=== PATIENT | male | born 1935 | race Caucasian/White ===

== ENCOUNTER 2021-01-14 08:28 | Outpatient (CLI) | payer MEDICARE, SELFPAY ==
--- NOTE | ~2021-01-14 | US_ITS ---
EXAMINATION: US retroperitoneal duplex ltd DATE: 01/14/2021 13:19 CDT INDICATION: Hypertension. TECHNIQUE: Sonographic imaging of the kidneys was performed with a 3.5 MHz transducer. Retroperitone al duplex sonogram of the renal arteries also obtained. FINDINGS: No focal flow abnormalities are seen in the renal arteries on color Doppler. The peak syst olic velocity ranges of the right and left renal arteries and aorta are 88 cm per second, 68 cm per s econd, and 56 cm per second, respectively. The velocities and renal to aortic ratios are within pasquale l limits. IMPRESSION: 1. No Doppler evidence of renal artery stenosis. Reviewed, dictated and finalized at location A.
== END 2021-01-14 08:29 | disposition home or self-care (01) ==
PROVIDERS: PCP Internal Medicine; Visit Provider Internal Medicine Nephrology
DX: I10 Essential (primary) hypertension (principal)
CPT/HCPCS: 93976

== ENCOUNTER 2021-05-20 14:53 | Outpatient (CLI) | payer MEDICARE, SELFPAY ==
--- NOTE | ~2021-05-20 | XR_ITS ---
EXAMINATION: XR chest 2V 05/20/2021 15:07 INDICATION: Chronic kidney disease PROCEDURE: 2 view chest COMPARISON: 05/12/2019 FINDINGS: The lungs are clear. The cardiomediastinal silhouette is within normal limits. There are no pleural effusions. There is no pneumothorax suspected. IMPRESSION: 1: NO ACUTE CARDIOPULMONARY DISEASE. Reviewed, dictated and finalized at location A.
== END 2021-05-20 14:54 | disposition home or self-care (01) ==
LOC: ANHIMG 14:55
PROVIDERS: PCP Internal Medicine; Visit Provider Internal Medicine Nephrology
DX: R06.02 Shortness of breath (principal); N18.4 Chronic kidney disease, stage 4 (severe)
CPT/HCPCS: 71046

== ENCOUNTER 2021-06-17 07:59 | Outpatient (CLI) | payer MEDICARE, SELFPAY ==
--- NOTE | ~2021-06-17 | NM_ITS ---
EXAMINATION: NM parvin stress w perfusion DATE: 06/17/2021 10:04 INDICATION: Dyspnea on exertion. TECHNIQUE: Rest images were obtained following intravenous administration of 9.4 mCi Tc99m tetrofosmi n (Myoview). The patient was infused intravenously with Lexiscan (regadenoson). Then, 29.8 mCi Tc99m tetrofosmin (Myoview) was administered intravenously, and stress images were obtained. Data was recon structed into short axis and horizontal and vertical long axis SPECT images. Gated SPECT images were also obtained. COMPARISON: None. FINDINGS: There is no definite reversible or fixed perfusion abnormality to suggest ischemia or infar ction. There is no segmental wall motion abnormality. Left ventricular ejection fraction measures 6 6%. IMPRESSION: 1. No definite ischemia or infarct. 2. Normal left ventricular ejection fraction measuring 66%. Reviewed, dictated and finalized at location A.
--- NOTE | 2021-06-17 08:41 | EST_ITS ---
Patient Info Name: Esequiel Sharma Age: 86 years : 1935 Gender: Male Ht: 70 in Wt: 235 lbs BSA: 2.33 m2 HR: 61 bpm BP: 168 / 79 mmHg Heart Rhythm: Sinus Rhythm Exam Date: 06/17/2021 9:02 AM Exam Location: [facility] Stress Patient Status: Outpatient Admit Date: 06/17/2021 Staff Ordering Physician: Harish Thomson DO Attending Provider: Harish Thomson DO Exercise Technologist: Ning Wilson CT Exercise Physician: Adrien Singh DO Exam Type: CA stress parvin w NM Study Info Indications R06.00 - Dyspnea, unspecified A regadenoson stress test was performed. Summary 1. 1. Negative lexiscan stress test for ischemic ST changes by ECG criteria. 2. 2. Baseline hypertension. 3. 3. Nuclear scan to follow and will be reported separately. Please correlate with it. 4. 4. Patient informed of the above results. Protocol: Lexiscan Stress ECG Details Stage: REST Duration (min): 5 min : 17 sec HR (bpm): 62 SBP (mmHg): 168 DBP (mmHg): 79 Stage: REST Duration (min): 12 min : 8 sec HR (bpm): 64 SBP (mmHg): 168 DBP (mmHg): 79 Stage: STAGE 1 Duration (min): 1 min : 0 sec HR (bpm): 93 SBP (mmHg): 193 DBP (mmHg): 67 Stage: RECOVERY Duration (min): 1 min : 0 sec HR (bpm): --- SBP (mmHg): 193 DBP (mmHg): 67 Stage: RECOVERY Duration (min): 2 min : 0 sec HR (bpm): 72 SBP (mmHg): 193 DBP (mmHg): 67 Stage: RECOVERY Duration (min): 3 min : 0 sec HR (bpm): 73 SBP (mmHg): 190 DBP (mmHg): 67 Stage: RECOVERY Duration (min): 3 min : 4 sec HR (bpm): 72 SBP (mmHg): 190 DBP (mmHg): 67 Rest HR: 64 bpm Peak HR: 101 bpm Rest Sys BP: 168 mmHg Peak Sys BP: 193 mmHg Max Pred HR: 136 bpm % Max Pred HR: 74 % Target HR: 116 bpm Max RPP: 19,493 bpm*mmHg Termination Reason: Completed protocol Cardiac Symptoms: Shortness of breath Total Time: 1 min : 0 sec Rest Bernal BP: 79 mmHg Peak Bernal BP: 67 mmHg Total Dose: 0.4 mg Resting ECG Sinus rhythm. Stress ECG No ST changes. Arrhythmias None. Report Signatures
== END 2021-06-17 08:00 | disposition home or self-care (01) ==
LOC: ANHCARD 08:02
PROVIDERS: PCP Internal Medicine; Visit Provider Internal Medicine
DX: R06.00 Dyspnea, unspecified (principal); I77.9 Disorder of arteries and arterioles, unspecified
CPT/HCPCS: 78452; 93017; A9502; J2785

== ENCOUNTER → 2021-11-27 02:49 | Outpatient (CLI) | payer MEDICARE, SELFPAY ==
[2021-11-27 12:54] LABS: Influenza A QL RT-PCR Negative (Negative); Influenza B QL RT-PCR Negative (Negative); SARS-CoV-2 RNA PCR Negative
== END ==
PROVIDERS: PCP Internal Medicine; Visit Provider Nurse Practitioner
DX: R11.2 Nausea with vomiting, unspecified (principal); R19.7 Diarrhea, unspecified; R68.89 Other general symptoms and signs; Z20.822 Contact with and (suspected) exposure to COVID-19
CPT/HCPCS: 87502; C9803; U0003; U0005

== ENCOUNTER 2022-07-14 16:14 | Outpatient (CLI) | payer MEDICARE, SELFPAY ==
--- NOTE | ~2022-07-14 | XR_ITS ---
EXAMINATION: XR forearm RT 2V INDICATION: Right forearm pain TECHNIQUE: Two views of the right forearm are obtained. COMPARISON: None available FINDINGS: Bone alignment is normal. There is no fracture. There is mild osteoarthritis of the wrist a nd elbow. Soft tissue swelling is seen overlying the mid forearm. There is calcified atherosclerosis. IMPRESSION: 1. Soft tissue swelling without acute osseous abnormality. Reviewed, dictated and finalized at location F. 'S SWIM COACH
== END 2022-07-14 16:15 | disposition home or self-care (01) ==
PROVIDERS: PCP Internal Medicine; Visit Provider Internal Medicine
DX: M79.601 Pain in right arm (principal); M79.89 Other specified soft tissue disorders
CPT/HCPCS: 73090

== ENCOUNTER 2022-07-18 14:52 | Outpatient (CLI) | payer MEDICARE, SELFPAY ==
--- NOTE | ~2022-07-18 | US_ITS ---
EXAMINATION: US venous doppler UE RT DATE: 07/18/2022 15:47 INDICATION: Right forearm pain. TECHNIQUE: Grayscale ultrasound images without and with compression and Doppler ultrasound images of the right upper extremity veins were obtained. COMPARISON: None. FINDINGS: The visualized portions of the right internal jugular vein, subclavian vein, axillary vein, brachial veins, basilic vein, radial vein, and ulnar vein are patent. There is thrombus in right cephalic vein . IMPRESSION: 1. No deep venous thrombosis. 2. Thrombus in right cephalic vein, which is a superficial vein. Reviewed, dictated and finalized at location A. STRIAL MILLWRIGHT
== END 2022-07-18 14:53 | disposition home or self-care (01) ==
PROVIDERS: PCP Internal Medicine; Visit Provider Internal Medicine
DX: M79.631 Pain in right forearm (principal); M79.89 Other specified soft tissue disorders
CPT/HCPCS: 93971

== ENCOUNTER → 2022-12-04 14:43 | Outpatient (CLI) | payer MEDICARE, SELFPAY ==
--- NOTE | ~2022-12-04 | XR_ITS ---
XR knee LT min 4V DATE: 12/04/2022 15:00 INDICATION: Chronic right knee pain for 2 years TECHNIQUE: 4 views COMPARISON: None FINDINGS: There is tricompartment osteoarthritis, most severe at the medial and patellofemoral compar tments. No fracture or dislocation or joint effusion. No periosteal reaction or bone destruction. No chondroc alcinosis or radiopaque intra-articular loose body is noted. There is severe calcification of the femoral, popliteal arteries IMPRESSION: Prominent tricompartment osteoarthritis Reviewed, dictated and finalized at location A.
--- NOTE | ~2022-12-04 | XR_ITS ---
XR knee RT min 4V DATE: 12/04/2022 15:00 INDICATION: Right knee chronic pain for 2 years TECHNIQUE: 4 views COMPARISON: None FINDINGS: There is tricompartment osteoarthritis, most severe at the medial and patellofemoral compar tments. No fracture or dislocation or joint effusion. No periosteal reaction or bone destruction. There is severe calcification of the femoral and popliteal arteries as well as some prominent trifurc ation artery calcification. IMPRESSION: Tricompartment osteophytes, most prominent at the patellofemoral and medial compartments Reviewed, dictated and finalized at location A. IMPRESSION: Tricompartment osteophytes, most prominent at the patellofemoral an d medial compartments
== END ==
PROVIDERS: PCP Family Medicine; Visit Provider Nurse Practitioner Family
DX: M25.561 Pain in right knee (principal); M25.761 Osteophyte, right knee; M17.12 Unilateral primary osteoarthritis, left knee
CPT/HCPCS: 73564

== ENCOUNTER 2023-01-19 14:07 | Outpatient (CLI) | payer MEDICARE, SELFPAY ==
--- NOTE | ~2023-01-19 | US_ITS ---
US renal BI 01/19/2023 15:18 Procedure: Realtime transabdominal ultrasound of the kidneys and bladder. Indication: Benign essential hypertension Comparison: No prior studies for comparison. Findings: Renal echotexture is normal bilaterally without hydronephrosis, contour deforming mass or r enal calculus. There are bilateral renal cysts, largest in the right kidney measuring 7 cm per The ri ght kidney measures 11.7 cm and left kidney measures 13 cm. Bladder within normal limits. Impression: 1: Unremarkable renal ultrasound. No stones, masses or hydronephrosis. Reviewed, dictated and finalized at location B. Impression: 1: Unremarkable renal ultrasound. No stones, masses or hydronephrosis.
== END 2023-01-19 14:08 | disposition home or self-care (01) ==
PROVIDERS: PCP Nurse Practitioner Family; Visit Provider Internal Medicine Nephrology
DX: N40.0 Benign prostatic hyperplasia without lower urinary tract symptoms (principal); E78.5 Hyperlipidemia, unspecified; E11.43 Type 2 diabetes mellitus with diabetic autonomic (poly)neuropathy; I12.9 Hypertensive chronic kidney disease with stage 1 through stage 4 chronic kidney disease, or unspecified chronic kidney disease; N18.4 Chronic kidney disease, stage 4 (severe); N39.41 Urge incontinence; I73.9 Peripheral vascular disease, unspecified
CPT/HCPCS: 76775

== ENCOUNTER 2023-03-04 17:16 | Emergency (ER) | payer MEDICARE, SELFPAY ==
--- NOTE | ~2023-03-04 | XR_ITS ---
XR tibia fibula LT 2V DATE: 03/04/2023 19:09 INDICATION: Fall. Lower leg injury, pain TECHNIQUE: AP and lateral views COMPARISON: None FINDINGS: Tricompartment osteophyte is, most pronounced at the patellofemoral compartment. No fracture, dislocation, periosteal reaction or bone destruction of the tibia or fibula is detected. Plantar calcaneal enthesopathy. Extensive calcification of the femoral and popliteal arteries as well as trifurcation artery calcific ations. IMPRESSION: No fracture or dislocation Reviewed, dictated and finalized at location A. IMPRESSION: No fracture or dislocation
--- NOTE | ~2023-03-04 | XR_ITS ---
XR knee LT 3V DATE: 03/04/2023 20:08 INDICATION: Fall. Knee pain. TECHNIQUE: 3 views COMPARISON: December 04, 2022 left knee FINDINGS: There is tricompartment osteophyte is, most severe at the lateral compartment where there i s minimal residual joint space. There is periarticular spurring at all 3 compartments, particularly a t the patellofemoral compartment. No fracture or dislocation or obvious joint effusion is noted. No radiopaque intra-articular loose body or chondrocalcinosis. No periosteal reaction or bone destruction. Severe femoral, popliteal and trifurcation artery calcifications. IMPRESSION: Tricompartment osteoarthritis No fracture or dislocation or apparent joint effusion Reviewed, dictated and finalized at location A.
[2023-03-04 17:34] VITALS: BP 142/52; PULSE 68; RESP 18; TEMP 36.3; O2SAT 100
--- NOTE | 2023-03-04 20:00 | ED.GENADULT ---
HPI - General Adult General Chief complaint: Extremity Injury, Lower Stated complaint: left leg injury Time Seen by Provider: 03/04/23 19:09 History of Present Illness HPI narrative: This is an 87-year-old gentleman presenting after a fall. Patient was trying to throw something away when his legs got tangled up and he fell. He landed on his left leg. He now has pain over the lateral aspect of his lower extremity. He has been able ambulate since the injury. He not strike his head or have any other injuries from the fall. Patient is on Plavix. Related Data Home Medications Medication Instructions Recorded Confirmed hydrochlorothiazide 25 mg tablet 25 mg PO DAILY 02/18/23 Allergies Allergy/AdvReac Type Severity Reaction Status Date / Time SALEEM Inhibitors Allergy Unknown swelling Verified 03/04/23 20:14 of tongue Cephalosporins Allergy Unknown swelling Verified 03/04/23 20:14 of tongue quinapril Allergy Unknown Swelling Verified 03/04/23 20:14 of Lip/Tongue/Throat PMFSH Past Medical History Medical History (Updated 03/04/23 @ 20:58 by Vasile Arango MD) Actinic keratoses Anemia Anemia in chronic kidney disease Bilateral knee pain Degenerative arthritis of knee, 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 Diabetic peripheral neuropathy Elevated PSA Encounter to establish care Essential (primary) hypertension Foot deformity, acquired History of depression Macular pucker Nasal cavity polyp Nasal sinus polyp Nausea vomiting and diarrhea 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 Urge incontinence of urine Urinary hesitancy UTI (urinary tract infection) Surgical History Surgical History H/O adenoidectomy History of appendectomy History of repair of rotator cuff Hx of tonsillectomy S/P cataract surgery Family History Family History Father Family history of osteoarthritis Cerebrovascular accident Patient's father is in good health Mother Family history of malignant neoplasm, Onset Age: 59 Patient's mother is in good health Sibling Family history of malignant neoplasm Family history of arthritis Social History Social History Smoking status: Never smoker Second hand tobacco smoke exposure: No Alcohol intake: never Substance use: never Substance use type: does not use Lack of Transportation: No Lack of Food: Never True Current Housing: I Have Housing Concerned About Future Housing: No Difficulty Paying Gas/Electric Bills: No Difficulty Paying for Meds: No Currently Unemployed: No Education: Associate Degree Difficulty w/ Childcare or Family Care: No Living arrangements: alone Occupation/Education: retired Exam Narrative: APPEARANCE: No apparent distress. Head: atraumatic. EYES: EOMI, NOSE: Atraumatic NECK: Trachea midline RESPIRATORY: No increased rate of breathing CARDIOVASCULAR: RRR, ABDOMINAL: Non-distended MUSCULOSKELETAl: focal exam of the left lower extremity revealed no significant swelling as compared to the right leg. There are no overlying skin changes or bruising. The compartments are soft. Patient is able to move his toes and the foot is warm. He has intact flexion extension at the ankle and at the knee. He is able to bear weight although it is painful. NEURO: Alert. Moving 4/4 extremities SKIN:: Warm, dry. Normal color PSYCHIATRIC: Normal affect Course Vital Signs Vital signs: Vital Signs Temperature 97.4 F L 03/04/23 17:34 Pulse Rate 68 03/04/23 17:34 Respiratory Rate 18 03/04/23 17:34 Blood Pressure 142/52 H 03/04/23 17:34 Pulse Oximetry 100 03/04/23 17:34 Oxygen Delivery Room Air 03/04/23 17:34 Temperature 97.4 F L 03/04/23 17:34 Pulse Rate 68 03/04/23 17:34 Re
[2023-03-04] MEDS: ACETAMINOPHEN 500 MG TABLET 1000 MG PO (20:15)
== END 2023-03-04 21:16 | disposition home or self-care (01) ==
PROVIDERS: Emergency Provider Emergency Medicine; PCP Nurse Practitioner Family
DX: S86.912A Strain of unspecified muscle(s) and tendon(s) at lower leg level, left leg, initial encounter (principal); E11.22 Type 2 diabetes mellitus with diabetic chronic kidney disease; I12.9 Hypertensive chronic kidney disease with stage 1 through stage 4 chronic kidney disease, or unspecified chronic kidney disease; N18.4 Chronic kidney disease, stage 4 (severe); D63.1 Anemia in chronic kidney disease; E11.42 Type 2 diabetes mellitus with diabetic polyneuropathy; N40.0 Benign prostatic hyperplasia without lower urinary tract symptoms; H35.379 Puckering of macula, unspecified eye; Z87.440 Personal history of urinary (tract) infections; Z86.2 Personal history of diseases of the blood and blood-forming organs and certain disorders involving the immune mechanism; Z98.49 Cataract extraction status, unspecified eye; Z79.84 Long term (current) use of oral hypoglycemic drugs; M17.12 Unilateral primary osteoarthritis, left knee; W01.0XXA Fall on same level from slipping, tripping and stumbling without subsequent striking against object, initial encounter
CPT/HCPCS: 73562; 73590; 99284; A9270

== ENCOUNTER 2023-09-01 10:22 | Outpatient (CLI) | payer MEDICARE, SELFPAY ==
--- NOTE | ~2023-09-01 | NM_ITS ---
EXAMINATION: NM bone scan whole body DATE: 09/01/2023 15:05 INDICATION: Prostate cancer TECHNIQUE: 26.7 mCi Tc-99m HDP was administered intravenously. Delayed whole-body scintigrams were o btained. COMPARISON: Left knee and lower leg radiographs dated 03/04/2023 and bilateral knee radiographs dated . No more recent imaging for comparison. FINDINGS: Likely degenerative mild joint centered uptake at the medial compartments of both knees, right greate r than left. No other suspicious foci of abnormal bone uptake to suggest metastatic disease. IMPRESSION: 1. No evident metastatic disease. Reviewed, dictated and finalized at location A. CONTENT EXECUTIVE
== END 2023-09-01 10:23 | disposition home or self-care (01) ==
PROVIDERS: PCP Nurse Practitioner Family; Visit Provider Urology
DX: C61 Malignant neoplasm of prostate (principal)
CPT/HCPCS: 78306; A9503

== ENCOUNTER 2023-09-04 09:46 | Outpatient (CLI) | payer MEDICARE, SELFPAY ==
--- NOTE | ~2023-09-04 | CT_ITS ---
EXAMINATION: CT abdomen pelvis wo con DATE: 09/04/2023 10:46 INDICATION: Prostate cancer TECHNIQUE: Computed tomography (CT) of the abdomen and pelvis was performed without intravenous contr ast. Automated exposure control and iterative reconstruction technique were employed. Exam dose: 851 .87 mGy-cm total exam DLP. COMPARISON: 09/01/2023 bone scan 04/01/2015 CT abdomen pelvis 03/31/2015 CT abdomen pelvis FINDINGS: The lung bases are clear of infiltrate or consolidation. Normal heart size. There is extensive coronary artery calcification. Prominent mitral annulus calcifi cation. There is some aortic valve calcification. No pericardial or pleural effusion. Calcified left hilar nodes and calcified splenic granulomas consi stent with old granulomatous disease. 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 There is an adjacent kyree roximately 5.1 cm lower pole exophytic right renal cyst. Indeterminate approximately 1.9 cm hypoattenuating lesion at the superior pole of the right kidney, n ot evident on 03/31/2015, with attenuation of approximately 21 Hounsfield units. There are at least several indeterminate approximately 3 cm, 11 mm and 12 mm hypoattenuating lesions of the left kidney. Consider CT examination with IV contrast material or MRI for further evaluation. Multiple scattered small bilateral nonobstructing renal calculi. No ureteral calculus or hydrouretero nephrosis. There is extensive calcification of the abdominal aorta and the proximal celiac, superior mesenteric and renal arteries. No abdominal aortic aneurysm. Prominent calcification of the iliac and femoral ar teries. No intraperitoneal or retroperitoneal or pelvic mass lesion or adenopathy or ascites. There is moderate diffuse thickening of the urinary bladder and mild prostate enlargement. There is diverticulosis of the sigmoid colon; no CT evidence of diverticulitis. No bowel obstruction, bowel wall thickening, pneumatosis or intraperitoneal free air. Small fat-containing umbilical hernia. Diffuse idiopathic skeletal hyperostosis of the thoracic spine. 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 Consider CT with IV contrast material or MR for further evaluation Nonobstructive bilateral nephrolithiasis Diverticulosis of sigmoid colon; no evidence of diverticulitis Dr. Bauer telephoned the report on 09/04/20[address] Garduno. Reviewed, dictated and finalized at Location A. Reviewed, dictated and finalized at location B. 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 Consider CT with IV contrast mater ial or MR for further evaluation Nonobstructive bilateral nephrolithiasis Diverticulosis of sigmoid colon; no evidence of diverticulitis Dr. Bauer telephoned the report on 09/04/2023 [address] Garduno.
[2023-09-04 10:30] LABS: Estimated Glomerular Filt Rate 16
== END 2023-09-04 09:47 | disposition home or self-care (01) ==
PROVIDERS: PCP Nurse Practitioner Family; Visit Provider Urology
DX: C61 Malignant neoplasm of prostate (principal); N28.9 Disorder of kidney and ureter, unspecified; N20.0 Calculus of kidney; K57.90 Diverticulosis of intestine, part unspecified, without perforation or abscess without bleeding
CPT/HCPCS: 74176

== ENCOUNTER 2023-11-20 15:29 | Emergency (ER) | payer MEDICARE, SELFPAY ==
--- NOTE | 2023-11-20 15:31 | ED.URI ---
HPI - URI/Sore Throat General Chief Complaint: Upper Respiratory Infection Stated Complaint: Sore Throat Time Seen by Provider: 11/20/23 15:30 Source: patient Mode of arrival: ambulatory Limitations: no limitations History of Present Illness HPI Narrative: Patient is an 88-year-old male who presents with right-sided sore throat that started yesterday. Patient was at a and is unsure if he had sick contacts. Denies any worsening congestion and postnasal drip. Denies any fever, chills, nausea, vomiting, diarrhea. Has taken [id number] medication without relief. Related Data Home Medications Medication Instructions Recorded Confirmed ascorbate calcium (vitamin C) 500 500 mg PO DAILY 10/26/23 11/20/23 mg tablet ascorbic acid (vitamin C) 1,500 mg 1,500 mg PO Q12H 10/26/23 11/20/23 tablet,extended release cholecalciferol (vitamin D3) 125 125 mcg PO DAILY 10/26/23 11/20/23 mcg (5,000 unit) capsule flaxseed oil 1,000 mg capsule 1,000 mg PO DAILY 10/26/23 11/20/23 mecobalamin (vitamin B12) 1,000 1,000 mcg sublingual DAILY 10/26/23 11/20/23 mcg disintegrating tablet,sublingual hydrochlorothiazide 25 mg tablet 25 mg PO DAILY 11/20/23 11/20/23 Allergies Allergy/AdvReac Type Severity Reaction Status Date / Time SALEEM Inhibitors Allergy Intermediate swelling Verified 11/20/23 15:31 of tongue Cephalosporins Allergy Intermediate swelling Verified 11/20/23 15:31 of tongue quinapril Allergy Intermediate Swelling Verified 11/20/23 15:31 of Lip/Tongue/Throat Review of Systems Review of Systems: All systems reviewed & are unremarkable except as noted in HPI and below Constitutional: Constitutional: Denies body ache(s), Denies chills, Denies fatigue, Denies fever(s), Denies headache(s), Denies malaise and Denies weakness Eyes: Eyes: Denies blurry vision, Denies itchy eyes and Denies loss of vision ENT: Denies otalgia, Denies headache(s), Denies nasal congestion, Denies sinus pain and Reports sore throat Cardiovascular: Cardiovascular: Denies chest pain, Denies irregular heart rhythm and Denies dyspnea Respiratory: Respiratory: Denies cough and Denies dyspnea Gastrointestinal: Gastrointestinal: Denies abdominal pain, Denies diarrhea, Denies nausea and Denies vomiting Musculoskeletal: Musculoskeletal: Denies back pain, Denies myalgias and Denies arthralgias Integumentary/Breasts: Skin/Breast: Denies pruritus and Denies rash Neurologic: Denies headache(s), Denies loss of vision and Denies weakness Psychiatric: Psychiatric: Reports no additional psychiatric complaints Endocrine: Endocrine: Denies fatigue Allergic/Immunologic: Allergic/Immunologic: Denies itchy eyes PMFSH Past Medical History Medical History Actinic keratoses Anemia Anemia in chronic kidney disease Bilateral knee pain Degenerative arthritis of knee, bilateral Depression Diabetes mellitus type 2 in obese Diabetic peripheral neuropathy Elevated PSA Encounter to establish care Essential (primary) hypertension Foot deformity, acquired History of depression Macular pucker Nasal cavity polyp Nasal sinus polyp Nausea vomiting and diarrhea Osteoarthritis of left knee 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 Urge incontinence of urine Urinary hesitancy UTI (urinary tract infection) Surgical History Surgical History H/O adenoidectomy History of appendectomy History of repair of rotator cuff Hx of tonsillectomy S/P cataract surgery Family History Family History Father Family history of osteoarthritis Cerebrovascular accident Patient's father is in good health Mother Family history of malignant neoplasm, Onset Age: 59 Patient's mother is in good health Sibling Family history of malignant neop
[2023-11-20 15:45] VITALS: BP 146/63; PULSE 74; RESP 16; TEMP 36.6; O2SAT 100
== END 2023-11-20 16:15 | disposition home or self-care (01) ==
PROVIDERS: Emergency Provider Nurse Practitioner Family; PCP Nurse Practitioner Family
DX: J02.9 Acute pharyngitis, unspecified (principal); M17.0 Bilateral primary osteoarthritis of knee; I12.9 Hypertensive chronic kidney disease with stage 1 through stage 4 chronic kidney disease, or unspecified chronic kidney disease; E11.22 Type 2 diabetes mellitus with diabetic chronic kidney disease; N18.4 Chronic kidney disease, stage 4 (severe); E11.42 Type 2 diabetes mellitus with diabetic polyneuropathy; D64.9 Anemia, unspecified
CPT/HCPCS: 87081; 87880; 99213; G0463

== ENCOUNTER 2024-01-22 08:45 | Outpatient (CLI) | payer MEDICARE, SELFPAY ==
--- NOTE | ~2024-01-22 | XR_ITS ---
Right Knee Technique: AP, lateral, and sunrise views were obtained. Clinical History: Pain Findings: No fracture or dislocation is seen. There is medial compartment narrowing with [id number] appearance. There is moderate to advanced tricompartmental osteophyte formation.. Soft tissues are u nremarkable. No joint effusion is seen. Impression: Moderate to advanced tricompartmental osteoarthritis, worst in the medial and patellofemoral compartm ent. Reviewed, dictated and finalized at location M. Impression: Moderate to advanced tricompartmental osteoarthritis, worst in the medial and p atellofemoral compartment.
--- NOTE | ~2024-01-22 | XR_ITS ---
Left Knee Technique: AP, lateral, and sunrise views were obtained. Clinical History: Pain Findings: No fracture or dislocation is seen. There is medial compartment narrowing. There is moderat e to advanced tricompartmental osteophyte formation.. Soft tissues are unremarkable. No joint effusio n is seen. Impression: Moderate to advanced tricompartmental osteoarthritis, as above. Reviewed, dictated and finalized at location M. Impression: Moderate to advanced tricompartmental osteoarthritis, as above.
== END 2024-01-22 08:46 | disposition home or self-care (01) ==
PROVIDERS: PCP Nurse Practitioner Family; Visit Provider Orthopaedic Surgery
DX: M17.0 Bilateral primary osteoarthritis of knee (principal)
CPT/HCPCS: 73564

== ENCOUNTER 2024-02-06 02:44 | Inpatient (IN) | payer MEDICARE, SELFPAY ==
[2024-02-06] VITALS (30 sets, daily range): BP systolic 115–165; BP diastolic 47–87; PULSE 68–117; RESP 18–36; TEMP 36.3–38.1; O2SAT 58–100; BMI 31.6
--- NOTE | ~2024-02-06 | XR_ITS ---
XR chest 1V portable DATE: 02/06/2024 03:35 INDICATION: Shortness of breath, pulmonary edema TECHNIQUE: Portable upright AP chest on 02/06/2024 at 0329 hours COMPARISON: 05/20/2021 PA and lateral chest FINDINGS: Cardiomegaly. There are prominent bilateral pulmonary infiltrates which most prominent centrally and in the lower l david zones, especially on the left lower lung. There is pulmonary vascular congestion. The findings nash ggest congestive heart failure and pulmonary edema. Pneumonia is not excluded. There is minimal fatty pleural effusions. No pneumothorax. Aortic arch calcification. Diffuse osteopenia. Several anchor devices overlying the right humeral head. Osteoarthritis of the gl enohumeral joints. IMPRESSION: Cardiomegaly, prominent bilateral predominantly central and lower lung zone infiltrates s uggesting pulmonary edema. Pneumonia is not excluded Reviewed, dictated and finalized at location A. IMPRESSION: Cardiomegaly, prominent bilateral predominantly central and lower l david zone infiltrates suggesting pulmonary edema. Pneumonia is not excluded
--- NOTE | ~2024-02-06 | US_ITS ---
US renal BI Ordering provider: Ricky Benites MD History: . renal failure . Comparison: None. Technique: Ultrasound bilateral kidneys. Findings: RIGHT KIDNEY: Measures 9.8x 5.9x 6.1 cm in length which is normal in size. Multiple cysts are seen. T he largest is seen inferiorly measuring 6.4 x 6.7 x 6.9 cm No renal mass or visualized echogenic ston es. Slightly increased echogenicity. Otherwise, normal contour. No hydronephrosis. Normal renal corti finn thickness. LEFT KIDNEY: Measures 11x 5.1x 5.3 cm in length which is normal in size. No renal cysts. No renal mas s or visualized echogenic stones. Slightly increased echogenicity. Otherwise, normal contour. No hydr onephrosis. Normal renal cortical thickness. BLADDER: Not seen due to Romo's catheter Left pleural effusion is seen. IMPRESSION: Multiple cysts in the right kidney. Slightly increased echogenicity of both kidneys. Left pleural effusion. Reviewed, dictated and finalized at location A.
--- NOTE | ~2024-02-06 | XR_ITS ---
XR chest 1V portable Ordering provider: Ricky Benites MD History: 88 years Male with . sob . Comparison: February 06, 2024 FINDINGS: MEDIASTINUM: The cardiac silhouette is slightly enlarged. Congestive ladarius. LUNGS: There is space disease seen bilaterally more prominent in the left mid and lower zone. The dif ferential includes pneumonia and pulmonary edema. OTHER: Degenerative changes of the spine. No free air under the diaphragm. IMPRESSION: Airspace disease seen bilaterally more prominent in the left mid and lower zone suggestive of pneumon ia versus pulmonary edema. Reviewed, dictated and finalized at location A. IMPRESSION: Airspace disease seen bilaterally more prominent in the left mid and lower zone suggestive of pneumonia versus pulmonary edema.
[2024-02-06] MEDS: FUROSEMIDE INJ 40 MG/4 ML VIAL IV PUSH ×2 (02:57→03:10)
--- NOTE | 2024-02-06 03:22 | ECG_ITS ---
[facility] [address] Test Date: 2024-02-06 Pat Name: Esequiel Sharma Department: Room: 203 Gender: M Legal Administrative Assistant: Mary : 1935 Requested By: Antolin Lamas Order Number: [id number] Reading MD: Singh Styles M.D. Measurements Intervals Peetz Rate: 121 P: 0 UT: 0 QRS: 43 QRSD: 130 T: 55 QT: 323 QTc: 460 Interpretive Statements REDUCED ECG QUALITY BECAUSE OF BASELINE ARTIFACT SINUS TACHYCARDIA INTRAVENTRICULAR CONDUCTION DELAY NONSPECIFIC ST AND T-WAVE CHANGES ABNORMAL ECG WARNING: DATA QUALITY MAY AFFECT INTERPRETATION No previous ECG available for comparison Electronically Signed On 02-06-2024 08:09:52 CDT by Singh Styles M.D.
[2024-02-06] MEDS: METOPROLOL TARTRATE INJ 5 MG/5 ML VIAL IV PUSH (03:33)
[2024-02-06 03:41] LABS: Alveolar/Arterial O2 Gradient 385.7 mmHg; Base Excess ABG -13.6 mEq/l (+/-2.0); Carboxyhemoglobin 0.3 % THb (0-2.0); Fractional Inspired Oxygen 80 %; HCO3 ABG 17.8 mEq/l (22.0-26.0); Methemoglobin ABG 0.1 %THb (0-1.5); Oxygen Saturation ABG 95.3 % (95.0-100.0); Oxyhemoglobin 95.2 % THb (90.0-100.0); PO2 ABG 111.2 mmHg (80.0-100.0); PO2 FiO2 Ratio Arterial Blood 1.39 %; Reduced Hemoglobin 4.4 %THb (0-5.0); Total Hemoglobin 11.8 g/dL (12.0-18.0)
[2024-02-06 03:44] LABS: Lactic Acid Reflex 4.5 mmol/L (0.7-2.0)
[2024-02-06 03:48] LABS: Device BIPAP; Modified Allen's Test Pass; Site Drawn LEFT RADIAL
[2024-02-06 03:49] LABS: Inspiratory Pressure 14 cmH2O
[2024-02-06 03:50] LABS: Expiratory Pressure 7 cmH2O
[2024-02-06] MEDS: methylPREDNISolone SOD SUCC 125 MG VIAL IV PUSH (03:51)
[2024-02-06] MEDS: LORazepam INJ (*CRX) 2 MG/ML VIAL 0.5 MG IV PUSH (03:54)
[2024-02-06] MEDS: HEPARIN SOD/D5W 100 UNITS/ML 25,000 UNITS/250 ML BAG 10 UNITS IV CONT (03:58)
[2024-02-06 04:07] LABS: pH ABG 7.023 (7.350-7.450)
[2024-02-06 04:09] LABS: Basophils Absolute Auto 0.1 K/mm3 (0.0-0.1); Basophils Percent Auto 0.7 % (0.2-1.2); Eosinophils Absolute Auto 0.1 K/mm3 (0-0.3); Eosinophils Percent Auto 0.5 % (0-4.4); Hematocrit 33.6 % (42.0-52.0); Hemoglobin 10.4 g/dL (14.0-18.0); Immature Granulocyte Absolute 0.13 K/mm3 (0.00-0.031); Immature Granulocyte Percent A 0.7 % (0-0.5); Lymphocytes Absolute Auto 5.34 K/mm3 (0.9-3.2); Lymphocytes Percent Auto 27.1 % (18.3-44.2); Mean Corpuscular Hemoglobin 30.2 pg (26-34); Mean Corpuscular Volume 97.7 fl (80-100); Mean Platelet Volume 11.6 fl (7.4-10.4); Monocytes Absolute Auto 1.3 K/mm3 (0.1-0.6); Monocytes Percent Auto 6.7 % (2.6-8.5); Neutrophils Absolute Auto 12.7 K/mm3 (1.3-6.7); Neutrophils Percent Auto 64.3 % (45.5-73.1); Platelet Count Result 250 k/mm3 (150-375); Red Blood Count 3.44 M/mm3 (4.6-6.20); Red Cell Distribution Width 13.6 % (11.5-14.5); White Blood Count 19.7 K/mm3 (4.5-10.0)
[2024-02-06] MEDS: LEVALBUTEROL NEB 1.25 MG/3 ML 0.63 MG INHALATION (04:16)
[2024-02-06] MEDS: IPRATROPIUM BR 0.02% INH SOLN 0.5 MG/2.5 ML VIAL INHALATION (04:17)
[2024-02-06 04:19] LABS: INR 1.1
[2024-02-06 04:21] LABS: Partial Thromboplastin Time 76.2 Seconds (22.3-36.8)
--- NOTE | 2024-02-06 04:21 | PM.IMHP ---
H&P: HPI History of Present Illness Date/Time: 02/06/24 04:21 Chief Complaint: Patient transferred from [facility] for chest pain, developed flash pulmonary edema and NSTEMI during ambulance transfer Narrative: RAPID RESPONSE CODE: Our patient is an 88 years old keen who was in his usual state of health until yesterday afternoon when he started to have chest pain, intensity 7/10, located in the anterior chest with radiation to neck jaw and left upper arm, associated with some palpitations and shortness of breath but no sweating. Patient went to [facility] Emergency Room where he was worked up. First set of cardiac enzymes was borderline elevated. They did not have a corporate aircraft mechanic available hence ER physician reached out to me and I accepted the patient transfer. Before transferring, patient had another set of cardiac enzymes and his high sensitivity troponin increased from 84 to 598! Patient was started on IV heparin drip for NSTEMI and transferred to our facility via ambulance. When patient was about 10 minutes away from our hospital, he suddenly started having worsening shortness of breath and his O2 sats dropped into 70s. Patient started on oxygen via non-rebreather mask and brought to our IMU for admission, started on BiPAP and rapid response code was called. Review of Systems Review of Systems: Unable to be obtained as patient had significant dyspnea and was on BiPAP ROS unobtainable: Yes unobtainable due to medical condition PMFSH Past Medical History Medical History Actinic keratoses Anemia Anemia in chronic kidney disease Bilateral knee pain Degenerative arthritis of knee, bilateral Depression Diabetes mellitus type 2 in obese Diabetic peripheral neuropathy Elevated PSA Encounter to establish care Essential (primary) hypertension Foot deformity, acquired History of depression Macular pucker Nasal cavity polyp Nasal sinus polyp Nausea vomiting and diarrhea Osteoarthritis of left knee 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 Urge incontinence of urine Urinary hesitancy UTI (urinary tract infection) Surgical History Surgical History H/O adenoidectomy History of appendectomy History of repair of rotator cuff Hx of tonsillectomy S/P cataract surgery Family History Family History Father Family history of osteoarthritis Cerebrovascular accident Patient's father is in good health Mother Family history of malignant neoplasm, Onset Age: 59 Patient's mother is in good health Sibling Family history of malignant neoplasm Family history of arthritis Social History Social History Smoking status: Never smoker Second hand tobacco smoke exposure: No Alcohol intake: never Substance use: never Substance use type: does not use Lack of Transportation: No Lack of Food: Never True Current Housing: I Have Housing Concerned About Future Housing: No Difficulty Paying Gas/Electric Bills: No Difficulty Paying for Meds: No Currently Unemployed: No Education: Associate Degree Difficulty w/ Childcare or Family Care: No Living arrangements: alone Occupation/Education: retired Meds Home Medications and Allergies Home Medications Medication Instructions Recorded Confirmed Type cholecalciferol (vitamin D3) 125 50 mcg PO DAILY 10/26/23 02/06/24 History mcg (5,000 unit) capsule flaxseed oil 1,000 mg capsule 1,000 mg PO DAILY 10/26/23 02/06/24 History mecobalamin (vitamin B12) 1,000 1,000 mcg sublingual DAILY 10/26/23 02/06/24 History mcg disintegrating tablet,sublingual citalopram 20 mg tablet 20 mg PO DAILY #90 tabs 10/27/23 02/06/24 Rx atorvastatin 80 mg tablet 80 mg PO DAILY 02/06/24 02/06/24 Histor
[2024-02-06 04:34] LABS: Platelet Estimate Adequate (Adequate)
[2024-02-06 04:35] LABS: Acanthocytes 1+; Anisocytosis 2+
[2024-02-06 04:36] LABS: Burr Cells 1+; Ovalocytes 1+; Schistocytes Rare
--- NOTE | 2024-02-06 04:58 | ADMGEN ---
This patient, Esequiel Sharma, was admitted to IMU Room 203-01. Patient/family oriented to hospital policies and general routines including ID bracelet, bed and alarms, visiting hours, pain management, procedures, bathroom and other care routines, personal items, smoking policy, room service/diet, and visiting hours. Information on how to activate the Rapid Response Team has been discussed. Patient/Family are encouraged to report perceived risks to care and to ask questions if they do not understand what they are told or what they should do.
--- NOTE | 2024-02-06 05:00 | PC.NURSE ---
Patient arrived to unit at 0245. No heparin infusing upon arrival. Patient showing signs of flash pulmonary edema including diaphoresis, gasping, new pitting edema to lower extremities, pulse ox in the 50s. This RN, charge nurse, and yard warehouse worker at bedside. This RN called provider, Dr. Lamas, to bedside. Patient continued desatting in 50s. Rapid response called at 0258.
[2024-02-06] MEDS: SODIUM BICARBONATE 8.4% 50 MEQ/50 ML SYRINGE 105 MEQ IV PUSH (06:02)
--- NOTE | 2024-02-06 06:12 | ECHO_ITS ---
Patient Info Name: Esequiel Sharma Age: 88 years : 1935 Gender: Male Ht: 70 in Wt: 231 lbs BSA: 2.31 m2 HR: 68 bpm BP: 155 / 78 mmHg Heart Rhythm: Sinus Rhythm Technical Quality: Fair Exam Date: 02/06/2024 7:56 AM Exam Location: Echo Lab Patient Status: Inpatient Admit Date: 02/06/2024 Staff Ordering Physician: Antolin Lamas MD Statistical Reporting Analyst: Yuriy Krishnamurthy RDCS Attending Provider: Antolin Lamas MD Exam Type: CA echo dop color flow w con Study Info Indications - flash pulmonary edema I21.4 - Non-ST elevation (NSTEMI) myocardial infarction Complete two-dimensional, color flow and Doppler transthoracic echocardiogram is performed with contrast to opacify the left ventricle and to improve the deliniation of the left ventricle endocardial borders. Contrast/Agitated Saline Contrast/Ag. Saline: Definity Amount: 5.00 ml Existing IV Access: Yes Summary 1. Mild left ventricular enlargement with reduced systolic function ejection fraction 35-40%. 2. Akinesis of the mid to anteroseptal segments and apex. 3. Hypokinesia of the anterior wall. 4. Calcified mitral valve annulus with mild left atrial enlargement. 5. Mildly sclerotic aortic valve. Left Ventricle Left ventricular chamber dimension is mildly enlarged. Left ventricular systolic function is moderately reduced, estimated at 35-40%. The left ventricular diastolic function is grade I diastolic dysfunction. Right Ventricle Right ventricular chamber dimension is normal. Left Atria Left atrial chamber dimension is moderately enlarged. Right Atria Right atrial chamber dimension is normal. Aortic Valve The aortic valve is trileaflet. There is mild aortic valve sclerosis. Pulmonic Valve The pulmonic valve is not well visualized. Mitral Valve The mitral valve has normal leaflets. There is trace mitral valve regurgitation. Tricuspid Valve The tricuspid valve leaflets are normal. Pericardium/Pleural The pericardium appears normal. Aorta The aortic root size at the sinus of Valsalva is normal. Left Ventricular Outflow Tract Name Value Normal LVOT 2D LVOT Diameter 2.13 cm LVOT Doppler LVOT Peak Gradient 6 mmHg LVOT Mean Gradient 3 mmHg LVOT VTI 27.13 cm LVOT VTI/AV VTI Ratio 0.92 LVOT Stroke Volume 96.68 ml LVOT CO 6.43 l/min LVOT CI 2.79 L/min/m2 Pulmonic Valve Name Value Normal PV Doppler PV Peak Gradient 6 mmHg Mitral Valve Name Value Normal MV Doppler MV Peak Gradient
[2024-02-06 06:16] LABS: Reflex Lactic Acid Yes or No Add Lactic
[2024-02-06] MEDS: AZITHROMYCIN 500 MG/NS 250 ML 500 MG/250 ML BAG 250 MG IVPB (06:18)
[2024-02-06 06:35] LABS: Magnesium 1.8 mg/dL (1.6-2.3)
[2024-02-06 06:37] LABS: Lactic Acid Reflex 4.2 mmol/L (0.7-2.0)
[2024-02-06] MEDS: MEROPENEM 1 GM/NS 100 ML BAG IVPB ×2 (08:00→18:35)
[2024-02-06] MEDS: PERFLUTREN LIPID MICROSPHERES 1.5 ML VIAL DILUTED TO 10 ML TOTAL VOLUME IV PUSH (09:42)
--- NOTE | 2024-02-06 09:43 | IVDEFINITY ---
Prior to administration of IV Definity the patient was educated on the risks and benefits of the imaging enhancing agent including potential adverse side effects. The patient verbalized understanding. Allergies were verified. No exclusion criteria were identified and at least one of the following inclusion criteria were met: 1) physician request, 2) patient technically difficult to image (per the [place] [employer] guidelines of two or more segments not discernable within the apical view), or 3) questionable left ventricular function. ?
--- NOTE | 2024-02-06 11:22 | PM.CNCAR ---
Assessment and Plan Assessment and plan (1) NSTEMI (non-ST elevated myocardial infarction): Code(s): I21.4 - Non-ST elevation (NSTEMI) myocardial infarction Status: Acute (2) DNR (do not resuscitate): Code(s): Z66 - Do not resuscitate Status: Acute Plan This is an 88-year-old man with a history of hypertension diabetes and dyslipidemia who presents with non ST elevation NV with chest pain a rise in his troponin and some pulmonary edema last evening. He has been treated with diuretics and BiPAP device and seems to be comfortable and is no longer having chest pain. He was also anticoagulated with heparin. I would like to add aspirin to his medical regimen. I will shift him from diltiazem to modest dose of beta-estelle and continue his statin. His ARB will also be continued. Because of his advanced age, stage 4 kidney disease and DNR status I do not anticipate bringing this gentleman to the cardiac catheterization lab for angiography. His echocardiogram will be helpful in guiding his medical treatment of his coronary disease/ACS non-STEMI. Will follow him with you. Because of his advanced age comorbidities and especially because of stage 4 chronic kidney disease his prognosis is poor Singh Styles MD [facility] History of Present Illness History of Present Illness Consult date/time: 02/06/24 11:22 Reason For Visit: chest pain Narrative: This is an 88-year-old man I am seeing at the request of the hospitalist in the setting of non ST elevation NV. Patient is unknown to me prior to this encounter. He is in IMU with a BiPAP mask in place and as such she is a very difficult historian. He went to the emergency room up in [place] last night because of shortness of breath and chest pain that began to occur when he was at his home. He was in significant respiratory distress and his troponin level in that emergency room was seen to be on the increased and so he was transferred here for higher level of care. The patient apparently has a history of hypertension, non insulin-dependent diabetes and stage 4 chronic kidney disease. 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 He also has expressed wishes for do not resuscitate status on his chart. He was transferred to this hospital and the hospitalist who admitted him last evening called me in the middle of the night to get an opinion as to whether the patient should be brought immediately to the cardiac catheterization lab. I do not see any evidence of an ST-elevation NV in his ECG and so I indicated that was not necessary. He was heparinized and received some diuretics because of congestive heart failure. At the moment he says he is no longer having any chest pain and his breathing is okay but again he is BiPAP. The notes from his family practice/PCP also indicate that he has prostate cancer. 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
[2024-02-06 11:47] LABS: Alveolar/Arterial O2 Gradient 288.3 mmHg; Base Excess ABG -3.9 mEq/l (+/-2.0); Fractional Inspired Oxygen 60 %; Oxygen Content ABG 16.3 %vol (16.0-22.0); Oxygen Saturation ABG 97.3 % (95.0-100.0); Oxyhemoglobin 96.6 % THb (90.0-100.0); PCO2 ABG 37.6 mmHg (35.0-45.0); PO2 ABG 98.1 mmHg (80.0-100.0); PO2 FiO2 Ratio Arterial Blood 1.63 %; Total Hemoglobin 11.9 g/dL (12.0-18.0); pH ABG 7.364 (7.350-7.450)
[2024-02-06 11:48] LABS: Device NON-INVASIVE VENT; Modified Allen's Test Pass; Non-Invasive Expiratory Pressure 7 CMH2O; Non-Invasive Inspiratory Pressure 14 CMH2O; Non-Invasive Vent Rate 12 /MIN; Site Drawn LEFT RADIAL
[2024-02-06] MEDS: CHOLECALCIFEROL 1,000 UNITS TABLET 2000 UNITS PO (13:09)
[2024-02-06] MEDS: CYANOCOBALAMIN 1,000 MCG TABLET 1000 MCG PO (13:10)
[2024-02-06] MEDS: IRBESARTAN 150 MG TABLET 300 MG PO (13:10)
[2024-02-06] MEDS: ATORVASTATIN 40 MG TABLET 80 MG PO (13:11)
[2024-02-06] MEDS: FUROSEMIDE INJ 100 MG/10 ML VIAL 80 MG IV PUSH (13:11)
[2024-02-06] MEDS: GLIMEPIRIDE 2 MG TABLET PO (13:11)
[2024-02-06] MEDS: CLOPIDOGREL BISULFATE 75 MG TABLET PO (13:11)
[2024-02-06] MEDS: CITALOPRAM HYDROBROMIDE 20 MG TABLET PO (13:11)
[2024-02-06] MEDS: METOPROLOL SUCCINATE EXT REL 25 MG TABCR PO (13:12)
[2024-02-06 16:10] LABS: Partial Thromboplastin Time 129.3 Seconds (22.3-36.8)
--- NOTE | 2024-02-06 17:23 | WPDPN ---
Progress Note: A&P Assessment and Plan (1) NSTEMI (non-ST elevated myocardial infarction): Code(s): I21.4 - Non-ST elevation (NSTEMI) myocardial infarction Status: Acute (2) Pulmonary edema cardiac cause: Code(s): I50.1 - Left ventricular failure, unspecified Status: Acute (3) DNR (do not resuscitate): Code(s): Z66 - Do not resuscitate Status: Acute (4) Depression: Code(s): F32.A - Depression, unspecified Status: Acute (5) Diabetes mellitus type 2 in obese: Code(s): E11.69 - Type 2 diabetes mellitus with other specified complication; E66.9 - Obesity, unspecified Status: Acute Plan 02/06/2024 interval history: currently patient is off BIPAP still somnolent but stats feel better compared to when he arrive and denies any chest pain, patient was seen the molder closed molds and does not recommend taking patient to cardiac laborer pole crew to further evaluate for CAD because of his age and commodities, will manage patient medically and monitor. Subjective Date/time seen: 02/06/24 17:23 Interval history: Our patient is an 88 years old keen who was in his usual state of health until yesterday afternoon when he started to have chest pain, intensity 7/10, located in the anterior chest with radiation to neck jaw and left upper arm, associated with some palpitations and shortness of breath but no sweating. Patient went to [facility] Emergency Room where he was worked up. First set of cardiac enzymes was borderline elevated. They did not have a molder closed molds available hence ER physician reached out to me and I accepted the patient transfer. Before transferring, patient had another set of cardiac enzymes and his high sensitivity troponin increased from 84 to 598! Patient was started on IV heparin drip for NSTEMI and transferred to our facility via ambulance. When patient was about 10 minutes away from our hospital, he suddenly started having worsening shortness of breath and his O2 sats dropped into 70s. Patient started on oxygen via non-rebreather mask and brought to our IMU for admission, started on BiPAP and rapid response code was called. 02/06/2024 interval history: currently patient is off BIPAP still somnolent but stats feel better compared to when he arrive and denies any chest pain, patient was seen the molder closed molds and does not recommend taking patient to cardiac laborer pole crew to further evaluate for CAD because of his age and commodities, will manage patient medically and monitor. Review of Systems Review of Systems: ROS unobtainable: Yes unobtainable due to medical condition Exam Narrative: Vital signs: Please see the chart General physical exam: comfortable NAD Head/eyes: Atraumatic, and anicteric ENT: Moist mucous membranes, nasal passages clear Neck: Supple, CVS: S1 + S2, + irregularly irregular rhythm, no murmurs Respiratory: Bilaterally poor air entry in both lung otero, mild B/L crackles, ++ scattered bilateral rales and rhonchi Abdomen: Soft, non-tender, BS+ Extremities: no edema Musculoskeletal: Moves all, decreased range of motion, no muscle spasms Skin: Warm, dry, no jaundice, no cyanosis Objective Data Vital Signs Vital Signs: Vital Signs - 24 hr 02/06/24 03:33 02/06/24 04:00 02/06/24 04:18 Temperature Pulse Rate 116 H 80 Respiratory Rate 29 H Blood Pressure Pulse Oximetry Oxygen Delivery BiPAP Oxygen Flow Rate Fraction of Inspired Oxygen 80 02/06/24 03:45 02/06/24 04:28 02/06/24 05:01 Temperature 36.3 C L Pulse Rate 117 H 82 68 Respiratory Rate 28 H 28 H 28 H Blood Pressure 155/78 H Pulse Oximetry 96 95 Oxygen Delivery BiPAP Oxygen Flow Rate Fraction of Inspired Oxygen 02/06/24 03:00 02/06/24 07:44 02/06/24 04:00 Temperature 36.9 C Pulse Rate 81 83 Respiratory Rate 26 H Blood Pressure 156/87 H 145/47 H Pulse Oximetry 95 Oxygen Delivery Oxygen Flow Rate Fraction
[2024-02-06 23:44] LABS: Partial Thromboplastin Time 117.2 Seconds (22.3-36.8)
[2024-02-07] VITALS (29 sets, daily range): BP systolic 99–122; BP diastolic 45–63; PULSE 54–131; RESP 18–26; TEMP 36.4–37.1; O2SAT 89–100
[2024-02-07] MEDS: MEROPENEM 1 GM/NS 100 ML BAG IVPB ×2 (05:26→17:28)
[2024-02-07] MEDS: AZITHROMYCIN 500 MG/NS 250 ML 500 MG/250 ML BAG 250 MG IVPB (05:56)
[2024-02-07 06:16] LABS: Hematocrit 30.6 % (42.0-52.0); Hemoglobin 9.3 g/dL (14.0-18.0); Mean Corpuscular HGB Conc 30.4 g/dl (32-36); Mean Corpuscular Hemoglobin 29.6 pg (26-34); Mean Corpuscular Volume 97.5 fl (80-100); Mean Platelet Volume 11.5 fl (7.4-10.4); Platelet Count Result 206 k/mm3 (150-375); Red Blood Count 3.14 M/mm3 (4.6-6.20); Red Cell Distribution Width 13.8 % (11.5-14.5); White Blood Count 26.9 K/mm3 (4.5-10.0)
[2024-02-07 06:33] LABS: Lactic Acid Reflex 3.1 mmol/L (0.7-2.0)
[2024-02-07 06:36] LABS: Partial Thromboplastin Time 72.9 Seconds (22.3-36.8)
[2024-02-07 07:08] LABS: Anion Gap 5 mmol/L (4-12); Blood Urea Nitrogen 63 mg/dL (9-20); Calcium 8.6 mg/dL (8.4-10.2); Carbon Dioxide 27 mmol/L (22-30); Chloride 110 mmol/L (98-107); Estimated CRCL calculation 16 ml/min; Estimated Glomerular Filt Rate 16; Glucose 55 mg/dL (65-110); Magnesium 1.8 mg/dL (1.6-2.3); Potassium 5.4 mmol/L (3.4-5.0); Sodium 142 mmol/L (137-145); Troponin I > 80.000 ng/mL (0.000-0.034)
[2024-02-07 07:32] LABS: Glucose Point of Care 66 mg/dl (65-105)
[2024-02-07] MEDS: DEXTROSE 50% 25 GM/50 ML SYRINGE IV PUSH ×7 (07:38→22:06)
[2024-02-07 08:06] LABS: Glucose Point of Care 109 mg/dl (65-105)
--- NOTE | 2024-02-07 08:22 | ECG_ITS ---
[facility] [address] Test Date: 2024-02-07 Pat Name: Esequiel Sharma Department: Room: 203 Gender: M Associate Pathologist: Mary : 1935 Requested By: Singh Evans Order Number: [id number] Tyler MD: Singh Styles M.D. Measurements Intervals [place] Rate: 66 P: -16 [place]: 139 QRS: 28 QRSD: 98 T: 112 QT: 411 QTc: 433 Interpretive Statements SINUS RHYTHM PRECORDIAL T-WAVE ABNORMALITY CONSISTENT WITH ANTERIOR ISCHEMIA ABNORMAL ECG Compared to ECG 02/06/2024 02:59:17 PATIENT IS NO LONGER TACHYCARDIC, ISCHEMIC PRECORDIAL T-WAVE ABNORMALITY IS SEEN Electronically Signed On 02-08-2024 08:00:26 CDT by Singh Styles M.D.
--- NOTE | 2024-02-07 08:37 | PM.PNCARD ---
Progress Note: A&P Assessment and Plan (1) NSTEMI (non-ST elevated myocardial infarction): Code(s): I21.4 - Non-ST elevation (NSTEMI) myocardial infarction Status: Acute Plan 88-year-old man with acute myocardial infarction as described above. He is feeling better this morning, breathing more comfortably and does not have any chest pain. Medications are being adjusted to provide GDMT for his KS/systolic LV dysfunction. Need to avoid Aldactone I believe because of his renal failure and elevated potassium. Will start a maintenance dose of furosemide orally at this time given his renal failure this will have to be a higher dosage. Given his age, LV dysfunction and comorbidities his long-term prognosis is not good. Made this clear to him and he understands. For other reasons he has already made DNR choice which is certainly appropriate Singh Styles MD [facility] Subjective Date/time seen: Date of service: 02/07/24 08:37 Interval history: Follow-up visit in this 88-year-old man with: Acute myocardial infarction as evidence by chest pain, significant pulmonary edema and significant troponin rise consistent with infarction. Echocardiogram also shows significant anterior hypokinesia/akinesia. Patient has comorbidities of hypertension and dyslipidemia as well as stage 4 chronic kidney disease 02/07/2024: Patient feels and looks better today. Off of BiPAP able to have a good conversation with him. Explained to him the serious nature of this event and the reasons we are treating this conservatively rather than with invasive evaluation(cath) . Patient understands all of this well. He is feeling better today no longer having any chest pain and is breathing better, off of BiPAP Exam Const: General: comfortable Other: Pleasant elderly man seated in bed no distress with nasal cannula oxygen in place HENMT: Mouth: Yes moist mucous membranes Eyes: Sclera: sclerae normal Neck: Neck: supple Resp: Effort & Inspection: normal respiratory effort Other: Patient has few coarse rhonchi and some bibasilar rales Cardio: Rate: regular rate Rhythm: regular rhythm Other: No audible murmur GI: GI Palp: Yes Soft to palpation Auscultation: normal bowel sounds Skin: General skin exam: normal color Neuro: Other: Alert and oriented x3 Extrem: Other: Adequate perfusion, no significant edema Objective Data Vital Signs Vital Signs: Vital Signs - 24 hr 02/06/24 08:40 02/06/24 08:52 02/06/24 09:07 Temperature Pulse Rate 74 Respiratory Rate 26 H Blood Pressure Pulse Oximetry 95 95 93 Oxygen Delivery BiPAP BiPAP BiPAP Oxygen Flow Rate Fraction of Inspired Oxygen 70 60 02/06/24 11:32 02/06/24 11:43 02/06/24 11:58 Temperature 37.5 C Pulse Rate 84 84 Respiratory Rate 21 H 22 H Blood Pressure 165/82 H Pulse Oximetry 99 100 97 Oxygen Delivery BiPAP Nasal Cannula Oxygen Flow Rate 6 Fraction of Inspired Oxygen 44 02/06/24 13:12 02/06/24 12:00 02/06/24 10:00 Temperature Pulse Rate 81 89 Respiratory Rate Blood Pressure Pulse Oximetry 100 Oxygen Delivery Nasal Cannula Oxygen Flow Rate 6 Fraction of Inspired Oxygen 02/06/24 12:00 02/06/24 14:00 02/06/24 14:12 Temperature Pulse Rate 81 90 Respiratory Rate Blood Pressure Pulse Oximetry 94 Oxygen Delivery Nasal Cannula Oxygen Flow Rate 4 Fraction of Inspired Oxygen 36 02/06/24 15:53 02/06/24 16:00 02/06/24 16:00 Temperature 38.1 C H Pulse Rate 81 80 Respiratory Rate 24 H Blood Pressure 143/60 H Pulse Oximetry 95 95 Oxygen Delivery Nasal Cannula Oxygen Flow Rate 4 Fraction of Inspired Oxygen 02/06/24 18:00 02/06/24 20:35 02/06/24 20:00 Temperature 37.1 C Pulse Rate 70 71 73 Respiratory Rate 18 Blood Pressure 130/53 L Pulse Oximetry 95 Oxygen Delivery Oxygen Flow Rate Fraction of Inspired Oxygen
[2024-02-07 09:14] LABS: Reflex Lactic Acid Yes or No Add Lactic
[2024-02-07 09:38] LABS: Lactic Acid 2.9 mmol/L (0.7-2.0)
[2024-02-07] MEDS: ATORVASTATIN 40 MG TABLET 80 MG PO (09:42)
[2024-02-07] MEDS: FUROSEMIDE 80 MG TABLET PO (09:42)
[2024-02-07] MEDS: CITALOPRAM HYDROBROMIDE 20 MG TABLET PO (09:42)
[2024-02-07] MEDS: IRBESARTAN 150 MG TABLET 300 MG PO (09:43)
[2024-02-07] MEDS: CHOLECALCIFEROL 1,000 UNITS TABLET 2000 UNITS PO (09:43)
[2024-02-07] MEDS: CYANOCOBALAMIN 1,000 MCG TABLET 1000 MCG PO (09:43)
[2024-02-07] MEDS: METOPROLOL SUCCINATE EXT REL 25 MG TABCR PO (09:43)
[2024-02-07] MEDS: ASPIRIN 81 MG ENTERIC TABLET PO (09:43)
[2024-02-07] MEDS: CLOPIDOGREL BISULFATE 75 MG TABLET PO (09:43)
[2024-02-07] MEDS: GLIMEPIRIDE 2 MG TABLET PO (09:44)
[2024-02-07] MEDS: HEPARIN SOD/D5W 100 UNITS/ML 25,000 UNITS/250 ML BAG 6 UNITS IV CONT (09:51)
[2024-02-07 12:17] LABS: Partial Thromboplastin Time 53.1 Seconds (22.3-36.8)
[2024-02-07 12:30] LABS: Glucose Point of Care 110 mg/dl (65-105)
[2024-02-07 12:30] LABS: Glucose Point of Care 53 mg/dl (65-105)
[2024-02-07] MEDS: HEPARIN SODIUM 5,000 UNITS/ML VIAL 4000 UNITS IV PUSH (13:19)
[2024-02-07] MEDS: ACETAMINOPHEN 325 MG TABLET 650 MG PO (13:24)
[2024-02-07] MEDS: AMIODARONE 150 MG/D5W 100 ML 150 MG/100 ML BAG 600 MG IV CONT (14:28)
[2024-02-07] MEDS: AMIODARONE 360 MG/D5W 200 ML 360 MG/200 ML BAG 33.33 MG IV CONT (14:40)
--- NOTE | 2024-02-07 16:27 | WPDPN ---
Progress Note: A&P Assessment and Plan (1) NSTEMI (non-ST elevated myocardial infarction): Code(s): I21.4 - Non-ST elevation (NSTEMI) myocardial infarction Status: Acute (2) Pulmonary edema cardiac cause: Code(s): I50.1 - Left ventricular failure, unspecified Status: Acute (3) DNR (do not resuscitate): Code(s): Z66 - Do not resuscitate Status: Acute (4) Depression: Code(s): F32.A - Depression, unspecified Status: Acute (5) Diabetes mellitus type 2 in obese: Code(s): E11.69 - Type 2 diabetes mellitus with other specified complication; E66.9 - Obesity, unspecified Status: Acute Plan 02/06/2024 interval history: currently patient is off BIPAP still somnolent but stats feel better compared to when he arrive and denies any chest pain, patient was seen the survey crew chief and does not recommend taking patient to cardiac manager lab to further evaluate for CAD because of his age and commodities, will manage patient medically and monitor. 02/07/2024 interval history: patient did not require BIPAP and this morning patient is doing well on 2L NC, his tropes are climbing and seen by his survey crew chief, patient does not have any chest pain and recommended medical management, patient is placed amiodarone, will monitor qt interval as patient was on zithromax and citalopram, patient with DM, on glimepride, blood sugars in lows 100s, will hold the medication and monitor. patient remains clinically, will monitor Subjective Date/time seen: 02/07/24 16:27 Interval history: Interval history: Our patient is an 88 years old keen who was in his usual state of health until yesterday afternoon when he started to have chest pain, intensity 7/10, located in the anterior chest with radiation to neck jaw and left upper arm, associated with some palpitations and shortness of breath but no sweating. Patient went to [facility] Emergency Room where he was worked up. First set of cardiac enzymes was borderline elevated. They did not have a survey crew chief available hence ER physician reached out to me and I accepted the patient transfer. Before transferring, patient had another set of cardiac enzymes and his high sensitivity troponin increased from 84 to 598! Patient was started on IV heparin drip for NSTEMI and transferred to our facility via ambulance. When patient was about 10 minutes away from our hospital, he suddenly started having worsening shortness of breath and his O2 sats dropped into 70s. Patient started on oxygen via non-rebreather mask and brought to our IMU for admission, started on BiPAP and rapid response code was called. 02/06/2024 interval history: currently patient is off BIPAP still somnolent but stats feel better compared to when he arrive and denies any chest pain, patient was seen the survey crew chief and does not recommend taking patient to cardiac manager lab to further evaluate for CAD because of his age and commodities, will manage patient medically and monitor. 02/07/2024 interval history: patient did not require BIPAP and this morning patient is doing well on 2L NC, his tropes are climbing and seen by his survey crew chief, patient does not have any chest pain and recommended medical management, patient is placed amiodarone, will monitor qt interval as patient was on zithromax and citalopram, patient with DM, on glimepride, blood sugars in lows 100s, will hold the medication and monitor. patient remains clinically, will monitor Review of Systems Review of Systems: patient stats feeling better today compare to yesterday Constitutional: Comments: stats doing well Exam Narrative: Vital signs: Please see the chart General physical exam: comfortable NAD Head/eyes: Atraumatic, and anicteric ENT: Moist mucous membranes, nasal passages clear Neck: Supple, CVS: S1 + S2, + irregularly irregular rhythm, no murmurs Respiratory: Bilaterally poor air entry in
[2024-02-07 16:56] LABS: Glucose Point of Care 52 mg/dl (65-105)
[2024-02-07 16:56] LABS: Glucose Point of Care 56 mg/dl (65-105)
[2024-02-07 16:56] LABS: Glucose Point of Care 60 mg/dl (65-105)
--- NOTE | 2024-02-07 17:11 | ECG_ITS ---
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 Measurements Intervals [place] Rate: 62 P: 47 OR: 146 QRS: 28 QRSD: 130 T: 108 QT: 451 QTc: 460 Interpretive Statements SINUS RHYTHM MODERATE T-WAVE ABNORMALITY, CONSIDER ANTEROLATERAL ISCHEMIA [-0.1+ mV T WAVE IN V3-V6] ABNORMAL ECG INTERPRETATION BASED ON A DEFAULT AGE OF 40 YEARS Compared to ECG 02/07/2024 11:25:33 NO DIFFERENCE Electronically Signed On 02-08-2024 08:06:34 CDT by Singh Styles M.D.
[2024-02-07 17:38] LABS: Glucose Point of Care 82 mg/dl (65-105)
[2024-02-07 20:15] LABS: Glucose Point of Care 40 mg/dl (65-105)
[2024-02-07 20:29] LABS: Partial Thromboplastin Time 117.6 Seconds (22.3-36.8)
[2024-02-07 20:37] LABS: Glucose Point of Care 56 mg/dl (65-105)
[2024-02-07] MEDS: AMIODARONE 360 MG/D5W 200 ML 360 MG/200 ML BAG 16.67 MG IV CONT (20:45)
[2024-02-07 21:28] LABS: Glucose Point of Care 66 mg/dl (65-105)
[2024-02-07 21:47] LABS: Glucose Point of Care 46 mg/dl (65-105)
[2024-02-07] MEDS: GLUCAGON FOR INJ 1 MG VIAL IM (21:50)
[2024-02-07 22:01] LABS: Glucose Point of Care 36 mg/dl (65-105)
[2024-02-07 22:28] LABS: Glucose Point of Care 114 mg/dl (65-105)
[2024-02-07] MEDS: DEXTROSE 5%/0.45% SOD CHL 1,000 ML 75 ML IV CONT (22:51)
[2024-02-07 23:02] LABS: Glucose Point of Care 97 mg/dl (65-105)
--- NOTE | 2024-02-07 23:05 | PC.NURSE ---
Notified Dr. Lamas of blood sugar of 40. Order received to administer 1/2 amp D50 as needed for low blood sugar. No need to call critical blood sugars to MD. Blood glucose results as follows: 2034 56 1/2 amp administered 2105 66 1/2 amp administered 2144 46 1/2 amp administered 2158 36 IM glucagon administered. Call placed to Dr. Lamas. New order for IV fluids.
[2024-02-08] VITALS (22 sets, daily range): BP systolic 116–150; BP diastolic 58–73; PULSE 58–80; RESP 16–24; TEMP 36.7–37.6; O2SAT 92–100
[2024-02-08 00:09] LABS: Glucose Point of Care 60 mg/dl (65-105)
[2024-02-08] MEDS: DEXTROSE 50% 25 GM/50 ML SYRINGE IV PUSH ×6 (00:22→09:30)
[2024-02-08] MEDS: DEXTROSE 10% 1,000 ML 75 ML IV CONT (00:22)
[2024-02-08 00:55] LABS: Glucose Point of Care 165 mg/dl (65-105)
[2024-02-08 02:04] LABS: Glucose Point of Care 44 mg/dl (65-105)
[2024-02-08 02:36] LABS: Hematocrit 25.7 % (42.0-52.0); Mean Corpuscular HGB Conc 31.1 g/dl (32-36); Mean Corpuscular Hemoglobin 30.9 pg (26-34); Mean Corpuscular Volume 99.2 fl (80-100); Mean Platelet Volume 11.6 fl (7.4-10.4); Platelet Count Result 170 k/mm3 (150-375); Red Blood Count 2.59 M/mm3 (4.6-6.20); Red Cell Distribution Width 14.4 % (11.5-14.5)
[2024-02-08 02:47] LABS: Partial Thromboplastin Time 56.8 Seconds (22.3-36.8)
--- NOTE | 2024-02-08 03:09 | PC.NURSE ---
FS 44 @ 0200. Stat glucose ordered to verify. D50 administered after lab draw. Abnormal lab results called to IMU. Shoe Ironer to redraw.
[2024-02-08 03:23] LABS: Glucose Point of Care 67 mg/dl (65-105)
[2024-02-08 04:20] LABS: Glucose Point of Care 40 mg/dl (65-105)
[2024-02-08 04:39] LABS: Glucose Point of Care 188 mg/dl (65-105)
[2024-02-08 04:42] LABS: Basophils Absolute Auto 0.1 K/mm3 (0.0-0.1); Basophils Percent Auto 0.2 % (0.2-1.2); Hematocrit 30.1 % (42.0-52.0); Hemoglobin 9.4 g/dL (14.0-18.0); Immature Granulocyte Absolute 0.15 K/mm3 (0.00-0.031); Immature Granulocyte Percent A 0.5 % (0-0.5); Lymphocytes Absolute Auto 2.38 K/mm3 (0.9-3.2); Lymphocytes Percent Auto 8.3 % (18.3-44.2); Mean Corpuscular HGB Conc 31.2 g/dl (32-36); Mean Corpuscular Hemoglobin 29.8 pg (26-34); Mean Corpuscular Volume 95.6 fl (80-100); Mean Platelet Volume 11.8 fl (7.4-10.4); Monocytes Absolute Auto 1.7 K/mm3 (0.1-0.6); Monocytes Percent Auto 5.8 % (2.6-8.5); Neutrophils Absolute Auto 24.4 K/mm3 (1.3-6.7); Neutrophils Percent Auto 85.2 % (45.5-73.1); Platelet Count Result 224 k/mm3 (150-375); Red Blood Count 3.15 M/mm3 (4.6-6.20); White Blood Count 28.7 K/mm3 (4.5-10.0)
[2024-02-08 04:55] LABS: Anion Gap 7 mmol/L (4-12); Blood Urea Nitrogen 68 mg/dL (9-20); Carbon Dioxide 23 mmol/L (22-30); Chloride 105 mmol/L (98-107); Estimated CRCL calculation 16 ml/min; Estimated Glomerular Filt Rate 15; Glucose 85 mg/dL (65-110); Magnesium 1.8 mg/dL (1.6-2.3); Potassium 4.3 mmol/L (3.4-5.0); Sodium 135 mmol/L (137-145)
[2024-02-08 04:56] LABS: Partial Thromboplastin Time 43.4 Seconds (22.3-36.8)
[2024-02-08 05:10] LABS: Glucose Point of Care 95 mg/dl (65-105)
[2024-02-08 05:10] LABS: Glucose Point of Care 102 mg/dl (65-105)
[2024-02-08] MEDS: HEPARIN SODIUM 5,000 UNITS/ML VIAL 4000 UNITS IV PUSH (05:11)
[2024-02-08 05:24] LABS: Glucose Point of Care 81 mg/dl (65-105); Glucose Point of Care 86 mg/dl (65-105)
--- NOTE | 2024-02-08 05:25 | PC.NURSE ---
Dr. Lamas called to pt's bedside to discuss labs and evaluate pt. BMP glucose result 85. STAT glucose that was obtained at the same time was 49. Dr. Lamas had staff check blood glucose on pt's ear and hand to compare results. No further orders at this time.
[2024-02-08] MEDS: MEROPENEM 1 GM/NS 100 ML BAG IVPB (05:59)
[2024-02-08 06:04] LABS: Glucose Point of Care 57 mg/dl (65-105)
--- NOTE | 2024-02-08 06:14 | PC.NURSE ---
Notified Dr. Lamas of decreasing blood sugar. New order for one amp D50%. MD will confer with day physician on whether or not to move pt to ICU for D20%.
--- NOTE | 2024-02-08 06:30 | PC.NURSE ---
0606 Dr blount called and made aware of another low blood sugar 57. Asked if we could move patient to ICU and start D20 drip. Instructed to administer an amp of D50 and bring it up with the day Hospitalist.
[2024-02-08 07:00] LABS: Glucose Point of Care 116 mg/dl (65-105)
[2024-02-08 07:02] LABS: Hemoglobin A1C 5.4 % (<5.7)
[2024-02-08 07:57] LABS: Alanine Aminotransferase 38 U/L (6-50); Albumin Level 3.3 g/dL (3.5-5.1); Alkaline Phosphatase 73 U/L (38-126); Aspartate Amino Transferase 105 U/L (17-59); Bilirubin,Total 0.5 mg/dL (0.2-1.3)
[2024-02-08 07:58] LABS: Glucose 75 mg/dL (65-110)
[2024-02-08 08:08] LABS: Glucose Point of Care 59 mg/dl (65-105)
[2024-02-08 08:22] LABS: Glucose Point of Care 108 mg/dl (65-105)
[2024-02-08 09:25] LABS: Glucose Point of Care 39 mg/dl (65-105)
[2024-02-08] MEDS: AMIODARONE 360 MG/D5W 200 ML 360 MG/200 ML BAG 16.67 MG IV CONT (09:39)
[2024-02-08] MEDS: CYANOCOBALAMIN 1,000 MCG TABLET 1000 MCG PO (09:41)
[2024-02-08] MEDS: CLOPIDOGREL BISULFATE 75 MG TABLET PO (09:41)
[2024-02-08] MEDS: FUROSEMIDE 80 MG TABLET PO (09:41)
[2024-02-08] MEDS: CHOLECALCIFEROL 1,000 UNITS TABLET 2000 UNITS PO (09:41)
[2024-02-08] MEDS: ASPIRIN 81 MG ENTERIC TABLET PO (09:41)
[2024-02-08] MEDS: METOPROLOL SUCCINATE EXT REL 25 MG TABCR PO (09:41)
[2024-02-08] MEDS: ATORVASTATIN 40 MG TABLET 80 MG PO (09:42)
[2024-02-08] MEDS: CITALOPRAM HYDROBROMIDE 10 MG TABLET PO (09:42)
--- NOTE | 2024-02-08 09:58 | PM.PNCARD ---
Progress Note: A&P Assessment and Plan (1) NSTEMI (non-ST elevated myocardial infarction): Code(s): I21.4 - Non-ST elevation (NSTEMI) myocardial infarction Status: Acute Plan 88-year-old white male with: Newly diagnosed coronary artery disease with anterior non ST elevation [place]. Has reduced LV systolic function and has been placed on GDMT. for this. This event has now been complicated by the development of atrial fib which fortunately has been restored to sinus rhythm with amiodarone treatment. Will shift him to oral amiodarone today and stop intravenous heparin. Patient has stage 4 chronic kidney disease which thus far has been stable but certainly could deteriorate as well given his new cardiac event. Anticipate another 24-48 hours in the hospital before discharge would be reasonable. His prognosis given his advanced age and comorbidities is poor and patient understands this. Singh Styles MD [facility] Subjective Date/time seen: Date of service: 02/08/24 09:58 Interval history: Follow-up visit in this 88-year-old man with: Acute myocardial infarction as evidence by chest pain, significant pulmonary edema and significant troponin rise consistent with infarction. Echocardiogram also shows significant anterior hypokinesia/akinesia. Patient has comorbidities of hypertension and dyslipidemia as well as stage 4 chronic kidney disease 02/07/2024: Patient feels and looks better today. Off of BiPAP able to have a good conversation with him. Explained to him the serious nature of this event and the reasons we are treating this conservatively rather than with invasive evaluation(cath) . Patient understands all of this well. He is feeling better today no longer having any chest pain and is breathing better, off of BiPAP 02/08/2024: Patient is relatively comfortable this morning again no significant complaints. He did go into AF with RVR last evening which resolved a short time after intravenous amiodarone was started. No chest pain, no dyspnea. Exam Const: General: comfortable and no acute distress Other: Pleasant elderly man seated in bed no distress with nasal cannula oxygen in place HENMT: Mouth: Yes moist mucous membranes Eyes: Sclera: sclerae normal Neck: Neck: supple and no JVD Other: Carotid pulses are intact bilaterally no audible bruit Resp: Effort & Inspection: normal respiratory effort Other: Patient has few coarse rhonchi and some bibasilar rales Cardio: Rate: regular rate Rhythm: regular rhythm Other: No audible murmur GI: Auscultation: normal bowel sounds Skin: General skin exam: normal color Neuro: Other: Alert and oriented x3 Extrem: Other: Adequate perfusion, no significant edema Objective Data Vital Signs Vital Signs: Vital Signs - 24 hr 02/07/24 10:00 02/07/24 12:00 02/07/24 13:30 Temperature 37.0 C Pulse Rate 70 123 H Respiratory Rate 22 H Blood Pressure 121/48 L Pulse Oximetry 96 97 Oxygen Delivery Nasal Cannula Oxygen Flow Rate 2 02/07/24 13:45 02/07/24 14:28 02/07/24 14:40 Temperature Pulse Rate 123 H 129 H 116 H Respiratory Rate Blood Pressure 106/63 Pulse Oximetry Oxygen Delivery Oxygen Flow Rate 02/07/24 16:00 02/07/24 12:00 02/07/24 16:00 Temperature 36.9 C Pulse Rate 65 Respiratory Rate 22 H Blood Pressure 99/45 L Pulse Oximetry 97 97 97 Oxygen Delivery Nasal Cannula Nasal Cannula Oxygen Flow Rate 2 2 02/07/24 16:00 02/07/24 10:00 02/07/24 12:00 Temperature Pulse Rate 70 65 69 Respiratory Rate Blood Pressure 99/45 L Pulse Oximetry Oxygen Delivery Oxygen Flow Rate 02/07/24 14:00 02/07/24 16:00 02/07/24 17:00 Temperature Pulse Rate 131 H 70 Respiratory Rate Blood Pressure 100/47 L Pulse Oximetry Oxygen Delivery Oxygen Flow Rate 02/07/24 18:00 02/07/24 15:00 02/07/24 18:00 Temperature Pulse
[2024-02-08 10:10] LABS: Glucose Point of Care 105 mg/dl (65-105)
[2024-02-08] MEDS: OCTREOTIDE ACETATE 50 MCG/ML VIAL IV PUSH (10:10)
[2024-02-08 10:39] LABS: Glucose Point of Care 75 mg/dl (65-105)
[2024-02-08] MEDS: AMIODARONE HCL 200 MG TABLET 400 MG PO (11:00)
[2024-02-08 11:55] LABS: Glucose Point of Care 77 mg/dl (65-105)
[2024-02-08 11:57] LABS: Partial Thromboplastin Time 50.3 Seconds (22.3-36.8)
[2024-02-08] MEDS: LIDOCAINE HCL 1% PF INJ 5 ML VIAL INFILTRATE (12:00)
--- NOTE | 2024-02-08 12:50 | PM.IMPN ---
Progress Note: A&P Assessment and Plan (1) NSTEMI (non-ST elevated myocardial infarction): Code(s): I21.4 - Non-ST elevation (NSTEMI) myocardial infarction Status: Acute (2) Pulmonary edema cardiac cause: Code(s): I50.1 - Left ventricular failure, unspecified Status: Acute (3) DNR (do not resuscitate): Code(s): Z66 - Do not resuscitate Status: Acute (4) Depression: Code(s): F32.A - Depression, unspecified Status: Acute (5) Diabetes mellitus type 2 in obese: Code(s): E11.69 - Type 2 diabetes mellitus with other specified complication; E66.9 - Obesity, unspecified Status: Acute Plan the patient is an 88 years old keen who was in his usual state of health presented when he started to have chest pain, intensity 7/10, located in the anterior chest with radiation to neck jaw and left upper arm, associated with some palpitations and shortness of breath but no sweating. Patient went to [facility] where he was worked up. First set of cardiac enzymes was borderline elevated. They did not have a record cutter available hence transferred here. Before transferring, patient had another set of cardiac enzymes and his high sensitivity troponin increased from 84 to 598! Patient was started on IV heparin drip for NSTEMI and transferred to our facility via ambulance. When patient was about 10 minutes away from our hospital, he suddenly started having worsening shortness of breath and his O2 sats dropped into 70s. Patient started on oxygen via non-rebreather mask and brought to our IMU for admission, started on BiPAP and rapid response code was called. Cardiology was consulted for non ST elevation [place]. Echocardiogram 02/06/2024 showed EF of 35-40% akinesis of the mid to anterior septal segment and apex hypokinesia of the anterior wall. Has been treated with diuretics for acute on chronic systolic/diastolic heart failure. With leukocytosis also suspect concurrent pneumonia and has been treated with meropenem. Will also add doxycycline for atypical coverage. He did receive azithromycin but has been stopped due to QTC concerns. Patient has been placed on amiodarone for AFib with RVR because his advanced CKD and DNR medical management for his coronary artery disease planned per Cardiology. He has been initiated on amiodarone IV. BiPAP has since been discontinued for his acute hypoxic hypercapnic respiratory failure and currently on oxygen via nasal cannula. Leukocytosis is persistent. Will do blood culture x2. Persistent hypo glycemia today. Was on glimepiride which has been stopped. On D10 infusion which will be uptitrated to D20. Will also give a dose of octreotide to combat sulfonylurea in the system. Paroxysmal atrial fibrillation initiated on IV amiodarone plan to be switched to oral amiodarone today has been converted back to sinus rhythm now. DVT prophylaxis on IV heparin TRAV on CKD stage 4: Follows with record cutter. Baseline creatinine around 3 up to 3.7/3.8 on admission. Will get ultrasound kidney Romo in place. Code status do not resuscitate Subjective Date/time seen: 02/08/24 12:50 Interval history: Hypoglycemic frequently overnight breathing is improved. Off BiPAP now. Review of Systems Review of Systems: ROS unobtainable: Yes unobtainable due to medical condition Exam Narrative: General physical exam: comfortable NAD Head/eyes: Atraumatic, and anicteric ENT: Moist mucous membranes, nasal passages clear Neck: Supple, CVS: S1 + S2, +, regular rate and rhythm, no murmurs Respiratory: Bilaterally poor air entry in both lung otero, mild B/L crackles, ++ scattered bilateral rales and rhonchi Abdomen: Soft, non-tender, BS+ Extremities: no edema Musculoskeletal: Moves all, decreased range of motion, no muscle spasms Skin: Warm, dry, no jaundice, no cyanosis Objective Data Vital Signs Vital Signs: Vital Signs - 24 hr 02/07/24
[2024-02-08 13:00] LABS: Glucose Point of Care 90 mg/dl (65-105)
[2024-02-08] MEDS: DOXYCYCLINE 100 MG/NS 100 ML 100 MG/100 ML BAG IVPB (13:32)
[2024-02-08] MEDS: CENTRAL LINE FLUSH 10 ML IV PUSH ×2 (13:32→21:31)
[2024-02-08 14:12] LABS: Glucose Point of Care 195 mg/dl (65-105)
[2024-02-08 16:09] LABS: Glucose Point of Care 139 mg/dl (65-105)
[2024-02-08 16:09] LABS: Glucose Point of Care 132 mg/dl (65-105)
[2024-02-08 18:19] LABS: Glucose Point of Care 131 mg/dl (65-105)
[2024-02-08 18:52] LABS: MRSA (PCR) NOT DETECTED (NOT DETECTE)
[2024-02-08 20:36] LABS: Glucose Point of Care 111 mg/dl (65-105)
[2024-02-08] MEDS: MEROPENEM 500 MG in SODIUM CHLORIDE 0.9% IV 100 ML 200 ML IVPB (21:30)
[2024-02-08 23:46] LABS: Glucose Point of Care 138 mg/dl (65-105)
[2024-02-09] VITALS (16 sets, daily range): BP systolic 134–152; BP diastolic 59–93; PULSE 68–82; RESP 16–20; TEMP 36.4–37.1; O2SAT 91–100
[2024-02-09] MEDS: DOXYCYCLINE 100 MG/NS 100 ML 100 MG/100 ML BAG IVPB (01:50)
[2024-02-09 04:02] LABS: Glucose Point of Care 151 mg/dl (65-105)
[2024-02-09 06:14] LABS: Hematocrit 27.9 % (42.0-52.0); Hemoglobin 8.9 g/dL (14.0-18.0); Mean Corpuscular HGB Conc 31.9 g/dl (32-36); Mean Corpuscular Hemoglobin 30.1 pg (26-34); Mean Corpuscular Volume 94.3 fl (80-100); Mean Platelet Volume 11.3 fl (7.4-10.4); Platelet Count Result 169 k/mm3 (150-375); Red Blood Count 2.96 M/mm3 (4.6-6.20)
[2024-02-09 06:31] LABS: Alanine Aminotransferase 30 U/L (6-50); Albumin Level 3.2 g/dL (3.5-5.1); Alkaline Phosphatase 66 U/L (38-126); Anion Gap 6 mmol/L (4-12); Aspartate Amino Transferase 50 U/L (17-59); Bilirubin,Total 0.4 mg/dL (0.2-1.3); Blood Urea Nitrogen 66 mg/dL (9-20); Calcium 8.1 mg/dL (8.4-10.2); Carbon Dioxide 24 mmol/L (22-30); Chloride 105 mmol/L (98-107); Estimated CRCL calculation 16 ml/min; Estimated Glomerular Filt Rate 15; Glucose 133 mg/dL (65-110); Magnesium 1.7 mg/dL (1.6-2.3); Potassium 4.6 mmol/L (3.4-5.0); Sodium 135 mmol/L (137-145)
[2024-02-09] MEDS: CENTRAL LINE FLUSH 10 ML IV PUSH ×3 (06:34→20:31)
[2024-02-09 07:36] LABS: Glucose Point of Care 129 mg/dl (65-105)
[2024-02-09] MEDS: ATORVASTATIN 40 MG TABLET 80 MG PO (09:20)
[2024-02-09] MEDS: CHOLECALCIFEROL 1,000 UNITS TABLET 2000 UNITS PO (09:20)
[2024-02-09] MEDS: AMIODARONE HCL 200 MG TABLET 400 MG PO (09:21)
[2024-02-09] MEDS: METOPROLOL SUCCINATE EXT REL 25 MG TABCR PO (09:22)
[2024-02-09] MEDS: ASPIRIN 81 MG ENTERIC TABLET PO (09:22)
[2024-02-09] MEDS: CITALOPRAM HYDROBROMIDE 10 MG TABLET PO (09:22)
[2024-02-09] MEDS: CLOPIDOGREL BISULFATE 75 MG TABLET PO (09:22)
[2024-02-09] MEDS: FUROSEMIDE 80 MG TABLET PO (09:22)
[2024-02-09] MEDS: MEROPENEM 500 MG in SODIUM CHLORIDE 0.9% IV 100 ML 200 ML IVPB (09:25)
[2024-02-09] MEDS: CYANOCOBALAMIN 1,000 MCG TABLET 1000 MCG PO (09:34)
--- NOTE | 2024-02-09 10:00 | PM.PNCARD ---
Progress Note: A&P Assessment and Plan (1) NSTEMI (non-ST elevated myocardial infarction): Code(s): I21.4 - Non-ST elevation (NSTEMI) myocardial infarction Status: Acute Assessment and Plan: Continue medical management with ASA, Plavix, high intensity statin (2) Cardiomyopathy: Code(s): I42.9 - Cardiomyopathy, unspecified Status: Acute Assessment and Plan: Echocardiogram with LVEF 35-40%. Heart failure GDMT is limited due to his advanced CKD> Continue PO Lasix 80mg daily, Toprol 25mg once daily. (3) Stage 4 chronic kidney disease: Code(s): N18.4 - Chronic kidney disease, stage 4 (severe) Status: Acute Assessment and Plan: Monitor renal function. (4) Essential (primary) hypertension: Code(s): I10 - Essential (primary) hypertension Status: Acute Assessment and Plan: Stable. Continue Toprol, Lasix. (5) Hyperlipidemia LDL goal <70: Code(s): E78.5 - Hyperlipidemia, unspecified Status: Acute Assessment and Plan: Continue high intensity statin (6) Peripheral arterial occlusive disease: Code(s): I77.9 - Disorder of arteries and arterioles, unspecified Status: Acute Assessment and Plan: Continue DAPT, high intensity statin (7) Diabetes mellitus type 2 in obese: Code(s): E11.69 - Type 2 diabetes mellitus with other specified complication; E66.9 - Obesity, unspecified Status: Acute Assessment and Plan: Management as per primary team. (8) Atrial fibrillation: Code(s): I48.91 - Unspecified atrial fibrillation Status: Acute Assessment and Plan: Converted to sinus rhythm on Amiodarone. Continue PO Amiodarone, Metoprolol. Subjective Date/time seen: 02/09/24 10:00 Interval history: Reason for visit: NSTEMI, cardiomyopathy HPI: This is an 88-year-old man I am seeing at the request of the hospitalist in the setting of non ST elevation [place]. Patient is unknown to me prior to this encounter. He is in IMU with a BiPAP mask in place and as such she is a very difficult historian. He went to the emergency room up in [place] last night because of shortness of breath and chest pain that began to occur when he was at his home. He was in significant respiratory distress and his troponin level in that emergency room was seen to be on the increased and so he was transferred here for higher level of care. The patient apparently has a history of hypertension, non insulin-dependent diabetes and stage 4 chronic kidney disease. 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 He also has expressed wishes for do not resuscitate status on his chart. He was transferred to this hospital and the hospitalist who admitted him last evening called me in the middle of the night to get an opinion as to whether the patient should be brought immediately to the cardiac catheterization lab. I do not see any evidence of an ST-elevation [place] in his ECG and so I indicated that was not necessary. He was heparinized and received some diuretics because of congestive heart failure. At the moment he says he is no longer having any chest pain and his breathing is okay but again he is BiPAP. The notes from his family practice/PCP also indicate that he has prostate cancer. Date of service 02/06: Patient feels and looks better today. Off of BiPAP able to have a good conversation with him. Explained to him the serious nature of this event and the reasons we are treating this conservatively rather than with invasive evaluation(cath) . Patient understands all of this well. He is feeling better today no longer having any chest pain and is breathing better, off of BiPAP Date of service 02/07: Patient is relatively comfortable this morning again no significant complaints. He did go into AF with RVR last evening which resolved a short time after intravenous amiodarone was started. No chest pain, no dyspnea. Date of serv
[2024-02-09 12:02] LABS: Glucose Point of Care 132 mg/dl (65-105)
--- NOTE | 2024-02-09 13:11 | PM.IMPN ---
Progress Note: A&P Assessment and Plan (1) NSTEMI (non-ST elevated myocardial infarction): Code(s): I21.4 - Non-ST elevation (NSTEMI) myocardial infarction Status: Acute (2) Pulmonary edema cardiac cause: Code(s): I50.1 - Left ventricular failure, unspecified Status: Acute (3) DNR (do not resuscitate): Code(s): Z66 - Do not resuscitate Status: Acute (4) Depression: Code(s): F32.A - Depression, unspecified Status: Acute (5) Diabetes mellitus type 2 in obese: Code(s): E11.69 - Type 2 diabetes mellitus with other specified complication; E66.9 - Obesity, unspecified Status: Acute Plan 88 years old keen who was in his usual state of health presented with chest pain,, associated with some palpitations and shortness of breath Patient went to [facility] Emergency Room where he was worked up. First set of cardiac enzymes was borderline elevated. Patient was transferred here for Cardiology evaluation. Patient was started on IV heparin drip for NSTEMI (significant elevation in troponin). Patient was placed on BiPAP Cardiology was consulted for non ST elevation [place]. Echocardiogram 02/06/2024 showed EF of 35-40% akinesis of the mid to anterior septal segment and apex hypokinesia of the anterior wall. Has been treated with diuretics for acute on chronic systolic/diastolic heart failure. Also there was some concern for pneumonia, was started on meropenem and doxycycline Patient was started on amiodarone for AFib with RVR. He has been initiated on amiodarone IV. 1. NSTEMI+ cardiomyopathy+ AFib with RVR: Cardiology following Currently in sinus rhythm Plan to continue with aspirin Plavix, statin Continue with p.o. Lasix, Toprol Continue with amiodarone 2. Acute hypoxic respiratory failure: Has been weaned off BiPAP Currently on 2 L, plan to wean off to room air eventually Improving leukocytosis Follow blood cultures Will continue with doxycycline and meropenem for another 24 hours, will try to deescalate in next 24 hours 3. CKD: Monitor kidney function Avoid nephrotoxins Recheck BMP in a.m. 4. Hypoglycemia: Blood sugar has stabilized Not a good candidate for sulfonylurea with such poor kidney function Hemoglobin A1c less than 6 at the moment Might not need any diabetic agents due to poor kidney function 5. DVT prophylaxis: Heparin subQ 6. Code status: Do not resuscitate 7. Disposition: Anticipate discharge in the next 24-48 hours Time Spent With Patient Time with patient: 15 - 25 minutes Subjective Date/time seen: 02/09/24 13:11 Interval history: No acute events overnight, currently on 2 L of oxygen Review of Systems Review of Systems: All systems reviewed & are unremarkable except as noted in HPI and below (HPI) Exam Narrative: General physical exam: comfortable NAD Head/eyes: Atraumatic, and anicteric ENT: Moist mucous membranes, Neck: Supple, CVS: S1 + S2, +, regular rate and rhythm, no murmurs Respiratory: Decreased breath sounds bilaterally Abdomen: Soft, non-tender, BS+ Extremities: no edema Musculoskeletal: Moves all, decreased range of motion, no muscle spasms Skin: Warm, dry, no jaundice, no cyanosis Objective Data Vital Signs Vital Signs: Vital Signs - 24 hr 02/08/24 15:20 02/08/24 14:00 02/08/24 16:00 Temperature 98.1 F Pulse Rate 73 68 62 Respiratory Rate 24 H Blood Pressure 144/65 H Pulse Oximetry 96 Oxygen Delivery Oxygen Flow Rate Fraction of Inspired Oxygen 02/08/24 16:00 02/08/24 18:00 02/08/24 20:13 Temperature 98.7 F Pulse Rate 71 80 Respiratory Rate 18 Blood Pressure 150/73 H Pulse Oximetry 94 94 Oxygen Delivery Nasal Cannula Oxygen Flow Rate 4 Fraction of Inspired Oxygen 02/08/24 20:00 02/08/24 23:12 02/09/24 00:00 Temperature 99.6 F Pulse Rate 80 79 79 Respiratory Rate 18 18 18 Blood Pressure 145/66 H Pulse Oximetry 94 96 96
[2024-02-09] MEDS: DOXYCYCLINE HYCLATE 100 MG TABLET PO ×2 (14:04→20:30)
[2024-02-09] MEDS: MAGNESIUM SULF 1 GM/D5W 100 ML 1 GM/100 ML BAG IVPB (14:23)
[2024-02-09 16:52] LABS: Glucose Point of Care 145 mg/dl (65-105)
[2024-02-09 20:24] LABS: Glucose Point of Care 136 mg/dl (65-105)
[2024-02-09] MEDS: HEPARIN SODIUM 5,000 UNITS/ML VIAL 5000 UNITS SUB-Q (20:30)
[2024-02-09] MEDS: MEROPENEM 500 MG in SODIUM CHLORIDE 0.9% IV 100 ML IVPB (20:30)
[2024-02-10] VITALS (12 sets, daily range): BP systolic 140–160; BP diastolic 60–62; PULSE 63–76; RESP 18–20; TEMP 36.5–36.8; O2SAT 91–100
[2024-02-10] MEDS: CENTRAL LINE FLUSH 10 ML IV PUSH (05:40)
[2024-02-10 08:09] LABS: Glucose Point of Care 140 mg/dl (65-105)
[2024-02-10] MEDS: AMIODARONE HCL 200 MG TABLET 400 MG PO (09:33)
[2024-02-10] MEDS: ATORVASTATIN 40 MG TABLET 80 MG PO (09:34)
[2024-02-10] MEDS: ASPIRIN 81 MG ENTERIC TABLET PO (09:34)
[2024-02-10] MEDS: DOXYCYCLINE HYCLATE 100 MG TABLET PO (09:34)
[2024-02-10] MEDS: CHOLECALCIFEROL 1,000 UNITS TABLET 2000 UNITS PO (09:34)
[2024-02-10] MEDS: METOPROLOL SUCCINATE EXT REL 25 MG TABCR PO (09:34)
[2024-02-10] MEDS: FUROSEMIDE 80 MG TABLET PO (09:34)
[2024-02-10] MEDS: CYANOCOBALAMIN 1,000 MCG TABLET 1000 MCG PO (09:34)
[2024-02-10] MEDS: CITALOPRAM HYDROBROMIDE 10 MG TABLET PO (09:34)
[2024-02-10] MEDS: CLOPIDOGREL BISULFATE 75 MG TABLET PO (09:35)
[2024-02-10] MEDS: HEPARIN SODIUM 5,000 UNITS/ML VIAL 5000 UNITS SUB-Q (09:35)
--- NOTE | 2024-02-10 10:22 | PM.PNCARD ---
Progress Note: A&P Assessment and Plan (1) NSTEMI (non-ST elevated myocardial infarction): Code(s): I21.4 - Non-ST elevation (NSTEMI) myocardial infarction Status: Acute Assessment and Plan: Continue medical management with ASA, Plavix, high intensity statin (2) Cardiomyopathy: Code(s): I42.9 - Cardiomyopathy, unspecified Status: Acute Assessment and Plan: Echocardiogram with LVEF 35-40%. Heart failure GDMT is limited due to his advanced CKD. Continue PO Lasix 80mg daily, Toprol 25mg once daily. (3) Stage 4 chronic kidney disease: Code(s): N18.4 - Chronic kidney disease, stage 4 (severe) Status: Acute Assessment and Plan: Monitor renal function. (4) Essential (primary) hypertension: Code(s): I10 - Essential (primary) hypertension Status: Acute Assessment and Plan: Stable. Continue Toprol, Lasix. (5) Hyperlipidemia LDL goal <70: Code(s): E78.5 - Hyperlipidemia, unspecified Status: Acute Assessment and Plan: Continue high intensity statin (6) Peripheral arterial occlusive disease: Code(s): I77.9 - Disorder of arteries and arterioles, unspecified Status: Acute Assessment and Plan: Continue DAPT, high intensity statin (7) Diabetes mellitus type 2 in obese: Code(s): E11.69 - Type 2 diabetes mellitus with other specified complication; E66.9 - Obesity, unspecified Status: Acute Assessment and Plan: Management as per primary team. (8) Atrial fibrillation: Code(s): I48.91 - Unspecified atrial fibrillation Status: Acute Assessment and Plan: Converted to sinus rhythm on Amiodarone. Continue PO Amiodarone, Metoprolol. Plan Okay to discharge home from my standpoint. Will arrange for outpatient follow up in our office. Recommendations and plan discussed with Hospitalist. Subjective Date/time seen: 02/10/24 10:22 Interval history: Reason for visit: NSTEMI, cardiomyopathy HPI: This is an 88-year-old man I am seeing at the request of the hospitalist in the setting of non ST elevation MA. Patient is unknown to me prior to this encounter. He is in IMU with a BiPAP mask in place and as such she is a very difficult historian. He went to the emergency room up in [place] last night because of shortness of breath and chest pain that began to occur when he was at his home. He was in significant respiratory distress and his troponin level in that emergency room was seen to be on the increased and so he was transferred here for higher level of care. The patient apparently has a history of hypertension, non insulin-dependent diabetes and stage 4 chronic kidney disease. 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 He also has expressed wishes for do not resuscitate status on his chart. He was transferred to this hospital and the hospitalist who admitted him last evening called me in the middle of the night to get an opinion as to whether the patient should be brought immediately to the cardiac catheterization lab. I do not see any evidence of an ST-elevation MA in his ECG and so I indicated that was not necessary. He was heparinized and received some diuretics because of congestive heart failure. At the moment he says he is no longer having any chest pain and his breathing is okay but again he is BiPAP. The notes from his family practice/PCP also indicate that he has prostate cancer. Date of service 02/06: Patient feels and looks better today. Off of BiPAP able to have a good conversation with him. Explained to him the serious nature of this event and the reasons we are treating this conservatively rather than with invasive evaluation(cath) . Patient understands all of this well. He is feeling better today no longer having any chest pain and is breathing better, off of BiPAP Date of service 02/07: Patient is relatively comfortable this morning again no significant complai
[2024-02-10 10:43] LABS: Hematocrit 29.6 % (42.0-52.0); Hemoglobin 9.6 g/dL (14.0-18.0); Mean Corpuscular HGB Conc 32.4 g/dl (32-36); Mean Corpuscular Hemoglobin 30.5 pg (26-34); Mean Platelet Volume 11.3 fl (7.4-10.4); Platelet Count Result 191 k/mm3 (150-375); Red Blood Count 3.15 M/mm3 (4.6-6.20); Red Cell Distribution Width 13.5 % (11.5-14.5); White Blood Count 12.9 K/mm3 (4.5-10.0)
[2024-02-10 10:56] LABS: Anion Gap 6 mmol/L (4-12); Blood Urea Nitrogen 79 mg/dL (9-20); Calcium 8.4 mg/dL (8.4-10.2); Carbon Dioxide 28 mmol/L (22-30); Chloride 103 mmol/L (98-107); Estimated CRCL calculation 16 ml/min; Estimated Glomerular Filt Rate 16; Glucose 158 mg/dL (65-110); Magnesium 2.1 mg/dL (1.6-2.3); Potassium 4.2 mmol/L (3.4-5.0); Sodium 137 mmol/L (137-145)
--- NOTE | 2024-02-10 11:47 | RCSIXMIN ---
HOME O2 EVAL COMPLETE. PATIENT DOES NOT REQUIRE HOME O2 AT THIS TIME. RN NOTIFIED'
--- NOTE | 2024-02-10 13:52 | PM.DS ---
DS: Admitting Diagnosis Discharge Date 02/10/24 Admitting Diagnosis NSTEMI Cardiomyopathy AFib with RVR Acute hypoxic respiratory failure DS: Discharge Diagnosis Discharge Diagnosis (1) Atrial fibrillation: Code(s): I48.91 - Unspecified atrial fibrillation Status: Acute (2) Cardiomyopathy: Code(s): I42.9 - Cardiomyopathy, unspecified Status: Acute (3) NSTEMI (non-ST elevated myocardial infarction): Code(s): I21.4 - Non-ST elevation (NSTEMI) myocardial infarction Status: Acute (4) Pulmonary edema cardiac cause: Code(s): I50.1 - Left ventricular failure, unspecified Status: Acute DS: Summary Hospital Course Reason for hospitalization: Acute hypoxic respiratory failure AFib with RVR Cardiomyopathy Hospital Course: 88 years old keen who was in his usual state of health presented with chest pain,, associated with some palpitations and shortness of breath Patient went to [facility] Emergency Room where he was worked up. First set of cardiac enzymes was borderline elevated. Patient was transferred here for Cardiology evaluation. Patient was started on IV heparin drip for NSTEMI (significant elevation in troponin). Patient was placed on BiPAP Cardiology was consulted for non ST elevation [place]. Echocardiogram 02/06/2024 showed EF of 35-40% akinesis of the mid to anterior septal segment and apex hypokinesia of the anterior wall. Has been treated with diuretics for acute on chronic systolic/diastolic heart failure. Was started on amiodarone for AFib with RVR which has improved. Patient is being medically managed for possible coronary artery disease with aspirin Plavix and statin. Was started on Lasix and Toprol as well. He was empirically treated for possible pneumonia with doxycycline and meropenem. Eventually was weaned off O2 support, leukocytosis had improved. Did not qualify for oxygen via 6 minute walk. Was taken off sulfonylurea for his diabetes, his hemoglobin A1c was less than 6. Risk of hypoglycemia with significant CKD is higher than adequate blood glucose control. Discharged home in stable condition. Status at Discharge Overall status at discharge: patient is back to baseline Time Spent with Patient Time attestation: Total time spent providing and/or coordinating discharge services: Time spent: Greater than 30 minutes Exam Narrative: General physical exam: comfortable NAD Head/eyes: Atraumatic, and anicteric ENT: Moist mucous membranes, Neck: Supple, CVS: S1 + S2, +, regular rate and rhythm, no murmurs Respiratory: Decreased breath sounds bilaterally Abdomen: Soft, non-tender, BS+ Extremities: no edema Musculoskeletal: Moves all, decreased range of motion, no muscle spasms Skin: Warm, dry, no jaundice, no cyanosis DS: Data Data Completed and Pending Labs on day of discharge: Labs from last 24 hours 02/10/24 02/10/24 02/09/24 10:31 08:00 20:07 WBC 12.9 H RBC 3.15 L Hgb 9.6 L Hct 29.6 L MCV 94.0 MCH 30.5 MCHC 32.4 RDW 13.5 Plt Count 191 MPV 11.3 H Sodium 137 Potassium 4.2 Chloride 103 Carbon Dioxide 28 Anion Gap 6 BUN 79 H D Creatinine 3.70 H Estim Creat Clear Calc 16 Estimated GFR 16 L Glucose 158 H POC Capillary Glucose 140 H 136 H Calcium 8.4 Magnesium 2.1 02/09/24 15:57 WBC RBC Hgb Hct MCV MCH MCHC RDW Plt Count MPV Sodium Potassium Chloride Carbon Dioxide Anion Gap BUN Creatinine Estim Creat Clear Calc Estimated GFR Glucose POC Capillary Glucose 145 H Calcium Magnesium Preliminary micro results at discharge 02/08/24 11:39 Blood Culture - Preliminary Blood 02/08/24 12:29 Blood Culture - Preliminary Blood Discharge Plan Discharge Attending physician on discharge: Vernell Wong Consulting providers: Singh Styles Discharging Clinician: Vernell Wong
== END 2024-02-10 15:16 | disposition home or self-care (01) | DRG 280 ==
PROVIDERS: Family Medicine; Internal Medicine; Admitting Provider Family Medicine; PCP Nurse Practitioner Family; Visit Provider Internal Medicine
DX: I21.4 Non-ST elevation (NSTEMI) myocardial infarction (principal); I50.43 Acute on chronic combined systolic (congestive) and diastolic (congestive) heart failure; J18.9 Pneumonia, unspecified organism; J96.01 Acute respiratory failure with hypoxia; I13.0 Hypertensive heart and chronic kidney disease with heart failure and stage 1 through stage 4 chronic kidney disease, or unspecified chronic kidney disease; I42.9 Cardiomyopathy, unspecified; N18.4 Chronic kidney disease, stage 4 (severe); I47.20 Ventricular tachycardia, unspecified; I25.10 Atherosclerotic heart disease of native coronary artery without angina pectoris; E11.22 Type 2 diabetes mellitus with diabetic chronic kidney disease; I48.91 Unspecified atrial fibrillation; D63.1 Anemia in chronic kidney disease; M17.0 Bilateral primary osteoarthritis of knee; E11.42 Type 2 diabetes mellitus with diabetic polyneuropathy; N40.0 Benign prostatic hyperplasia without lower urinary tract symptoms; E78.5 Hyperlipidemia, unspecified; N32.81 Overactive bladder; Z66 Do not resuscitate; Z79.82 Long term (current) use of aspirin; Z79.02 Long term (current) use of antithrombotics/antiplatelets; Z90.49 Acquired absence of other specified parts of digestive tract
CPT/HCPCS: 36415; 36569; 36600; 71045; 76775; 80048; 80053; 80076; 82375; 82805; 82947; 82948; 83036; 83050; 83605; 83735; 84100; 84484; 85025; 85027; 85610; 85730; 87040; 87641; 93005; 94002; 94618; 94640; 97161; 97165; A9270; C8929; J0282; J0456; J1610; J1644; J1940; J2060; J2185; J2354; J2919; J3475; Q9957

== ENCOUNTER 2024-03-14 16:49 | Inpatient (IN) | payer MEDICARE, SELFPAY ==
[2024-03-14] VITALS (9 sets, daily range): BP systolic 140–159; BP diastolic 61–80; PULSE 54–75; RESP 18–30; TEMP 36.1–36.4; O2SAT 94–100; BMI 31.6; BMI 31.3
--- NOTE | ~2024-03-14 | XR_ITS ---
EXAMINATION: XR chest 2V Exam Date/Time: 03/14/2024 17:29 CDT HISTORY: sob, cp Comparison: 02/08/2024. RESULT: Lines, tubes, and devices: Right humeral head soft tissue anchors. Lungs and pleura: Segmental right perihilar and patchy subsegmental left mid and lower lung airspace opacities. Mild diffuse reticular opacities with indistinct vessels. Linear bibasilar opacities like ly representing atelectasis/scar. Minimal bilateral costophrenic angle blunting. Cardiomediastinal silhouette: Stable. Other: No acute osseous or upper abdominal finding. IMPRESSION: Pulmonary opacities likely representing pulmonary edema, with small bilateral effusions. Infection is not excluded. Reviewed, dictated and finalized at location K. IMPRESSION: Pulmonary opacities likely representing pulmonary edema, with small bilateral e ffusions. Infection is not excluded.
--- NOTE | 2024-03-14 16:56 | ECG_ITS ---
Test Date: 2024-03-14 16:49:49 Measurements Intervals [place] Rate: 79 P: 26 IA: 136 QRS: 51 QRSD: 120 T: 55 QT: 416 QTc: 478 Interpretive Statements SINUS RHYTHM INTRAVENTRICULAR CONDUCTION DELAY DELAYED PRECORDIAL R/S TRANSITION MINIMAL Q WAVES- INFERIOR LEADS BASELINE ARTIFACT- II, III, AVL, AVF, V4-V6 BORDERLINE ECG Compared to ECG 02/07/2024 17:25:27 T-wave abnormality no longer present Electronically Signed On 03-14-2024 18:05:01 CDT by Adrien Singh D.O.
--- NOTE | 2024-03-14 17:04 | ED_ITS ---
HPI - SOB/Dyspnea General Chief Complaint: Shortness of Breath/Dyspnea <Janelle Ayon PA-C - Last Filed: 03/14/24 19:40> Stated Complaint: resp distress <ROSY Larson Last Filed: 03/14/24 19:40> Time Seen by Provider: 03/14/24 16:57 <ROSY Larson Last Filed: 03/14/24 19:40> Source: patient, EMS and old records reviewed <ROSY Larson Last Filed: 03/14/24 19:40> Mode of arrival: EMS <ROSY Larson Last Filed: 03/14/24 19:40> Limitations: no limitations <ROSY Larson Last Filed: 03/14/24 19:40> History of Present Illness HPI Narrative: Patient is an 88-year-old male, with PMH of CAD, cardiomyopathy, CKD, DM, AFIB, who presents the ED via EMS with report of chest pain and shortness of breath. Per records, patient had a NSTEMI at the beginning of January, treated medically. He did not receive a stent. He sees Dr. Styles. he states he had been feeling well up until today when he began having midsternal and left- sided chest pain around noon. Denied radiation of the pain. He began feeling short of breath at which point EMS was called. EMS administered nit roglycerin/ASA and applied nitro paste which patient reports resolved his chest pain. Patient was noted to be 90% on room air, placed on non-rebreather mask, which he does report improved his shortness of breath. He reports chronic lower extremity swelling, but states it has been worse recently. Denies recent cough or cold symptoms, fever, abdominal pain. <ROSY Larson Last Filed: 03/14/24 19:40> Related Data Home Medications: Home Medications Medication Instructions Recorded Confirmed cholecalciferol (vitamin D3) 125 50 mcg PO DAILY 10/26/23 02/25/24 mcg (5,000 unit) capsule flaxseed oil 1,000 mg capsule 1,000 mg PO DAILY 10/26/23 02/25/24 mecobalamin (vitamin B12) 1,000 1,000 mcg sublingual DAILY 10/26/23 02/25/24 mcg disintegrating tablet,sublingual atorvastatin 80 mg tablet 80 mg PO DAILY 02/06/24 02/25/24 clopidogrel 75 mg tablet 75 mg PO DAILY 02/06/24 02/25/24 diltiazem HCl 240 mg 240 mg PO DAILY 02/06/24 02/25/24 capsule,extended release 24 hr finasteride 5 mg tablet 5 mg PO DAILY 02/06/24 02/25/24 <Janelle Ayon PA-C - Last Filed: 03/14/24 19:40> Allergies/Adverse Reactions: Allergies Allergy/AdvReac Type Severity Reaction Status Date / Time SALEEM Inhibitors Allergy Intermediate swelling Verified 02/25/24 13:00 of tongue Cephalosporins Allergy Intermediate swelling Verified 02/25/24 13:00 of tongue quinapril Allergy Intermediate Swelling Verified 02/25/24 13:00 of Lip/Tongue/Throat <Janelle Ayon PA-C - Last Filed: 03/14/24 19:40> Review of Systems Review of Systems: CONSTITUTIONAL: Denies fever, chills, or sweats. ENT: Denies rhinorrhea, congestion, sore throat. CARDIOVASCULAR: See HPI. RESPIRATORY: See HPI. GASTROINTESTINAL: Denies abdominal pain, nausea, vomiting <Janelle Ayon PA-C - Last Filed: 03/14/24 19:40> All systems reviewed & are unremarkable except as noted in HPI and below <Janelle Ayon PA-C - Last Filed: 03/14/24 19:40> [facility] Past Medical History Medical History: Medical History Actinic keratoses Anemia Anemia in chronic kidney disease Bilateral knee pain Degenerative arthritis of knee, bilateral Depression Diabetes mellitus type 2 in obese Diabetic peripheral neuropathy Elevated PSA Encounter to establish care Essential (primary) hypertension Foot deformity, acquired History of depression Macular pucker Nasal cavity polyp Nasal sinus polyp Nausea vomiting and diarrhea Osteoarthritis of left knee Prostate cancer 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 Urge incontinence of urine Urinary hesitancy UTI (urinary tract infection) <Janelle Ayon PA-C - Last Filed: 03/14/24 19:40> Surgical History Surgical History: Surgical History H/O adenoidectomy History of appendectomy History of repair of rotator cuff Hx of tonsillectomy S/P cataract surgery <Janelle Ayon PA-C - Last Filed: 03/14/24 19:40> Family History Family History: Family History Father Family history of osteoarthritis Cerebrovascular accident Patient's father is in good health Mother Family history of malignant neoplasm, Onset Age: 59 Patient's mother is in good health Sibling Family history of malignant neoplasm Family history of arthritis <Janelle Ayon PA-C - Last Filed: 03/14/24 19:40> Social History Social History: Social History Smoking status: Never smoker Second hand tobacco smoke exposure: No Alcohol intake: never Substance use: never Substance use type: does not use Lack of Transportation: No Lack of Food: Never True Current Housing: I Have Housing Concerned About Future Housing: No Difficulty Paying Gas/Electric Bills: No Difficulty Paying for Meds: No Currently Unemployed: No Education: Associate Degree Difficulty w/ Childcare or Family Care: No Living arrangements: alone Occupation/Education: retired <Janelle Ayon PA-C - Last Filed: 03/14/24 19:40> Exam Narrative: GENERAL: Elderly, obese with BMI of 31.6, non-toxic, in no acute distress. HEAD: Normocephalic, atraumatic. RESPIRATORY: Airway patent, respirations mildly labored. Coarse lung sounds in bases bilaterally, diffuse crackles. Mild respiratory distress, tachypnea. CARDIOVASCULAR: Regular rate and rhythm without murmurs, rubs, or gallops. ABDOMINAL: Soft, nontender, nondistended. Normoactive BS. MUSCULOSKELETAL: Moves all extremities. No gross deformities. 1+ pitting lower ext edema bilaterally. No calf tenderness. SKIN: Warm, dry, normal color. NEURO: A&O X3. Speech clear. PSYCHIATRIC: Appropriate mood and affect. Normal interaction. <Janelle Ayon PA-C - Last Filed: 03/14/24 19:40> Course NUCLEAR LOGGING ENGINEER/PA Physician Supervision This visit was performed by both a physician and an APC. I performed all a spects of the MDM as documented. <Roshni Nuno MD - Last Filed: 03/14/24 20:50> Vital Signs Vital signs: Vital Signs Temperature 97.0 F L 03/14/24 16:46 Pulse Rate 75 03/14/24 16:46 Respiratory Rate 23 H 03/14/24 16:46 Blood Pressure 140/61 03/14/24 16:46 Pulse Oximetry 97 03/14/24 16:46 Oxygen Delivery Non-Rebreather Mask 03/14/24 16:46 Oxygen Flow Rate 10 03/14/24 16:46 Temperature 97.0 F L 03/14/24 16:46 Pulse Rate 59 L 03/14/24 19:30 Respiratory Rate 22 H 03/14/24 19:30 Blood Pressure 143/63 H 03/14/24 18:41 Pulse Oximetry 98 03/14/24 18:41 Oxygen Delivery BiPAP 03/14/24 19:30 Oxygen Flow Rate 4 03/14/24 17:06 <Janelle Ayon PA-C - Last Filed: 03/14/24 19:40> Vital Signs Temperature 97.0 F L 03/14/24 16:46 Pulse Rate 75 03/14/24 16:46 Respiratory Rate 23 H 03/14/24 16:46 Blood Pressure 140/61 03/14/24 16:46 Pulse Oximetry 97 03/14/24 16:46 Oxygen Delivery Non-Rebreather Mask 03/14/24 16:46 Oxygen Flow Rate 10 03/14/24 16:46 Temperature 97.0 F L 03/14/24 16:46 Pulse Rate 59 L 03/14/24 19:30 Respiratory Rate 22 H 03/14/24 19:30 Blood Pressure 143/63 H 03/14/24 18:41 Pulse Oximetry 98 03/14/24 18:41 Oxygen Delivery BiPAP 03/14/24 19:30 Oxygen Flow Rate 4 03/14/24 17:06 <Roshni Nuno MD - Last Filed: 03/14/24 20:50> MDM - SOB/Dyspnea MDM Narrative Medical decision making narrative: Patient presented to ED with respiratory distress, chest pain, recent NSTEMI. Patient was noted to be borderline hypoxic by EMS, placed on non- rebreather mask. He was transitioned here to nasal cannula here at 4 L with oxygen saturations ranging from 94-95% on 4 L, though still fairly tachypneic. ABG was obtained, no CO2 retention. PO2 75, O2 saturation 95 on room air. Patient does seem to be working hard to breathe, diffuse crackles on auscultation. Decision was made to place patient on BiPAP. Tolerating this well, significant improvement of respiratory drive. EKG with sinus rhythm, nonspecific ST changes. No significant ST elevation/depression at this time. Patient denies any ongoing chest pain. Baseline troponin 0.061, could still be downtrending from recent NSTEMI, will continue to trend. BNP >30,000, consistent with acute CHF. This fits with clinical picture/fluid overload. Chest x-ray with diffuse pulmonary edema, small bilateral pleural effusions. IV Lasix given in the ED. Per records, patient on lasix 80mg daily. CBC with white blood cell count of 15.7. Patient does appear to have a chronic leukocytosis her most recent records. Denies recent cough or fevers. Stable H&H compared to previous records. CMP with bicarb of 20, anion gap of 13. Known CKD with stable creatinine at 3.5 today, consistent with previous records. Stable electrolytes. Viral swabs negative. Patient will be admitted for further evaluation of acute hypoxia, CHF, elevated troponin. Discussed case with Elle PERALES, hospitalist, accepted patient for admission. Recommended to discuss with cardiology for +/- heparin. Discussed case with Dr. Villegas, cardiology, advised to start heparin until it is able to be determined if troponins are downtrending/flat. Patient in agreement with plan and need for admission. <Janelle Ayon PA-C - Last Filed: 03/14/24 19:40> Medical Records Attestation: I reviewed the patient's medical records. <Janelle Ayon PA-C - Last Filed: 03/14/24 19:40> Lab Data Attestation: I reviewed the patient's lab results. <Janelle Ayon PA-C - Last Filed: 03/14/24 19:40> Result diagrams: 03/14/24 17:06 03/14/24 17:06 <Janelle Ayon PA-C - Last Filed: 03/14/24 19:40> Labs: Lab Results 03/14/24 03/14/24 Range/Units 17:06 17:10 WBC 15.7 H (4.5-10.0) K/mm3 RBC 3.15 L (4.6-6.20) M/mm3 Hgb 9.5 L (14.0-18.0) g/dL Hct 29.8 L (42.0-52.0) % MCV 94.6 (80-100) fl MCH 30.2 (26-34) pg MCHC 31.9 L (32-36) g/dl RDW 14.6 H (11.5-14.5) % Plt Count 223 (150-375) k/mm3 MPV 11.4 H (7.4-10.4) fl Immature Gran % (Auto) 0.7 H (0-0.5) % Neut % (Auto) 77.0 H (45.5-73.1) % Lymph % (Auto) 13.4 L (18.3-44.2) % [place] % (Auto) 7.2 (2.6-8.5) % Eos % (Auto) 1.0 (0-4.4) % Baso % (Auto) 0.7 (0.2-1.2) % Lymph # (Auto) 2.09 (0.9-3.2) K/mm3 [place] # (Auto) 1.1 H (0.1-0.6) K/mm3 Eos # (Auto) 0.2 (0-0.3) K/mm3 Baso # (Auto) 0.1 (0.0-0.1) K/mm3 Abs Immat Gran (auto) 0.11 H (0.00-0.031) K/mm3 Absolute Neuts (auto) 12.1 H (1.3-6.7) K/mm3 Absolute Nucleated RBC 0.000 (0.0-0.012) K/mm3 Nucleated RBC % 0.0 (0.0-0.2) % PT 14.9 H (11.1-14.7) Seconds INR 1.1 APTT 24.8 (22.3-36.8) Seconds Sodium 139 (137-145) mmol/L Potassium 3.7 (3.4-5.0) mmol/L Chloride 106 (98-107) mmol/L Carbon Dioxide 20 L (22-30) mmol/L Anion Gap 13 H (4-12) mmol/L BUN 47 H D (9-20) mg/dL Creatinine 3.50 H (0.7-1.3) mg/dL Estim Creat Clear Calc 17 ml/min Estimated GFR 17 L (59 - ) Glucose 189 H (65-110) mg/dL Calcium 8.4 (8.4-10.2) mg/dL Magnesium 1.9 (1.6-2.3) mg/dL Total Bilirubin 0.7 (0.2-1.3) mg/dL AST 25 (17-59) U/L ALT 16 (6-50) U/L Alkaline Phosphatase 89 (38-126) U/L Troponin I 0.061 H* (0.000-0.034) ng/mL NT-Pro-B Natriuret Pep > 59240 H (19.9-100) pg/mL Total Protein 7.0 (6.3-8.2) g/dL Albumin 3.7 (3.5-5.1) g/dL Influenza A (RT-PCR) Negative (Negative) Influenza B (RT-PCR) Negative (Negative) RSV (RT-PCR) Negative (Negative) SARS-CoV-2 RNA (RT-PCR) Negative (Negative) <Janelle Ayon PA-C - Last Filed: 03/14/24 19:40> Lab Results 03/14/24 03/14/24 Range/Units 17:06 17:10 WBC 15.7 H (4.5-10.0) K/mm3 RBC 3.15 L (4.6-6.20) M/mm3 Hgb 9.5 L (14.0-18.0) g/dL Hct 29.8 L (42.0-52.0) % MCV 94.6 (80-100) fl MCH 30.2 (26-34) pg MCHC 31.9 L (32-36) g/dl RDW 14.6 H (11.5-14.5) % Plt Count 223 (150-375) k/mm3 MPV 11.4 H (7.4-10.4) fl Immature Gran % (Auto) 0.7 H (0-0.5) % Neut % (Auto) 77.0 H (45.5-73.1) % Lymph % (Auto) 13.4 L (18.3-44.2) % [place] % (Auto) 7.2 (2.6-8.5) % Eos % (Auto) 1.0 (0-4.4) % Baso % (Auto) 0.7 (0.2-1.2) % Lymph # (Auto) 2.09 (0.9-3.2) K/mm3 [place] # (Auto) 1.1 H (0.1-0.6) K/mm3 Eos # (Auto) 0.2 (0-0.3) K/mm3 Baso # (Auto) 0.1 (0.0-0.1) K/mm3 Abs Immat Gran (auto) 0.11 H (0.00-0.031) K/mm3 Absolute Neuts (auto) 12.1 H (1.3-6.7) K/mm3 Absolute Nucleated RBC 0.000 (0.0-0.012) K/mm3 Nucleated RBC % 0.0 (0.0-0.2) % PT 14.9 H (11.1-14.7) Seconds INR 1.1 APTT 24.8 (22.3-36.8) Seconds Sodium 139 (137-145) mmol/L Potassium 3.7 (3.4-5.0) mmol/L Chloride 106 (98-107) mmol/L Carbon Dioxide 20 L (22-30) mmol/L Anion Gap 13 H (4-12) mmol/L BUN 47 H D (9-20) mg/dL Creatinine 3.50 H (0.7-1.3) mg/dL Estim Creat Clear Calc 17 ml/min Estimated GFR 17 L (59 - ) Glucose 189 H (65-110) mg/dL Calcium 8.4 (8.4-10.2) mg/dL Magnesium 1.9 (1.6-2.3) mg/dL Total Bilirubin 0.7 (0.2-1.3) mg/dL AST 25 (17-59) U/L ALT 16 (6-50) U/L Alkaline Phosphatase 89 (38-126) U/L Troponin I 0.061 H* (0.000-0.034) ng/mL NT-Pro-B Natriuret Pep > 13858 H (19.9-100) pg/mL Total Protein 7.0 (6.3-8.2) g/dL Albumin 3.7 (3.5-5.1) g/dL Influenza A (RT-PCR) Negative (Negative) Influenza B (RT-PCR) Negative (Negative) RSV (RT-PCR) Negative (Negative) SARS-CoV-2 RNA (RT-PCR) Negative (Negative) <Roshni Nuno MD - Last Filed: 03/14/24 20:50> ABG Data ABG results: 03/14/24 17:08 Puncture Site Right radial ABG pH 7.379 ABG pCO2 34.2 L ABG pO2 75.8 L ABG PO2/FiO2 Ratio 2.11 ABG HCO3 19.7 L ABG O2 Saturation 95.1 ABG O2 Content 13.3 L ABG Base Excess -4.8 A-a Gradient 141.2 Oxyhemoglobin 92.7 Total Hemoglobin 10.1 L O2 Delivery Device Nasal cannula O2 Liters/Min 4.0 FiO2 36 <Janelle Ayon PA-C - Last Filed: 03/14/24 19:40> 03/14/24 17:08 Puncture Site Right radial ABG pH 7.379 ABG pCO2 34.2 L ABG pO2 75.8 L ABG PO2/FiO2 Ratio 2.11 ABG HCO3 19.7 L ABG O2 Saturation 95.1 ABG O2 Content 13.3 L ABG Base Excess -4.8 A-a Gradient 141.2 Oxyhemoglobin 92.7 Total Hemoglobin 10.1 L O2 Delivery Device Nasal cannula O2 Liters/Min 4.0 FiO2 36 <Roshni Nuno MD - Last Filed: 03/14/24 20:50> Attestation: I personally reviewed and interpreted this ABG as follows: <Janelle Ayon PA-C - Last Filed: 03/14/24 19:40> Imaging Data Attestation: I personally reviewed and interpreted this imaging study as follows: <Janelle Ayon PA-C - Last Filed: 03/14/24 19:40> Radiologist's impression: ITS Impressions Chest X-Ray 03/14/24 17:36 IMPRESSION: Pulmonary opacities likely representing pulmonary edema, with small bilateral effusions. Infection is not excluded. <Janelle Ayon PA-C - Last Filed: 03/14/24 19:40> ECG Data EKG #1: Attestation: I personally reviewed and interpreted this ECG as follows: <Janelle Ayon PA-C - Last Filed: 03/14/24 19:40> ECG completion date: 03/14/24 <Janelle Ayon PA-C - Last Filed: 03/14/24 19:40> ECG completion time: 16:49 <Janelle Ayon PA-C - Last Filed: 03/14/24 19:40> EKG Interpretation: normal rate (79), sinus rhythm, non-specific ST changes and ST elev ation (minimal) <Janelle Ayon PA-C - Last Filed: 03/14/24 19:40> Discharge Plan Discharge Clinical Impression: Acute hypoxic respiratory failure, Elevated troponin CHF (congestive heart failure) Qualifiers: Heart failure type: unspecified Heart failure chronicity: acute on chronic Qualified Code(s): I50.9 - Heart failure, unspecified Chest pain Qualifiers: Chest pain type: unspecified Qualified Code(s): R07.9 - Chest pain, unspecified CKD (chronic kidney disease) Qualifiers: Chronic kidney disease stage: unspecified stage Qualified Code(s): N18.9 - Chronic kidney disease, unspecified <Janelle Ayon PA-C - Last Filed: 03/14/24 19:40> Patient Disposition: Still a Patient <ROSY Larson Last Filed: 03/14/24 19:40> Condition: Stable <Janelle Ayon PA-C - Last Filed: 03/14/24 19:40> Quality HEART score for chest pain patients History: highly suspicioius <Janelle Ayon PA-C - Last Filed: 03/14/24 19:40> ECG: non specific repolarization disturbance/LBTB/PM <MERY Larson - Last Filed: 03/14/24 19:40> Age: > or = to 65 years <Janelle Ayon PA-C - Last Filed: 03/14/24 19:40> Risk factors: > or = to 3 risk factors of atherosclerotic disease <Janelle Ayon PA-C - Last Filed: 03/14/24 19:40> Troponin: > 1 and < 3x normal limit <Janelle Ayon PA-C - Last Filed: 03/14/24 19:40> Heart score: 8 <Janelle Ayon PA-C - Last Filed: 03/14/24 19:40> 8 <Roshni Nuno MD - Last Filed: 03/14/24 20:50>
--- NOTE | 2024-03-14 17:12 | PC.NURSE ---
Pt reports no chest pain at this time. Pt unable to lay flat, speak in full sentences due to shortness of breath
[2024-03-14 17:13] LABS: Alveolar/Arterial O2 Gradient 141.2 mmHg; Base Excess ABG -4.8 mEq/l (+/-2.0); Fractional Inspired Oxygen 36 %; HCO3 ABG 19.7 mEq/l (22.0-26.0); Oxygen Content ABG 13.3 %vol (16.0-22.0); Oxygen Saturation ABG 95.1 % (95.0-100.0); Oxyhemoglobin 92.7 % THb (90.0-100.0); PCO2 ABG 34.2 mmHg (35.0-45.0); PO2 ABG 75.8 mmHg (80.0-100.0); PO2 FiO2 Ratio Arterial Blood 2.11 %; Total Hemoglobin 10.1 g/dL (12.0-18.0); pH ABG 7.379 (7.350-7.450)
[2024-03-14 17:16] LABS: Basophils Absolute Auto 0.1 K/mm3 (0.0-0.1); Basophils Percent Auto 0.7 % (0.2-1.2); Eosinophils Absolute Auto 0.2 K/mm3 (0-0.3); Hematocrit 29.8 % (42.0-52.0); Hemoglobin 9.5 g/dL (14.0-18.0); Immature Granulocyte Absolute 0.11 K/mm3 (0.00-0.031); Immature Granulocyte Percent A 0.7 % (0-0.5); Lymphocytes Absolute Auto 2.09 K/mm3 (0.9-3.2); Lymphocytes Percent Auto 13.4 % (18.3-44.2); Mean Corpuscular HGB Conc 31.9 g/dl (32-36); Mean Corpuscular Hemoglobin 30.2 pg (26-34); Mean Corpuscular Volume 94.6 fl (80-100); Mean Platelet Volume 11.4 fl (7.4-10.4); Monocytes Absolute Auto 1.1 K/mm3 (0.1-0.6); Monocytes Percent Auto 7.2 % (2.6-8.5); Neutrophils Absolute Auto 12.1 K/mm3 (1.3-6.7); Platelet Count Result 223 k/mm3 (150-375); Red Blood Count 3.15 M/mm3 (4.6-6.20); Red Cell Distribution Width 14.6 % (11.5-14.5); White Blood Count 15.7 K/mm3 (4.5-10.0)
[2024-03-14 17:16] LABS: Device NASAL CANNULA; Modified Allen's Test Pass; Site Drawn RIGHT RADIAL
[2024-03-14 17:28] LABS: Alanine Aminotransferase 16 U/L (6-50); Albumin Level 3.7 g/dL (3.5-5.1); Alkaline Phosphatase 89 U/L (38-126); Anion Gap 13 mmol/L (4-12); Aspartate Amino Transferase 25 U/L (17-59); Bilirubin,Total 0.7 mg/dL (0.2-1.3); Blood Urea Nitrogen 47 mg/dL (9-20); Calcium 8.4 mg/dL (8.4-10.2); Carbon Dioxide 20 mmol/L (22-30); Chloride 106 mmol/L (98-107); Estimated CRCL calculation 17 ml/min; Estimated Glomerular Filt Rate 17; Glucose 189 mg/dL (65-110); Magnesium 1.9 mg/dL (1.6-2.3); Potassium 3.7 mmol/L (3.4-5.0); Sodium 139 mmol/L (137-145)
[2024-03-14 17:33] LABS: INR 1.1; Partial Thromboplastin Time 24.8 Seconds (22.3-36.8); Prothrombin Time 14.9 Seconds (11.1-14.7)
[2024-03-14 17:44] LABS: NT Pro B Type Natriuretic Pept > 30000 pg/mL (19.9-100); Troponin I 0.061 ng/mL (0.000-0.034)
[2024-03-14 17:53] LABS: Influenza A QL RT-PCR Negative (Negative); Influenza B QL RT-PCR Negative (Negative); RSV RNA, RT-PCR Negative (Negative); SARS-CoV-2 RNA PCR Negative (Negative)
[2024-03-14] MEDS: FUROSEMIDE INJ 40 MG/4 ML VIAL IV PUSH (18:40)
--- NOTE | 2024-03-14 18:44 | PC.NURSE ---
Pt tolerating Bipap well, states he is breathing much better.
[2024-03-14 19:44] LABS: Alveolar/Arterial O2 Gradient 62.7 mmHg; Base Excess ABG -3.7 mEq/l (+/-2.0); Carboxyhemoglobin 0.3 % THb (0-2.0); Fractional Inspired Oxygen 35 %; HCO3 ABG 20.5 mEq/l (22.0-26.0); Methemoglobin ABG 0.3 %THb (0-1.5); Oxygen Content ABG 14.6 %vol (16.0-22.0); Oxygen Saturation ABG 98.9 % (95.0-100.0); Oxyhemoglobin 97.9 % THb (90.0-100.0); PCO2 ABG 34.2 mmHg (35.0-45.0); PO2 ABG 147.1 mmHg (80.0-100.0); Reduced Hemoglobin 1.5 %THb (0-5.0); Total Hemoglobin 10.4 g/dL (12.0-18.0); pH ABG 7.396 (7.350-7.450)
[2024-03-14 19:45] LABS: Modified Allen's Test Pass; Site Drawn RIGHT BRACHIAL
[2024-03-14 19:46] LABS: Device BIPAP; Expiratory Pressure 7 cmH2O; Inspiratory Pressure 14 cmH2O
[2024-03-14] MEDS: HEPARIN SOD/D5W 100 UNITS/ML 25,000 UNITS/250 ML BAG 10 UNITS IV CONT (19:57)
[2024-03-14] MEDS: HEPARIN SODIUM 5,000 UNITS/ML VIAL 4000 UNITS IV PUSH (19:59)
--- NOTE | 2024-03-14 20:38 | ECG_ITS ---
Test Date: 2024-03-14 20:46:36 Measurements Intervals [place] Rate: 61 P: 7 TX: 181 QRS: 34 QRSD: 117 T: 73 QT: 445 QTc: 450 Interpretive Statements SINUS RHYTHM INTRAVENTRICULAR CONDUCTION DELAY DELAYED PRECORDIAL R/S TRANSITION MINIMAL Q WAVES- INFERIOR LEADS T WAVE ABNORMALITY IN ANTERIOR LEADS- CONSIDER ISCHEMIA BASELINE ARTIFACT- I, II, AVR, AVL, AVF, V5-V6 ABNORMAL ECG Compared to ECG 03/14/2024 16:49:49 T WAVE ABNORMALITY NOW PRESENT Electronically Signed On 03-15-2024 06:34:50 CDT by Adrien Singh D.O.
[2024-03-14 21:20] LABS: Troponin I 0.224 ng/mL (0.000-0.034)
--- NOTE | 2024-03-14 21:32 | ADMGEN ---
This patient, Esequiel Sharma, was admitted to IMU Room 202-01. Patient/family oriented to hospital policies and general routines including ID bracelet, bed and alarms, visiting hours, pain management, procedures, bathroom and other care routines, personal items, smoking policy, room service/diet, and visiting hours. Information on how to activate the Rapid Response Team has been discussed. Patient/Family are encouraged to report perceived risks to care and to ask questions if they do not understand what they are told or what they should do.
--- NOTE | 2024-03-14 22:00 | PM.IMHP ---
H&P: HPI History of Present Illness Date/Time: 03/14/24 22:00 Chief Complaint: Shortness of breath and chest discomfort. Narrative: This is an 88-year-old male with non ST-elevation myocardial infarction the in January 2024 treated medically, cardiomyopathy with recent EF of 35 to 40%, paroxysmal atrial fibrillation, stage 4 chronic kidney disease, hypertension, hyperlipidemia, peripheral arterial disease, and type 2 diabetes mellitus who presented to the emergency department via EMS for evaluation of shortness of breath and chest discomfort. The patient provides the following history. He has been doing quite well since his recent hospitalization however today around noontime he developed nonradiating, pressure-like midsternal and left-sided chest discomfort associated with shortness of breath doing nothing in particular. The shortness of breath worsened quite quickly and EMS was summoned. His SpO2 was 90% on room air on EMS arrival and he was placed on a non-rebreather mask. He was also given aspirin and nitroglycerin. He was transitioned to BiPAP on arrival to the ED due to work of breathing. At the time my evaluation he is feeling much better in the BiPAP has been removed. He does not have any current chest pain. He denies syncope, near syncope, pleuritic pain, palpitations, nausea, vomiting, sweats, orthopnea, and edema. In the ED: He was afebrile on arrival with stable blood pressures. Labs were significant for WBC count of 15.7, hemoglobin 9.5, BUN 47, creatinine 3.50, proBNP greater than 30,000, troponin 0.061. He was negative for influenza, RSV, and COVID. Chest x-ray showed pulmonary opacities likely representing pulmonary edema with small bilateral effusions. EKG shows sinus rhythm, small Q-waves in lead 3, and ST T-wave abnormalities in anterior leads. He was given 40 mg IV furosemide and started on a heparin drip after conferring with Cardiology and is being admitted in this setting for further treatment and evaluation. Review of Systems Review of Systems: 12 systems were reviewed and are negative except for as per HPI. [facility], [facility] Past Medical History Medical History Anemia in chronic kidney disease Chronic kidney disease, stage 4 (severe) Degenerative arthritis of knee, bilateral Depression Diabetic peripheral neuropathy Elevated PSA Essential (primary) hypertension Nasal sinus polyp Osteoarthritis of left knee Paroxysmal atrial fibrillation Prostate cancer Stage 4 chronic kidney disease Type 2 diabetes mellitus Urge incontinence of urine Surgical History Surgical History History of appendectomy History of cataract extraction History of repair of rotator cuff History of tonsillectomy and adenoidectomy Family History Family History Father Family history of osteoarthritis Cerebrovascular accident Patient's father is in good health Mother Family history of malignant neoplasm, Onset Age: 59 Patient's mother is in good health Sibling Family history of malignant neoplasm Family history of arthritis Social History Social History (Updated 03/14/24 @ 23:30 by Elle Evans PA-C) Social History: Surrogate medical decision maker: Stephany Daigle. Code status: Do not resuscitate. Smoking status: Never smoker Second hand tobacco smoke exposure: No Alcohol intake: never Substance use: never Substance use type: does not use Do You Feel Safe in your Home?: Yes Lack of Transportation: No Lack of Food: Never True Current Housing: Decline to Answer Concerned About Future Housing: No Difficulty Paying Gas/Electric Bills: No Difficulty Paying for Meds: No Currently Unemployed: No Education: Decline to Answer Difficulty w/ Childcare or Family Care: No Living arrangements: alone Occupation/Education: retired Spiritual care concerns: No Meds Home Medications and Allergies Home Medications Medication Instructions Recorded Confirmed Type cholecalciferol (vitamin D3) 125 50 mcg PO DAILY 10/26/23 03/14/24 History mcg (5,000 unit) capsule flaxseed oil 1,000 mg capsule 1,000 mg PO DAILY 10/26/23 03/14/24 History mecobalamin (vitamin B12) 1,000 1,000 mcg sublingual DAILY 10/26/23 03/14/24 History mcg disintegrating tablet,sublingual citalopram 20 mg tablet 20 mg PO DAILY #90 tabs 10/27/23 03/14/24 Rx atorvastatin 80 mg tablet 80 mg PO DAILY 02/06/24 03/14/24 History clopidogrel 75 mg tablet 75 mg PO DAILY 02/06/24 03/14/24 History diltiazem HCl 240 mg 240 mg PO DAILY 06/08/24 07/15/24 History capsule,extended release 24 hr finasteride 5 mg tablet 5 mg PO DAILY 02/06/24 03/14/24 History amiodarone 200 mg tablet (Pacerone) 400 mg PO DAILY@0800 #30 tabs 02/10/24 03/14/24 Rx aspirin 81 mg tablet,delayed 81 mg PO QAM #30 tabs 02/10/24 03/14/24 Rx release furosemide 80 mg tablet 80 mg PO DAILY #30 tabs 02/10/24 03/14/24 Rx metoprolol succinate 25 mg 25 mg PO QAM #30 tabs 02/10/24 03/14/24 Rx tablet,extended release 24 hr (Toprol XL) Allergies Allergy/AdvReac Type Severity Reaction Status Date / Time SALEEM Inhibitors Allergy Intermediate swelling Verified 02/25/24 13:00 of tongue Cephalosporins Allergy Intermediate swelling Verified 02/25/24 13:00 of tongue quinapril Allergy Intermediate Swelling Verified 02/25/24 13:00 of Lip/Tongue/Throat Vital Signs Vital Signs - 24 hr 03/14/24 16:46 03/14/24 17:06 03/14/24 16:46 Temperature 97.0 F L Pulse Rate 75 73 Respiratory Rate 23 H Blood Pressure 140/61 Pulse Oximetry 97 94 Oxygen Delivery Non-Rebreather Mask Nasal Cannula Oxygen Flow Rate 10 4 Fraction of Inspired Oxygen 03/14/24 17:45 03/14/24 18:41 03/14/24 19:30 Temperature Pulse Rate 58 L 58 L 59 L Respiratory Rate 18 21 H 22 H Blood Pressure 143/63 H Pulse Oximetry 100 98 Oxygen Delivery BiPAP BiPAP Oxygen Flow Rate Fraction of Inspired Oxygen 03/14/24 21:27 03/14/24 21:46 Temperature 97.5 F L Pulse Rate 74 Respiratory Rate 20 Blood Pressure 159/80 H Pulse Oximetry 100 Oxygen Delivery BiPAP Oxygen Flow Rate Fraction of Inspired Oxygen 35 Exam Narrative: General: Well-developed elderly gentleman sitting up in bed in no acute distress. Weight: 99 kg. BMI: 31.3. HEENT: PERRL, EOMI. Sclera anicteric. Oral mucosa moist. Oropharynx clear. Neck: Supple. Mild jugular venous distension. Respiratory: Respirations are nonlabored and he is speaking in full sentences. Bilateral crackles heard at the bases. Cardiovascular: Regular rate and rhythm with S1-S2. Gastrointestinal: Abdomen is soft, nontender, and nondistended with positive bowel sounds. Skin: Warm and dry. No rash or lesions on limited exam. Extremities: No cyanosis, clubbing, or significant edema. Radial and pedal pulses intact. No palpable knots or cords. Negative [place] sign bilaterally. Neurological: Alert. Cranial nerves 2-12 are grossly intact. No gross focal deficits to casual conversation. Psychiatric: Pleasant and cooperative with normal mood and affect. Judgment and insight intact. H&P: Results Labs Labs: Short CBC 03/14/24 Range/Units 17:06 WBC 15.7 H (4.5-10.0) K/mm3 Hgb 9.5 L (14.0-18.0) g/dL Hct 29.8 L (42.0-52.0) % Plt Count 223 (150-375) k/mm3 BMP 03/14/24 17:06 Sodium 139 Potassium 3.7 Chloride 106 Carbon Dioxide 20 L BUN 47 H D Creatinine 3.50 H Glucose 189 H Calcium 8.4 Cardiac Enzymes 03/14/24 03/14/24 Range/Units 17:06 20:38 Troponin I 0.061 H* 0.224 H* D (0.000-0.034) ng/mL Liver Function 03/14/24 Range/Units 17:06 Total Bilirubin 0.7 (0.2-1.3) mg/dL AST 25 (17-59) U/L ALT 16 (6-50) U/L Alkaline Phosphatase 89 (38-126) U/L Albumin 3.7 (3.5-5.1) g/dL Impressions Chest X-Ray 03/14/24 17:36 IMPRESSION: Pulmonary opacities likely representing pulmonary edema, with small bilateral effusions. Infection is not excluded. Assessment and Plan Assessment and plan (1) Non-ST elevation myocardial infarction (NSTEMI): Code(s): I21.4 - Non-ST elevation (NSTEMI) myocardial infarction Status: Acute (2) Acute exacerbation of congestive heart failure: Code(s): I50.9 - Heart failure, unspecified Status: Acute (3) Acute respiratory failure with hypoxia: Code(s): J96.01 - Acute respiratory failure with hypoxia Status: Acute (4) Chronic kidney disease, stage 4 (severe): Code(s): N18.4 - Chronic kidney disease, stage 4 (severe) Status: Acute (5) Anemia in chronic kidney disease: Code(s): N18.9 - Chronic kidney disease, unspecified; D63.1 - Anemia in chronic kidney disease Status: Acute (6) Type 2 diabetes mellitus: Code(s): E11.9 - Type 2 diabetes mellitus without complications Status: Acute (7) Paroxysmal atrial fibrillation: Code(s): I48.0 - Paroxysmal atrial fibrillation Status: Acute Plan The patient presented to the emergency department for evaluation of shortness of breath and chest discomfort as detailed in HPI. Labs, imaging, EKG, and all reports were personally reviewed. Clinically he has a CHF exacerbation with pulmonary edema and elevated proBNP. His symptoms seemed to start suddenly with chest pain and shortness of breath. Troponins are elevated and trending upwards, once again concerning for non ST-elevation myocardial infarction. He received aspirin and nitroglycerin en route to the hospital and was started on a heparin drip in the ED after conferring with the on-call felt dyeing machine tender. He will be NPO after midnight for possible cardiac catheterization however I think the they were trying to avoid that previously due to his underlying renal failure and DNR status. Continue judicious IV diuresis with close monitoring of volume status, renal function, and electrolytes. Wean BiPAP and oxygen as tolerated anemia stable on review of previous labs. He is currently in a sinus rhythm. His diabetes is diet controlled with a recent A1c of 5.4. Hold on Accu-Cheks at this time. Blood pressures have been stable. His home medications will be reviewed and resumed as appropriate. Findings and treatment plan were discussed with the patient. Questions were solicited and answered to satisfaction. The patient's medical management will be taken over by the hospitalist team in a.m. Quality VTE Prophylaxis VTE prophylaxis: pharmacologic ordered (currently on a heparin drip) The patient has been admitted under observation status. Hospitalist MIPS Advance Care Plan I have confirmed that the patient's Advanced Care Plan is present, code status is documented, or surrogate decision maker is listed in patient medical record.: Yes Medication Reconciliation I have utilized all available resources to obtain, update and review the patients current medications (includes all prescriptions, OTC, herbals, cannabis, and nutritional supplements).: Yes
[2024-03-14] MEDS: MELATONIN 5 MG TABLET 10 MG PO (23:41)
[2024-03-15] VITALS (16 sets, daily range): BP systolic 129–158; BP diastolic 45–77; PULSE 52–83; RESP 12–21; TEMP 36.4–37.1; O2SAT 94–100
[2024-03-15 04:25] LABS: Basophils Absolute Auto 0.1 K/mm3 (0.0-0.1); Basophils Percent Auto 0.5 % (0.2-1.2); Eosinophils Percent Auto 0.2 % (0-4.4); Hematocrit 31.1 % (42.0-52.0); Hemoglobin 9.9 g/dL (14.0-18.0); Immature Granulocyte Absolute 0.07 K/mm3 (0.00-0.031); Immature Granulocyte Percent A 0.5 % (0-0.5); Lymphocytes Absolute Auto 1.17 K/mm3 (0.9-3.2); Lymphocytes Percent Auto 8.4 % (18.3-44.2); Mean Corpuscular HGB Conc 31.8 g/dl (32-36); Mean Corpuscular Hemoglobin 30.6 pg (26-34); Mean Platelet Volume 11.8 fl (7.4-10.4); Monocytes Absolute Auto 0.8 K/mm3 (0.1-0.6); Monocytes Percent Auto 5.8 % (2.6-8.5); Neutrophils Absolute Auto 11.8 K/mm3 (1.3-6.7); Neutrophils Percent Auto 84.6 % (45.5-73.1); Platelet Count Result 209 k/mm3 (150-375); Red Blood Count 3.24 M/mm3 (4.6-6.20); Red Cell Distribution Width 14.6 % (11.5-14.5); White Blood Count 13.9 K/mm3 (4.5-10.0)
[2024-03-15 08:16] LABS: Alanine Aminotransferase 16 U/L (6-50); Albumin Level 3.9 g/dL (3.5-5.1); Alkaline Phosphatase 83 U/L (38-126); Anion Gap 11 mmol/L (4-12); Aspartate Amino Transferase 20 U/L (17-59); Bilirubin,Total 0.7 mg/dL (0.2-1.3); Blood Urea Nitrogen 51 mg/dL (9-20); Calcium 8.6 mg/dL (8.4-10.2); Carbon Dioxide 23 mmol/L (22-30); Chloride 107 mmol/L (98-107); Estimated CRCL calculation 16 ml/min; Estimated Glomerular Filt Rate 16; Glucose 131 mg/dL (65-110); Magnesium 2.1 mg/dL (1.6-2.3); Potassium 4.5 mmol/L (3.4-5.0); Sodium 141 mmol/L (137-145)
[2024-03-15] MEDS: CYANOCOBALAMIN 1,000 MCG TABLET 1000 MCG PO (08:30)
[2024-03-15] MEDS: METOPROLOL SUCCINATE EXT REL 25 MG TABCR PO (08:30)
[2024-03-15] MEDS: ATORVASTATIN 40 MG TABLET 80 MG PO (08:30)
[2024-03-15] MEDS: FUROSEMIDE INJ 40 MG/4 ML VIAL IV PUSH ×2 (08:30→20:18)
[2024-03-15] MEDS: ASPIRIN 81 MG ENTERIC TABLET PO (08:30)
[2024-03-15] MEDS: CITALOPRAM HYDROBROMIDE 20 MG TABLET PO (08:30)
[2024-03-15] MEDS: FINASTERIDE 5 MG TABLET PO (08:31)
[2024-03-15] MEDS: AMIODARONE HCL 200 MG TABLET 400 MG PO (08:31)
[2024-03-15] MEDS: dilTIAZem HCL CD 240 MG CAP.24HR PO (08:31)
[2024-03-15] MEDS: CHOLECALCIFEROL 1,000 UNITS TABLET 2000 UNITS PO (08:31)
[2024-03-15] MEDS: CLOPIDOGREL BISULFATE 75 MG TABLET PO (08:31)
--- NOTE | 2024-03-15 08:35 | P.CONCA_ITS ---
Assessment and Plan Assessment and plan (1) Non-ST elevation myocardial infarction (NSTEMI): Code(s): I21.4 - Non-ST elevation (NSTEMI) myocardial infarction Status: Acute Assessment and Plan: Troponin mildly elevated at 0.061, 0.224. 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 I am going to stop his heparin at this time. Continue ASA, Plavix, statin. (2) Acute exacerbation of congestive heart failure: Code(s): I50.9 - Heart failure, unspecified Status: Acute Assessment and Plan: Secondary to being out of his furosemide at home for a week or so. Improving with IV furosemide. * Continue furosemide 40mg IV b.i.d. for today * MARILIA melendez * Accurate intake and output * Daily weights * CHF education (3) Paroxysmal atrial fibrillation: Code(s): I48.0 - Paroxysmal atrial fibrillation Status: Acute Assessment and Plan: In sinus rhythm. He is not anticoagulated because of current DAPT and because of CKD (4) Chronic kidney disease, stage 4 (severe): Code(s): N18.4 - Chronic kidney disease, stage 4 (severe) Status: Acute Assessment and Plan: Unsure of baseline kidney function, but BUN/SCr similar to his previous admissio n. Follows with [facility], Dr. Braun. (5) Acute respiratory failure with hypoxia: Code(s): J96.01 - Acute respiratory failure with hypoxia Status: Acute Assessment and Plan: Secondary to CHF. Improving with IV diuretics. (6) Cardiomyopathy: Code(s): I42.9 - Cardiomyopathy, unspecified Status: Acute Assessment and Plan: EF 35-40%. GDMT limited because of CKD. * Looks like he was discharged from his last admission on Diltiazem which is not appropriate given his reduced LV function. Will discontinue this. * Continue Toprol XL History of Present Illness History of Present Illness Consult date/time: 03/15/24 08:35 Reason For Visit: Acute Hypoxic Resp Failure/CHF/CP/Elevated Troponi Narrative: Esequiel Sharma is an 88year old male with stage 4 chronic kidney disease, type 2 diabetes mellitus, hypertension, cardiomyopathy, and recent NSTEMI treated medically. He was seen in our office last week for a hospital follow up visit at which time he was feeling well and didn't have any cardiovascular complaints. He enters the hospital now with shortness of breath, chest discomfort, and lower extremity edema. He ran out of his lasix about a week ago and has been unable to get it refilled. His initial workup was significant for NT-proBNP greater than 30,000, CXR showing pulmonary opacities likely representing pulmonary edema with small bilateral effusions, troponin 0.061. He is feeling better after receiving IV furosemide and BiPAP support now on nasal cannula oxygen. He denies any current chest pain, palpitations, shortness of breath. Review of Systems Review of Systems: All systems reviewed & are unremarkable except as noted in HPI and below PMFSH Past Medical History Medical History Anemia in chronic kidney disease Chronic kidney disease, stage 4 (severe) Degenerative arthritis of knee, bilateral Depression Diabetic peripheral neuropathy Elevated PSA Essential (primary) hypertension Nasal sinus polyp Osteoarthritis of left knee Paroxysmal atrial fibrillation Prostate cancer Stage 4 chronic kidney disease Type 2 diabetes mellitus Urge incontinence of urine Surgical History Surgical History History of appendectomy History of cataract extraction History of repair of rotator cuff History of tonsillectomy and adenoidectomy Family History Family History Father Family history of osteoarthritis Cerebrovascular accident Patient's father is in good health Mother Family history of malignant neoplasm, Onset Age: 59 Patient's mother is in good health Sibling Family history of malignant neoplasm Family history of arthritis Social History Social History Social History: Surrogate medical decision maker: Stephany Daigle. Code status: Do not resuscitate. Smoking status: Never smoker Second hand tobacco smoke exposure: No Alcohol intake: never Substance use: never Substance use type: does not use Do You Feel Safe in your Home?: Yes Lack of Transportation: No Lack of Food: Never True Current Housing: Decline to Answer Concerned About Future Housing: No Difficulty Paying Gas/Electric Bills: No Difficulty Paying for Meds: No Currently Unemployed: No Education: Decline to Answer Difficulty w/ Childcare or Family Care: No Living arrangements: alone Occupation/Education: retired Spiritual care concerns: No Meds Home Medications and Allergies Home Medications Medication Instructions Recorded Confirmed Type cholecalciferol (vitamin D3) 125 50 mcg PO DAILY 10/26/23 03/14/24 History mcg (5,000 unit) capsule flaxseed oil 1,000 mg capsule 1,000 mg PO DAILY 10/26/23 03/14/24 History mecobalamin (vitamin B12) 1,000 1,000 mcg sublingual DAILY 10/26/23 03/14/24 History mcg disintegrating tablet,sublingual citalopram 20 mg tablet 20 mg PO DAILY #90 tabs 10/27/23 03/14/24 Rx atorvastatin 80 mg tablet 80 mg PO DAILY 02/06/24 03/14/24 History clopidogrel 75 mg tablet 75 mg PO DAILY 02/06/24 03/14/24 History diltiazem HCl 240 mg 240 mg PO DAILY 02/06/24 03/14/24 History capsule,extended release 24 hr finasteride 5 mg tablet 5 mg PO DAILY 02/06/24 03/14/24 History amiodarone 200 mg tablet (Pacerone) 400 mg PO DAILY@0800 #30 tabs 02/10/24 03/14/24 Rx aspirin 81 mg tablet,delayed 81 mg PO QAM #30 tabs 02/10/24 03/14/24 Rx release furosemide 80 mg tablet 80 mg PO DAILY #30 tabs 02/10/24 03/14/24 Rx metoprolol succinate 25 mg 25 mg PO QAM #30 tabs 02/10/24 03/14/24 Rx tablet,extended release 24 hr (Toprol XL) Allergies Allergy/AdvReac Type Severity Reaction Status Date / Time SALEEM Inhibitors Allergy Intermediate swelling Verified 02/25/24 13:00 of tongue Cephalosporins Allergy Intermediate swelling Verified 02/25/24 13:00 of tongue quinapril Allergy Intermediate Swelling Verified 02/25/24 13:00 of Lip/Tongue/Throat Vital Signs Vital Signs - 24 hr 03/14/24 16:46 03/14/24 17:06 03/14/24 16:46 Temperature 36.1 C L Pulse Rate 75 73 Respiratory Rate 23 H Blood Pressure 140/61 Pulse Oximetry 97 94 Oxygen Delivery Non-Rebreather Mask Nasal Cannula Oxygen Flow Rate 10 4 Fraction of Inspired Oxygen 03/14/24 17:45 03/14/24 18:41 03/14/24 19:30 Temperature Pulse Rate 58 L 58 L 59 L Respiratory Rate 18 21 H 22 H Blood Pressure 143/63 H Pulse Oximetry 100 98 Oxygen Delivery BiPAP BiPAP Oxygen Flow Rate Fraction of Inspired Oxygen 03/14/24 21:27 03/14/24 21:46 03/14/24 22:00 Temperature 36.4 C L Pulse Rate 74 54 L Respiratory Rate 20 Blood Pressure 159/80 H Pulse Oximetry 100 Oxygen Delivery BiPAP Oxygen Flow Rate Fraction of Inspired Oxygen 35 03/14/24 23:14 03/15/24 00:00 03/15/24 00:00 Temperature 36.4 C L Pulse Rate 72 76 Respiratory Rate 20 Blood Pressure 150/76 H Pulse Oximetry 100 94 Oxygen Delivery Nasal Cannula Oxygen Flow Rate 3 Fraction of Inspired Oxygen 03/14/24 21:23 03/15/24 04:00 03/15/24 04:00 Temperature Pulse Rate 57 L Respiratory Rate 30 H Blood Pressure Pulse Oximetry 98 Oxygen Delivery BiPAP Nasal Cannula Oxygen Flow Rate 3 Fraction of Inspired Oxygen 03/15/24 04:47 03/15/24 01:30 03/15/24 08:00 Temperature 36.4 C 36.9 C Pulse Rate 83 70 Respiratory Rate 20 21 H 20 Blood Pressure 152/77 H 158/70 H Pulse Oximetry 100 99 Oxygen Delivery BiPAP Oxygen Flow Rate Fraction of Inspired Oxygen 03/15/24 08:23 03/15/24 08:30 03/15/24 08:31 Temperature Pulse Rate 73 73 Respiratory Rate Blood Pressure Pulse Oximetry 98 Oxygen Delivery Nasal Cannula Oxygen Flow Rate 3 Fraction of Inspired Oxygen Exam Const: General: comfortable, no acute distress, alert and awake Orientation/consciousness: patient oriented x3 HENMT: Head: normal to inspection Eyes: General: appearance normal, both eyes and all related structures Pupils: Equal, round and reactive pupils present Neck: Neck: normal visual inspection, supple and no JVD Carotids: normal carotid upstroke Resp: Effort & Inspection: normal respiratory effort Auscultation: clear to auscultation bilaterally Cardio: Rate: regular rate Rhythm: regular rhythm Heart sounds: S1 normal heart sound present, S2 normal heart sound present and no murmurs GI: Auscultation: normal bowel sounds Skin: General skin exam: normal color Neuro: General: patient oriented x3 Cranial nerves: Yes Equal, round and reactive pupils present Extrem: General: normal to inspection Psych: Appearance: grossly normal Mental Status: mental status grossly no rmal Results Labs and Meds 03/15/24 02:07 03/15/24 08:00 Lab results: Cardiac Enzymes 03/14/24 03/14/24 03/15/24 Range/Units 17:06 20:38 08:00 AST 25 20 (17-59) U/L Troponin I 0.061 H* 0.224 H* D (0.000-0.034) ng/mL Coagulation 03/14/24 03/15/24 03/15/24 Range/Units 17:06 02:07 08:00 PT 14.9 H (11.1-14.7) Seconds APTT 24.8 72.0 H 71.0 H (22.3-36.8) Seconds CBC 03/14/24 03/15/24 Range/Units 17:06 02:07 WBC 15.7 H 13.9 H (4.5-10.0) K/mm3 RBC 3.15 L 3.24 L (4.6-6.20) M/mm3 Hgb 9.5 L 9.9 L (14.0-18.0) g/dL Hct 29.8 L 31.1 L (42.0-52.0) % Plt Count 223 209 (150-375) k/mm3 Lymph # (Auto) 2.09 1.17 (0.9-3.2) K/mm3 [place] # (Auto) 1.1 H 0.8 H (0.1-0.6) K/mm3 Eos # (Auto) 0.2 0.0 (0-0.3) K/mm3 Baso # (Auto) 0.1 0.1 (0.0-0.1) K/mm3 Comprehensive Metabolic Panel 03/14/24 03/15/24 Range/Units 17:06 08:00 Sodium 139 141 (137-145) mmol/L Potassium 3.7 4.5 (3.4-5.0) mmol/L Chloride 106 107 (98-107) mmol/L Carbon Dioxide 20 L 23 (22-30) mmol/L BUN 47 H D 51 H (9-20) mg/dL Creatinine 3.50 H 3.70 H (0.7-1.3) mg/dL Glucose 189 H 131 H (65-110) mg/dL Calcium 8.4 8.6 (8.4-10.2) mg/dL AST 25 20 (17-59) U/L ALT 16 16 (6-50) U/L Alkaline Phosphatase 89 83 (38-126) U/L Total Protein 7.0 7.0 (6.3-8.2) g/dL Albumin 3.7 3.9 (3.5-5.1) g/dL Intake and Output 03/14/24 03/15/24 03/15/24 23:59 07:59 15:59 Intake Total 19.7 325.8 Output Total 400 Balance 19.7 -74.2 Intake: IV 19.7 85.8 Heparin Sod/D5w 100 Units/ml 25 19.7 85.8 ,000 units In 250 ml @ 1,000 UNITS/HR 10 mls/hr IV CONT . Q24H [facility] Rx#:[id number] Oral 240 Output: Urine 400 Patient Weight 03/15/24 23:59 Weight 98.8 kg
--- NOTE | 2024-03-15 18:47 | PM.IMPN ---
Progress Note: A&P Assessment and Plan (1) Chronic kidney disease, stage 4 (severe): Code(s): N18.4 - Chronic kidney disease, stage 4 (severe) Status: Acute (2) Acute respiratory failure with hypoxia: Code(s): J96.01 - Acute respiratory failure with hypoxia Status: Acute (3) Acute exacerbation of congestive heart failure: Code(s): I50.9 - Heart failure, unspecified Status: Acute Plan Continue diuresis. Add heparin subQ. Strict I&Os. Cardiology consultation recs. Subjective Date/time seen: 03/15/24 18:47 Interval history: Feels clinically better today Review of Systems Review of Systems: All systems reviewed & are unremarkable except as noted in HPI and below (Subjective) Exam Const: General: comfortable and no acute distress Eyes: Pupils: Equal, round and reactive pupils present Neck: Neck: supple Resp: Effort & Inspection: normal respiratory effort Auscultation: clear to auscultation bilaterally Cardio: Rate: regular rate Rhythm: regular rhythm GI: GI Palp: Yes Soft to palpation and No Tenderness to palpation present (GI) Extrem: General: edema Objective Data Vital Signs Vital Signs: Vital Signs - 24 hr 03/14/24 19:30 03/14/24 21:27 03/14/24 21:46 Temperature 97.5 F L Pulse Rate 59 L 74 Respiratory Rate 22 H 20 Blood Pressure 159/80 H Pulse Oximetry 100 Oxygen Delivery BiPAP BiPAP Oxygen Flow Rate Fraction of Inspired Oxygen 35 03/14/24 22:00 03/14/24 23:14 03/15/24 00:00 Temperature 97.5 F L Pulse Rate 54 L 72 76 Respiratory Rate 20 Blood Pressure 150/76 H Pulse Oximetry 100 Oxygen Delivery Oxygen Flow Rate Fraction of Inspired Oxygen 03/15/24 00:00 03/14/24 21:23 03/15/24 04:00 Temperature Pulse Rate 57 L Respiratory Rate 30 H Blood Pressure Pulse Oximetry 94 Oxygen Delivery Nasal Cannula BiPAP Oxygen Flow Rate 3 Fraction of Inspired Oxygen 03/15/24 04:00 03/15/24 04:47 03/15/24 01:30 Temperature 97.6 F Pulse Rate 83 Respiratory Rate 20 21 H Blood Pressure 152/77 H Pulse Oximetry 98 100 Oxygen Delivery Nasal Cannula BiPAP Oxygen Flow Rate 3 Fraction of Inspired Oxygen 03/15/24 08:00 03/15/24 08:23 03/15/24 08:30 Temperature 98.5 F Pulse Rate 70 73 Respiratory Rate 20 Blood Pressure 158/70 H Pulse Oximetry 99 98 Oxygen Delivery Nasal Cannula Oxygen Flow Rate 3 Fraction of Inspired Oxygen 03/15/24 08:31 03/15/24 08:00 03/15/24 08:00 Temperature Pulse Rate 73 80 Respiratory Rate Blood Pressure Pulse Oximetry 99 Oxygen Delivery Nasal Cannula Oxygen Flow Rate 2 Fraction of Inspired Oxygen 03/15/24 10:00 03/15/24 12:00 03/15/24 12:00 Temperature 98.4 F Pulse Rate 63 60 61 Respiratory Rate 12 Blood Pressure 139/48 L Pulse Oximetry 99 Oxygen Delivery Oxygen Flow Rate Fraction of Inspired Oxygen 03/15/24 12:00 03/15/24 14:00 03/15/24 16:00 Temperature 98.8 F Pulse Rate 53 L 56 L Respiratory Rate 12 Blood Pressure 139/53 L Pulse Oximetry 100 99 Oxygen Delivery Nasal Cannula Oxygen Flow Rate 2 Fraction of Inspired Oxygen 03/15/24 16:00 03/15/24 16:00 03/15/24 18:00 Temperature Pulse Rate 54 L 54 L Respiratory Rate Blood Pressure Pulse Oximetry 99 Oxygen Delivery Nasal Cannula Oxygen Flow Rate 2 Fraction of Inspired Oxygen Intake/Output Intake/Output: Intake & Output 03/12/24 03/13/24 03/14/24 03/15/24 23:59 23:59 23:59 23:59 Intake Total 19.7 655.8 Output Total 800 Balance 19.7 -144.2 Meds/Results Medications: Active Medications Generic Name Dose Route Start Last Admin Trade Name Freq PRN Reason Stop Dose Admin Acetaminophen 650 mg 03/14/24 22:13 Acetaminophen 325 Mg Tablet PO Q6H PRN Mild Pain (1-3) or Fever Amiodarone HCl 400 mg 03/15/24 08:00 03/15/24 08:31 Amiodarone Hcl 200 Mg Tablet PO 400 mg DAILY@0800 [facility] Administration Aspirin 81 mg 03/15/24 09:00 03/15/24 08:30 Aspirin 81 Mg Enteric Tablet PO 81 mg QAM MARKIE Administration Atorvastatin Calcium 80 mg 03/15/24 09:00 03/15/24 08:30 Atorvastatin 40 Mg Tablet PO 80 mg DAILY MARKIE Administration Citalopram Hydrobromide 20 mg 03/15/24 09:00 03/15/24 08:30 Citalopram Hydrobromide 20 Mg Tablet PO 20 mg DAILY MARKIE Administration Clopidogrel Bisulfate 75 mg 03/15/24 09:00 03/15/24 08:31 Clopidogrel Bisulfate 75 Mg Tablet PO 75 mg DAILY MARKIE Administration Cyanocobalamin 1,000 mcg 03/15/24 09:00 03/15/24 08:30 Cyanocobalamin 1,000 Mcg Tablet PO 1,000 mcg DAILY MARKIE Administration Finasteride 5 mg 03/15/24 09:00 03/15/24 08:31 Finasteride 5 Mg Tablet PO 5 mg DAILY MARKIE Administration Furosemide 40 mg 03/15/24 09:00 03/15/24 08:30 Furosemide Inj 40 Mg/4 Ml Vial IV PUSH 40 mg Q12HR MARKIE Administration Heparin Sodium (Porcine) 5,000 units 03/15/24 21:00 Heparin Sodium 5,000 Units/Ml Vial SUB-Q Q12HR MARKIE Metoprolol Succinate 25 mg 03/15/24 09:00 03/15/24 08:30 Metoprolol Succinate Ext Rel 25 Mg Tabcr PO 25 mg QAM MARKIE Administration Non-Formulary Medication 1 each 03/14/24 22:17 Nonformulary Nutritional Supplement XX 03/15/24 22:16 PRN PRN PROTOCOL Vitamin D 2,000 units 03/15/24 09:00 03/15/24 08:31 Cholecalciferol 1,000 Units Tablet PO 2,000 units DAILY MARKIE Administration Radiology Results: ITS Impressions Chest X-Ray 03/14/24 17:36 IMPRESSION: Pulmonary opacities likely representing pulmonary edema, with small bilateral effusions. Infection is not excluded. Labs Labs: Laboratory Results - last 24 hr 03/14/24 03/14/24 03/15/24 19:33 20:38 02:07 WBC 13.9 H RBC 3.24 L Hgb 9.9 L Hct 31.1 L MCV 96.0 MCH 30.6 MCHC 31.8 L RDW 14.6 H Plt Count 209 MPV 11.8 H Immature Gran % (Auto) 0.5 Neut % (Auto) 84.6 H Lymph % (Auto) 8.4 L [place] % (Auto) 5.8 Eos % (Auto) 0.2 Baso % (Auto) 0.5 Lymph # (Auto) 1.17 [place] # (Auto) 0.8 H Eos # (Auto) 0.0 Baso # (Auto) 0.1 Abs Immat Gran (auto) 0.07 H Absolute Neuts (auto) 11.8 H Absolute Nucleated RBC 0.000 Nucleated RBC % 0.0 APTT 72.0 H Puncture Site Right brachial ABG pH 7.396 ABG pCO2 34.2 L ABG pO2 147.1 H ABG PO2/FiO2 Ratio 4.20 ABG HCO3 20.5 L ABG O2 Saturation 98.9 ABG O2 Content 14.6 L ABG Base Excess -3.7 A-a Gradient 62.7 Oxyhemoglobin 97.9 Carboxyhemoglobin 0.3 Methemoglobin 0.3 Reduced Hemoglobin 1.5 Total Hemoglobin 10.4 L O2 Delivery Device Bipap O2 Liters/Min Not Reportable FiO2 35 Expiratory Pressure 7 Inspiratory Pressure 14 Sodium Potassium Chloride Carbon Dioxide Anion Gap BUN Creatinine Estim Creat Clear Calc Estimated GFR Glucose Calcium Magnesium Total Bilirubin AST ALT Alkaline Phosphatase Troponin I 0.224 H* D Total Protein Albumin 03/15/24 08:00 WBC RBC Hgb Hct MCV MCH MCHC RDW Plt Count MPV Immature Gran % (Auto) Neut % (Auto) Lymph % (Auto) [place] % (Auto) Eos % (Auto) Baso % (Auto) Lymph # (Auto) [place] # (Auto) Eos # (Auto) Baso # (Auto) Abs Immat Gran (auto) Absolute Neuts (auto) Absolute Nucleated RBC Nucleated RBC % APTT 71.0 H Puncture Site ABG pH ABG pCO2 ABG pO2 ABG PO2/FiO2 Ratio ABG HCO3 ABG O2 Saturation ABG O2 Content ABG Base Excess A-a Gradient Oxyhemoglobin Carboxyhemoglobin Methemoglobin Reduced Hemoglobin Total Hemoglobin O2 Delivery Device O2 Liters/Min FiO2 Expiratory Pressure Inspiratory Pressure Sodium 141 Potassium 4.5 Chloride 107 Carbon Dioxide 23 Anion Gap 11 BUN 51 H Creatinine 3.70 H Estim Creat Clear Calc 16 Estimated GFR 16 L Glucose 131 H Calcium 8.6 Magnesium 2.1 Total Bilirubin 0.7 AST 20 ALT 16 Alkaline Phosphatase 83 Troponin I Total Protein 7.0 Albumin 3.9
[2024-03-15] MEDS: HEPARIN SODIUM 5,000 UNITS/ML VIAL 5000 UNITS SUB-Q (20:16)
[2024-03-16] VITALS (13 sets, daily range): BP systolic 124–152; BP diastolic 48–81; PULSE 47–60; RESP 16–20; TEMP 36.3–37.3; O2SAT 93–100
[2024-03-16 00:02] LABS: Troponin I 0.412 ng/mL (0.000-0.034)
[2024-03-16 05:24] LABS: Procalcitonin 0.5 ng/mL
[2024-03-16 06:47] LABS: Basophils Absolute Auto 0.1 K/mm3 (0.0-0.1); Basophils Percent Auto 0.6 % (0.2-1.2); Eosinophils Absolute Auto 0.2 K/mm3 (0-0.3); Eosinophils Percent Auto 1.7 % (0-4.4); Hematocrit 29.4 % (42.0-52.0); Hemoglobin 9.1 g/dL (14.0-18.0); Immature Granulocyte Absolute 0.03 K/mm3 (0.00-0.031); Immature Granulocyte Percent A 0.3 % (0-0.5); Lymphocytes Absolute Auto 1.36 K/mm3 (0.9-3.2); Lymphocytes Percent Auto 13.3 % (18.3-44.2); Mean Platelet Volume 11.4 fl (7.4-10.4); Neutrophils Absolute Auto 7.6 K/mm3 (1.3-6.7); Neutrophils Percent Auto 74.1 % (45.5-73.1); Platelet Count Result 182 k/mm3 (150-375); Red Blood Count 3.03 M/mm3 (4.6-6.20); Red Cell Distribution Width 14.5 % (11.5-14.5); White Blood Count 10.2 K/mm3 (4.5-10.0)
[2024-03-16 08:51] LABS: Anion Gap 11 mmol/L (4-12); Blood Urea Nitrogen 53 mg/dL (9-20); Calcium 8.7 mg/dL (8.4-10.2); Carbon Dioxide 26 mmol/L (22-30); Chloride 102 mmol/L (98-107); Estimated CRCL calculation 15 ml/min; Estimated Glomerular Filt Rate 15; Glucose 184 mg/dL (65-110); Magnesium 1.9 mg/dL (1.6-2.3); Potassium 4.4 mmol/L (3.4-5.0); Sodium 139 mmol/L (137-145)
[2024-03-16] MEDS: AMIODARONE HCL 200 MG TABLET 400 MG PO (09:19)
[2024-03-16] MEDS: CHOLECALCIFEROL 1,000 UNITS TABLET 2000 UNITS PO (09:19)
[2024-03-16] MEDS: CLOPIDOGREL BISULFATE 75 MG TABLET PO (09:20)
[2024-03-16] MEDS: ASPIRIN 81 MG ENTERIC TABLET PO (09:20)
[2024-03-16] MEDS: ATORVASTATIN 40 MG TABLET 80 MG PO (09:20)
[2024-03-16] MEDS: CYANOCOBALAMIN 1,000 MCG TABLET 1000 MCG PO (09:20)
[2024-03-16] MEDS: CITALOPRAM HYDROBROMIDE 20 MG TABLET PO (09:20)
[2024-03-16] MEDS: METOPROLOL SUCCINATE EXT REL 25 MG TABCR PO (09:21)
[2024-03-16] MEDS: FINASTERIDE 5 MG TABLET PO (09:21)
[2024-03-16] MEDS: FUROSEMIDE INJ 40 MG/4 ML VIAL IV PUSH ×2 (09:21→20:18)
[2024-03-16] MEDS: HEPARIN SODIUM 5,000 UNITS/ML VIAL 5000 UNITS SUB-Q ×2 (09:21→20:18)
--- NOTE | 2024-03-16 09:32 | P.PNCA_ITS ---
Progress Note: A&P Assessment and Plan (1) Acute exacerbation of congestive heart failure: Code(s): I50.9 - Heart failure, unspecified Status: Acute Assessment and Plan: LVEF 35-40%. Acute exacerbation secondary to being out of his Furosemide at home for a week or so. Improving with IV Furosemide. * Continue Furosemide 40mg IV BID for today * MARILIA hose * Accurate intake and output * Daily weights * CHF education * Continue Toprol XL * Heart failure GDMT limited due to renal function. (2) Non-ST elevation myocardial infarction (NSTEMI): Code(s): I21.4 - Non-ST elevation (NSTEMI) myocardial infarction Status: Acute Assessment and Plan: Troponin mildly elevated. He does have suspected CAD, however, I think this t roponin elevation is related to volume overload, hypoxia, HTN, and CKD rather than being traveling representative of a true NSTEMI. Continue ASA, Plavix, statin. (3) Paroxysmal atrial fibrillation: Code(s): I48.0 - Paroxysmal atrial fibrillation Status: Acute Assessment and Plan: In sinus rhythm. He is not anticoagulated because of current DAPT and because of CKD (4) Chronic kidney disease, stage 4 (severe): Code(s): N18.4 - Chronic kidney disease, stage 4 (severe) Status: Acute Assessment and Plan: Monitor renal function closely with diuresis. Follows with Nephrology as an outpatient. (5) Acute respiratory failure with hypoxia: Code(s): J96.01 - Acute respiratory failure with hypoxia Status: Acute Assessment and Plan: Due to CHF. Wean off oxygen as tolerated. (6) Type 2 diabetes mellitus: Code(s): E11.9 - Type 2 diabetes mellitus without complications Status: Acute Assessment and Plan: Management as per primary team. Plan Recommendations and plan discussed with Hospitalist. Subjective Date/time seen: 03/16/24 09:32 Interval history: Reason for visit: CHF HPI: Esequiel Sharma is an 88 year old male with stage 4 chronic kidney disease, type 2 diabetes mellitus, hypertension, cardiomyopathy, and recent NSTEMI treated medically. He was seen in our office last week for a hospital follow up visit at which time he was feeling well and didn't have any cardiovascular complaints. He enters the hospital now with shortness of breath, chest discomfort, and lower extremity edema. He ran out of his Lasix about a week ago and has been unable to get it refilled. His initial workup was significant for NT-proBNP greater than 30,000, CXR showing pulmonary opacities likely representing pulmonary edema with small bilateral effusions, troponin 0.061. He is feeling better after receiving IV Furosemide and BiPAP support now on nasal cannula oxygen. He denies any current chest pain, palpitations, shortness of breath. Date of service 03/16: Diuresing well. Still with lower extremity edema. Hoping he can go home soon. Telemetry with sinus rhythm. Review of Systems Review of Systems: All systems reviewed & are unremarkable except as noted in HPI and below (HPI) Exam Const: General: comfortable and no acute distress HENMT: Mouth: Yes moist mucous membranes Eyes: General: appearance normal, both eyes and all related structures Sclera: sclerae normal Neck: Neck: supple Resp: Effort & Inspection: normal respiratory effort Auscultation: clear to auscultation bilaterally Cardio: Rate: regular rate Rhythm: regular rhythm Other: + Bilateral lower extremity edema Skin: General skin exam: normal color Neuro: Speech: normal speech Psych: Mental Status: mental status grossly normal Affect: normal affect Objective Data Vital Signs Vital Signs: Vital Signs - 24 hr 03/15/24 10:00 03/15/24 12:00 03/15/24 12:00 Temperature 36.9 C Pulse Rate 63 60 61 Respiratory Rate 12 Blood Pressure 139/48 L Pulse Oximetry 99 Oxygen Delivery Oxygen Flow Rate 03/15/24 12:00 03/15/24 14:00 03/15/24 16:00 Temperature 37.1 C Pulse Rate 53 L 56 L Respiratory Rate 12 Blood Pressure 139/53 L Pulse Oximetry 100 99 Oxygen Delivery Nasal Cannula Oxygen Flow Rate 2 03/15/24 16:00 03/15/24 16:00 03/15/24 18:00 Temperature Pulse Rate 54 L 54 L Respiratory Rate Blood Pressure Pulse Oximetry 99 Oxygen Delivery Nasal Cannula Oxygen Flow Rate 2 03/15/24 20:22 03/15/24 20:00 03/15/24 20:00 Temperature 36.6 C Pulse Rate 56 L 52 L Respiratory Rate 19 Blood Pressure 129/52 L Pulse Oximetry 100 98 Oxygen Delivery Nasal Cannula Oxygen Flow Rate 2 03/15/24 20:00 03/15/24 23:39 03/16/24 00:00 Temperature 36.8 C Pulse Rate 60 47 L Respiratory Rate 20 Blood Pressure 131/45 L Pulse Oximetry 97 99 Oxygen Delivery Nasal Cannula Oxygen Flow Rate 2 03/16/24 00:00 03/16/24 02:00 03/16/24 03:26 Temperature 36.4 C L Pulse Rate 49 L 60 Respiratory Rate 20 Blood Pressure 129/48 L Pulse Oximetry 99 96 Oxygen Delivery Nasal Cannula Oxygen Flow Rate 2 03/16/24 04:00 03/16/24 04:00 03/16/24 05:59 Temperature Pulse Rate 52 L 52 L Respiratory Rate Blood Pressure Pulse Oximetry 93 Oxygen Delivery Nasal Cannula Oxygen Flow Rate 2 03/16/24 08:00 03/16/24 09:19 03/16/24 09:21 Temperature 36.3 C L Pulse Rate 54 L 60 60 Respiratory Rate 16 Blood Pressure 152/62 H Pulse Oximetry 97 Oxygen Delivery Oxygen Flow Rate Intake/Output Intake/Output: Intake & Output 03/13/24 03/14/24 03/15/24 03/16/24 23:59 23:59 23:59 23:59 Intake Total 19.7 1195.8 240 Output Total 1600 1400 Balance 19.7 -404.2 -1160 Meds/Results Medications: Active Medications Generic Name Dose Route Start Last Admin Trade Name Freq PRN Reason Stop Dose Admin Acetaminophen 650 mg 03/14/24 22:13 Acetaminophen 325 Mg Tablet PO Q6H PRN Mild Pain (1-3) or Fever Amiodarone HCl 400 mg 03/15/24 08:00 03/16/24 09:19 Amiodarone Hcl 200 Mg Tablet PO 400 mg DAILY@0800 MARKIE Administration Aspirin 81 mg 03/15/24 09:00 03/16/24 09:20 Aspirin 81 Mg Enteric Tablet PO 81 mg QAM MARKIE Administration Atorvastatin Calcium 80 mg 03/15/24 09:00 03/16/24 09:20 Atorvastatin 40 Mg Tablet PO 80 mg DAILY MARKIE Administration Citalopram Hydrobromide 20 mg 03/15/24 09:00 03/16/24 09:20 Citalopram Hydrobromide 20 Mg Tablet PO 20 mg DAILY MARKIE Administration Clopidogrel Bisulfate 75 mg 03/15/24 09:00 03/16/24 09:20 Clopidogrel Bisulfate 75 Mg Tablet PO 75 mg DAILY MARKIE Administration Cyanocobalamin 1,000 mcg 03/15/24 09:00 03/16/24 09:20 Cyanocobalamin 1,000 Mcg Tablet PO 1,000 mcg DAILY MARKIE Administration Finasteride 5 mg 03/15/24 09:00 03/16/24 09:21 Finasteride 5 Mg Tablet PO 5 mg DAILY MARKIE Administration Furosemide 40 mg 03/15/24 09:00 03/16/24 09:21 Furosemide Inj 40 Mg/4 Ml Vial IV PUSH 40 mg Q12HR MARKIE Administration Heparin Sodium (Porcine) 5,000 units 03/15/24 21:00 03/16/24 09:21 Heparin Sodium 5,000 Units/Ml Vial SUB-Q 5,000 units Q12HR MARKIE Administration Metoprolol Succinate 25 mg 03/15/24 09:00 03/16/24 09:21 Metoprolol Succinate Ext Rel 25 Mg Tabcr PO 25 mg QAM MARKIE Administration Vitamin D 2,000 units 03/15/24 09:00 03/16/24 09:19 Cholecalciferol 1,000 Units Tablet PO 2,000 units DAILY MARKIE Administration Radiology Results: ITS Impressions Chest X-Ray 03/14/24 17:36 IMPRESSION: Pulmonary opacities likely representing pulmonary edema, with small bilateral effusions. Infection is not excluded. Labs Labs: Laboratory Results - last 24 hr 03/15/24 03/15/24 03/16/24 18:59 23:19 03:49 WBC RBC Hgb Hct MCV MCH MCHC RDW Plt Count MPV Immature Gran % (Auto) Neut % (Auto) Lymph % (Auto) [place] % (Auto) Eos % (Auto) Baso % (Auto) Lymph # (Auto) [place] # (Auto) Eos # (Auto) Baso # (Auto) Abs Immat Gran (auto) Absolute Neuts (auto) Absolute Nucleated RBC Nucleated RBC % Sodium Potassium Chloride Carbon Dioxide Anion Gap BUN Creatinine Estim Creat Clear Calc Estimated GFR Glucose Calcium Magnesium Troponin I 0.470 H* 0.412 H* Procalcitonin 0.5 03/16/24 03/16/24 06:29 08:19 WBC 10.2 H RBC 3.03 L Hgb 9.1 L Hct 29.4 L MCV 97.0 MCH 30.0 MCHC 31.0 L RDW 14.5 Plt Count 182 MPV 11.4 H Immature Gran % (Auto) 0.3 Neut % (Auto) 74.1 H Lymph % (Auto) 13.3 L [place] % (Auto) 10.0 H Eos % (Auto) 1.7 Baso % (Auto) 0.6 Lymph # (Auto) 1.36 [place] # (Auto) 1.0 H Eos # (Auto) 0.2 Baso # (Auto) 0.1 Abs Immat Gran (auto) 0.03 Absolute Neuts (auto) 7.6 H Absolute Nucleated RBC 0.000 Nucleated RBC % 0.0 Sodium 139 Potassium 4.4 Chloride 102 Carbon Dioxide 26 Anion Gap 11 BUN 53 H Creatinine 3.80 H Estim Creat Clear Calc 15 Estimated GFR 15 L Glucose 184 H Calcium 8.7 Magnesium 1.9 Troponin I Procalcitonin
--- NOTE | 2024-03-16 12:21 | P.PNIM_ITS ---
Progress Note: A&P Assessment and Plan (1) Paroxysmal atrial fibrillation: Code(s): I48.0 - Paroxysmal atrial fibrillation Status: Acute (2) Acute respiratory failure with hypoxia: Code(s): J96.01 - Acute respiratory failure with hypoxia Status: Acute (3) Chronic kidney disease, stage 4 (severe): Code(s): N18.4 - Chronic kidney disease, stage 4 (severe) Status: Acute (4) Elevated troponin: Code(s): R79.89 - Other specified abnormal findings of blood chemistry Status: Acute (5) DNR (do not resuscitate): Code(s): Z66 - Do not resuscitate Status: Acute (6) NSTEMI (non-ST elevated myocardial infarction): Code(s): I21.4 - Non-ST elevation (NSTEMI) myocardial infarction Status: Acute Plan This is a very pleasant 88-year-old male with a [facility] stage 4 chronic kidney disease, pln-ngrmonn-mlecgbmun type 2 diabetes mellitus (A1c 02/08/24 5.4%), hypertension, cardiomyopathy, recent NSTEMI treated medically. Hyperlipidemia, peripheral artery disease, anemia of chronic kidney disease. He presents with S of breath and chest discomfort. Developed just prior to admission and characterizes nonradiating pressure-like midsternal and left-sided chest discomfort associated with shortness of breath while resting. The shortness of breath worsened quickly and patient was referred to [place] [facility] via EMS. His SpO2 was 90% on room air he was placed on a non-rebreather mask. Patient was given aspirin and nitroglycerin. Transition to BiPAP in the [place] [facility] due to work of breathing. Admitted on 03/14/2024 for further evaluation of the symptoms and heart failure/demand type 2 NSTEMI. Leukocytosis on admission 15.7 now down trending to 10.2 on 03/16. No antibiotics were given, this is likely a stress type reaction. Surface echocardiogram conducted on 02/06/2024 demonstrates a systolic ejection fraction 35-40% mild left ventricular enlargement, akinesis of the mid to anterior septal segments and apex, hypokinesia of the anterior wall, calcified mitral valve annulus with mild left atrial enlargement, mildly sclerotic aortic valve. He had a recent NSTEMI in January 2024 and elected to pursue medical management. You aspirin and Plavix and high-intensity statin. He also has PAD. During this admission cardiology is helping to manage. Continue Lasix 40 mg IV b.i.d.. Continue accurate intake and output along with Chai hose daily weight CHF Education. Continue Toprol XL. He is still on oxygen 2 L nasal cannula. Heart failure guideline directed medical therapies limited due to renal function. As for his elevated troponins have peaked and likely due to volume overload and demand ischemia. Patient is currently in sinus rhythm, he has paroxysmal atrial fibrillation. He is not anticoagulated due to dual antiplatelet therapy and CKD. Continue to monitor conduct kidney disease. His last A1c was 5.4. Technically, he does not have diabetes at this moment. Continue to monitor BMP daily. Accu-Cheks needed. 03/16/2024: Complains of swelling of his right lip. In fact confined to the right lip, does not track past the midline to the left. He reports he had this at home as well. He also reports swelling of the tongue with Scott inhibitors. Not given him SCOTT-inhibitor here. He reports it resolved at home with Benadryl prior. Will give Benadryl 25 mg p.o. x1 now and again at 9:00 p.m.. Monitor for airway obstruction or worsening swelling, reassess in the morning Heparin subQ 5000 units b.i.d.. Patient wishes to be DNR. Transfer to medical floor. The patient is stable however he does require inpatient monitoring of his acute decompensated heart failure. Cardiology consultation is currently ongoing. Subjective Date/time seen: 03/16/24 12:21 Interval history: No acute overnight events. The patient reports his breathing is greatly improved. He denies cough. Feels his lower extremity edema has not improved although. Review of Systems Review of Systems: All systems reviewed & are unremarkable except as noted in HPI and below (Subjective) Exam Const: General: comfortable and no acute distress Eyes: Pupils: Equal, round and reactive pupils present Neck: Neck: supple Resp: Effort & Inspection: normal respiratory effort Auscultation: clear to auscultation bilaterally Cardio: Rate: regular rate Rhythm: regular rhythm GI: GI Palp: Yes Soft to palpation and No Tenderness to palpation present (GI) Extrem: General: edema (Two to 3+ pitting edema of the lower extremities distal knees) Objective Data Vital Signs Vital Signs: Vital Signs - 24 hr 03/15/24 14:00 03/15/24 16:00 03/15/24 16:00 Temperature 98.8 F Pulse Rate 53 L 56 L 54 L Respiratory Rate 12 Blood Pressure 139/53 L Pulse Oximetry 99 Oxygen Delivery Oxygen Flow Rate 03/15/24 16:00 03/15/24 18:00 03/15/24 20:22 Temperature Pulse Rate 54 L Respiratory Rate Blood Pressure Pulse Oximetry 99 100 Oxygen Delivery Nasal Cannula Nasal Cannula Oxygen Flow Rate 2 2 03/15/24 20:00 03/15/24 20:00 03/15/24 20:00 Temperature 97.9 F Pulse Rate 56 L 52 L Respiratory Rate 19 Blood Pressure 129/52 L Pulse Oximetry 98 97 Oxygen Delivery Nasal Cannula Oxygen Flow Rate 2 03/15/24 23:39 03/16/24 00:00 03/16/24 00:00 Temperature 98.3 F Pulse Rate 60 47 L Respiratory Rate 20 Blood Pressure 131/45 L Pulse Oximetry 99 99 Oxygen Delivery Nasal Cannula Oxygen Flow Rate 2 03/16/24 02:00 03/16/24 03:26 03/16/24 04:00 Temperature 97.5 F L Pulse Rate 49 L 60 Respiratory Rate 20 Blood Pressure 129/48 L Pulse Oximetry 96 93 Oxygen Delivery Nasal Cannula Oxygen Flow Rate 2 03/16/24 04:00 03/16/24 05:59 03/16/24 08:00 Temperature 97.4 F L Pulse Rate 52 L 52 L 54 L Respiratory Rate 16 Blood Pressure 152/62 H Pulse Oximetry 97 Oxygen Delivery Oxygen Flow Rate 03/16/24 09:19 03/16/24 09:21 03/16/24 12:00 Temperature 97.9 F Pulse Rate 60 60 54 L Respiratory Rate 18 Blood Pressure 140/58 L Pulse Oximetry 100 Oxygen Delivery Oxygen Flow Rate Intake/Output Intake/Output: Intake & Output 03/13/24 03/14/24 03/15/24 03/16/24 23:59 23:59 23:59 23:59 Intake Total 19.7 1195.8 480 Output Total 1600 1400 Balance 19.7 -404.2 -920 Meds/Results Medications: Active Medications Generic Name Dose Route Start Last Admin Trade Name Freq PRN Reason Stop Dose Admin Acetaminophen 650 mg 03/14/24 22:13 Acetaminophen 325 Mg Tablet PO Q6H PRN Mild Pain (1-3) or Fever Amiodarone HCl 400 mg 03/15/24 08:00 03/16/24 09:19 Amiodarone Hcl 200 Mg Tablet PO 400 mg DAILY@0800 MARKIE Administration Aspirin 81 mg 03/15/24 09:00 03/16/24 09:20 Aspirin 81 Mg Enteric Tablet PO 81 mg QAM MARKIE Administration Atorvastatin Calcium 80 mg 03/15/24 09:00 03/16/24 09:20 Atorvastatin 40 Mg Tablet PO 80 mg DAILY MARKIE Administration Citalopram Hydrobromide 20 mg 03/15/24 09:00 03/16/24 09:20 Citalopram Hydrobromide 20 Mg Tablet PO 20 mg DAILY MARKIE Administration Clopidogrel Bisulfate 75 mg 03/15/24 09:00 03/16/24 09:20 Clopidogrel Bisulfate 75 Mg Tablet PO 75 mg DAILY MARKIE Administration Cyanocobalamin 1,000 mcg 03/15/24 09:00 03/16/24 09:20 Cyanocobalamin 1,000 Mcg Tablet PO 1,000 mcg DAILY MARKIE Administration Diphenhydramine HCl 25 mg 03/16/24 12:19 Diphenhydramine Hcl Cap 25 Mg Capsule PO 03/16/24 12:20 ONCE ONE Diphenhydramine HCl 25 mg 03/16/24 21:00 Diphenhydramine Hcl Cap 25 Mg Capsule PO 03/16/24 21:01 ONCE ONE Finasteride 5 mg 03/15/24 09:00 03/16/24 09:21 Finasteride 5 Mg Tablet PO 5 mg DAILY MARKIE Administration Furosemide 40 mg 03/15/24 09:00 03/16/24 09:21 Furosemide Inj 40 Mg/4 Ml Vial IV PUSH 40 mg Q12HR MARKIE Administration Heparin Sodium (Porcine) 5,000 units 03/15/24 21:00 03/16/24 09:21 Heparin Sodium 5,000 Units/Ml Vial SUB-Q 5,000 units Q12HR MARKIE Administration Metoprolol Succinate 25 mg 03/15/24 09:00 03/16/24 09:21 Metoprolol Succinate Ext Rel 25 Mg Tabcr PO 25 mg QAM MARKIE Administration Vitamin D 2,000 units 03/15/24 09:00 03/16/24 09:19 Cholecalciferol 1,000 Units Tablet PO 2,000 units DAILY MARKIE Administration Radiology Results: ITS Impressions Chest X-Ray 03/14/24 17:36 IMPRESSION: Pulmonary opacities likely representing pulmonary edema, with small bilateral effusions. Infection is not excluded. Labs Labs: Laboratory Results - last 24 hr 03/15/24 03/15/24 03/16/24 18:59 23:19 03:49 WBC RBC Hgb Hct MCV MCH MCHC RDW Plt Count MPV Immature Gran % (Auto) Neut % (Auto) Lymph % (Auto) [place] % (Auto) Eos % (Auto) Baso % (Auto) Lymph # (Auto) [place] # (Auto) Eos # (Auto) Baso # (Auto) Abs Immat Gran (auto) Absolute Neuts (auto) Absolute Nucleated RBC Nucleated RBC % Sodium Potassium Chloride Carbon Dioxide Anion Gap BUN Creatinine Estim Creat Clear Calc Estimated GFR Glucose Calcium Magnesium Troponin I 0.470 H* 0.412 H* Procalcitonin 0.5 03/16/24 03/16/24 06:29 08:19 WBC 10.2 H RBC 3.03 L Hgb 9.1 L Hct 29.4 L MCV 97.0 MCH 30.0 MCHC 31.0 L RDW 14.5 Plt Count 182 MPV 11.4 H Immature Gran % (Auto) 0.3 Neut % (Auto) 74.1 H Lymph % (Auto) 13.3 L [place] % (Auto) 10.0 H Eos % (Auto) 1.7 Baso % (Auto) 0.6 Lymph # (Auto) 1.36 [place] # (Auto) 1.0 H Eos # (Auto) 0.2 Baso # (Auto) 0.1 Abs Immat Gran (auto) 0.03 Absolute Neuts (auto) 7.6 H Absolute Nucleated RBC 0.000 Nucleated RBC % 0.0 Sodium 139 Potassium 4.4 Chloride 102 Carbon Dioxide 26 Anion Gap 11 BUN 53 H Creatinine 3.80 H Estim Creat Clear Calc 15 Estimated GFR 15 L Glucose 184 H Calcium 8.7 Magnesium 1.9 Troponin I Procalcitonin
[2024-03-16] MEDS: diphenhydrAMINE HCl CAP 25 MG CAPSULE PO ×2 (13:28→20:18)
--- NOTE | 2024-03-16 16:42 | PC.NURSE ---
This patient, Esequiel Sharma, was transferred to [[id number] ] on 03/16/24 at 1640. Personal belongings sent with patient. Report given to [RN]. Appropriate documentation sent with patient.
[2024-03-17] MEDS: ACETAMINOPHEN 325 MG TABLET 650 MG PO (01:54)
[2024-03-17 05:25] VITALS: BP 132/53; PULSE 53; RESP 18; TEMP 36.7; O2SAT 99
[2024-03-17 05:37] LABS: Basophils Absolute Auto 0.1 K/mm3 (0.0-0.1); Basophils Percent Auto 0.7 % (0.2-1.2); Eosinophils Absolute Auto 0.2 K/mm3 (0-0.3); Eosinophils Percent Auto 2.8 % (0-4.4); Hematocrit 26.9 % (42.0-52.0); Hemoglobin 8.4 g/dL (14.0-18.0); Immature Granulocyte Absolute 0.04 K/mm3 (0.00-0.031); Immature Granulocyte Percent A 0.5 % (0-0.5); Lymphocytes Absolute Auto 1.49 K/mm3 (0.9-3.2); Lymphocytes Percent Auto 17.1 % (18.3-44.2); Mean Corpuscular HGB Conc 31.2 g/dl (32-36); Mean Corpuscular Hemoglobin 29.8 pg (26-34); Mean Corpuscular Volume 95.4 fl (80-100); Mean Platelet Volume 11.5 fl (7.4-10.4); Monocytes Absolute Auto 0.8 K/mm3 (0.1-0.6); Monocytes Percent Auto 9.2 % (2.6-8.5); Neutrophils Absolute Auto 6.1 K/mm3 (1.3-6.7); Neutrophils Percent Auto 69.7 % (45.5-73.1); Platelet Count Result 173 k/mm3 (150-375); Red Blood Count 2.82 M/mm3 (4.6-6.20); Red Cell Distribution Width 14.2 % (11.5-14.5); White Blood Count 8.7 K/mm3 (4.5-10.0)
[2024-03-17 05:53] LABS: Anion Gap 7 mmol/L (4-12); Blood Urea Nitrogen 55 mg/dL (9-20); Calcium 8.4 mg/dL (8.4-10.2); Carbon Dioxide 27 mmol/L (22-30); Chloride 103 mmol/L (98-107); Estimated CRCL calculation 14 ml/min; Estimated Glomerular Filt Rate 14; Glucose 116 mg/dL (65-110); Potassium 3.9 mmol/L (3.4-5.0); Sodium 137 mmol/L (137-145)
[2024-03-17 06:06] LABS: Procalcitonin 0.4 ng/mL
[2024-03-17 08:00] VITALS: BP 141/47; PULSE 53; RESP 20; TEMP 37.3; O2SAT 100
--- NOTE | 2024-03-17 09:25 | PM.PNCARD ---
Progress Note: A&P Assessment and Plan (1) Acute exacerbation of congestive heart failure: Code(s): I50.9 - Heart failure, unspecified Status: Acute Assessment and Plan: LVEF 35-40%. Acute exacerbation secondary to being out of his Furosemide at home for a week or so. Improving with IV Furosemide. Shift to p.o. furosemide today 80mg daily MARILIA hose Accurate intake and output Daily weights CHF education Continue Toprol XL Heart failure GDMT limited due to renal function. (2) Non-ST elevation myocardial infarction (NSTEMI): Code(s): I21.4 - Non-ST elevation (NSTEMI) myocardial infarction Status: Acute Assessment and Plan: Troponin mildly elevated. He does have suspected CAD, however, I think this troponin elevation is related to volume overload, hypoxia, HTN, and CKD rather than being physician relations representative of a true NSTEMI. Continue ASA, Plavix, statin. (3) Paroxysmal atrial fibrillation: Code(s): I48.0 - Paroxysmal atrial fibrillation Status: Acute Assessment and Plan: In sinus rhythm. He is not anticoagulated because of current DAPT and because of CKD (4) Chronic kidney disease, stage 4 (severe): Code(s): N18.4 - Chronic kidney disease, stage 4 (severe) Status: Acute Assessment and Plan: Monitor renal function closely with diuresis. Follows with Nephrology as an outpatient. (5) Acute respiratory failure with hypoxia: Code(s): J96.01 - Acute respiratory failure with hypoxia Status: Acute Assessment and Plan: Due to CHF. Wean off oxygen as tolerated. (6) Type 2 diabetes mellitus: Code(s): E11.9 - Type 2 diabetes mellitus without complications Status: Acute Assessment and Plan: Management as per primary team. Subjective Date/time seen: 03/17/24 09:25 Interval history: Reason for visit: CHF HPI: Esequiel Sharma is an 88 year old male with stage 4 chronic kidney disease, type 2 diabetes mellitus, hypertension, cardiomyopathy, and recent NSTEMI treated medically. He was seen in our office last week for a hospital follow up visit at which time he was feeling well and didn't have any cardiovascular complaints. He enters the hospital now with shortness of breath, chest discomfort, and lower extremity edema. He ran out of his Lasix about a week ago and has been unable to get it refilled. His initial workup was significant for NT-proBNP greater than 30,000, CXR showing pulmonary opacities likely representing pulmonary edema with small bilateral effusions, troponin 0.061. He is feeling better after receiving IV Furosemide and BiPAP support now on nasal cannula oxygen. He denies any current chest pain, palpitations, shortness of breath. Date of service 03/16: Diuresing well. Still with lower extremity edema. Hoping he can go home soon. Telemetry with sinus rhythm. Date of service 03/17/2024: Feeling well today. Edema continues to improve. He denies any shortness of breath. Review of Systems Review of Systems: All systems reviewed & are unremarkable except as noted in HPI and below (HPI) Exam Const: General: comfortable, no acute distress, alert and awake Orientation/consciousness: patient oriented x3 HENMT: Head: normal to inspection Mouth: Yes moist mucous membranes Eyes: General: appearance normal, both eyes and all related structures Sclera: sclerae normal Pupils: Equal, round and reactive pupils present Neck: Neck: normal visual inspection, supple and no JVD Carotids: normal carotid upstroke Resp: Effort & Inspection: normal respiratory effort Auscultation: clear to auscultation bilaterally Cardio: Rate: regular rate Rhythm: regular rhythm Heart sounds: S1 normal heart sound present, S2 normal heart sound present and no murmurs Other: + Bilateral lower extremity edema GI: Auscultation: normal bowel sounds Skin: General skin exam: normal color Neuro: General: patient oriented x3 Cranial nerves: Yes Equal, round and reactive pupils present Speech: normal speech Extrem: General: normal to inspection Psych: Appearance: grossly normal Mental Status: mental status grossly normal Affect: normal affect Objective Data Vital Signs Vital Signs: Vital Signs - 24 hr 03/16/24 12:00 03/16/24 10:00 03/16/24 12:00 Temperature 36.6 C Pulse Rate 54 L 56 L 60 Respiratory Rate 18 Blood Pressure 140/58 L Pulse Oximetry 100 Oxygen Delivery Oxygen Flow Rate 03/16/24 16:00 03/16/24 19:51 03/16/24 20:15 Temperature 36.9 C 37.3 C Pulse Rate 52 L 50 L 50 L Respiratory Rate 20 18 18 Blood Pressure 124/48 L 139/81 Pulse Oximetry 97 99 99 Oxygen Delivery Nasal Cannula Oxygen Flow Rate 2 03/17/24 05:25 03/17/24 08:00 Temperature 36.7 C 37.3 C Pulse Rate 53 L 53 L Respiratory Rate 18 20 Blood Pressure 132/53 L 141/47 H Pulse Oximetry 99 100 Oxygen Delivery Oxygen Flow Rate Intake/Output Intake/Output: Intake & Output 03/14/24 03/15/24 03/16/24 03/17/24 23:59 23:59 23:59 23:59 Intake Total 19.7 1195.8 1910 240 Output Total 1600 3400 1100 Balance 19.7 -404.2 -1490 -860 Meds/Results Medications: Active Medications Generic Name Dose Route Start Last Admin Trade Name Freq PRN Reason Stop Dose Admin Acetaminophen 650 mg 03/14/24 22:13 03/17/24 01:54 Acetaminophen 325 Mg Tablet PO 650 mg Q6H PRN Administration Mild Pain (1-3) or Fever Amiodarone HCl 400 mg 03/15/24 08:00 03/16/24 09:19 Amiodarone Hcl 200 Mg Tablet PO 400 mg DAILY@0800 MARKIE Administration Aspirin 81 mg 03/15/24 09:00 03/16/24 09:20 Aspirin 81 Mg Enteric Tablet PO 81 mg QAM MAKRIE Administration Atorvastatin Calcium 80 mg 03/15/24 09:00 03/16/24 09:20 Atorvastatin 40 Mg Tablet PO 80 mg DAILY MARKIE Administration Citalopram Hydrobromide 20 mg 03/15/24 09:00 03/16/24 09:20 Citalopram Hydrobromide 20 Mg Tablet PO 20 mg DAILY MARKIE Administration Clopidogrel Bisulfate 75 mg 03/15/24 09:00 03/16/24 09:20 Clopidogrel Bisulfate 75 Mg Tablet PO 75 mg DAILY MARKIE Administration Cyanocobalamin 1,000 mcg 03/15/24 09:00 03/16/24 09:20 Cyanocobalamin 1,000 Mcg Tablet PO 1,000 mcg DAILY MARKIE Administration Finasteride 5 mg 03/15/24 09:00 03/16/24 09:21 Finasteride 5 Mg Tablet PO 5 mg DAILY MARKIE Administration Furosemide 40 mg 03/15/24 09:00 03/16/24 20:18 Furosemide Inj 40 Mg/4 Ml Vial IV PUSH 40 mg Q12HR MARKIE Administration Heparin Sodium (Porcine) 5,000 units 03/15/24 21:00 03/16/24 20:18 Heparin Sodium 5,000 Units/Ml Vial SUB-Q 5,000 units Q12HR MARKIE Administration Metoprolol Succinate 25 mg 03/15/24 09:00 03/16/24 09:21 Metoprolol Succinate Ext Rel 25 Mg Tabcr PO 25 mg QAM MARKIE Administration Vitamin D 2,000 units 03/15/24 09:00 03/16/24 09:19 Cholecalciferol 1,000 Units Tablet PO 2,000 units DAILY MARKIE Administration Radiology Results: ITS Impressions Chest X-Ray 03/14/24 17:36 IMPRESSION: Pulmonary opacities likely representing pulmonary edema, with small bilateral effusions. Infection is not excluded. Labs Labs: Laboratory Results - last 24 hr 03/17/24 05:07 WBC 8.7 RBC 2.82 L Hgb 8.4 L Hct 26.9 L MCV 95.4 MCH 29.8 MCHC 31.2 L RDW 14.2 Plt Count 173 MPV 11.5 H Immature Gran % (Auto) 0.5 Neut % (Auto) 69.7 Lymph % (Auto) 17.1 L [place] % (Auto) 9.2 H Eos % (Auto) 2.8 Baso % (Auto) 0.7 Lymph # (Auto) 1.49 [place] # (Auto) 0.8 H Eos # (Auto) 0.2 Baso # (Auto) 0.1 Abs Immat Gran (auto) 0.04 H Absolute Neuts (auto) 6.1 Absolute Nucleated RBC 0.000 Nucleated RBC % 0.0 Sodium 137 Potassium 3.9 Chloride 103 Carbon Dioxide 27 Anion Gap 7 BUN 55 H Creatinine 4.10 H Estim Creat Clear Calc 14 Estimated GFR 14 L Glucose 116 H Calcium 8.4 Magnesium 2.0 Procalcitonin 0.4
[2024-03-17 10:00] VITALS: PULSE 53; O2SAT 100
[2024-03-17] MEDS: ATORVASTATIN 40 MG TABLET 80 MG PO (10:00)
[2024-03-17] MEDS: AMIODARONE HCL 200 MG TABLET 400 MG PO (10:00)
[2024-03-17] MEDS: CHOLECALCIFEROL 1,000 UNITS TABLET 2000 UNITS PO (10:00)
[2024-03-17 10:01] VITALS: PULSE 53
[2024-03-17] MEDS: FINASTERIDE 5 MG TABLET PO (10:01)
[2024-03-17] MEDS: ASPIRIN 81 MG ENTERIC TABLET PO (10:01)
[2024-03-17] MEDS: CLOPIDOGREL BISULFATE 75 MG TABLET PO (10:01)
[2024-03-17] MEDS: CYANOCOBALAMIN 1,000 MCG TABLET 1000 MCG PO (10:01)
[2024-03-17] MEDS: CITALOPRAM HYDROBROMIDE 20 MG TABLET PO (10:01)
[2024-03-17] MEDS: METOPROLOL SUCCINATE EXT REL 25 MG TABCR PO (10:01)
[2024-03-17] MEDS: HEPARIN SODIUM 5,000 UNITS/ML VIAL 5000 UNITS SUB-Q (10:02)
[2024-03-17] MEDS: diphenhydrAMINE HCl CAP 25 MG CAPSULE PO (12:14)
[2024-03-17 14:00] VITALS: BP 105/55; PULSE 65; RESP 18; TEMP 36.8; O2SAT 96
--- NOTE | 2024-03-29 14:47 | PM.DS ---
DS: Admitting Diagnosis Discharge Date 03/17/24 Admitting Diagnosis Shortness of breath and chest discomfort DS: Discharge Diagnosis Discharge Diagnosis (1) Acute exacerbation of congestive heart failure: Code(s): I50.9 - Heart failure, unspecified Status: Acute DS: Summary Hospital Course Hospital Course: This is a very pleasant 88-year-old male with a H stage 4 chronic kidney disease, evq-zonunti-hoozkgpwx type 2 diabetes mellitus (A1c 02/08/24 5.4%), hypertension, cardiomyopathy, recent NSTEMI treated medically. Hyperlipidemia, peripheral artery disease, anemia of chronic kidney disease. He presents with S of breath and chest discomfort. Developed just prior to admission and characterizes nonradiating pressure-like midsternal and left-sided chest discomfort associated with shortness of breath while resting. The shortness of breath worsened quickly and patient was referred to [place] [facility] via EMS. His SpO2 was 90% on room air he was placed on a non-rebreather mask. Patient was given aspirin and nitroglycerin. Transition to BiPAP in the [place] [facility] due to work of breathing. Admitted on 03/14/2024 for further evaluation of the symptoms and heart failure/demand type 2 NSTEMI. Leukocytosis on admission 15.7 now down trending to 10.2 on 03/16. No antibiotics were given, this is likely a stress type reaction. Surface echocardiogram conducted on 02/06/2024 demonstrates a systolic ejection fraction 35-40% mild left ventricular enlargement, akinesis of the mid to anterior septal segments and apex, hypokinesia of the anterior wall, calcified mitral valve annulus with mild left atrial enlargement, mildly sclerotic aortic valve. He had a recent NSTEMI in January 2024 and elected to pursue medical management. You aspirin and Plavix and high-intensity statin. He also has PAD. During this admission cardiology is helping to manage. Continue Lasix 40 mg IV b.i.d.. Continue accurate intake and output along with Chai al daily weight CHF Education. Continue Toprol XL. He is still on oxygen 2 L nasal cannula. Heart failure guideline directed medical therapies limited due to renal function. As for his elevated troponins have peaked and likely due to volume overload and demand ischemia. Patient is currently in sinus rhythm, he has paroxysmal atrial fibrillation. He is not anticoagulated due to dual antiplatelet therapy and CKD. Continue to monitor conduct kidney disease. His last A1c was 5.4. Technically, he does not have diabetes at this moment. Continue to monitor BMP daily. Accu-Cheks needed. 03/16/2024: Complains of swelling of his right lip. In fact confined to the right lip, does not track past the midline to the left. He reports he had this at home as well. He also reports swelling of the tongue with Scott inhibitors. Not given him SCOTT-inhibitor here. He reports it resolved at home with Benadryl prior. Will give Benadryl 25 mg p.o. x1 now and again at 9:00 p.m.. Monitor for airway obstruction or worsening swelling, reassess in the morning On 03/17/2024 the patient is stable for discharge to home. saturaing well on room air. breathing at his baseline. Time Spent with Patient Time attestation: Total time spent providing and/or coordinating discharge services: Exam Const: General: comfortable and no acute distress Eyes: Pupils: Equal, round and reactive pupils present Resp: Effort & Inspection: normal respiratory effort Auscultation: clear to auscultation bilaterally Cardio: Rate: regular rate Rhythm: regular rhythm GI: GI Palp: Yes Soft to palpation Extrem: General: edema Discharge Plan Discharge Attending physician on discharge: Jennifer Oleary Consulting providers: Carmen Mathew; Armani Abreu; Abdullahi Nuno Hillary G; Adam Ashraf; Adrien Singh Discharging Clinician: Jennifer Oleary Patient Disposition: Home, Self-Care Activity: december shower Diet: heart healthy Patient Instructions: Antibiotic Form Stand Alone Forms: General Discharge Information Follow-up/Referrals: Stefanie Hernández, VALERIE [Primary Care Provider] - Call for Appointment (call within 1 day to set-up 1 week follow up. 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) Discharge Medications: Continued flaxseed oil 1,000 mg capsule 1,000 mg PO DAILY Rx Instructions: administer with a meal cholecalciferol (vitamin D3) 125 mcg (5,000 unit) capsule 50 mcg PO DAILY mecobalamin (vitamin B12) 1,000 mcg tablet,disintegrating 1,000 mcg sublingual DAILY Rx Instructions: place tablet under tongue and allow to dissolve for at least30 secs before swallowing atorvastatin 80 mg tablet 80 mg PO DAILY clopidogrel 75 mg tablet 75 mg PO DAILY finasteride 5 mg tablet 5 mg PO DAILY amiodarone [Pacerone] 200 mg Tablet 400 mg PO DAILY@0800 Qty: 30 0RF aspirin 81 mg Tablet,Delayed Release (Dr/Ec) 81 mg PO QAM Qty: 30 0RF furosemide 80 mg Tablet 80 mg PO DAILY Qty: 30 0RF metoprolol succinate [Toprol XL] 25 mg Tablet Extended Release 24 Hr 25 mg PO QAM Qty: 30 0RF citalopram 20 mg tablet 20 mg PO DAILY Qty: 90 3RF Discontinued diltiazem HCl 240 mg capsule,extended release 24hr 240 mg PO DAILY Rx Instructions: TAKE 1 CAPSULE EVERY DAY Date of admission: 03/16/24 11:29 Primary Care Provider: Stefanie Hernández Admitting Provider: Jackeline Bonds V. Attending physician on admission: Jennifer Oleary Condition: Stable Hospitalist MIPS Heart Failure (Exclusion) Patient has history of Heart Transplant or Left Ventricular Assistive Device?: No IF YES, STOP HERE Heart Failure (Qualifier) Patient has current or prior documentation of LVEF less than or equal to 40%, or mod/servere depressed LVSF?: Yes IF NO, STOP HERE If Yes, Heart Failure (Qualifier) Patient was prescribed or already taking an Angiotensin-Converting Enzyme (SCOTT) Inhibitor, or Antiotensin Receptor Rey (ARB): No Patient was prescribed or already taking bisoprolol, carvedilol, or sustained release metoprolol succinate: Yes If Medications not prescribed/taking Reason patient not prescribed/taking SCOTT or ARB: Medical reasons: allergy, intolerance, contraindication or other
== END 2024-03-17 16:50 | disposition home or self-care (01) | DRG 291 ==
LOC: ANHED 19:40 → ANHIMU 20:35 → ANH2MED 03-16 16:43
PROVIDERS: Physician Assistant; Admitting Provider Internal Medicine; Emergency Provider Physician Assistant; PCP Nurse Practitioner Family; Visit Provider General Practice
DX: I13.0 Hypertensive heart and chronic kidney disease with heart failure and stage 1 through stage 4 chronic kidney disease, or unspecified chronic kidney disease (principal); J96.01 Acute respiratory failure with hypoxia; N18.4 Chronic kidney disease, stage 4 (severe); I50.9 Heart failure, unspecified; E11.22 Type 2 diabetes mellitus with diabetic chronic kidney disease; E11.42 Type 2 diabetes mellitus with diabetic polyneuropathy; D63.1 Anemia in chronic kidney disease; I25.10 Atherosclerotic heart disease of native coronary artery without angina pectoris; I48.0 Paroxysmal atrial fibrillation; M17.0 Bilateral primary osteoarthritis of knee; Z66 Do not resuscitate; Z91.148 Patient's other noncompliance with medication regimen for other reason; Z85.46 Personal history of malignant neoplasm of prostate; Z90.49 Acquired absence of other specified parts of digestive tract; Z98.49 Cataract extraction status, unspecified eye; Z20.822 Contact with and (suspected) exposure to COVID-19; I25.2 Old myocardial infarction
CPT/HCPCS: 36415; 36600; 71046; 80048; 80053; 82375; 82805; 83050; 83735; 83880; 84145; 84484; 85025; 85610; 85730; 87637; 93005; 94002; 96365; 96366; 96372; 96375; 96376; 99285; A9270; G0378; J1644; J1940

== ENCOUNTER 2024-04-14 01:29 | Day surgery (SDC) | payer MEDICARE, SELFPAY ==
[2024-04-12 13:16] VITALS: BMI 29.9
--- NOTE | 2024-04-12 13:24 | PC.NURSE ---
Report to the Outpatient Waiting Room, entrance under the green pavilion located off [facility], at time 0900__ on date 04/14/24_. Planned Procedure Time: _1100__. Time changes happen often and if your time is changed the preop area will call you the afternoon before. - You and your visitor will be asked to self-screen and do not enter if you have any COVID symptoms. - A mask is optional within the hospital at this time. Patients may have clear liquids (water, carbonated beverages, clear teas, apple juice) until 3 hours prior to surgery with a maximum of 20 ounces. - No food from midnight until time of surgery - Infants may have breast milk until 4 hours before surgery, infant formula 6 hours prior to surgery. - Children will be allowed to drink immediately following surgery. If applicable, please bring a bottle or sippy cup to assist with drinking. Juice, water, soda, and popsicles are readily available. For infants on formula, please bring formula the day of surgery. Pacifiers are allowed. Take the following medications with a SIP of water the morning of surgery: ____PACERONE, CITALOPRAM, METOPROLOL DO NOT STOP ANY OF YOUR OTHER PRESCRIPTION MEDICATIONS PRIOR TO SURGERY ?EXCEPT THE FOLLOWING Medications to discontinue per physician ___ASPIRIN, CLOPEDIGREL- PT STOPPED 04/04/24 VITAMINS/SUPPLIMENTS 04/12/24 Date to take last dose Please no make-up, nail south korean, hairspray, perfume, deodorant, or body powder the day of surgery. No jewelry (including any body piercings) or valuables the day of surgery, leave them at home. Please take a shower or bath the night before, or the morning of, surgery with an antibacterial soap. Wear comfortable, loose fitting clothing. Children are encouraged to wear pajamas. - Jewelry must be removed prior to entering the operating room. Rings and piercings that are not removed may be cut off. - The hospital will not accept responsibility for valuables. - Please leave all valuables, including medications, at home the day of surgery. If you are going home after surgery, a licensed car pick up driver must drive you home. - NO public transportation without another adult if you receive anesthesia. - We recommend that an adult stay with you for 24 hours following discharge. - We also recommend that you do not drive, make important decision, drink alcoholic beverages, or take any drugs that were not prescribed by your health care provider for at least 24 hours after your discharge time. For Pediatric surgeries, we recommend two adults accompany the child home. Follow any additional instructions given to you from your surgeon. If you or anyone in your household have experienced Covid symptoms in the past week, please notify your surgeon or the nurse liaison at the phone number below for possible testing. Telephone instructions given to _PATIENT_and asked if any additional questions and then verbalized understanding. Patient advised to call surgeon office or pre surgery nurse liaison [phone] if any additional questions.
[2024-04-14] VITALS (7 sets, daily range): BP systolic 133–164; BP diastolic 53–78; PULSE 49–66; RESP 12–18; TEMP 36.3; O2SAT 96–100
--- NOTE | 2024-04-14 06:38 | WPDHPUPDATE1 ---
History and Physical Update Update Date/Time: 04/14/24 06:38 History and Physical has been reviewed, including an updated exam of the patient. There are NO changes in the patient's condition. Risks, benefits, and alternatives have been discussed and questions answered. Patient agrees to proceed with procedure.
[2024-04-14 09:22] LABS: Glucose Point of Care 105 mg/dl (65-105)
--- NOTE | 2024-04-14 09:58 | WPDANESEPPF ---
Anes - Initial Pre Proc Eval Procedure: Operation Date: 04/14/24 11:00 Proposed Procedures p Left Spermatocelectomy - Kuldeep Garduno MD Date/Time: 04/14/24 09:58 Surgeon: Kuldeep Garduno MD Pre Op Diagnosis: left spermatocele Patient Data Age: 88 Gender: M Height: 1.79 m Weight: 94.7 kg Last Vital Signs Temp 97.4 F L 04/14/24 09:31 Pulse 49 L 04/14/24 09:31 Resp 18 04/14/24 09:31 BP 157/53 H 04/14/24 09:31 Pulse Ox 99 04/14/24 09:31 O2 Del Method Room Air 04/14/24 09:31 Allergies Allergy/AdvReac Type Severity Reaction Status Date / Time SALEEM Inhibitors Allergy Intermediate swelling Verified 04/14/24 08:52 of tongue Cephalosporins Allergy Intermediate swelling Verified 04/14/24 08:52 of tongue quinapril Allergy Intermediate Swelling Verified 04/14/24 08:52 of Lip/Tongue/Throat Home Medications Medication Instructions Recorded Confirmed Type cholecalciferol (vitamin D3) 125 50 mcg PO DAILY 10/26/23 04/14/24 History mcg (5,000 unit) capsule flaxseed oil 1,000 mg capsule 1,000 mg PO DAILY 10/26/23 04/14/24 History mecobalamin (vitamin B12) 1,000 1,000 mcg sublingual DAILY 10/26/23 04/14/24 History mcg disintegrating tablet,sublingual citalopram 20 mg tablet 20 mg PO DAILY #90 tabs 10/27/23 04/14/24 Rx atorvastatin 80 mg tablet 80 mg PO DAILY 02/06/24 04/14/24 History clopidogrel 75 mg tablet 75 mg PO DAILY 02/06/24 04/14/24 History finasteride 5 mg tablet 5 mg PO DAILY 02/06/24 04/14/24 History aspirin 81 mg tablet,delayed 81 mg PO QAM #30 tabs 02/10/24 04/14/24 Rx release furosemide 80 mg tablet 80 mg PO DAILY #30 tabs 02/10/24 04/14/24 Rx metoprolol succinate 25 mg 25 mg PO QAM #30 tabs 02/10/24 04/14/24 Rx tablet,extended release 24 hr (Toprol XL) amiodarone 200 mg tablet (Pacerone) 200 mg PO DAILY@0800 04/12/24 04/14/24 History Laboratory Tests 04/14/24 09:19 POC Capillary Glucose 105 mg/dl (65-105) Patient hx anesthesia problems: none Family hx anesthesia problems: none Results Review: All pre-operative results and documents have been reviewed as part of the pre-operative evaluation. COUNTS INCLUDE 234 BEDS AT THE [facility] Past Medical History Medical History Anemia in chronic kidney disease Chronic kidney disease, stage 4 (severe) Degenerative arthritis of knee, bilateral Depression Diabetic peripheral neuropathy Elevated PSA Essential (primary) hypertension Nasal sinus polyp Osteoarthritis of left knee Paroxysmal atrial fibrillation Prostate cancer Stage 4 chronic kidney disease Type 2 diabetes mellitus Urge incontinence of urine Surgical History Surgical History History of appendectomy History of cataract extraction History of repair of rotator cuff History of tonsillectomy and adenoidectomy Family History Family History Father Family history of osteoarthritis Cerebrovascular accident Patient's father is in good health Mother Family history of malignant neoplasm, Onset Age: 59 Patient's mother is in good health Sibling Family history of malignant neoplasm Family history of arthritis Social History Social History Social History: Surrogate medical decision maker: Stephany Daigle. Code status: Do not resuscitate. Smoking status: Never smoker Second hand tobacco smoke exposure: No Alcohol intake: former Substance use: never Substance use type: does not use Do You Feel Safe in your Home?: Yes Lack of Transportation: No Lack of Food: Never True Current Housing: Decline to Answer Concerned About Future Housing: No Difficulty Paying Gas/Electric Bills: No Difficulty Paying for Meds: No Currently Unemployed: No Education: Decline to Answer Difficul
[2024-04-14] MEDS: LIDOCAINE HCL 1% LOCAL INJ 20 ML VIAL INFILTRATE (10:13)
[2024-04-14] MEDS: levoFLOXacin 500 MG/D5W 100 ML 500 MG/100 ML BAG 100 MG IVPB (10:13)
--- NOTE | 2024-04-14 10:57 | W.PM.PROC2 ---
Procedure Note - Detailed Date of Procedure 04/14/24 Pre-op Diagnosis Left spermatocele Post-op Diagnosis Same Procedure Performed Left spermatocelectomy Surgeon Kuldeep Garduno MD Anesthesia General Description of Procedure The patient was brought to the operative suite where he was prepped and draped in routine sterile fashion while in a supine position after the uneventful induction of a general LMA anesthetic. An incision was made in the median raphe of the scrotum and dissection was carried into the left tunica vaginalis. There is no appreciable hydrocele but a moderate-large [right/left] spermatocele arising from the epididymis. This spermatocele is dissected from the spermatic cord and testicle to its origin from the epididymis. It is transected at its origin with care taken to avoid any injury to the testicle or epididymis. Care was taken to avoid compromise to vessels in the spermatic cord. The testicle was examined and found to be both visibly and palpably normal. The testicle was restore returned to an orthotopic positioned. The dartos muscle was closed with a running 4-0 chromic and the skin was likewise closed with a running 4-0 chromic. Estimated blood loss throughout this procedure was 10cc. Patient tolerated the procedure well and was taken to the recovery room in good condition.
[2024-04-14] MEDS: LACTATED RINGERS 1,000 ML 30 ML IV CONT (11:02)
[2024-04-14 11:14] LABS: Glucose Point of Care 117 mg/dl (65-105)
== END 2024-04-14 13:00 | disposition home or self-care (01) ==
PROVIDERS: PCP Nurse Practitioner Family; Visit Provider Urology
PROC: (CPT 54840; principal; 2024-04-14 11:00)
DX: N43.41 Spermatocele of epididymis, single (principal); I12.9 Hypertensive chronic kidney disease with stage 1 through stage 4 chronic kidney disease, or unspecified chronic kidney disease; N18.4 Chronic kidney disease, stage 4 (severe); D63.1 Anemia in chronic kidney disease; E11.42 Type 2 diabetes mellitus with diabetic polyneuropathy; F32.A Depression, unspecified; E78.00 Pure hypercholesterolemia, unspecified; N32.81 Overactive bladder; N40.1 Benign prostatic hyperplasia with lower urinary tract symptoms; R39.12 Poor urinary stream; M17.0 Bilateral primary osteoarthritis of knee; I48.0 Paroxysmal atrial fibrillation; R32 Unspecified urinary incontinence; Z79.84 Long term (current) use of oral hypoglycemic drugs; Z79.02 Long term (current) use of antithrombotics/antiplatelets; Z98.890 Other specified postprocedural states; Z85.46 Personal history of malignant neoplasm of prostate; Z86.79 Personal history of other diseases of the circulatory system; Z80.9 Family history of malignant neoplasm, unspecified; Z82.49 Family history of ischemic heart disease and other diseases of the circulatory system
CPT/HCPCS: 54840; 82948; 88304; J1100; J1596; J1956; J2405; J2704; J3010; J7120

== ENCOUNTER 2024-04-15 07:59 | Observation (INO) | payer MEDICARE, SELFPAY ==
[2024-04-15] VITALS (22 sets, daily range): BP systolic 117–147; BP diastolic 57–84; PULSE 48–75; RESP 15–23; TEMP 36.2–37.3; O2SAT 93–99; BMI 29.7
--- NOTE | ~2024-04-15 | XR_ITS ---
XR chest 2V 04/15/2024 09:06 Indication: Chest pain Procedure: 2 view chest Comparison: Comparison to multiple prior studies sequentially, with oldest reviewed study dated 05/20. Findings: Cardiomegaly with pulmonary vascular congestion. Small pleural effusions. Atelectasis right mid thorax. Impression: 1: Cardiomegaly with pulmonary vascular congestion. 2: Small pleural effusions. Reviewed, dictated and finalized at location B. Impression: 1: Cardiomegaly with pulmonary vascular congestion. 2: Small pleural effusions.
--- NOTE | 2024-04-15 08:06 | ECG_ITS ---
Test Date: 2024-04-15 08:09:27 Measurements Intervals [place] Rate: 73 P: 41 ND: 173 QRS: 21 QRSD: 141 T: 106 QT: 413 QTc: 456 Interpretive Statements SINUS RHYTHM POSSIBLE LEFT ATRIAL ENLARGEMENT [-0.1mV P-WAVE IN V1/V2] INCOMPLETE LEFT BUNDLE BRANCH BLOCK ABNORMAL Compared to ECG 03/14/2024 20:46:36 NO SIGNIFICANT CHANGE Electronically Signed On 04-15-2024 15:05:22 CDT by Singh Styles M.D.
--- NOTE | 2024-04-15 08:17 | ED.CHESTPAIN ---
HPI - Chest Pain General Chief Complaint: Chest Pain Stated Complaint: chest pain Time Seen by Provider: 04/15/24 08:06 History of Present Illness HPI narrative: 88-year-old male presented to the emergency department for evaluation for chest pain. Patient states that he does have prior history of SD, and was evaluated in January for NSTEMI. Patient just recently had spermatocele operated on by Dr. Garduno. Patient states that he began having worsening chest pain this morning. Patient did take 3 nitro prior to arrival and took another nitro while in the emergency department. Related Data Home Medications Medication Instructions Recorded Confirmed cholecalciferol (vitamin D3) 125 50 mcg PO DAILY 10/26/23 04/15/24 mcg (5,000 unit) capsule flaxseed oil 1,000 mg capsule 1,000 mg PO DAILY 10/26/23 04/15/24 mecobalamin (vitamin B12) 1,000 1,000 mcg sublingual DAILY 10/26/23 04/15/24 mcg disintegrating tablet,sublingual atorvastatin 80 mg tablet 80 mg PO DAILY 02/06/24 04/15/24 clopidogrel 75 mg tablet 75 mg PO DAILY 02/06/24 04/15/24 finasteride 5 mg tablet 5 mg PO DAILY 02/06/24 04/15/24 amiodarone 200 mg tablet (Pacerone) 200 mg PO DAILY@0800 04/12/24 04/15/24 Allergies Allergy/AdvReac Type Severity Reaction Status Date / Time SALEEM Inhibitors Allergy Intermediate swelling Verified 04/14/24 08:52 of tongue Cephalosporins Allergy Intermediate swelling Verified 04/14/24 08:52 of tongue quinapril Allergy Intermediate Swelling Verified 04/14/24 08:52 of Lip/Tongue/Throat Review of Systems Review of Systems: All systems reviewed & are unremarkable except as noted in HPI and below PMFSH Past Medical History Medical History Anemia in chronic kidney disease Chronic kidney disease, stage 4 (severe) Degenerative arthritis of knee, bilateral Depression Diabetic peripheral neuropathy Elevated PSA Essential (primary) hypertension Nasal sinus polyp Osteoarthritis of left knee Paroxysmal atrial fibrillation Prostate cancer Stage 4 chronic kidney disease Type 2 diabetes mellitus Urge incontinence of urine Surgical History Surgical History History of appendectomy History of cataract extraction History of repair of rotator cuff History of tonsillectomy and adenoidectomy Family History Family History Father Family history of osteoarthritis Cerebrovascular accident Patient's father is in good health Mother Family history of malignant neoplasm, Onset Age: 59 Patient's mother is in good health Sibling Family history of malignant neoplasm Family history of arthritis Social History Social History Social History: Surrogate medical decision maker: Stephany Daigle. Code status: Do not resuscitate. Smoking status: Never smoker Second hand tobacco smoke exposure: No Alcohol intake: never Substance use: never Substance use type: does not use Do You Feel Safe in your Home?: Yes Lack of Transportation: No Lack of Food: Never True Current Housing: I Have Housing Concerned About Future Housing: No Difficulty Paying Gas/Electric Bills: No Difficulty Paying for Meds: No Currently Unemployed: No Education: Associate Degree Difficulty w/ Childcare or Family Care: No Living arrangements: alone Occupation/Education: retired Spiritual care concerns: No Exam Narrative: APPEARANCE: Well appearing, no pain, no distress, well-nourished. HEAD: normocephalic, atraumatic. EYES: PERRLA/EOMI, conjunctivae clear. NOSE: Normal no drainage EARS:TMS clear with good light reflex. THROAT: Pharynx clear, no exudate. NECK: Supple. No adenopathy, no masses. RESPIRATORY: Airway patent, respirations nonlabored. Clear to auscultation bilaterally, no rales, rh
[2024-04-15 08:25] LABS: Basophils Percent Auto 0.2 % (0.2-1.2); Hematocrit 29.6 % (42.0-52.0); Hemoglobin 9.3 g/dL (14.0-18.0); Immature Granulocyte Absolute 0.04 K/mm3 (0.00-0.031); Immature Granulocyte Percent A 0.4 % (0-0.5); Lymphocytes Absolute Auto 0.97 K/mm3 (0.9-3.2); Lymphocytes Percent Auto 9.1 % (18.3-44.2); Mean Corpuscular HGB Conc 31.4 g/dl (32-36); Mean Corpuscular Hemoglobin 29.6 pg (26-34); Mean Corpuscular Volume 94.3 fl (80-100); Mean Platelet Volume 11.4 fl (7.4-10.4); Monocytes Absolute Auto 0.7 K/mm3 (0.1-0.6); Monocytes Percent Auto 6.5 % (2.6-8.5); Neutrophils Percent Auto 83.8 % (45.5-73.1); Platelet Count Result 234 k/mm3 (150-375); Red Blood Count 3.14 M/mm3 (4.6-6.20); Red Cell Distribution Width 14.2 % (11.5-14.5); White Blood Count 10.7 K/mm3 (4.5-10.0)
[2024-04-15] MEDS: ASPIRIN 81 MG CHEWABLE TABLET 324 MG PO (08:30)
[2024-04-15] MEDS: MORPHINE SULFATE (*CRX) 2 MG/ML INJ IV PUSH (08:32)
[2024-04-15 08:34] LABS: Alanine Aminotransferase 17 U/L (6-50); Albumin Level 3.9 g/dL (3.5-5.1); Alkaline Phosphatase 74 U/L (38-126); Anion Gap 11 mmol/L (4-12); Aspartate Amino Transferase 24 U/L (17-59); Bilirubin,Total 0.5 mg/dL (0.2-1.3); Blood Urea Nitrogen 65 mg/dL (9-20); Calcium 8.9 mg/dL (8.4-10.2); Carbon Dioxide 21 mmol/L (22-30); Chloride 103 mmol/L (98-107); Estimated CRCL calculation 14 ml/min; Estimated Glomerular Filt Rate 14; Glucose 148 mg/dL (65-110); Lipase 74 U/L (23-300); Potassium 4.4 mmol/L (3.4-5.0); Sodium 135 mmol/L (137-145)
[2024-04-15] MEDS: NITROGLYCERIN OINTMENT 1 INCH DOSE TRANSDERM (08:38)
[2024-04-15 08:39] LABS: INR 1.2; Prothrombin Time 15.4 Seconds (11.1-14.7)
[2024-04-15 08:40] LABS: Partial Thromboplastin Time 27.9 Seconds (22.3-36.8)
[2024-04-15 08:46] LABS: Troponin I 0.102 ng/mL (0.000-0.034)
--- NOTE | 2024-04-15 08:50 | ECG_ITS ---
Test Date: 2024-04-15 09:10:14 Measurements Intervals [place] Rate: 68 P: 32 MN: 175 QRS: 35 QRSD: 132 T: 111 QT: 417 QTc: 446 Interpretive Statements SINUS RHYTHM POSSIBLE LEFT ATRIAL ENLARGEMENT [-0.1mV P-WAVE IN V1/V2] INCOMPLETE LEFT BUNDLE BRANCH BLOCK ABNORMAL ECG ] Compared to ECG 04/15/2024 08:09:27 NO DIFFERENCE Electronically Signed On 04-15-2024 15:06:13 CDT by Singh Styles M.D.
--- NOTE | 2024-04-15 08:58 | PC.NURSE ---
RN called pt's daughter, Regine, per patient request to let her know he is in the ED and update her on status.
[2024-04-15 09:23] LABS: NT Pro B Type Natriuretic Pept > 30000 pg/mL (19.9-100)
[2024-04-15] MEDS: FUROSEMIDE INJ 40 MG/4 ML VIAL IV PUSH ×2 (11:43→17:55)
[2024-04-15 12:06] LABS: Troponin I 0.321 ng/mL (0.000-0.034)
--- NOTE | 2024-04-15 12:35 | PM.IMHP ---
H&P: HPI History of Present Illness Date/Time: 04/15/24 12:35 Chief Complaint: Chest Pain Narrative: 88 y/o M presents here with chest pain with PMH of DE (most recent in January of 2024), anemia in CKD, CKD, depression, diabetic peripheral neuropathy, hypertension, paroxysmal atrial fibrillation, prostate cancer, and diabetes. The patient presents here from home for for further evaluation chest pain. He reports acute onset of left-sided chest pain at 6:00 a.m. this morning. He describes the chest pain as sharp, nonradiating, constant, no aggravating factors, and alleviated by SL nitro but only very briefly (seconds per patient). Chest pain is accompanied by nausea without vomiting. Denies shortness of breath, dizziness, syncope, or palpitations. Shortly after chest pain started, patient took 3 sublingual nitroglycerin with partial relief but brief effect. Chest pain resolved completely with morphine which was given in the ED, however nitro ointment was also applied wihtin a few minutes of morphine administration. Patient has recent history of NSTEMI in January (02/05-02/09) which was treated medically due to his advanced age, CKD stage 4, and DNR status. However, most recently admitted from 03/14-03/17 for CHF exacerbation and elevate troponins suspected to be secondary to volume overload/hypoxia/HTN/CKD verses representation of true NSTEMI. During this admission he was taken off of diltiazem and Toprol XL was continued. Initial VS at presentation: 97.6? F, HR 75, RR 16, 143/84, and 90% on RA. ED workup showed: WBC 10.7, hemoglobin 9.3 (previously 8.4 on 03/17/2024), INR 1.2, PT 15.4, PTT 27.9, sodium 135, creatinine 4.2 and GFR 14 (previously 4.15 and GFR 14 on 03/17/2024), initial troponin 0.102, and BNP greater than 30,000. CXR showed cardiomegaly with pulmonary vascular congestion and small pleural effusions. Review of Systems Review of Systems: All systems reviewed & are unremarkable except as noted in HPI and below PMFSH Past Medical History Medical History Anemia in chronic kidney disease Chronic kidney disease, stage 4 (severe) Degenerative arthritis of knee, bilateral Depression Diabetic peripheral neuropathy Elevated PSA Essential (primary) hypertension Nasal sinus polyp Osteoarthritis of left knee Paroxysmal atrial fibrillation Prostate cancer Stage 4 chronic kidney disease Type 2 diabetes mellitus Urge incontinence of urine Surgical History Surgical History History of appendectomy History of cataract extraction History of repair of rotator cuff History of tonsillectomy and adenoidectomy Family History Family History Father Family history of osteoarthritis Cerebrovascular accident Patient's father is in good health Mother Family history of malignant neoplasm, Onset Age: 59 Patient's mother is in good health Sibling Family history of malignant neoplasm Family history of arthritis Social History Social History Social History: Surrogate medical decision maker: Stephany Daigle. Code status: Do not resuscitate. Smoking status: Never smoker Second hand tobacco smoke exposure: No Alcohol intake: never Substance use: never Substance use type: does not use Do You Feel Safe in your Home?: Yes Lack of Transportation: No Lack of Food: Never True Current Housing: I Have Housing Concerned About Future Housing: No Difficulty Paying Gas/Electric Bills: No Difficulty Paying for Meds: No Currently Unemployed: No Education: Associate Degree Difficulty w/ Childcare or Family Care: No Living arrangements: alone Occupation/Education: retired Spiritual care concerns: No Meds Home Medications and Allergies Home Medications Medication Instructions Recorded C
--- NOTE | 2024-04-15 14:06 | PM.CNCAR ---
Assessment and Plan Assessment and plan (1) Chest pain: Qualifiers: Chest pain type: unspecified Qualified Code(s): R07.9 - Chest pain, unspecified Code(s): R07.9 - Chest pain, unspecified Status: Acute Plan This is an 88-year-old man who I am sure has underlying coronary artery disease who has been hospitalized 3 times in the last 3 months or so with symptoms of chest pain and some dyspnea. His troponin levels this time are in my opinion not concerning regarding acute myocardial injury. His levels of course will be elevated with his poor renal function. The patient is not a candidate for going to the cardiac cath technologist as I detailed in my last consultation for obvious reasons. I will continue his aspirin, clopidogrel, atorvastatin and low-dose metoprolol. I oral nitrates to his regimen for further anti ischemic benefit. He should be prescribed fresh nitroglycerin tablets when he is discharged this time so that if they are needed they will be affective. His he about a decade ago and he states these open nitroglycerines were a prescription that was left over from her physician. He is otherwise clinically not in stable but for all the reasons that have been outlined it is not my planned/intention to bring him to the cardiac catheterization lab Singh Styles MD [facility] History of Present Illness History of Present Illness Consult date/time: 04/15/24 14:06 Reason For Visit: Chest Pain/NSTEMI Narrative: This is an 88-year-old man who is known to me from a couple of recent admissions here at [facility]. I am seeing him at the request of the hospitalist for another episode of chest pain which prompted him to come to the emergency room this morning and be evaluated and readmitted to the hospital. The patient as stated above his note for service from a couple of recent admissions at this hospital. The reader is referred to those notes for all the details. In summary he is an elderly gentleman who until recently did not have any history of or evidence of coronary disease but has had some evidence of ischemic chest pain which we have chosen to manage medically because of his advanced age, poor kidney function and DNR status. He was at his Home this morning when he noted the onset of some left-sided chest pain up in the region of the axilla. He was concerned about his cardiac status and so he took some nitroglycerin tablets. He did have brief temporary relief with nitroglycerin only to have the symptoms recur. He states the nitroglycerin tablets were about 12 years old and was concerned that they might not be affective. He then drove himself to the hospital here for admission. The patient is known to have hypertension, dyslipidemia and stage 4 chronic kidney disease. His senior compensation consultant is in [place], not on staff here at [facility]. Patient states that during a recent office visit a discussions were along the lines of preparing for dialysis in setting mm a for venous mapping and vascular surgery referral. He came to the emergency room and received some morphine and nitroglycerin paste in after that became asymptomatic. His electrocardiogram showed some lateral ST segment depression but no current of injury. His troponin level is 0.1, certainly consistent with his chronic kidney disease and lower than his troponin during his last 2 admissions. He states that someone in the ER told him that he had had a myocardial infarction and that he needs to be readmitted to the hospital. Review of Systems Constitutional: Constitutional: Reports fatigue Eyes: Eyes: Reports no additional eye complaints ENT: Reports system reviewed and no additional complaints, except as documented Cardiovascular: Cardiovascular: Reports as per HPI and Reports chest pain Respiratory: Respiratory: Reports no additional respiratory complaints Gastrointestinal: Gastrointestinal: Reports no additional gastrointestinal com
[2024-04-15] MEDS: BENZOCAINE/MENTHOL (*BKC) 18 EA LOZENGE 1 LOZENGE PO (15:44)
[2024-04-15 17:54] LABS: Glucose Point of Care 148 mg/dl (65-105)
[2024-04-15 20:37] LABS: Glucose Point of Care 150 mg/dl (65-105)
[2024-04-16] VITALS (13 sets, daily range): BP systolic 119–126; BP diastolic 52–64; PULSE 47–55; RESP 16–20; TEMP 36.6–37.7; O2SAT 95–98
[2024-04-16 04:55] LABS: Basophils Percent Auto 0.3 % (0.2-1.2); Eosinophils Absolute Auto 0.1 K/mm3 (0-0.3); Eosinophils Percent Auto 0.7 % (0-4.4); Hematocrit 27.1 % (42.0-52.0); Hemoglobin 8.5 g/dL (14.0-18.0); Immature Granulocyte Absolute 0.03 K/mm3 (0.00-0.031); Immature Granulocyte Percent A 0.3 % (0-0.5); Lymphocytes Absolute Auto 1.56 K/mm3 (0.9-3.2); Lymphocytes Percent Auto 17.5 % (18.3-44.2); Mean Corpuscular HGB Conc 31.4 g/dl (32-36); Mean Corpuscular Hemoglobin 30.1 pg (26-34); Mean Corpuscular Volume 96.1 fl (80-100); Mean Platelet Volume 11.6 fl (7.4-10.4); Monocytes Absolute Auto 0.8 K/mm3 (0.1-0.6); Monocytes Percent Auto 8.9 % (2.6-8.5); Neutrophils Absolute Auto 6.4 K/mm3 (1.3-6.7); Neutrophils Percent Auto 72.3 % (45.5-73.1); Platelet Count Result 181 k/mm3 (150-375); Red Blood Count 2.82 M/mm3 (4.6-6.20); Red Cell Distribution Width 14.2 % (11.5-14.5); White Blood Count 8.9 K/mm3 (4.5-10.0)
[2024-04-16 05:04] LABS: Alanine Aminotransferase 14 U/L (6-50); Albumin Level 3.3 g/dL (3.5-5.1); Alkaline Phosphatase 68 U/L (38-126); Anion Gap 10 mmol/L (4-12); Aspartate Amino Transferase 27 U/L (17-59); Bilirubin,Total 0.3 mg/dL (0.2-1.3); Blood Urea Nitrogen 68 mg/dL (9-20); Calcium 8.7 mg/dL (8.4-10.2); Carbon Dioxide 24 mmol/L (22-30); Chloride 102 mmol/L (98-107); Estimated CRCL calculation 11 ml/min; Estimated Glomerular Filt Rate 12; Glucose 110 mg/dL (65-110); Potassium 3.8 mmol/L (3.4-5.0); Sodium 136 mmol/L (137-145)
[2024-04-16 06:52] LABS: Glucose Point of Care 113 mg/dl (65-105)
[2024-04-16] MEDS: FUROSEMIDE INJ 40 MG/4 ML VIAL IV PUSH (09:38)
[2024-04-16] MEDS: CHOLECALCIFEROL 1,000 UNITS TABLET 2000 UNITS PO (09:38)
[2024-04-16] MEDS: ATORVASTATIN 40 MG TABLET 80 MG PO (09:38)
[2024-04-16] MEDS: ISOSORBIDE MONONITRATE 30 MG TAB.ER.24H PO (09:39)
[2024-04-16] MEDS: FINASTERIDE 5 MG TABLET PO (09:39)
[2024-04-16] MEDS: CYANOCOBALAMIN 1,000 MCG TABLET 1000 MCG PO (09:39)
[2024-04-16] MEDS: CLOPIDOGREL BISULFATE 75 MG TABLET PO (09:39)
[2024-04-16] MEDS: ASPIRIN 81 MG ENTERIC TABLET PO (09:39)
[2024-04-16] MEDS: CITALOPRAM HYDROBROMIDE 20 MG TABLET PO (09:40)
--- NOTE | 2024-04-16 10:47 | PM.PNCARD ---
Progress Note: A&P Assessment and Plan (1) Chest pain: Code(s): R07.9 - Chest pain, unspecified Status: Acute Plan This is an 88-year-old man presumably with coronary disease we are treating medically because of the reasons described in my consultation note and my previous notes. He is doing well this morning and is asymptomatic. Oral nitrates have been added to his regimen. From my perspective he is appropriate for discharge at this time Singh Styles MD [facility] Subjective Date/time seen: Date of service: 04/16/24 10:47 Interval history: Follow-up visit in this 88-year-old man with presumed coronary artery disease being treated medically as described in my consultation note. He feels well this morning I is ambulating about the floor and is hoping to be discharged. Exam Const: General: comfortable and no acute distress Other: Pleasant elderly man no distress HENMT: Mouth: Yes moist mucous membranes Eyes: Sclera: sclerae normal Neck: Neck: supple and no JVD Resp: Effort & Inspection: normal respiratory effort Auscultation: clear to auscultation bilaterally Cardio: Rate: regular rate Rhythm: regular rhythm GI: GI Palp: Yes Soft to palpation Auscultation: normal bowel sounds Skin: General skin exam: normal color Neuro: Other: Normal cognition Extrem: Other: No edema, good pulses Objective Data Vital Signs Vital Signs: Vital Signs - 24 hr 04/15/24 12:00 04/15/24 14:00 04/15/24 12:00 Temperature Pulse Rate 58 L 51 L Respiratory Rate Blood Pressure Pulse Oximetry 98 Oxygen Delivery Room Air 04/15/24 12:00 04/15/24 16:00 04/15/24 16:00 Temperature 36.2 C L Pulse Rate 65 61 Respiratory Rate 18 Blood Pressure 140/68 Pulse Oximetry 98 99 Oxygen Delivery Room Air 04/15/24 16:00 04/15/24 18:00 04/15/24 19:58 Temperature 36.5 C 37.3 C Pulse Rate 55 L 52 L 57 L Respiratory Rate 20 18 Blood Pressure 133/59 L 138/62 Pulse Oximetry 99 95 Oxygen Delivery 04/15/24 20:00 04/15/24 20:00 04/15/24 22:00 Temperature Pulse Rate 48 L 53 L Respiratory Rate Blood Pressure Pulse Oximetry Oxygen Delivery Room Air 04/15/24 23:51 04/16/24 00:00 04/16/24 00:00 Temperature 37.2 C Pulse Rate 60 53 L Respiratory Rate 16 Blood Pressure 117/57 L Pulse Oximetry 96 Oxygen Delivery Room Air 04/16/24 01:47 04/16/24 03:43 04/16/24 04:00 Temperature 37.7 C H Pulse Rate 52 L 54 L Respiratory Rate 18 Blood Pressure 126/64 Pulse Oximetry 97 Oxygen Delivery Room Air 04/16/24 04:00 04/16/24 06:00 04/16/24 07:55 Temperature 36.9 C Pulse Rate 51 L 54 L 55 L Respiratory Rate 20 Blood Pressure 119/53 L Pulse Oximetry 98 Oxygen Delivery 04/16/24 08:20 04/16/24 09:42 04/16/24 08:00 Temperature Pulse Rate 49 L 49 L 48 L Respiratory Rate Blood Pressure Pulse Oximetry Oxygen Delivery 04/16/24 10:00 04/16/24 08:00 Temperature Pulse Rate 49 L Respiratory Rate Blood Pressure Pulse Oximetry 98 Oxygen Delivery Room Air Intake/Output Intake/Output: Intake & Output 04/13/24 04/14/24 04/15/24 04/16/24 23:59 23:59 23:59 23:59 Intake Total 1160 1150 Output Total 1800 1950 Balance -640 -800 Meds/Results Medications: Active Medications Generic Name Dose Route Start Last Admin Trade Name Freq PRN Reason Stop Dose Admin Amiodarone HCl 200 mg 04/16/24 08:00 04/16/24 08:20 Amiodarone Hcl 200 Mg Tablet PO Not Given DAILY@0800 [facility] Aspirin 81 mg 04/16/24 09:00 04/16/24 09:39 Aspirin 81 Mg Enteric Tablet PO 81 mg QAM MARKIE Administration Atorvastatin Calcium 80 mg 04/16/24 09:00 04/16/24 09:38 Atorvastatin 40 Mg Tablet PO 80 mg DAILY MARKIE Administration Benzocaine 1 lozenge 04/15/24 14:39 04/15/24 15:44 Benzocaine/Menthol (*Bkc) 18 Ea Lozenge PO 1 lozenge PRN PRN Administration
[2024-04-16 11:48] LABS: Glucose Point of Care 118 mg/dl (65-105)
--- NOTE | 2024-04-16 14:36 | PM.DS ---
DS: Admitting Diagnosis Discharge Date 04/16/24 Admitting Diagnosis Chest pain DS: Discharge Diagnosis Discharge Diagnosis (1) Chest pain: Code(s): R07.9 - Chest pain, unspecified Status: Acute (2) Elevated troponin: Code(s): R79.89 - Other specified abnormal findings of blood chemistry Status: Acute (3) Urine retention: Code(s): R33.9 - Retention of urine, unspecified Status: Acute (4) CHF (congestive heart failure): Qualifiers: Heart failure chronicity: acute on chronic Heart failure type: unspecified Qualified Code(s): I50.9 - Heart failure, unspecified Code(s): I50.9 - Heart failure, unspecified Status: Chronic (5) Chronic kidney disease, stage 4 (severe): Code(s): N18.4 - Chronic kidney disease, stage 4 (severe) Status: Chronic (6) Paroxysmal atrial fibrillation: Code(s): I48.0 - Paroxysmal atrial fibrillation Status: Chronic (7) Type 2 diabetes mellitus: Qualifiers: Diabetes mellitus nursing home insulin use: without 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 Diabetes mellitus complication status: with kidney complications Diabetes mellitus complication detail: with chronic kidney disease Chronic kidney disease stage: stage 4 (severe) Qualified Code(s): E11.22 - Type 2 diabetes mellitus with diabetic chronic kidney disease; N18.4 - Chronic kidney disease, stage 4 (severe) Code(s): E11.9 - Type 2 diabetes mellitus without complications Status: Chronic DS: Summary Hospital Course Reason for hospitalization: 10yo male with CAD ([place] most recent in January of 2024), anemia in CKD, CKD, depression, diabetic peripheral neuropathy, hypertension, paroxysmal atrial fibrillation, prostate cancer, and diabetes here with chest pain. Please see H&P for details. Hospital Course: Patient was hemodynamically stable on admission. WBC 10.7, hemoglobin 9.3 (previously 8.4 last month), sodium 135, creatinine 4.2 and GFR 14 (previously 4.15 and GFR 14 last month). Troponin elevated to 1.26. BNP >30,000. CXR showed cardiomegaly with pulmonary vascular congestion and small pleural effusions. EKG showing normal sinus with possible LAE and incomplete left BBB but no change from prior. Patient was given ASA, morphine, NTP and Lasix IV once. He became chest pain free. He was admitted to IMU. Cardiology consulted. Imdur added. He most likely has underlying cardiac disease but no pland for ischemic evaluation due to his underlying CKD. He was had difficulty voiding overnight and noted to have 500mL by bladder scan so Romo placed. No issues with urine retention in the past. He underwent Romo trial that was successsful. he voided with only 38mL remaining. He overall did well and was able to be discharged home on 04/16. Status at Discharge Cognitive/behavioral status at discharge: stable Time Spent with Patient Time attestation: Total time spent providing and/or coordinating discharge services: 35 minutes Time spent: Greater than 30 minutes Exam Narrative: AF 97.9 120/52 49 16 95% ra Gen - NARD sitting at the side of the bed Chest - CTA bilaterally, nml RR CV - RRR S1/S2 Abd - Soft, NT/ND, Positive BS - Romo secured draining clear yellow urine. Scrotal scar well healed. Ext - 1+ pedal edema (chronic) Psych - Nml mood and affect Skin - Warm and dry DS: Data Data Completed and Pending Labs on day of discharge: Labs from last 24 hours 04/16/24 04/16/24 04/16/24 11:25 06:45 04:14 WBC 8.9 RBC 2.82 L Hgb 8.5 L Hct 27.1 L MCV 96.1 MCH 30.1 MCHC 31.4 L RDW 14.2 Plt Count 181 MPV 11.6 H Immature Gran % (Auto) 0.3 Neut % (Auto) 72.3 Lymph % (Auto) 17.5 L [place] % (Auto) 8.9 H Eos % (Auto) 0.7 Baso % (Auto) 0.3 Lymph # (Auto) 1.56 [place] # (Auto) 0.8 H Eos # (Auto) 0.1 Baso # (Auto) 0.0 Abs Immat Gran (auto) 0.03 Absolute Neuts (auto) 6.4 Absolute Nucleated
--- NOTE | 2024-04-16 15:16 | PC.NURSE ---
HR 43 sustained, BP 118/53, asymptomatic. Dr. Styles made aware. Advised pt should remain bradycardic due to heart disease. Pt is ok to discharge at this time.
== END 2024-04-16 15:57 | disposition home or self-care (01) ==
LOC: ANHED 08:59 → ANHIMU 10:28
PROVIDERS: Student in an Organized Health Care Education/Training Program; Admitting Provider Internal Medicine; Emergency Provider Emergency Medicine; PCP Nurse Practitioner Family; Visit Provider Internal Medicine
DX: R07.9 Chest pain, unspecified (principal); R33.9 Retention of urine, unspecified; N18.4 Chronic kidney disease, stage 4 (severe); Z85.46 Personal history of malignant neoplasm of prostate; E11.22 Type 2 diabetes mellitus with diabetic chronic kidney disease; D63.1 Anemia in chronic kidney disease; I48.0 Paroxysmal atrial fibrillation; E11.42 Type 2 diabetes mellitus with diabetic polyneuropathy; F32.A Depression, unspecified; I50.9 Heart failure, unspecified; I13.0 Hypertensive heart and chronic kidney disease with heart failure and stage 1 through stage 4 chronic kidney disease, or unspecified chronic kidney disease
CPT/HCPCS: 36415; 71046; 80053; 82948; 83690; 83880; 84484; 85025; 85610; 85730; 93005; 96374; 96375; 96376; 99285; A9270; G0378; J1940; J2270

== ENCOUNTER 2024-07-05 14:54 | Emergency (ER) | payer MEDICARE, SELFPAY ==
--- NOTE | ~2024-07-05 | XR_ITS ---
EXAMINATION: XR chest 2V DATE: 07/05/2024 15:55 INDICATION: Shortness of breath. Weakness. TECHNIQUE: Frontal and lateral views of the chest were obtained. COMPARISON: Chest 2 views 04/15/2024, CT abdomen and pelvis 09/04/23 FINDINGS: There are small pleural effusions. There are airspace opacities at the lung bases. A calcif ied left lung nodule and calcified left hilar lymph nodes are consistent with old granulomatous disea se. No pneumothorax. The heart size is normal. IMPRESSION: 1. Small pleural effusions. 2. Airspace opacities at the lung bases, consistent with atelectasis versus pneumonia. Reviewed, dictated and finalized at location [facility]. [facility] IMPRESSION: 1. Small pleural effusions. 2. Airspace opacities at the lung bases, consistent with atelectasis versus pne umonia.
[2024-07-05 15:02] VITALS: BP 163/73; PULSE 82; RESP 19; TEMP 36.6; O2SAT 97
--- NOTE | 2024-07-05 15:06 | ECG_ITS ---
Test Date: 2024-07-05 15:12:34 Measurements Intervals [place] Rate: 81 P: 39 VA: 175 QRS: -23 QRSD: 133 T: 119 QT: 408 QTc: 474 Interpretive Statements SINUS RHYTHM POSSIBLE LEFT ATRIAL ENLARGEMENT INTRAVENTRICULAR CONDUCTION DELAY BORDERLINE R WAVE PROGRESSION, ANTERIOR LEADS INFERIOR INFARCT, AGE INDETERMINATE ST-T WAVE ABNORMALITY IN HIGH LATERAL LEADS- CONSIDER ISCHEMIA BASELINE ARTIFACT- I, II, AVR, AVL, AVF ABNORMAL ECG Compared to ECG 04/15/2024 09:10:14 NO SIGNIFICANT CHANGE Electronically Signed On 07-05-2024 16:15:18 [employer]ERIAL SURVEY TECHNICIAN by Adrien Singh D.O.
[2024-07-05 15:11] VITALS: O2SAT 97
--- NOTE | 2024-07-05 15:15 | ED.SOB ---
HPI - SOB/Dyspnea General Chief Complaint: Shortness of Breath/Dyspnea Stated Complaint: shortness of breath/CHF Time Seen by Provider: 07/05/24 14:59 Source: patient and RN notes reviewed Limitations: no limitations History of Present Illness HPI Narrative: patient presents with shortness of breath for the past 1 week. He has a history of congestive heart failure. He also states he has been feeling weak for the past 2 weeks. He denies any chest pain or cough. He does endorse orthopnea as well as paroxysmal nocturnal dyspnea. He takes furosemide once daily and has been compliant with this. His doses 80 mg. At what time he was having issues getting dizzy with this and for a while had been advised (by Dr Reed's ELIEZER Ellen) that he could cut them in half and only take 40 mg with the additional 40 mg as needed but for ahile now he has resumed taking 80 mg daily. His library page is Dr. Styles. He has a history of advanced kidney disease but is not on hemodialysis. His technical sales director is Dr. Zhu in his urologist is Dr. Veronica. States he has no energy. He also has bilateral lower extremity edema and decreased urine output Over the past several days. He has documentation of a prior chest x-ray a few months ago that he states was concerning for a possible pneumonia. He denies any scrotal edema. Related Data Home Medications Medication Instructions Recorded Confirmed cholecalciferol (vitamin D3) 125 50 mcg PO DAILY 10/26/23 04/29/24 mcg (5,000 unit) capsule flaxseed oil 1,000 mg capsule 1,000 mg PO DAILY 10/26/23 04/29/24 mecobalamin (vitamin B12) 1,000 1,000 mcg sublingual DAILY 10/26/23 04/29/24 mcg disintegrating tablet,sublingual atorvastatin 80 mg tablet 80 mg PO DAILY 02/06/24 04/29/24 clopidogrel 75 mg tablet 75 mg PO DAILY 02/06/24 04/29/24 finasteride 5 mg tablet 5 mg PO DAILY 02/06/24 04/29/24 amiodarone 200 mg tablet (Pacerone) 200 mg PO DAILY@0800 04/12/24 04/29/24 calcitriol 0.25 mcg capsule 0.25 mcg PO DAILY 06/01/24 Allergies Allergy/AdvReac Type Severity Reaction Status Date / Time SALEEM Inhibitors Allergy Intermediate swelling Verified 05/27/24 11:09 of tongue Cephalosporins Allergy Intermediate swelling Verified 05/27/24 11:09 of tongue quinapril Allergy Intermediate Swelling Verified 05/27/24 11:09 of Lip/Tongue/Throat PMFSH Past Medical History Medical History Acute exacerbation of congestive heart failure Acute hypoxic respiratory failure Acute respiratory failure with hypoxia Anemia in chronic kidney disease BMI 29.0-29.9,adult CAD (coronary artery disease) Chronic kidney disease, stage 4 (severe) Degenerative arthritis of knee, bilateral Depression Diabetic peripheral neuropathy Elevated PSA Elevated troponin Essential (primary) hypertension Nasal sinus polyp Non-ST elevation SC (NSTEMI) Osteoarthritis of left knee Paroxysmal atrial fibrillation Prostate cancer 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 chronic kidney disease Type 2 diabetes mellitus Urge incontinence of urine Surgical History Surgical History History of appendectomy History of cataract extraction History of repair of rotator cuff History of tonsillectomy and adenoidectomy Family History Family History Father Family history of osteoarthritis Cerebrovascular accident Patient's father is in good health Mother Family history of malignant neoplasm, Onset Age: 59 Patient's mother is in good health Sibling Family history of malignant neoplasm Family history of arthritis Social History Social History Social History: Surrogate medical decision maker: Stephany Daigle. Code status: Do not resuscitate. Smoking status: Never smoker Second hand tobacco smoke exposure: No Alcohol intake: never Substance use: never Substance use type: does not use Do You Feel Safe in your Home?: Yes Lack of Transportation: No Lack of Food: Never True Current Housing: I Have Housing Concerned About Future Housing: No Difficulty Paying Gas/Electric Bills: No Difficulty Paying for Meds: No Currently Unemployed: No Education: Associate Degree Difficulty w/ Childcare or Family Care: No Living arrangements: alone Occupation/Education: retired Spiritual care concerns: No Exam Narrative: GENERAL: Well-appearing, well-nourished, and in no acute distress. HEAD: Normocephalic, atraumatic. EYES: Non injected, non icteric ENT: Nares clear, no rhinorrhea or epistaxis. NECK: Supple. CHEST: Speaking in full sentences. No respiratory distress. Not tachypneic or hypoxic. No accessory muscle usage. Lungs are clear to auscultation without crackles or wheezes although diminished at the bases. HEART: Regular rate and rhythm. . ABDOMEN: Soft, nondistended. EXTREMITIES: Normal range of motion. 4+ bilateral lower extremity edema at the tibia and 3+ at bilateral distal/mid thighs. SKIN: Warm, dry. Lower extremity edema has caused some scant fluid filled blisters. NEURO: No focal deficits. Alert and oriented x3. PSYCH: Normal mood and affect. Course Vital Signs Vital signs: Vital Signs Temperature 97.9 F 07/05/24 15:02 Pulse Rate 82 07/05/24 15:02 Respiratory Rate 19 07/05/24 15:02 Blood Pressure 163/73 H 07/05/24 15:02 Pulse Oximetry 97 07/05/24 15:02 Oxygen Delivery Room Air 07/05/24 15:02 Temperature 97.9 F 07/05/24 15:02 Pulse Rate 75 07/05/24 17:50 Respiratory Rate 19 07/05/24 17:50 Blood Pressure 160/79 H 07/05/24 17:50 Pulse Oximetry 99 07/05/24 17:50 Oxygen Delivery Room Air 07/05/24 15:11 MDM - SOB/Dyspnea MDM Narrative Medical decision making narrative: Patient presents with shortness of breath, orthopnea, paroxysmal nocturnal dyspnea, decreased energy, and decreased urine output. He has a history of heart failure as well as advanced kidney disease. in the emergency department he is afebrile with vital signs notable for hypertension. Findings on the chest x-ray that show atelectasis versus pneumonia. The urinalysis is also without bacteria but has some white blood cells and leukocyte esterase. For this reason, will give Levaquin to cover for both if necessary. patient's symptoms do sound very consistent with exacerbation of his heart failure. he would benefit from aggressive diuresis which would be best monitored in the hospital setting given his kidney function. Discussed patient's workup with him at approximately 5:30 p.m. Discuss that his heart failure and his chronic kidney disease both appear to be worse today and that the recommendation would be for an admission for diuresis so that both could be monitored as aggressive diuresis can affect kidney function. Patient is pleasant but adamant that he is unwilling to stay. I attempted a few times but he would prefer to leave and trial managing this at home. recommended the patient take an additional half dose of his Lasix over the next several days (i.e. an additional 40mg for a total of 120mg) but that he would need to follow-up with his library page and technical sales director. he has appointment with his technical sales director in mid July but he is not to meet with Dr. Styles again until October. we also discussed that there were abnormal findings on the urinalysis and the chest x-ray that were not obvious urinary tract infections or pneumonia although out of an abundance of precaution, reasonable to treat for both and that the antibiotic had been chosen to do so. Will discharge with rest of the course. The patient is oriented to person, place, and time, has the capacity to make decisions regarding the medical care offered. The patient speaks coherently and exhibits no evidence of having an altered level of consciousness or alcohol or drug intoxication to a point that would impair judgment. Given that he has not desaturated and is not tachypneic, it is reasonable for patient to trial outpatient therapy although he is given strict follow up and emergency department return precautions and strongly encouraged to return without hesitation. Differential Diagnosis Differential diagnosis: Likely congestive heart failure, community acquired pneumonia and other ( electrolyte abnormalities, acute renal failure/TRAV on CKD; electrolyte abnormalities) Lab Data Attestation: I reviewed the patient's lab results. Lab results narrative: Normocytic anemia, stable from previous 07/05/24 15:22 07/05/24 15:22 Labs: Lab Results 07/05/24 07/05/24 07/05/24 Range/Units 15:22 15:22 15:22 WBC 8.7 (4.5-10.0) K/mm3 RBC 3.21 L (4.6-6.20) M/mm3 Hgb 9.5 L (14.0-18.0) g/dL Hct 29.6 L (42.0-52.0) % MCV 92.2 (80-100) fl MCH 29.6 (26-34) pg MCHC 32.1 (32-36) g/dl RDW 14.9 H (11.5-14.5) % Plt Count 270 (150-375) k/mm3 MPV 10.5 H (7.4-10.4) fl Immature Gran % (Auto) 0.5 (0-0.5) % Neut % (Auto) 76.3 H (45.5-73.1) % Lymph % (Auto) 12.3 L (18.3-44.2) % [place] % (Auto) 9.8 H (2.6-8.5) % Eos % (Auto) 0.5 (0-4.4) % Baso % (Auto) 0.6 (0.2-1.2) % Lymph # (Auto) 1.06 (0.9-3.2) K/mm3 [place] # (Auto) 0.9 H (0.1-0.6) K/mm3 Eos # (Auto) 0.0 (0-0.3) K/mm3 Baso # (Auto) 0.1 (0.0-0.1) K/mm3 Abs Immat Gran (auto) 0.04 H (0.00-0.031) K/mm3 Absolute Neuts (auto) 6.6 (1.3-6.7) K/mm3 Absolute Nucleated RBC 0.000 (0.0-0.012) K/mm3 Nucleated RBC % 0.0 (0.0-0.2) % Sodium Cancelled 139 Potassium Cancelled 4.1 Chloride Cancelled Carbon Dioxide Anion Gap BUN Creatinine Estim Creat Clear Calc Estimated GFR Glucose Calcium Magnesium (1.6-2.3) mg/dL Total Bilirubin AST ALT Alkaline Phosphatase NT-Pro-B Natriuret Pep Total Protein Albumin Urine Color (Yellow) Urine Appearance (Clear) Urine pH (5.0-9.0) Ur Specific [place] (1.001-1.035) Urine Protein (Negative) mg/dL Urine Glucose (UA) (Negative) mg/dL Urine Ketones (Negative) mg/dL Ur Blood (Man) (Negative) Urine Nitrate (Negative) Urine Bilirubin (Negative) Urine Urobilinogen (<2.0) mg/dL Add Ur Microanalysis Leukocyte Esterase Rfl (Negative) FELA/UL Urine RBC (0-2) /hpf Urine WBC (0-3) /hpf Ur Squamous Epith Cells (Few) /hpf Urine Bacteria /hpf Urine Casts Influenza A (RT-PCR) (Negative) Influenza B (RT-PCR) (Negative) RSV (RT-PCR) (Negative) SARS-CoV-2 RNA (RT-PCR) (Negative) 07/05/24 07/05/24 07/05/24 Range/Units 15:22 15:22 15:22 WBC (4.5-10.0) K/mm3 RBC (4.6-6.20) M/mm3 Hgb (14.0-18.0) g/dL Hct (42.0-52.0) % MCV (80-100) fl MCH (26-34) pg MCHC (32-36) g/dl RDW (11.5-14.5) % Plt Count (150-375) k/mm3 MPV (7.4-10.4) fl Immature Gran % (Auto) (0-0.5) % Neut % (Auto) (45.5-73.1) % Lymph % (Auto) (18.3-44.2) % [place] % (Auto) (2.6-8.5) % Eos % (Auto) (0-4.4) % Baso % (Auto) (0.2-1.2) % Lymph # (Auto) (0.9-3.2) K/mm3 [place] # (Auto) (0.1-0.6) K/mm3 Eos # (Auto) (0-0.3) K/mm3 Baso # (Auto) (0.0-0.1) K/mm3 Abs Immat Gran (auto) (0.00-0.031) K/mm3 Absolute Neuts (auto) (1.3-6.7) K/mm3 Absolute Nucleated RBC (0.0-0.012) K/mm3 Nucleated RBC % (0.0-0.2) % Sodium Potassium Chloride 105 Carbon Dioxide Cancelled 22 Anion Gap Cancelled 12 BUN Cancelled Creatinine Estim Creat Clear Calc Estimated GFR Glucose Calcium Magnesium (1.6-2.3) mg/dL Total Bilirubin AST ALT Alkaline Phosphatase NT-Pro-B Natriuret Pep Total Protein Albumin Urine Color (Yellow) Urine Appearance (Clear) Urine pH (5.0-9.0) Ur Specific [place] (1.001-1.035) Urine Protein (Negative) mg/dL Urine Glucose (UA) (Negative) mg/dL Urine Ketones (Negative) mg/dL Ur Blood (Man) (Negative) Urine Nitrate (Negative) Urine Bilirubin (Negative) Urine Urobilinogen (<2.0) mg/dL Add Ur Microanalysis Leukocyte Esterase Rfl (Negative) FELA/UL Urine RBC (0-2) /hpf Urine WBC (0-3) /hpf Ur Squamous Epith Cells (Few) /hpf Urine Bacteria /hpf Urine Casts Influenza A (RT-PCR) (Negative) Influenza B (RT-PCR) (Negative) RSV (RT-PCR) (Negative) SARS-CoV-2 RNA (RT-PCR) (Negative) 07/05/24 07/05/24 07/05/24 Range/Units 15:22 15:22 15:22 WBC (4.5-10.0) K/mm3 RBC (4.6-6.20) M/mm3 Hgb (14.0-18.0) g/dL Hct (42.0-52.0) % MCV (80-100) fl MCH (26-34) pg MCHC (32-36) g/dl RDW (11.5-14.5) % Plt Count (150-375) k/mm3 MPV (7.4-10.4) fl Immature Gran % (Auto) (0-0.5) % Neut % (Auto) (45.5-73.1) % Lymph % (Auto) (18.3-44.2) % [place] % (Auto) (2.6-8.5) % Eos % (Auto) (0-4.4) % Baso % (Auto) (0.2-1.2) % Lymph # (Auto) (0.9-3.2) K/mm3 [place] # (Auto) (0.1-0.6) K/mm3 Eos # (Auto) (0-0.3) K/mm3 Baso # (Auto) (0.0-0.1) K/mm3 Abs Immat Gran (auto) (0.00-0.031) K/mm3 Absolute Neuts (auto) (1.3-6.7) K/mm3 Absolute Nucleated RBC (0.0-0.012) K/mm3 Nucleated RBC % (0.0-0.2) % Sodium Potassium Chloride Carbon Dioxide Anion Gap BUN 71 H Creatinine Cancelled 4.80 H Estim Creat Clear Calc Cancelled 10 Estimated GFR Cancelled Glucose Calcium Magnesium (1.6-2.3) mg/dL Total Bilirubin AST ALT Alkaline Phosphatase NT-Pro-B Natriuret Pep Total Protein Albumin Urine Color (Yellow) Urine Appearance (Clear) Urine pH (5.0-9.0) Ur Specific [place] (1.001-1.035) Urine Protein (Negative) mg/dL Urine Glucose (UA) (Negative) mg/dL Urine Ketones (Negative) mg/dL Ur Blood (Man) (Negative) Urine Nitrate (Negative) Urine Bilirubin (Negative) Urine Urobilinogen (<2.0) mg/dL Add Ur Microanalysis Leukocyte Esterase Rfl (Negative) FELA/UL Urine RBC (0-2) /hpf Urine WBC (0-3) /hpf Ur Squamous Epith Cells (Few) /hpf Urine Bacteria /hpf Urine Casts Influenza A (RT-PCR) (Negative) Influenza B (RT-PCR) (Negative) RSV (RT-PCR) (Negative) SARS-CoV-2 RNA (RT-PCR) (Negative) 07/05/24 07/05/24 07/05/24 Range/Units 15:22 15:22 15:22 WBC (4.5-10.0) K/mm3 RBC (4.6-6.20) M/mm3 Hgb (14.0-18.0) g/dL Hct (42.0-52.0) % MCV (80-100) fl MCH (26-34) pg MCHC (32-36) g/dl RDW (11.5-14.5) % Plt Count (150-375) k/mm3 MPV (7.4-10.4) fl Immature Gran % (Auto) (0-0.5) % Neut % (Auto) (45.5-73.1) % Lymph % (Auto) (18.3-44.2) % [place] % (Auto) (2.6-8.5) % Eos % (Auto) (0-4.4) % Baso % (Auto) (0.2-1.2) % Lymph # (Auto) (0.9-3.2) K/mm3 [place] # (Auto) (0.1-0.6) K/mm3 Eos # (Auto) (0-0.3) K/mm3 Baso # (Auto) (0.0-0.1) K/mm3 Abs Immat Gran (auto) (0.00-0.031) K/mm3 Absolute Neuts (auto) (1.3-6.7) K/mm3 Absolute Nucleated RBC (0.0-0.012) K/mm3 Nucleated RBC % (0.0-0.2) % Sodium Potassium Chloride Carbon Dioxide Anion Gap BUN Creatinine Estim Creat Clear Calc Estimated GFR 12 L Glucose Cancelled 119 H Calcium Cancelled 9.1 Magnesium 2.2 (1.6-2.3) mg/dL Total Bilirubin Cancelled AST ALT Alkaline Phosphatase NT-Pro-B Natriuret Pep Total Protein Albumin Urine Color (Yellow) Urine Appearance (Clear) Urine pH (5.0-9.0) Ur Specific [place] (1.001-1.035) Urine Protein (Negative) mg/dL Urine Glucose (UA) (Negative) mg/dL Urine Ketones (Negative) mg/dL Ur Blood (Man) (Negative) Urine Nitrate (Negative) Urine Bilirubin (Negative) Urine Urobilinogen (<2.0) mg/dL Add Ur Microanalysis Leukocyte Esterase Rfl (Negative) FELA/UL Urine RBC (0-2) /hpf Urine WBC (0-3) /hpf Ur Squamous Epith Cells (Few) /hpf Urine Bacteria /hpf Urine Casts Influenza A (RT-PCR) (Negative) Influenza B (RT-PCR) (Negative) RSV (RT-PCR) (Negative) SARS-CoV-2 RNA (RT-PCR) (Negative) 07/05/24 07/05/24 07/05/24 Range/Units 15:22 15:22 15:22 WBC (4.5-10.0) K/mm3 RBC (4.6-6.20) M/mm3 Hgb (14.0-18.0) g/dL Hct (42.0-52.0) % MCV (80-100) fl MCH (26-34) pg MCHC (32-36) g/dl RDW (11.5-14.5) % Plt Count (150-375) k/mm3 MPV (7.4-10.4) fl Immature Gran % (Auto) (0-0.5) % Neut % (Auto) (45.5-73.1) % Lymph % (Auto) (18.3-44.2) % [place] % (Auto) (2.6-8.5) % Eos % (Auto) (0-4.4) % Baso % (Auto) (0.2-1.2) % Lymph # (Auto) (0.9-3.2) K/mm3 [place] # (Auto) (0.1-0.6) K/mm3 Eos # (Auto) (0-0.3) K/mm3 Baso # (Auto) (0.0-0.1) K/mm3 Abs Immat Gran (auto) (0.00-0.031) K/mm3 Absolute Neuts (auto) (1.3-6.7) K/mm3 Absolute Nucleated RBC (0.0-0.012) K/mm3 Nucleated RBC % (0.0-0.2) % Sodium Potassium Chloride Carbon Dioxide Anion Gap BUN Creatinine Estim Creat Clear Calc Estimated GFR Glucose Calcium Magnesium (1.6-2.3) mg/dL Total Bilirubin 0.8 AST Cancelled 44 ALT Cancelled 29 Alkaline Phosphatase Cancelled NT-Pro-B Natriuret Pep Total Protein Albumin Urine Color (Yellow) Urine Appearance (Clear) Urine pH (5.0-9.0) Ur Specific [place] (1.001-1.035) Urine Protein (Negative) mg/dL Urine Glucose (UA) (Negative) mg/dL Urine Ketones (Negative) mg/dL Ur Blood (Man) (Negative) Urine Nitrate (Negative) Urine Bilirubin (Negative) Urine Urobilinogen (<2.0) mg/dL Add Ur Microanalysis Leukocyte Esterase Rfl (Negative) FELA/UL Urine RBC (0-2) /hpf Urine WBC (0-3) /hpf Ur Squamous Epith Cells (Few) /hpf Urine Bacteria /hpf Urine Casts Influenza A (RT-PCR) (Negative) Influenza B (RT-PCR) (Negative) RSV (RT-PCR) (Negative) SARS-CoV-2 RNA (RT-PCR) (Negative) 07/05/24 07/05/24 07/05/24 Range/Units 15:22 15:22 15:22 WBC (4.5-10.0) K/mm3 RBC (4.6-6.20) M/mm3 Hgb (14.0-18.0) g/dL Hct (42.0-52.0) % MCV (80-100) fl MCH (26-34) pg MCHC (32-36) g/dl RDW (11.5-14.5) % Plt Count (150-375) k/mm3 MPV (7.4-10.4) fl Immature Gran % (Auto) (0-0.5) % Neut % (Auto) (45.5-73.1) % Lymph % (Auto) (18.3-44.2) % [place] % (Auto) (2.6-8.5) % Eos % (Auto) (0-4.4) % Baso % (Auto) (0.2-1.2) % Lymph # (Auto) (0.9-3.2) K/mm3 [place] # (Auto) (0.1-0.6) K/mm3 Eos # (Auto) (0-0.3) K/mm3 Baso # (Auto) (0.0-0.1) K/mm3 Abs Immat Gran (auto) (0.00-0.031) K/mm3 Absolute Neuts (auto) (1.3-6.7) K/mm3 Absolute Nucleated RBC (0.0-0.012) K/mm3 Nucleated RBC % (0.0-0.2) % Sodium Potassium Chloride Carbon Dioxide Anion Gap BUN Creatinine Estim Creat Clear Calc Estimated GFR Glucose Calcium Magnesium (1.6-2.3) mg/dL Total Bilirubin AST ALT Alkaline Phosphatase 99 NT-Pro-B Natriuret Pep Cancelled > 05219 H Total Protein Cancelled 7.0 Albumin Cancelled Urine Color (Yellow) Urine Appearance (Clear) Urine pH (5.0-9.0) Ur Specific [place] (1.001-1.035) Urine Protein (Negative) mg/dL Urine Glucose (UA) (Negative) mg/dL Urine Ketones (Negative) mg/dL Ur Blood (Man) (Negative) Urine Nitrate (Negative) Urine Bilirubin (Negative) Urine Urobilinogen (<2.0) mg/dL Add Ur Microanalysis Leukocyte Esterase Rfl (Negative) FELA/UL Urine RBC (0-2) /hpf Urine WBC (0-3) /hpf Ur Squamous Epith Cells (Few) /hpf Urine Bacteria /hpf Urine Casts Influenza A (RT-PCR) (Negative) Influenza B (RT-PCR) (Negative) RSV (RT-PCR) (Negative) SARS-CoV-2 RNA (RT-PCR) (Negative) 07/05/24 07/05/24 Range/Units 15:22 16:56 WBC (4.5-10.0) K/mm3 RBC (4.6-6.20) M/mm3 Hgb (14.0-18.0) g/dL Hct (42.0-52.0) % MCV (80-100) fl MCH (26-34) pg MCHC (32-36) g/dl RDW (11.5-14.5) % Plt Count (150-375) k/mm3 MPV (7.4-10.4) fl Immature Gran % (Auto) (0-0.5) % Neut % (Auto) (45.5-73.1) % Lymph % (Auto) (18.3-44.2) % [place] % (Auto) (2.6-8.5) % Eos % (Auto) (0-4.4) % Baso % (Auto) (0.2-1.2) % Lymph # (Auto) (0.9-3.2) K/mm3 [place] # (Auto) (0.1-0.6) K/mm3 Eos # (Auto) (0-0.3) K/mm3 Baso # (Auto) (0.0-0.1) K/mm3 Abs Immat Gran (auto) (0.00-0.031) K/mm3 Absolute Neuts (auto) (1.3-6.7) K/mm3 Absolute Nucleated RBC (0.0-0.012) K/mm3 Nucleated RBC % (0.0-0.2) % Sodium Potassium Chloride Carbon Dioxide Anion Gap BUN Creatinine Estim Creat Clear Calc Estimated GFR Glucose Calcium Magnesium (1.6-2.3) mg/dL Total Bilirubin AST ALT Alkaline Phosphatase NT-Pro-B Natriuret Pep Total Protein Albumin 3.7 Urine Color Yellow (Yellow) Urine Appearance Clear (Clear) Urine pH 5.0 (5.0-9.0) Ur Specific [place] 1.014 (1.001-1.035) Urine Protein 3+ H (Negative) mg/dL Urine Glucose (UA) Negative (Negative) mg/dL Urine Ketones Negative (Negative) mg/dL Ur Blood (Man) 1+ H (Negative) Urine Nitrate Negative (Negative) Urine Bilirubin Negative (Negative) Urine Urobilinogen 0.2 (<2.0) mg/dL Add Ur Microanalysis Reviewed Leukocyte Esterase Rfl 1+ H (Negative) FELA/UL Urine RBC 0-2 (0-2) /hpf Urine WBC 21-50 H (0-3) /hpf Ur Squamous Epith Cells None seen (Few) /hpf Urine Bacteria None seen /hpf Urine Casts 6-10 Influenza A (RT-PCR) Negative (Negative) Influenza B (RT-PCR) Negative (Negative) RSV (RT-PCR) Negative (Negative) SARS-CoV-2 RNA (RT-PCR) Negative (Negative) Imaging Data Attestation: I personally reviewed and interpreted this imaging study as follows: My impression: do appreciate that the costophrenic angles are obscured bilaterally the left greater than right Radiologist's impression: Impressions Chest X-Ray 07/05/24 16:02 IMPRESSION: 1. Small pleural effusions. 2. Airspace opacities at the lung bases, consistent with atelectasis versus pneumonia. ECG Data EKG #1: Attestation: I personally reviewed and interpreted this ECG as follows: ECG completion date: 07/05/24 ECG completion time: 15:12 Interpretation: Normal sinus rhythm at a rate of 81 beats per minute. IA interval 135. QRS 133. QT/ QTC 3408/445. Good R-wave progression across the precordial leads. T-wave inversion in V6 but it is mildly upright in contiguous lateral precordial lead V5. Discharge Plan Discharge Clinical Impression: Acute exacerbation of chronic heart failure, Normocytic anemia, Acute kidney injury superimposed on CKD, Abnormal urinalysis, Abnormal x-ray, Bilateral lower extremity edema Patient Disposition: Home, Self-Care Condition: Stable Instructions: Antibiotic Form, Heart Failure (DC), Chronic Kidney Disease (ED), Chronic Kidney Disease Diet (DC), Low-Sodium Diet (ED), Edema (ED) Additional Instructions: As we discussed, it was advised that you stay but because you are choosing to be discharged and have the capacity to do so, the recommendation is to take an extra half dose of your furosemide for the next 5 days to see if the lower leg swelling and shortness of breath improves. Please call your library page and technical sales director to discuss and follow up. For the abnormalities on your urinalysis and chest x-ray (possible UTI and possible pneumonia), you received the 1st dose of an antibiotic in the emergency department with rest of the course prescribed. Do not hesitate to return to the emergency department immediately if your symptoms are not getting better or with any new or worsening symptoms. Prescriptions: New levofloxacin 500 mg tablet 500 mg PO DAILY 5 Days Qty: 5 0RF No Action flaxseed oil 1,000 mg capsule 1,000 mg PO DAILY Rx Instructions: administer with a meal cholecalciferol (vitamin D3) 125 mcg (5,000 unit) capsule 50 mcg PO DAILY mecobalamin (vitamin B12) 1,000 mcg tablet,disintegrating 1,000 mcg sublingual DAILY Rx Instructions: place tablet under tongue and allow to dissolve for at least30 secs before swallowing isosorbide mononitrate 30 mg tablet extended release 24 hr 30 mg PO QAM Qty: 90 3RF amiodarone [Pacerone] 200 mg tablet 200 mg PO DAILY@0800 nitroglycerin 0.4 mg tablet, sublingual 0.4 mg sublingual Q5M PRN (Reason: chest pain) Qty: 30 4RF Rx Instructions: do not exceed 3 doses per episode atorvastatin 80 mg tablet 80 mg PO DAILY clopidogrel 75 mg tablet 75 mg PO DAILY Hold Instructions: Resume on 04/16/24. finasteride 5 mg tablet 5 mg PO DAILY aspirin 81 mg Tablet,Delayed Release (Dr/Ec) 81 mg PO QAM Qty: 30 0RF Hold Instructions: Resume on 04/15/24. furosemide 80 mg Tablet 80 mg PO DAILY Qty: 30 0RF metoprolol succinate [Toprol XL] 25 mg Tablet Extended Release 24 Hr 25 mg PO QAM Qty: 30 0RF citalopram 20 mg tablet 20 mg PO DAILY Qty: 90 3RF calcitriol 0.25 mcg capsule 0.25 mcg PO DAILY Follow-up/Referrals: Stefanie Hernández NP [Primary Care Provider] - Time of Disposition: 17:48
[2024-07-05 15:35] LABS: Basophils Absolute Auto 0.1 K/mm3 (0.0-0.1); Basophils Percent Auto 0.6 % (0.2-1.2); Eosinophils Percent Auto 0.5 % (0-4.4); Hematocrit 29.6 % (42.0-52.0); Hemoglobin 9.5 g/dL (14.0-18.0); Immature Granulocyte Absolute 0.04 K/mm3 (0.00-0.031); Immature Granulocyte Percent A 0.5 % (0-0.5); Lymphocytes Absolute Auto 1.06 K/mm3 (0.9-3.2); Lymphocytes Percent Auto 12.3 % (18.3-44.2); Mean Corpuscular HGB Conc 32.1 g/dl (32-36); Mean Corpuscular Hemoglobin 29.6 pg (26-34); Mean Corpuscular Volume 92.2 fl (80-100); Mean Platelet Volume 10.5 fl (7.4-10.4); Monocytes Absolute Auto 0.9 K/mm3 (0.1-0.6); Monocytes Percent Auto 9.8 % (2.6-8.5); Neutrophils Absolute Auto 6.6 K/mm3 (1.3-6.7); Neutrophils Percent Auto 76.3 % (45.5-73.1); Platelet Count Result 270 k/mm3 (150-375); Red Blood Count 3.21 M/mm3 (4.6-6.20); Red Cell Distribution Width 14.9 % (11.5-14.5); White Blood Count 8.7 K/mm3 (4.5-10.0)
[2024-07-05 15:44] LABS: Alanine Aminotransferase 29 U/L (6-50); Albumin Level 3.7 g/dL (3.5-5.1); Alkaline Phosphatase 99 U/L (38-126); Anion Gap 12 mmol/L (4-12); Aspartate Amino Transferase 44 U/L (17-59); Bilirubin,Total 0.8 mg/dL (0.2-1.3); Blood Urea Nitrogen 71 mg/dL (9-20); Calcium 9.1 mg/dL (8.4-10.2); Carbon Dioxide 22 mmol/L (22-30); Chloride 105 mmol/L (98-107); Estimated CRCL calculation 10 ml/min; Estimated Glomerular Filt Rate 12; Glucose 119 mg/dL (65-110); Magnesium 2.2 mg/dL (1.6-2.3); Potassium 4.1 mmol/L (3.4-5.0); Sodium 139 mmol/L (137-145)
[2024-07-05 16:03] LABS: NT Pro B Type Natriuretic Pept > 30000 pg/mL (19.9-100)
[2024-07-05 16:10] LABS: Influenza A QL RT-PCR Negative (Negative); Influenza B QL RT-PCR Negative (Negative); RSV RNA, RT-PCR Negative (Negative); SARS-CoV-2 RNA PCR Negative (Negative)
[2024-07-05] MEDS: FUROSEMIDE INJ 100 MG/10 ML VIAL 80 MG IV PUSH (16:29)
[2024-07-05 17:19] LABS: Add Urine Microscopic? YES; Appearance Urine Clear (Clear); Bacteria Urine None Seen /hpf; Bilirubin Urine Negative (Negative); Blood Urine 1+ (Negative); Color Urine Yellow (Yellow); Glucose Urine UA Negative (Negative); Ketones Urine Negative (Negative); Leukocyte Esterase Ur 1+ LEU/UL (Negative); Need Manual Microscopic Reviewed; Nitrate Urine Negative (Negative); Protein Urine 3+ mg/dL (Negative); RBC Urine 0-2 /hpf (0-2); Specific Grav Ur 1.014 (1.001-1.035); Squamous Epithelial Cell Urine None Seen /hpf (Few); Urobilinogen Urine 0.2 mg/dL (<2.0); WBC Urine 21-50 /hpf (0-3)
[2024-07-05] MEDS: levoFLOXacin 500 MG TABLET PO (17:36)
[2024-07-05 17:50] VITALS: BP 160/79; PULSE 75; RESP 19; O2SAT 99
== END 2024-07-05 18:03 | disposition home or self-care (01) ==
PROVIDERS: Emergency Provider Student in an Organized Health Care Education/Training Program; PCP Nurse Practitioner Family
DX: I50.9 Heart failure, unspecified (principal); N17.9 Acute kidney failure, unspecified; E11.22 Type 2 diabetes mellitus with diabetic chronic kidney disease; I13.2 Hypertensive heart and chronic kidney disease with heart failure and with stage 5 chronic kidney disease, or end stage renal disease; N18.5 Chronic kidney disease, stage 5; D63.1 Anemia in chronic kidney disease; R60.0 Localized edema; R91.8 Other nonspecific abnormal finding of lung field; R82.998 Other abnormal findings in urine; Z20.822 Contact with and (suspected) exposure to COVID-19; E11.42 Type 2 diabetes mellitus with diabetic polyneuropathy; I25.2 Old myocardial infarction; I48.0 Paroxysmal atrial fibrillation; N39.41 Urge incontinence; M17.0 Bilateral primary osteoarthritis of knee; Z85.46 Personal history of malignant neoplasm of prostate; Z98.49 Cataract extraction status, unspecified eye; Z79.82 Long term (current) use of aspirin; Z79.899 Other long term (current) drug therapy; Z79.02 Long term (current) use of antithrombotics/antiplatelets; I45.9 Conduction disorder, unspecified; R94.31 Abnormal electrocardiogram [ECG] [EKG]
CPT/HCPCS: 36415; 71046; 80053; 81001; 83735; 83880; 85025; 87086; 87637; 93005; 96374; 99284; A9270; J1940

== ENCOUNTER 2024-07-07 15:13 | Inpatient (IN) | payer MEDICARE, SELFPAY ==
[2024-07-07] VITALS (14 sets, daily range): BP systolic 132–150; BP diastolic 69–82; PULSE 72–81; RESP 16–23; TEMP 36.4–36.7; O2SAT 94–99
--- NOTE | ~2024-07-07 | XR_ITS ---
CHEST RADIOGRAPH CLINICAL HISTORY: ?CHF? . COMPARISON: 07/05/2024 and 04/15/2024 TECHNIQUE: Single portable view of the chest. FINDINGS The cardiomediastinal silhouette is enlarged and partially obscured. Increased interstitial markings are identified bilaterally, findings suggesting mild pulmonary vascul ar congestion. Redemonstration of bilateral pleural effusions, small on the right and moderate on the left. The remainder of the lungs are clear. Visualized osseous structures and soft tissues are unremarkable. IMPRESSION: Mild pulmonary vascular congestion with small right-sided and moderate left-sided pleural effusion. Reviewed, dictated and finalized at location A. D MECHANIC/SITE LEAD IMPRESSION: Mild pulmonary vascular congestion with small right-sided and moderate left-nidia ed pleural effusion.
[2024-07-07 17:14] LABS: Basophils Percent Auto 0.5 % (0.2-1.2); Eosinophils Percent Auto 0.4 % (0-4.4); Hematocrit 29.3 % (42.0-52.0); Hemoglobin 9.4 g/dL (14.0-18.0); Immature Granulocyte Absolute 0.02 K/mm3 (0.00-0.031); Immature Granulocyte Percent A 0.3 % (0-0.5); Lymphocytes Absolute Auto 0.83 K/mm3 (0.9-3.2); Lymphocytes Percent Auto 10.5 % (18.3-44.2); Mean Corpuscular HGB Conc 32.1 g/dl (32-36); Mean Corpuscular Hemoglobin 29.4 pg (26-34); Mean Corpuscular Volume 91.6 fl (80-100); Mean Platelet Volume 10.4 fl (7.4-10.4); Monocytes Absolute Auto 0.9 K/mm3 (0.1-0.6); Monocytes Percent Auto 11.5 % (2.6-8.5); Neutrophils Absolute Auto 6.1 K/mm3 (1.3-6.7); Neutrophils Percent Auto 76.8 % (45.5-73.1); Platelet Count Result 244 k/mm3 (150-375); Red Cell Distribution Width 14.7 % (11.5-14.5); White Blood Count 7.9 K/mm3 (4.5-10.0)
[2024-07-07 17:27] LABS: Alanine Aminotransferase 30 U/L (6-50); Albumin Level 3.6 g/dL (3.5-5.1); Alkaline Phosphatase 106 U/L (38-126); Anion Gap 13 mmol/L (4-12); Aspartate Amino Transferase 38 U/L (17-59); Bilirubin,Total 0.7 mg/dL (0.2-1.3); Blood Urea Nitrogen 79 mg/dL (9-20); Calcium 8.9 mg/dL (8.4-10.2); Carbon Dioxide 22 mmol/L (22-30); Chloride 104 mmol/L (98-107); Estimated CRCL calculation 11 ml/min; Estimated Glomerular Filt Rate 11; Glucose 114 mg/dL (65-110); Potassium 3.6 mmol/L (3.4-5.0); Sodium 139 mmol/L (137-145)
[2024-07-07 17:58] LABS: NT Pro B Type Natriuretic Pept > 30000 pg/mL (19.9-100); Troponin I 0.692 ng/mL (0.000-0.034)
--- NOTE | 2024-07-07 18:01 | ECG_ITS ---
Test Date: 2024-07-07 18:10:00 Measurements Intervals [place] Rate: 76 P: 5 OR: 140 QRS: -5 QRSD: 134 T: 146 QT: 424 QTc: 478 Interpretive Statements SINUS RHYTHM POSSIBLE LEFT ATRIAL ENLARGEMENT INTRAVENTRICULAR CONDUCTION DELAY CONSIDER INFERIOR INFARCT, AGE INDETERMINATE ST-T WAVE ABNORMALITY IN HIGH LATERAL LEADS- CONSIDER ISCHEMIA BASELINE ARTIFACT- I, II, AVR, AVL, V1 ABNORMAL ECG Compared to ECG 07/05/2024 15:12:34 NO SIGNIFICANT CHANGE Electronically Signed On 07-08-2024 06:25:47 HAIR STYLIST by Adrien Singh D.O.
--- NOTE | 2024-07-07 18:14 | ED_ITS ---
HPI - Extremity Problem General Chief complaint: Extremity Problem,Nontraumatic Stated complaint: swollen LE Time Seen by Provider: 07/07/24 16:18 History of Present Illness HPI Narrative: Patient with history of CHF who had had his Lasix dose reduced and had subsequently noticed increased swelling to her legs and increasing difficulty breathing especially when he lays flat, he was seen recently and had his diuretics increased, came back today because his home health nurse was concerned that he still looked swollen though overall he states that he is feeling better. He denies any complaints other than when he lays flat he gets out of breath, otherwise he has no chest pain, he feels his leg swelling has actually improved. Related Data Home Medications Medication Instructions Recorded Confirmed cholecalciferol (vitamin D3) 125 50 mcg PO DAILY 10/26/23 04/29/24 mcg (5,000 unit) capsule flaxseed oil 1,000 mg capsule 1,000 mg PO DAILY 10/26/23 04/29/24 mecobalamin (vitamin B12) 1,000 1,000 mcg sublingual DAILY 10/26/23 04/29/24 mcg disintegrating tablet,sublingual atorvastatin 80 mg tablet 80 mg PO DAILY 02/06/24 04/29/24 clopidogrel 75 mg tablet 75 mg PO DAILY 02/06/24 04/29/24 finasteride 5 mg tablet 5 mg PO DAILY 02/06/24 04/29/24 amiodarone 200 mg tablet (Pacerone) 200 mg PO DAILY@0800 04/12/24 04/29/24 calcitriol 0.25 mcg capsule 0.25 mcg PO DAILY 06/01/24 Allergies Allergy/AdvReac Type Severity Reaction Status Date / Time SALEEM Inhibitors Allergy Intermediate swelling Verified 05/27/24 11:09 of tongue Cephalosporins Allergy Intermediate swelling Verified 05/27/24 11:09 of tongue quinapril Allergy Intermediate Swelling Verified 05/27/24 11:09 of Lip/Tongue/Throat Review of Systems Review of Systems: All systems reviewed & are unremarkable except as noted in HPI and below PMFSH Past Medical History Medical History Acute exacerbation of congestive heart failure Acute hypoxic respiratory failure Acute respiratory failure with hypoxia Anemia in chronic kidney disease BMI 29.0-29.9,adult CAD (coronary artery disease) Chronic kidney disease, stage 4 (severe) Degenerative arthritis of knee, bilateral Depression Diabetic peripheral neuropathy Elevated PSA Elevated troponin Essential (primary) hypertension Nasal sinus polyp Non-ST elevation [place] (NSTEMI) Osteoarthritis of left knee Paroxysmal atrial fibrillation Prostate cancer 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 chronic kidney disease Type 2 diabetes mellitus Urge incontinence of urine Surgical History Surgical History History of appendectomy History of cataract extraction History of repair of rotator cuff History of tonsillectomy and adenoidectomy Family History Family History Father Family history of osteoarthritis Cerebrovascular accident Patient's father is in good health Mother Family history of malignant neoplasm, Onset Age: 59 Patient's mother is in good health Sibling Family history of malignant neoplasm Family history of arthritis Social History Social History Social History: Surrogate medical decision maker: Stephany Daigle. Code status: Do not resuscitate. Smoking status: Never smoker Second hand tobacco smoke exposure: No Alcohol intake: never Substance use: never Substance use type: does not use Do You Feel Safe in your Home?: Yes Lack of Transportation: No Lack of Food: Never True Current Housing: I Have Housing Concerned About Future Housing: No Difficulty Paying Gas/Electric Bills: No Difficulty Paying for Meds: No Currently Unemployed: No Education: Associate Degree Difficulty w/ Childcare or Family Care: No Living arrangements: alone Occupation/Education: retired Spiritual care concerns: No Exam Narrative: EXAMINATION OF ORGAN SYSTEMS/BODY AREAS: Constitutional: Vital signs per nursing GENERAL:[No acute distress, non-toxic appearing.] HEAD: Normal with no signs of head trauma. EYES: EOMI, conjunctiva normal ENT: Hearing grossly intact LUNGS: Nonlabored breathing. HEART: [Regular rate and rhythm] ABD: [Soft], [nontender to palpation] EXT: minimal swelling bilateral lower extremity SKIN: [No rashes or lesions.] NEURO: [Alert and oriented x 3. No gross focal sensory or strength deficits.] PSYCH: Normal affect Course Vital Signs Vital signs: Vital Signs Temperature 97.6 F 07/07/24 15:21 Pulse Rate 81 07/07/24 15:21 Respiratory Rate 18 07/07/24 15:21 Blood Pressure 150/70 H 11/07/24 15:21 Pulse Oximetry 95 07/07/24 15:21 Oxygen Delivery Room Air 07/07/24 15:21 Temperature 98.0 F 07/07/24 18:26 Pulse Rate 76 07/07/24 18:26 Respiratory Rate 18 07/07/24 18:26 Blood Pressure 143/82 H 07/07/24 18:26 Pulse Oximetry 96 07/07/24 18:26 Oxygen Delivery Room Air 07/07/24 15:21 MDM - Extremity (Nontraumatic) MDM Narrative Medical decision making narrative: 89M presenting to the emergency department with orthopnea and edema, presentation and history of CHF, consistent with most likely CHF exacerbation vs ACS/NE, COPD exacerbation, pneumonia. IV is established and cardiac workup is initiated. Patient is given aspirin. EKG: Performed in triage and interpreted by me. [Sinus rhythm]. Rate 76. [Normal] axis. NC [normal]. QRS duration [normal]. QTc for 478. No pathologic Q waves. No ST segment elevation or depression to suggest acute ischemia. Chest x-ray is performed and remarkable for [cardiomegaly with pulmonary vascular congestion]. Patient is started on lasix. Labs BNP>71702, trop 0.692. [The patient will be admitted for CHF exacerbation and further management.] D/w hospitalist for admission Lab Data 07/07/24 17:07 07/07/24 17:07 Labs: Lab Results 07/07/24 07/07/24 Range/Units 17:07 17:07 WBC 7.9 (4.5-10.0) K/mm3 RBC 3.20 L (4.6-6.20) M/mm3 Hgb 9.4 L (14.0-18.0) g/dL Hct 29.3 L (42.0-52.0) % MCV 91.6 (80-100) fl MCH 29.4 (26-34) pg MCHC 32.1 (32-36) g/dl RDW 14.7 H (11.5-14.5) % Plt Count 244 (150-375) k/mm3 MPV 10.4 (7.4-10.4) fl Immature Gran % (Auto) 0.3 (0-0.5) % Neut % (Auto) 76.8 H (45.5-73.1) % Lymph % (Auto) 10.5 L (18.3-44.2) % [place] % (Auto) 11.5 H (2.6-8.5) % Eos % (Auto) 0.4 (0-4.4) % Baso % (Auto) 0.5 (0.2-1.2) % Lymph # (Auto) 0.83 L (0.9-3.2) K/mm3 [place] # (Auto) 0.9 H (0.1-0.6) K/mm3 Eos # (Auto) 0.0 (0-0.3) K/mm3 Baso # (Auto) 0.0 (0.0-0.1) K/mm3 Abs Immat Gran (auto) 0.02 (0.00-0.031) K/mm3 Absolute Neuts (auto) 6.1 (1.3-6.7) K/mm3 Absolute Nucleated RBC 0.000 (0.0-0.012) K/mm3 Nucleated RBC % 0.0 (0.0-0.2) % Sodium 139 (137-145) mmol/L Potassium 3.6 (3.4-5.0) mmol/L Chloride 104 (98-107) mmol/L Carbon Dioxide 22 (22-30) mmol/L Anion Gap 13 H (4-12) mmol/L BUN 79 H (9-20) mg/dL Creatinine 5.10 H (0.7-1.3) mg/dL Estim Creat Clear Calc 11 ml/min Estimated GFR 11 L (59 - ) Glucose 114 H (65-110) mg/dL Calcium 8.9 (8.4-10.2) mg/dL Total Bilirubin 0.7 (0.2-1.3) mg/dL AST 38 (17-59) U/L ALT 30 (6-50) U/L Alkaline Phosphatase 106 (38-126) U/L Troponin I Pending 0.692 H* NT-Pro-B Natriuret Pep > 23124 H (19.9-100) pg/mL Total Protein 7.0 (6.3-8.2) g/dL Albumin 3.6 (3.5-5.1) g/dL Discharge Plan Discharge Clinical Impression: Acute exacerbation of CHF (congestive heart failure), Elevated troponin Patient Disposition: Still a Patient Condition: Stable Prescriptions: No Action flaxseed oil 1,000 mg capsule 1,000 mg PO DAILY Rx Instructions: administer with a meal cholecalciferol (vitamin D3) 125 mcg (5,000 unit) capsule 50 mcg PO DAILY mecobalamin (vitamin B12) 1,000 mcg tablet,disintegrating 1,000 mcg sublingual DAILY Rx Instructions: place tablet under tongue and allow to dissolve for at least30 secs before swallowing isosorbide mononitrate 30 mg tablet extended release 24 hr 30 mg PO QAM Qty: 90 3RF amiodarone [Pacerone] 200 mg tablet 200 mg PO DAILY@0800 nitroglycerin 0.4 mg tablet, sublingual 0.4 mg sublingual Q5M PRN (Reason: chest pain) Qty: 30 4RF Rx Instructions: do not exceed 3 doses per episode levofloxacin 500 mg tablet 500 mg PO DAILY 5 Days Qty: 5 0RF atorvastatin 80 mg tablet 80 mg PO DAILY clopidogrel 75 mg tablet 75 mg PO DAILY Hold Instructions: Resume on 04/16/24. finasteride 5 mg tablet 5 mg PO DAILY aspirin 81 mg Tablet,Delayed Release (Dr/Ec) 81 mg PO QAM Qty: 30 0RF Hold Instructions: Resume on 04/15/24. furosemide 80 mg Tablet 80 mg PO DAILY Qty: 30 0RF metoprolol succinate [Toprol XL] 25 mg Tablet Extended Release 24 Hr 25 mg PO QAM Qty: 30 0RF citalopram 20 mg tablet 20 mg PO DAILY Qty: 90 3RF calcitriol 0.25 mcg capsule 0.25 mcg PO DAILY Follow-up/Referrals: Stefanie Hernández NP [Primary Care Provider] -
[2024-07-07] MEDS: FUROSEMIDE INJ 40 MG/4 ML VIAL IV PUSH (18:28)
--- NOTE | 2024-07-07 20:02 | ECG_ITS ---
Test Date: 2024-07-07 20:11:07 Measurements Intervals [place] Rate: 77 P: 15 UT: 167 QRS: 0 QRSD: 134 T: 133 QT: 423 QTc: 480 Interpretive Statements SINUS RHYTHM POSSIBLE LEFT ATRIAL ENLARGEMENT INTRAVENTRICULAR CONDUCTION DELAY BORDERLINE R WAVE PROGRESSION, ANTERIOR LEADS CONSIDER INFERIOR INFARCT, AGE INDETERMINATE ST-T WAVE ABNORMALITY IN HIGH LATERAL LEADS- CONSIDER ISCHEMIA BASELINE ARTIFACT- I, II, III, AVR, AVL, AVF, V1-V6 ABNORMAL ECG Compared to ECG 07/07/2024 18:10:00 NO SIGNIFICANT CHANGE Electronically Signed On 07-08-2024 06:27:03 RESEARCH LAB ASSISTANT by Adrien Singh D.O.
--- NOTE | 2024-07-07 20:04 | P.HP_ITS ---
H&P: HPI History of Present Illness Date/Time: 07/07/24 20:04 Chief Complaint: sob Narrative: This is an 89-year-old male with past medical history significant for congestive heart failure, ejection fraction 35% to 40%, atrial fibrillation, rate controlled, coronary artery disease, chronic kidney disease, type diabetes mellitus. Patient presented to emergency room due to worsening bilateral lower extremity edema, PND for several days. Preliminary workup was significant for brain natriuretic peptide 30,000, elevated troponins, creatinine of 5.1. Patient has been admitted for further evaluation management and treatment. CHEST RADIOGRAPH CLINICAL HISTORY: ?CHF? . COMPARISON: 07/05/2024 and 04/15/2024 TECHNIQUE: Single portable view of the chest. FINDINGS The cardiomediastinal silhouette is enlarged and partially obscured. Increased interstitial markings are identified bilaterally, findings suggesting mild pulmonary vascular congestion. Redemonstration of bilateral pleural effusions, small on the right and moderate on the left. The remainder of the lungs are clear. Visualized osseous structures and soft tissues are unremarkable. IMPRESSION: Mild pulmonary vascular congestion with small right-sided and moderate left- sided pleural effusion. Review of Systems Review of Systems: sob , bilateral lower extremity worsening edema PMFSH Past Medical History Medical History Acute exacerbation of congestive heart failure Acute hypoxic respiratory failure Acute respiratory failure with hypoxia Anemia in chronic kidney disease BMI 29.0-29.9,adult CAD (coronary artery disease) Chronic kidney disease, stage 4 (severe) Degenerative arthritis of knee, bilateral Depression Diabetic peripheral neuropathy Elevated PSA Elevated troponin Essential (primary) hypertension Nasal sinus polyp Non-ST elevation [place] (NSTEMI) Osteoarthritis of left knee Paroxysmal atrial fibrillation Prostate cancer 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 chronic kidney disease Type 2 diabetes mellitus Urge incontinence of urine Surgical History Surgical History History of appendectomy History of cataract extraction History of repair of rotator cuff History of tonsillectomy and adenoidectomy Family History Family History Father Family history of osteoarthritis Cerebrovascular accident Patient's father is in good health Mother Family history of malignant neoplasm, Onset Age: 59 Patient's mother is in good health Sibling Family history of malignant neoplasm Family history of arthritis Social History Social History (Reviewed 05/27/24 @ 11:10 by Randolph Jasmine [facility]) Social History: Surrogate medical decision maker: Stephany Daigle. Code status: Do not resuscitate. Smoking status: Never smoker Second hand tobacco smoke exposure: No Alcohol intake: never Substance use: never Substance use type: does not use Do You Feel Safe in your Home?: Yes Lack of Transportation: No Lack of Food: Never True Current Housing: I Have Housing Concerned About Future Housing: No Difficulty Paying Gas/Electric Bills: No Difficulty Paying for Meds: No Currently Unemployed: No Education: Trade/Vocational Certificate Difficulty w/ Childcare or Family Care: No Living arrangements: alone Occupation/Education: retired Spiritual care concerns: No Meds Home Medications and Allergies Home Medications Medication Instructions Recorded Confirmed Type cholecalciferol (vitamin D3) 125 50 mcg PO DAILY 10/26/23 07/07/24 History mcg (5,000 unit) capsule flaxseed oil 1,000 mg capsule 1,000 mg PO DAILY 10/26/23 07/07/24 History citalopram 20 mg tablet 20 mg PO DAILY #90 tabs 10/27/23 07/07/24 Rx atorvastatin 80 mg tablet 80 mg PO DAILY 02/06/24 07/07/24 History clopidogrel 75 mg tablet 75 mg PO DAILY 02/06/24 07/07/24 History finasteride 5 mg tablet 5 mg PO DAILY 02/06/24 07/07/24 History aspirin 81 mg tablet,delayed 81 mg PO QAM #30 tabs 02/10/24 07/07/24 Rx release furosemide 80 mg tablet 80 mg PO DAILY #30 tabs 02/10/24 07/07/24 Rx amiodarone 200 mg tablet (Pacerone) 200 mg PO DAILY@0800 04/12/24 07/07/24 History nitroglycerin 0.4 mg sublingual 0.4 mg sublingual Q5M PRN chest 04/16/24 07/07/24 Rx tablet pain #30 tabs isosorbide mononitrate 30 mg 30 mg PO QAM #90 tabs 05/27/24 07/07/24 Rx tablet,extended release 24 hr calcitriol 0.25 mcg capsule 0.25 mcg PO DAILY 06/01/24 07/07/24 History melatonin 10 mg tablet 10 mg PO HS PRN Insomnia 07/07/24 07/07/24 History Allergies Allergy/AdvReac Type Severity Reaction Status Date / Time SALEEM Inhibitors Allergy Intermediate swelling Verified 05/27/24 11:09 of tongue Cephalosporins Allergy Intermediate swelling Verified 05/27/24 11:09 of tongue quinapril Allergy Intermediate Swelling Verified 05/27/24 11:09 of Lip/Tongue/Throat Vital Signs Vital Signs - 24 hr 07/07/24 15:21 07/07/24 15:31 07/07/24 15:32 Temperature 97.6 F Pulse Rate 81 80 80 Respiratory Rate 18 17 16 Blood Pressure 150/70 H 132/69 132/69 Pulse Oximetry 95 96 97 Oxygen Delivery Room Air 07/07/24 15:46 07/07/24 16:01 07/07/24 16:16 Temperature Pulse Rate 78 79 74 Respiratory Rate 18 22 H 23 H Blood Pressure 143/76 H 141/77 H 136/73 Pulse Oximetry 97 97 98 Oxygen Delivery 07/07/24 16:31 07/07/24 18:26 07/07/24 16:52 Temperature 98.0 F Pulse Rate 75 76 79 Respiratory Rate 23 H 18 23 H Blood Pressure 140/69 143/82 H 139/71 Pulse Oximetry 97 96 99 Oxygen Delivery Exam Narrative: lying in bed Const: General: comfortable, no acute distress, well developed, alert, awake and average body habitus Nutritional Appearance: average body habitus Orientation/consciousness: patient oriented x3 HENMT: Head: normal to inspection, normocephalic and atraumatic Ears: hearing grossly normal bilaterally Face/Nose/Sinus: normal facial exam Face and sinus: normal facial exam Eyes: General: appearance normal, both eyes and all related structures Pupils: Equal, round and reactive pupils present EOM: EOMs intact bilaterally Neck: Neck: full ROM, no lymphadenopathy and no JVD Thyroid: thyroid normal Lymphatic: no lymphadenopathy noted Resp: Effort & Inspection: normal respiratory effort and able to speak in complete sentences Auscultation: clear to auscultation bilaterally Cardio: Jugular venous distension: no JVD Rate: regular rate Rhythm: regular rhythm Heart sounds: S1 normal heart sound present and S2 normal heart sound present GI: GI Palp: Yes Soft to palpation and Yes No hepatosplenomegaly present : General: Yes deferred Skin: Rashes: no rashes Wounds: no wounds Neuro: General: patient oriented x3 and CN's II-XI intact bilaterally Cranial nerves: Yes CN's II-XII intact bilaterally and Yes Equal, round and reactive pupils present Cognition (Neuro): normal cognition Speech: normal speech Gait exam (Neuro): Normal gait present Motor exam (neuro): 5/5 motor strength present throughout Extrem: General: normal to inspection, full ROM, no joint enlargement and no pedal edema Other: 3+ bilateral lower extremity H&P: Results Labs Labs: Short CBC 07/07/24 Range/Units 17:07 WBC 7.9 (4.5-10.0) K/mm3 Hgb 9.4 L (14.0-18.0) g/dL Hct 29.3 L (42.0-52.0) % Plt Count 244 (150-375) k/mm3 BMP 07/07/24 17:07 Sodium 139 Potassium 3.6 Chloride 104 Carbon Dioxide 22 BUN 79 H Creatinine 5.10 H Glucose 114 H Calcium 8.9 Cardiac Enzymes 07/07/24 Range/Units 17:07 Troponin I 0.692 H* (0.000-0.034) ng/mL Liver Function 07/07/24 Range/Units 17:07 Total Bilirubin 0.7 (0.2-1.3) mg/dL AST 38 (17-59) U/L ALT 30 (6-50) U/L Alkaline Phosphatase 106 (38-126) U/L Albumin 3.6 (3.5-5.1) g/dL Assessment and Plan Assessment and plan (1) Acute exacerbation of CHF (congestive heart failure): Code(s): I50.9 - Heart failure, unspecified Status: Acute Assessment and Plan: admit to IMU diuresis needed 1. Mild left ventricular enlargement with reduced systolic function ejection fraction 35-40%. 2. Akinesis of the mid to anteroseptal segments and apex. 3. Hypokinesia of the anterior wall. 4. Calcified mitral valve annulus with mild left atrial enlargement. 5. Mildly sclerotic aortic valve. (2) Elevated troponin: Code(s): R79.89 - Other specified abnormal findings of blood chemistry Status: Acute Assessment and Plan: continue to trend (3) Stage 5 chronic kidney disease: Code(s): N18.5 - Chronic kidney disease, stage 5 Status: Acute Assessment and Plan: nephrology consult (4) Paroxysmal atrial fibrillation: Code(s): I48.0 - Paroxysmal atrial fibrillation Status: Chronic Assessment and Plan: rate controlled (5) Type 2 diabetes mellitus: Qualifiers: Chronic kidney disease stage: stage 4 (severe) Diabetes mellitus complication detail: with chronic kidney disease Diabetes mellitus complication status: with kidney complications Diabetes mellitus intermediate manager insulin use: without intermediate manager use Qualified Code(s): E11.22 - Type 2 diabetes mellitus with diabetic chronic kidney disease; N18.4 - Chronic kidney disease, stage 4 (severe) Code(s): E11.9 - Type 2 diabetes mellitus without complications Status: Chronic (6) Cardiomyopathy: Code(s): I42.9 - Cardiomyopathy, unspecified Status: Acute Assessment and Plan: continue home meds (7) Peripheral arterial occlusive disease: Code(s): I77.9 - Disorder of arteries and arterioles, unspecified Status: Acute (8) Anemia, chronic disease: Code(s): D63.8 - Anemia in other chronic diseases classified elsewhere Status: Acute Hospitalist MIPS Advance Care Plan I have confirmed that the patient's Advanced Care Plan is present, code status is documented, or surrogate decision maker is listed in patient medical record.: Yes Medication Reconciliation I have utilized all available resources to obtain, update and review the patients current medications (includes all prescriptions, OTC, herbals, cannabis, and nutritional supplements).: Yes
--- NOTE | 2024-07-07 20:16 | PC.NURSE ---
called pt pharmacist critical care at this time, Jazmyn Daigle , to give update on the pt
[2024-07-07 20:43] LABS: Troponin I 0.657 ng/mL (0.000-0.034)
[2024-07-08] VITALS (14 sets, daily range): BP systolic 132–150; BP diastolic 65–82; PULSE 62–77; RESP 16–21; TEMP 36.5–36.6; O2SAT 96–100
[2024-07-08] MEDS: CLOPIDOGREL BISULFATE 75 MG TABLET PO (08:40)
[2024-07-08] MEDS: ISOSORBIDE MONONITRATE 30 MG TAB.ER.24H PO (08:40)
[2024-07-08] MEDS: FUROSEMIDE INJ 100 MG/10 ML VIAL 80 MG IV PUSH ×2 (08:40→16:42)
[2024-07-08] MEDS: CITALOPRAM HYDROBROMIDE 20 MG TABLET PO (08:40)
[2024-07-08] MEDS: FINASTERIDE 5 MG TABLET PO (08:40)
[2024-07-08] MEDS: AMIODARONE HCL 200 MG TABLET PO (08:40)
[2024-07-08] MEDS: ATORVASTATIN 40 MG TABLET 80 MG PO (08:40)
[2024-07-08] MEDS: ASPIRIN 81 MG ENTERIC TABLET PO (08:40)
[2024-07-08 08:41] LABS: Basophils Absolute Auto 0.1 K/mm3 (0.0-0.1); Basophils Percent Auto 0.8 % (0.2-1.2); Eosinophils Percent Auto 0.5 % (0-4.4); Hematocrit 31.6 % (42.0-52.0); Hemoglobin 9.8 g/dL (14.0-18.0); Immature Granulocyte Absolute 0.02 K/mm3 (0.00-0.031); Immature Granulocyte Percent A 0.3 % (0-0.5); Lymphocytes Absolute Auto 0.73 K/mm3 (0.9-3.2); Lymphocytes Percent Auto 9.5 % (18.3-44.2); Mean Corpuscular Hemoglobin 29.3 pg (26-34); Mean Corpuscular Volume 94.3 fl (80-100); Mean Platelet Volume 10.8 fl (7.4-10.4); Monocytes Absolute Auto 0.7 K/mm3 (0.1-0.6); Monocytes Percent Auto 9.2 % (2.6-8.5); Neutrophils Absolute Auto 6.1 K/mm3 (1.3-6.7); Neutrophils Percent Auto 79.7 % (45.5-73.1); Platelet Count Result 255 k/mm3 (150-375); Red Blood Count 3.35 M/mm3 (4.6-6.20); White Blood Count 7.7 K/mm3 (4.5-10.0)
[2024-07-08 08:53] LABS: Albumin Level 3.8 g/dL (3.5-5.1); Anion Gap 11 mmol/L (4-12); Blood Urea Nitrogen 81 mg/dL (9-20); Calcium 9.1 mg/dL (8.4-10.2); Carbon Dioxide 25 mmol/L (22-30); Chloride 103 mmol/L (98-107); Estimated CRCL calculation 11 ml/min; Estimated Glomerular Filt Rate 11; Glucose 156 mg/dL (65-110); Magnesium 2.1 mg/dL (1.6-2.3); Phosphorus 5.5 mg/dL (2.5-4.5); Sodium 139 mmol/L (137-145)
--- NOTE | 2024-07-08 09:16 | P.CONCA_ITS ---
Assessment and Plan Assessment and plan (1) Acute exacerbation of CHF (congestive heart failure): Code(s): I50.9 - Heart failure, unspecified Status: Acute Assessment and Plan: Acute on chronic systolic heart failure. * Agree with IV furosemide. Continue current dose. * Accurate I&O * Daily weights * CHF counseling (2) Elevated troponin: Code(s): R79.89 - Other specified abnormal findings of blood chemistry Status: Acute Assessment and Plan: Mildly elevated and flat. This does not represent ACS, troponin leak is secondary to CKD and CHF (3) Stage 5 chronic kidney disease: Code(s): N18.5 - Chronic kidney disease, stage 5 Status: Acute (4) CAD (coronary artery disease): Code(s): I25.10 - Atherosclerotic heart disease of [place] coronary artery without angina pectoris Status: Acute Assessment and Plan: This is stable, not having any ischemic symptoms. Continue ASA, statin History of Present Illness History of Present Illness Consult date/time: 07/08/24 09:16 Requesting physician: Jackeline Bonds MD Consult reason: congestive heart failure Reason For Visit: CHF exac Narrative: Esequiel Sharma Is an 89-year-old male with CKD stage 4, type 2 diabetes, arthritis, hypertension, hyperlipidemia, chronic systolic heart failure, Paroxysmal atrial fibrillation, and coronary artery disease. He comes to the [facility] with complaints of progressive worsening lower extremity edema, shortness of breath, and orthopnea. He denies any changes to his medical regimen states that he has been taking his medications as prescribed. He denies any dietary changes. He denies any chest pain, palpitations, syncope, or presyncope. He has been started on IV furosemide and feels better but he still is only able to breathe comfortably if he is sitting up. At the time of my evaluation he is sitting on the edge of the bed does not have any active complaints. Review of Systems Review of Systems: All systems reviewed & are unremarkable except as noted in HPI and below [facility] Past Medical History Medical History Acute exacerbation of congestive heart failure Acute hypoxic respiratory failure Acute respiratory failure with hypoxia Anemia in chronic kidney disease BMI 29.0-29.9,adult CAD (coronary artery disease) Chronic kidney disease, stage 4 (severe) Degenerative arthritis of knee, bilateral Depression Diabetic peripheral neuropathy Elevated PSA Elevated troponin Essential (primary) hypertension Nasal sinus polyp Non-ST elevation [place] (NSTEMI) Osteoarthritis of left knee Paroxysmal atrial fibrillation Prostate cancer 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 chronic kidney disease Type 2 diabetes mellitus Urge incontinence of urine Surgical History Surgical History History of appendectomy History of cataract extraction History of repair of rotator cuff History of tonsillectomy and adenoidectomy Family History Family History Father Family history of osteoarthritis Cerebrovascular accident Patient's father is in good health Mother Family history of malignant neoplasm, Onset Age: 59 Patient's mother is in good health Sibling Family history of malignant neoplasm Family history of arthritis Social History Social History Social History: Surrogate medical decision maker: Stephany Daigle. Code status: Do not resuscitate. Smoking status: Never smoker Second hand tobacco smoke exposure: No Alcohol intake: never Substance use: never Substance use type: does not use Do You Feel Safe in your Home?: Yes Lack of Transportation: No Lack of Food: Never True Current Housing: I Have Housing Concerned About Future Housing: No Difficulty Paying Gas/Electric Bills: No Difficulty Paying for Meds: No Currently Unemployed: No Education: Trade/Vocational Certificate Difficulty w/ Childcare or Family Care: No Living arrangements: alone Occupation/Education: retired Spiritual care concerns: No Meds Home Medications and Allergies Home Medications Medication Instructions Recorded Confirmed Type cholecalciferol (vitamin D3) 125 50 mcg PO DAILY 10/26/23 07/07/24 History mcg (5,000 unit) capsule flaxseed oil 1,000 mg capsule 1,000 mg PO DAILY 10/26/23 07/07/24 History citalopram 20 mg tablet 20 mg PO DAILY #90 tabs 10/27/23 07/07/24 Rx atorvastatin 80 mg tablet 80 mg PO DAILY 02/06/24 07/07/24 History clopidogrel 75 mg tablet 75 mg PO DAILY 02/06/24 07/07/24 History finasteride 5 mg tablet 5 mg PO DAILY 02/06/24 07/07/24 History aspirin 81 mg tablet,delayed 81 mg PO QAM #30 tabs 02/10/24 07/07/24 Rx release furosemide 80 mg tablet 80 mg PO DAILY #30 tabs 02/10/24 07/07/24 Rx amiodarone 200 mg tablet (Pacerone) 200 mg PO DAILY@0800 04/12/24 07/07/24 [place] nitroglycerin 0.4 mg sublingual 0.4 mg sublingual Q5M PRN chest 04/16/24 07/07/24 Rx tablet pain #30 tabs isosorbide mononitrate 30 mg 30 mg PO QAM #90 tabs 05/27/24 07/07/24 Rx tablet,extended release 24 hr calcitriol 0.25 mcg capsule 0.25 mcg PO DAILY 06/01/24 07/07/24 History melatonin 10 mg tablet 10 mg PO HS PRN Insomnia 07/07/24 07/07/24 History Allergies Allergy/AdvReac Type Severity Reaction Status Date / Time SALEEM Inhibitors Allergy Intermediate swelling Verified 05/27/24 11:09 of tongue Cephalosporins Allergy Intermediate swelling Verified 05/27/24 11:09 of tongue quinapril Allergy Intermediate Swelling Verified 05/27/24 11:09 of Lip/Tongue/Throat Vital Signs Vital Signs - 24 hr 07/07/24 15:21 07/07/24 15:31 07/07/24 15:32 Temperature 36.4 C Pulse Rate 81 80 80 Respiratory Rate 18 17 16 Blood Pressure 150/70 H 132/69 132/69 Pulse Oximetry 95 96 97 Oxygen Delivery Room Air 07/07/24 15:46 07/07/24 16:01 07/07/24 16:16 Temperature Pulse Rate 78 79 74 Respiratory Rate 18 22 H 23 H Blood Pressure 143/76 H 141/77 H 136/73 Pulse Oximetry 97 97 98 Oxygen Delivery 07/07/24 16:31 07/07/24 18:26 07/07/24 16:52 Temperature 36.7 C Pulse Rate 75 76 79 Respiratory Rate 23 H 18 23 H Blood Pressure 140/69 143/82 H 139/71 Pulse Oximetry 97 96 99 Oxygen Delivery 07/07/24 19:01 07/07/24 19:30 07/07/24 20:01 Temperature Pulse Rate 77 78 72 Respiratory Rate 18 20 21 H Blood Pressure 143/75 H 137/73 140/79 Pulse Oximetry 96 95 94 Oxygen Delivery 07/07/24 22:00 07/07/24 23:29 07/07/24 23:30 Temperature Pulse Rate 72 72 Respiratory Rate Blood Pressure Pulse Oximetry Oxygen Delivery Room Air 07/08/24 00:06 07/08/24 02:00 07/08/24 04:00 Temperature 36.6 C Pulse Rate 75 63 69 Respiratory Rate 21 H 20 Blood Pressure 141/70 H Pulse Oximetry 96 96 Oxygen Delivery Room Air 07/08/24 04:00 07/08/24 04:12 07/08/24 05:54 Temperature 36.5 C Pulse Rate 63 72 69 Respiratory Rate 21 H Blood Pressure 150/71 H Pulse Oximetry 97 Oxygen Delivery 07/08/24 08:00 07/08/24 08:40 Temperature 36.5 C Pulse Rate 77 72 Respiratory Rate 18 Blood Pressure 135/73 Pulse Oximetry 97 Oxygen Delivery Exam Const: General: comfortable, no acute distress, alert and awake José Manuel entation/consciousness: patient oriented x3 HENMT: Head: normal to inspection Eyes: General: appearance normal, both eyes and all related structures Pupils: Equal, round and reactive pupils present Neck: Neck: normal visual inspection, supple and no JVD Carotids: normal c arotid upstroke Resp: Effort & Inspection: normal respiratory effort Auscultation: clear to auscultation bilaterally Cardio: Rate: regular rate Rhythm: regular rhythm Heart sounds: S1 normal heart sound present, S2 normal heart sound present and no murmurs GI: Auscultation: normal bowel sounds Skin: General skin exam: normal color Neuro: General: patient oriented x3 Cranial nerves: Yes Equal, round and reactive pupils present Extrem: General: normal to inspection Other: 2+ bilateral pretibial and pedal pitting edema, knee-high compression stockings are in place. Psych: Appearance: grossly normal Mental Status: mental status grossly normal Results Labs and Meds 07/08/24 08:25 07/08/24 08:25 Lab results: Cardiac Enzymes 07/07/24 07/07/24 Range/Units 17:07 20:08 AST 38 (17-59) U/L Troponin I 0.692 H* 0.657 H* (0.000-0.034) ng/mL CBC 07/07/24 07/08/24 Range/Units 17:07 08:25 WBC 7.9 7.7 (4.5-10.0) K/mm3 RBC 3.20 L 3.35 L (4.6-6.20) M/mm3 Hgb 9.4 L 9.8 L (14.0-18.0) g/dL Hct 29.3 L 31.6 L (42.0-52.0) % Plt Count 244 255 (150-375) k/mm3 Lymph # (Auto) 0.83 L 0.73 L (0.9-3.2) K/mm3 [place] # (Auto) 0.9 H 0.7 H (0.1-0.6) K/mm3 Eos # (Auto) 0.0 0.0 (0-0.3) K/mm3 Baso # (Auto) 0.0 0.1 (0.0-0.1) K/mm3 Comprehensive Metabolic Panel 07/07/24 07/08/24 Range/Units 17: 08:25 Sodium 139 139 (137-145) mmol/L Potassium 3.6 4.0 (3.4-5.0) mmol/L Chloride 104 103 (98-107) mmol/L Carbon Dioxide 22 25 (22-30) mmol/L BUN 79 H 81 H (9-20) mg/dL Creatinine 5.10 H 5.10 H (0.7-1.3) mg/dL Glucose 114 H 156 H (65-110) mg/dL Calcium 8.9 9.1 (8.4-10.2) mg/dL AST 38 (17-59) U/L ALT 30 (6-50) U/L Alkaline Phosphatase 106 (38-126) U/L Total Protein 7.0 (6.3-8.2) g/dL Albumin 3.6 3.8 (3.5-5.1) g/dL Intake and Output 07/07/24 07/08/24 07/08/24 23:59 07:59 15:59 Intake Total 550 240 Output Total 400 Balance 150 240 Intake: Oral 550 240 Output: Urine 400 Patient Weight 07/08/24 23:59 Weight 100.3 kg
--- NOTE | 2024-07-08 12:30 | P.CONNP_ITS ---
Assessment and Plan Assessment and plan (1) Stage 5 chronic kidney disease: Code(s): N18.5 - Chronic kidney disease, stage 5 Status: Chronic Assessment and Plan: * creatinine up to 4.0mg/dl ~ 1 month ago (GFR 14cc/min) * creatinine more recently 4.8mg/dl a few days ago * suspect this is progression of his known advanced CKD * etiology due to HTN, DM, vascular disease, CHF with associated diuretic therapy, and age-related change * follow trend of renal function with diuresis * no urgent need for [employer]/dialysis at this time (but remains at risk) (2) Acute exacerbation of CHF (congestive heart failure): Code(s): I50.9 - Heart failure, unspecified Status: Acute Assessment and Plan: * as evidenced by symptoms/findings on admission * suspect due to acute on shrnoic diastilic and systolic heart failure * clinically better with IV diuresis * follow daily weights, I/Os, and respiratory status (3) Essential (primary) hypertension: Code(s): I10 - Essential (primary) hypertension Status: Chronic Assessment and Plan: * reasonable control at this time * follow trend of hemodynamics (4) Anemia: Code(s): D64.9 - Anemia, unspecified Status: Acute Assessment and Plan: * suspect related to underlying CKD * follow trend of H/H * consider LISET while hospitalized (5) Diabetes mellitus with chronic kidney disease: Code(s): E11.22 - Type 2 diabetes mellitus with diabetic chronic kidney disease Status: Chronic Assessment and Plan: * follow accu-cheks * glycemic control per hospitalist I will continue to follow the patient with you while he remains hospitalized and make further recommendations as deemed necessary. Thank you for allowing me to participate in the care of this patient. History of Present Illness Reason for Consult Consult date: 07/08/24 Reason for consult: acute renal failure (on chronic kidney disease) Chief Complaint Chief complaint: CHF exac History of Present Illness Narrative: The patient is an 89-year-old male with a past medical history outlined below who presented to [facility] Emergency Room at the behest of his home health nurse to the concerns for worsening swelling/edema, and shortness of breath. The patient reports that he recently had more issues with shortness of breath with exertional activities as well as at rest in conjunction with increased swelling/ edema in his lower extremities. His diuretics were adjusted to compensate for this issue and although he reports improvement in his symptoms, his home health nurse thought that he seemed to be clinically deteriorating. He was subsequently referred to the emergency room for further assessment of these issues / complaints. Workup and evaluation in the emergency room demonstrated labs consistent with his known history of advanced chronic kidney disease but without any critical electrolyte abnormalities, and EKG without any evidence of ischemic changes, and elevated proBNP, and a chest x-ray significant for cardiomegaly and associated pulmonary vascular congestion. He was subsequently admitted to the hospital for IV diuresis and further evaluation and therapy. Since admission, he reports improvement in his symptoms with regard to his breathing, respiratory rate, and swelling / edema. He appears to be in negative fluid balance with IV diuretic therapy and his renal function appears to be relatively stable at this time. Renal consultation was requested due to his advanced chronic kidney disease. The patient normally follows with Dr. Shad Albrecht for management of his chronic kidney disease and he was just recently seen about a month ago for this issue. At that time, his creatinine was running around 4.0 mg/dL with an associated GFR of 14 cc/minute. It was discussed with the patient at that time that he would likely need renal replacement therapy / dialysis in the near future although he had no acute indications for this therapy at that time. He had recent blood work done a few days ago prior to this admission with his creatinine up to 4.8 mg/dL. On this hospital admission, his creatinine was 5.1 mg/dL and has remained relatively stable at this time. Currently, at the time my evaluation, he appears to be in no acute distress. Review of Systems Review of Systems: As per HPI. [facility] Past Medical History Medical History Acute exacerbation of congestive heart failure Acute hypoxic respiratory failure Acute respiratory failure with hypoxia Anemia in chronic kidney disease BMI 29.0-29.9,adult CAD (coronary artery disease) Chronic kidney disease, stage 4 (severe) Degenerative arthritis of knee, bilateral Depression Diabetic peripheral neuropathy Elevated PSA Elevated troponin Essential (primary) hypertension Nasal sinus polyp Non-ST elevation [place] (NSTEMI) Osteoarthritis of left knee Paroxysmal atrial fibrillation Prostate cancer 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 chronic kidney disease Type 2 diabetes mellitus Urge incontinence of urine Surgical History Surgical History History of appendectomy History of cataract extraction History of repair of rotator cuff History of tonsillectomy and adenoidectomy Family History Family History Father Family history of osteoarthritis Cerebrovascular accident Patient's father is in good health Mother Family history of malignant neoplasm, Onset Age: 59 Patient's mother is in good health Sibling Family history of malignant neoplasm Family history of arthritis Social History Social History Social History: Surrogate medical decision maker: Stephany Daigle. Code status: Do not resuscitate. Smoking status: Never smoker Second hand tobacco smoke exposure: No Alcohol intake: never Substance use: never Substance use type: does not use Do You Feel Safe in your Home?: Yes Lack of Transportation: No Lack of Food: Never True Current Housing: I Have Housing Concerned About Future Housing: No Difficulty Paying Gas/Electric Bills: No Difficulty Paying for Meds: No Currently Unemployed: No Education: Trade/Vocational Certificate Difficulty w/ Childcare or Family Care: No Living arrangements: alone Occupation/Education: retired Spiritual care concerns: No Meds Home Medications and Allergies Home Medications Medication Instructions Recorded Confirmed Type cholecalciferol (vitamin D3) 125 50 mcg PO DAILY 10/26/23 07/07/24 History mcg (5,000 unit) capsule flaxseed oil 1,000 mg capsule 1,000 mg PO DAILY 10/26/23 07/07/24 History citalopram 20 mg tablet 20 mg PO DAILY #90 tabs 10/27/23 07/07/24 Rx atorvastatin 80 mg tablet 80 mg PO DAILY 02/06/24 07/07/24 History clopidogrel 75 mg tablet 75 mg PO DAILY 02/06/24 07/07/24 History finasteride 5 mg tablet 5 mg PO DAILY 02/06/24 07/07/24 History aspirin 81 mg tablet,delayed 81 mg PO QAM #30 tabs 02/10/24 07/07/24 Rx release furosemide 80 mg tablet 80 mg PO DAILY #30 tabs 02/10/24 07/07/24 Rx amiodarone 200 mg tablet (Pacerone) 200 mg PO DAILY@0800 04/12/24 07/07/24 History nitroglycerin 0.4 mg sublingual 0.4 mg sublingual Q5M PRN chest 04/16/24 07/07/24 Rx tablet pain #30 tabs isosorbide mononitrate 30 mg 30 mg PO QAM #90 tabs 05/27/24 07/07/24 Rx tablet,extended release 24 hr calcitriol 0.25 mcg capsule 0.25 mcg PO DAILY 06/01/24 07/07/24 History melatonin 10 mg tablet 10 mg PO HS PRN Insomnia 07/07/24 07/07/24 History Allergies Allergy/AdvReac Type Severity Reaction Status Date / Time SALEEM Inhibitors Allergy Intermediate swelling Verified 05/27/24 11:09 of tongue Cephalosporins Allergy Intermediate swelling Verified 05/27/24 11:09 of tongue quinapril Allergy Intermediate Swelling Verified 05/27/24 11:09 of Lip/Tongue/Throat Vital Signs Vital Signs Temp Pulse Resp BP Pulse Ox O2 Del Method 07/08/24 12:00 97.8 F 76 18 135/65 98 Room Air 07/08/24 10:00 71 07/08/24 08:00 Room Air 07/08/24 08:00 76 07/08/24 08:40 72 07/08/24 08:00 97.7 F 77 18 135/73 97 07/08/24 05:54 69 07/08/24 04:12 97.7 F 72 21 H 150/71 H 97 07/08/24 04:00 63 07/08/24 04:00 69 20 96 Room Air 07/08/24 02:00 63 07/08/24 00:06 97.8 F 75 21 H 141/70 H 96 07/07/24 23:30 72 07/07/24 23:29 Room Air 07/07/24 22:00 72 07/07/24 20:01 72 21 H 140/79 94 07/07/24 19:30 78 20 137/73 95 07/07/24 19:01 77 18 143/75 H 96 07/07/24 16:52 79 23 H 139/71 99 07/07/24 18:26 98.0 F 76 18 143/82 H 96 07/07/24 16:31 75 23 H 140/69 97 07/07/24 16:16 74 23 H 136/73 98 Exam Narrative: GENERAL APPEARANCE: elderly but well developed well nourished male in no acute distress HEENT: normocephalic, atraumatic, normal conjunctiva and sclera, nares patient NECK: no lymphadenopathy, thyromegaly, or JVD MOUTH: normal lips, teeth, and gums CARDIOVASCULAR: RRR, normal S1 and S2, no rub RESPIRATORY: coarse breath sound with a few bibasilar crackles ABDOMEN: soft, nontender, nondistended, positive bowel sounds present EXTREMITIES: no evidence of cyanosis, clubbing, 2+ edema NEUROLOGICAL: alert and oriented x 3; CN II - XII intact bilaterally; no focal deficits noted Results Lab Results 07/09/24 04:32 07/09/24 04:32 Lab results: Most recent lab results Calcium 9.1 mg/dL (8.4-10.2) 07/08/24 08:25 Phosphorus 5.5 mg/dL (2.5-4.5) H 07/08/24 08:25 Magnesium 2.1 mg/dL (1.6-2.3) 07/08/24 08:25
--- NOTE | 2024-07-08 15:01 | PM.IMPN ---
Progress Note: A&P Assessment and Plan (1) Acute exacerbation of CHF (congestive heart failure): Code(s): I50.9 - Heart failure, unspecified Status: Acute Assessment and Plan: Patient presents with SOB. EKG showing sinus rhythm, IVCD, possible inferior infarct and high-lateral ST-T wave changes but no change from prior EKG. Troponiin elevated at 0.69 but trending down on repeat. BNP >30K CXR showing mild pulmonary vascular congestion with small right-sided and moderate left-sided pleural effusion. Echo January 2024 showing mild left ventricular enlargement with reduced systolic function (EF 35-40%), Grade I diastolic dysfxn, akinesis of the mid to anteroseptal segments and apex and hypokinesia of the anterior wall. Suspect acute on chronic diastolic and systolic CHF. Lasix IV started. Symptoms better but still with orthopnea. Doubt CHF related to ischemia. Mildly elevated Trop related to the CHF and renal failure. Monitor renal fxn closely. (2) Elevated troponin: Code(s): R79.89 - Other specified abnormal findings of blood chemistry Status: Acute Assessment and Plan: As above. EKG showing n o acute changes. Troponin already trending down. (3) Stage 5 chronic kidney disease: Code(s): N18.5 - Chronic kidney disease, stage 5 Status: Acute Assessment and Plan: Baseline Cr 3-4 range but was 4.8 a few days before admission Cr elevated at 5.1. With diuretics, Cr remaining stable. He is close to needing HD. Potassium normal and not acidotic. Monitor UOP, renal fxn and electrolytes. (4) Paroxysmal atrial fibrillation: Code(s): I48.0 - Paroxysmal atrial fibrillation Status: Chronic Assessment and Plan: Patient with pAFib. EKG showing normal sinus. Continue Amiodarone. 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 Continue AccuCheks covering with sliding scale. Hypoglycemia protocol available as needed. Continue current medications. (6) Peripheral arterial occlusive disease: Code(s): I77.9 - Disorder of arteries and arterioles, unspecified Status: Acute Assessment and Plan: Stable. Continue ASA, plavix and statin therapy (7) Anemia, chronic disease: Code(s): D63.8 - Anemia in other chronic diseases classified elsewhere Status: Acute Assessment and Plan: Hgb low but stable in the 8-9 range. [place] related to CKD Monitor and transfuse as needed Plan DVT prophylaxis - SCDs Code status - DNR Subjective Date/time seen: 07/08/24 15:01 Interval history: 89yo male with CAD ([place] most recent in January of 2024), anemia, CKD, depression, diabetic peripheral neuropathy, hypertension, pAFib, prostate cancer, and DM here with shortness of breath. He feels better. No SOB at rest sitting up but becomes SOB when lying down. No CP. Not up walking much yet. Exam Narrative: AF 97.8 135/65 70 18 97% ra Gen - NARD Chest - decreased breath sounds bibasilar, nml RR CV - RRR S1/S2. Tele showing PVCs Abd - Soft, NT/ND, Positive BS Ext - 2+ bilateral thigh edema. Chai hose in place. Psych - Nml mood and affect Skin - Warm and dry Objective Data Vital Signs Vital Signs: Vital Signs - 24 hr 07/07/24 15:21 07/07/24 15:31 07/07/24 15:32 Temperature 97.6 F Pulse Rate 81 80 80 Respiratory Rate 18 17 16 Blood Pressure 150/70 H 132/69 132/69 Pulse Oximetry 95 96 97 Oxygen Delivery Room Air 07/07/24 15:46 07/07/24 16:01 07/07/24 16:16 Temperature Pulse Rate 78 79 74 Respiratory Rate 18 22 H 23 H Blood Pressure 143/76 H 141/77 H 136/73 Pulse Oximetry 97 97 98 Oxygen Delivery 07/07/24 16:31 07/07/24 18:26 07/07/24 16:52 Temperature 98.0 F Pulse Rate 75 76 79 Respiratory Rate 23 H 18 23 H Blood Pressure 140/69 143/82 H 139/71 Pulse Oximetry 97 96 99 Oxygen Delivery 07/07/24 19:01 07/07/24 19:30 07/07/24 20:01 Temperature Pulse Rate 77 78 72 Respiratory Rate 18 20 21 H Blood Pressure 143/75 H 137/73 140/79 Pulse Oximetry 96 95 94 Oxygen Delivery 07/07/24 22:00 07/07/24 23:29 07/07/24 23:30 Temperature Pulse Rate 72 72 Respiratory Rate Blood Pressure Pulse Oximetry Oxygen Delivery Room Air 07/08/24 00:06 07/08/24 02:00 07/08/24 04:00 Temperature 97.8 F Pulse Rate 75 63 69 Respiratory Rate 21 H 20 Blood Pressure 141/70 H Pulse Oximetry 96 96 Oxygen Delivery Room Air 07/08/24 04:00 07/08/24 04:12 07/08/24 05:54 Temperature 97.7 F Pulse Rate 63 72 69 Respiratory Rate 21 H Blood Pressure 150/71 H Pulse Oximetry 97 Oxygen Delivery 07/08/24 08:00 07/08/24 08:40 07/08/24 08:00 Temperature 97.7 F Pulse Rate 77 72 76 Respiratory Rate 18 Blood Pressure 135/73 Pulse Oximetry 97 Oxygen Delivery 07/08/24 08:00 07/08/24 10:00 07/08/24 12:00 Temperature 97.8 F Pulse Rate 71 76 Respiratory Rate 18 Blood Pressure 135/65 Pulse Oximetry 98 Oxygen Delivery Room Air 07/08/24 12:00 07/08/24 12:00 Temperature Pulse Rate 70 Respiratory Rate Blood Pressure Pulse Oximetry Oxygen Delivery Room Air Intake/Output Intake/Output: Intake & Output 07/05/24 07/06/24 07/07/24 07/08/24 23:59 23:59 23:59 23:59 Intake Total 790 Output Total 400 Balance 390 Meds/Results Medications: Active Medications Generic Name Dose Route Start Last Admin Trade Name Freq PRN Reason Stop Dose Admin Acetaminophen 1,000 mg 07/07/24 23:45 Acetaminophen 500 Mg Tablet PO Q6H PRN Mild Pain (1-3) or Fever Amiodarone HCl 200 mg 07/08/24 08:00 07/08/24 08:40 Amiodarone Hcl 200 Mg Tablet PO 200 mg DAILY@0800 MARKIE Administration Aspirin 81 mg 07/08/24 09:00 11/08/24 08:40 Aspirin 81 Mg Enteric Tablet PO 81 mg QAM MARKIE Administration Atorvastatin Calcium 80 mg 07/08/24 09:00 07/08/24 08:40 Atorvastatin 40 Mg Tablet PO 80 mg DAILY MARKIE Administration Citalopram Hydrobromide 20 mg 07/08/24 09:00 07/08/24 08:40 Citalopram Hydrobromide 20 Mg Tablet PO 20 mg DAILY MARKIE Administration Clopidogrel Bisulfate 75 mg 07/08/24 09:00 07/08/24 08:40 Clopidogrel Bisulfate 75 Mg Tablet PO 75 mg DAILY MARKIE Administration Finasteride 5 mg 07/08/24 09:00 07/08/24 08:40 Finasteride 5 Mg Tablet PO 5 mg DAILY MARKIE Administration Furosemide 80 mg 07/08/24 09:00 07/08/24 08:40 Furosemide Inj 100 Mg/10 Ml Vial IV PUSH 80 mg BID MARKIE Administration Isosorbide Mononitrate 30 mg 07/08/24 09:00 07/08/24 08:40 Isosorbide Mononitrate 30 Mg Tab.Er.24h PO 30 mg QAM MARKIE Administration Melatonin 10 mg 07/07/24 23:44 Melatonin 5 Mg Tablet PO HS PRN Insomnia Nitroglycerin 0.4 mg 07/07/24 23:44 Nitroglycerin Sl 0.4 Mg Tablet SUBLINGUAL Q5M PRN chest pain Radiology Results: ITS Impressions Chest X-Ray 07/07/24 18:18 IMPRESSION: Mild pulmonary vascular congestion with small right-sided and moderate left-sided pleural effusion. Labs Labs: Laboratory Results - last 24 hr 07/07/24 07/07/24 07/08/24 17:07 20:08 08:25 WBC 7.9 7.7 RBC 3.20 L 3.35 L Hgb 9.4 L 9.8 L Hct 29.3 L 31.6 L MCV 91.6 94.3 MCH 29.4 29.3 MCHC 32.1 31.0 L RDW 14.7 H 15.0 H Plt Count 244 255 MPV 10.4 10.8 H Immature Gran % (Auto) 0.3 0.3 Neut % (Auto) 76.8 H 79.7 H Lymph % (Auto) 10.5 L 9.5 L [place] % (Auto) 11.5 H 9.2 H Eos % (Auto) 0.4 0.5 Baso % (Auto) 0.5 0.8 Lymph # (Auto) 0.83 L 0.73 L [place] # (Auto) 0.9 H 0.7 H Eos # (Auto) 0.0 0.0 Baso # (Auto) 0.0 0.1 Abs Immat Gran (auto) 0.02 0.02 Absolute Neuts (auto) 6.1 6.1 Absolute Nucleated RBC 0.000 0.000 Nucleated RBC % 0.0 0.0 Sodium 139 139 Potassium 3.6 4.0 Chloride 104 103 Carbon Dioxide 22 25 Anion Gap 13 H 11 BUN 79 H 81 H Creatinine 5.10 H 5.10 H Estim Creat Clear Calc 11 11 Estimated GFR 11 L 11 L Glucose 114 H 156 H Calcium 8.9 9.1 Phosphorus 5.5 H Magnesium 2.1 Total Bilirubin 0.7 AST 38 ALT 30 Alkaline Phosphatase 106 Troponin I 0.692 H* 0.657 H* NT-Pro-B Natriuret Pep > 81371 H Total Protein 7.0 Albumin 3.6 3.8
[2024-07-08] MEDS: ACETAMINOPHEN 500 MG TABLET 1000 MG PO (20:49)
[2024-07-09] VITALS (14 sets, daily range): BP systolic 114–146; BP diastolic 51–71; PULSE 63–79; RESP 14–20; TEMP 36.4–36.9; O2SAT 95–100
[2024-07-09 04:53] LABS: Basophils Absolute Auto 0.1 K/mm3 (0.0-0.1); Basophils Percent Auto 0.7 % (0.2-1.2); Eosinophils Absolute Auto 0.2 K/mm3 (0-0.3); Hematocrit 29.5 % (42.0-52.0); Hemoglobin 9.3 g/dL (14.0-18.0); Immature Granulocyte Absolute 0.03 K/mm3 (0.00-0.031); Immature Granulocyte Percent A 0.4 % (0-0.5); Lymphocytes Absolute Auto 1.19 K/mm3 (0.9-3.2); Lymphocytes Percent Auto 15.7 % (18.3-44.2); Mean Corpuscular HGB Conc 31.5 g/dl (32-36); Mean Corpuscular Hemoglobin 28.9 pg (26-34); Mean Corpuscular Volume 91.6 fl (80-100); Mean Platelet Volume 10.5 fl (7.4-10.4); Monocytes Absolute Auto 0.9 K/mm3 (0.1-0.6); Monocytes Percent Auto 11.6 % (2.6-8.5); Neutrophils Absolute Auto 5.3 K/mm3 (1.3-6.7); Neutrophils Percent Auto 69.6 % (45.5-73.1); Platelet Count Result 236 k/mm3 (150-375); Red Blood Count 3.22 M/mm3 (4.6-6.20); Red Cell Distribution Width 14.6 % (11.5-14.5); White Blood Count 7.6 K/mm3 (4.5-10.0)
[2024-07-09 05:01] LABS: Albumin Level 3.4 g/dL (3.5-5.1); Anion Gap 10 mmol/L (4-12); Blood Urea Nitrogen 76 mg/dL (9-20); Calcium 8.7 mg/dL (8.4-10.2); Carbon Dioxide 26 mmol/L (22-30); Chloride 103 mmol/L (98-107); Estimated CRCL calculation 11 ml/min; Estimated Glomerular Filt Rate 11; Glucose 112 mg/dL (65-110); Magnesium 2.1 mg/dL (1.6-2.3); Phosphorus 5.4 mg/dL (2.5-4.5); Potassium 3.3 mmol/L (3.4-5.0); Sodium 139 mmol/L (137-145)
[2024-07-09] MEDS: CITALOPRAM HYDROBROMIDE 20 MG TABLET PO (09:14)
[2024-07-09] MEDS: ISOSORBIDE MONONITRATE 30 MG TAB.ER.24H PO (09:14)
[2024-07-09] MEDS: FUROSEMIDE INJ 100 MG/10 ML VIAL 80 MG IV PUSH ×2 (09:14→17:27)
[2024-07-09] MEDS: ATORVASTATIN 40 MG TABLET 80 MG PO (09:14)
[2024-07-09] MEDS: ASPIRIN 81 MG ENTERIC TABLET PO (09:14)
[2024-07-09] MEDS: AMIODARONE HCL 200 MG TABLET PO (09:15)
[2024-07-09] MEDS: FINASTERIDE 5 MG TABLET PO (09:15)
[2024-07-09] MEDS: CLOPIDOGREL BISULFATE 75 MG TABLET PO (09:15)
--- NOTE | 2024-07-09 10:38 | P.PNCA_ITS ---
Progress Note: A&P Assessment and Plan (1) Cardiomyopathy: Code(s): I42.9 - Cardiomyopathy, unspecified Status: Acute Plan Acute on chronic systolic heart failure CKD stage 5 Coronary arteries were admissions with chest pain and the troponin. Patient was deemed not candidate for catheterization because of advanced kidney disease Paroxysmal fibrillation Plan Aspirin Plavix Lasix 80 mg IV b.i.d. Follow-up kidney function & electrolytes Subjective Date/time seen: 07/09/24 10:38 Interval history: SOB is improving Tele: SR and PVCs Review of Systems Review of Systems: All systems reviewed & are unremarkable except as noted in HPI and below Exam Const: General: comfortable, no acute distress, alert and awake Orientation/consciousness: patient oriented x3 HENMT: Head: normal to inspection Eyes: General: appearance normal, both eyes and all related structures Pupils: Equal, round and reactive pupils present Neck: Neck: normal visual inspection, supple and no JVD Carotids: normal carotid upstroke Resp: Effort & Inspection: normal respiratory effort Auscultation: clear to auscultation bilaterally Cardio: Rate: regular rate Rhythm: regular rhythm Heart sounds: S1 normal heart sound present, S2 normal heart sound present and no murmurs GI: Auscultation: normal bowel sounds Skin: General skin exam: normal color Neuro: General: patient oriented x3 Cranial nerves: Yes Equal, round and reactive pupils present Extrem: General: normal to inspection Other: 2+ bilateral pretibial and pedal pitting edema Psych: Appearance: grossly normal Mental Status: mental status grossly normal Objective Data Vital Signs Vital Signs: Vital Signs - 24 hr 07/08/24 12:00 07/08/24 12:00 07/08/24 12:00 Temperature 36.6 C Pulse Rate 76 70 Respiratory Rate 18 Blood Pressure 135/65 Pulse Oximetry 98 Oxygen Delivery Room Air 07/08/24 14:00 07/08/24 16:00 07/08/24 16:00 Temperature 36.6 C Pulse Rate 70 72 Respiratory Rate 16 Blood Pressure 136/67 Pulse Oximetry 100 Oxygen Delivery Room Air 07/08/24 16:00 07/08/24 18:00 07/08/24 19:48 Temperature Pulse Rate 72 65 Respiratory Rate Blood Pressure Pulse Oximetry Oxygen Delivery Room Air 07/08/24 20:00 07/08/24 20:00 07/08/24 22:00 Temperature 36.6 C Pulse Rate 67 68 62 Respiratory Rate 18 Blood Pressure 132/82 Pulse Oximetry 99 Oxygen Delivery 07/09/24 00:00 07/09/24 00:00 07/09/24 00:00 Temperature 36.7 C Pulse Rate 66 63 Respiratory Rate 14 Blood Pressure 121/57 L Pulse Oximetry 97 Oxygen Delivery Room Air 07/09/24 02:00 07/09/24 03:47 07/09/24 03:52 Temperature 36.6 C Pulse Rate 67 70 Respiratory Rate 16 Blood Pressure 145/51 H Pulse Oximetry 96 Oxygen Delivery Room Air 07/09/24 04:00 07/09/24 05:45 07/09/24 07:32 Temperature Pulse Rate 65 65 Respiratory Rate Blood Pressure Pulse Oximetry 95 Oxygen Delivery Room Air 07/09/24 08:00 07/09/24 08:31 07/09/24 09:15 Temperature 36.7 C Pulse Rate 69 67 Respiratory Rate 16 Blood Pressure 132/65 Pulse Oximetry 97 Oxygen Delivery Room Air Intake/Output Intake/Output: Intake & Output 07/06/24 07/07/24 07/08/24 07/09/24 23:59 23:59 23:59 23:59 Intake Total 2230 150 Output Total 2900 825 Balance -670 -145 Meds/Results Medications: Active Medications Generic Name Dose Route Start Last Admin Trade Name Freq PRN Reason Stop Dose Admin Acetaminophen 1,000 mg 07/07/24 23:45 07/08/24 20:49 Acetaminophen 500 Mg Tablet PO 500 mg Q6H PRN Administration Mild Pain (1-3) or Fever Amiodarone HCl 200 mg 07/08/24 08:00 07/09/24 09:15 Amiodarone Hcl 200 Mg Tablet PO 200 mg DAILY@0800 MARKIE Administration Aspirin 81 mg 07/08/24 09:00 07/09/24 09:14 Aspirin 81 Mg Enteric Tablet PO 81 mg QAM MARKIE Administration Atorvastatin Calcium 80 mg 07/08/24 09:00 07/09/24 09:14 Atorvastatin 40 Mg Tablet PO 80 mg DAILY MARKIE Administration Citalopram Hydrobromide 20 mg 07/08/24 09:00 07/09/24 09:14 Citalopram Hydrobromide 20 Mg Tablet PO 20 mg DAILY MARKIE Administration Clopidogrel Bisulfate 75 mg 07/08/24 09:00 07/09/24 09:15 Clopidogrel Bisulfate 75 Mg Tablet PO 75 mg DAILY MARKIE Administration Finasteride 5 mg 07/08/24 09:00 07/09/24 09:15 Finasteride 5 Mg Tablet PO 5 mg DAILY MARKIE Administration Furosemide 80 mg 07/08/24 09:00 07/09/24 09:14 Furosemide Inj 100 Mg/10 Ml Vial IV PUSH 80 mg BID MARKIE Administration Isosorbide Mononitrate 30 mg 07/08/24 09:00 07/09/24 09:14 Isosorbide Mononitrate 30 Mg Tab.Er.24h PO 30 mg QAM MARKIE Administration Melatonin 10 mg 07/07/24 23:44 Melatonin 5 Mg Tablet PO HS PRN Insomnia Nitroglycerin 0.4 mg 07/07/24 23:44 Nitroglycerin Sl 0.4 Mg Tablet SUBLINGUAL Q5M PRN chest pain Radiology Results: ITS Impressions Chest X-Ray 07/07/24 18:18 IMPRESSION: Mild pulmonary vascular congestion with small right-sided and moderate left- sided pleural effusion. Labs Labs: Laboratory Results - last 24 hr 07/09/24 04:32 WBC 7.6 RBC 3.22 L Hgb 9.3 L Hct 29.5 L MCV 91.6 MCH 28.9 MCHC 31.5 L RDW 14.6 H Plt Count 236 MPV 10.5 H Immature Gran % (Auto) 0.4 Neut % (Auto) 69.6 Lymph % (Auto) 15.[address] [place] % (Auto) 11.6 H Eos % (Auto) 2.0 Baso % (Auto) 0.7 Lymph # (Auto) 1.19 [place] # (Auto) 0.9 H Eos # (Auto) 0.2 Baso # (Auto) 0.1 Abs Immat Gran (auto) 0.03 Absolute Neuts (auto) 5.3 Absolute Nucleated RBC 0.000 Nucleated RBC % 0.0 Sodium 139 Potassium 3.3 L Chloride 103 Carbon Dioxide 26 Anion Gap 10 BUN 76 H Creatinine 5.10 H Estim Creat Clear Calc 11 Estimated GFR 11 L Glucose 112 H Calcium 8.7 Phosphorus 5.4 H Magnesium 2.1 Albumin 3.4 L
--- NOTE | 2024-07-09 11:35 | PM.IMPN ---
Progress Note: A&P Assessment and Plan (1) Acute exacerbation of CHF (congestive heart failure): Code(s): I50.9 - Heart failure, unspecified Status: Acute Assessment and Plan: Patient presents with SOB. EKG showing sinus rhythm, IVCD, possible inferior infarct and high-lateral ST-T wave changes but no change from prior EKG. Troponin elevated at 0.69 but trending down on repeat. BNP >30K CXR showing mild pulmonary vascular congestion with small right-sided and moderate left-sided pleural effusion. Echo January 2024 showing mild left ventricular enlargement with reduced systolic function (EF 35-40%), Grade I diastolic dysfxn, akinesis of the mid to anteroseptal segments and apex and hypokinesia of the anterior wall. Suspect acute on chronic diastolic and systolic CHF. Doubt CHF related to ischemia. Mildly elevated Trop related to the CHF and renal failure. Lasix IV started. Symptoms better. UOP 2900 yesterday. Cr stable. Monitor renal fxn closely. Continue IV Lasix. (2) Elevated troponin: Code(s): R79.89 - Other specified abnormal findings of blood chemistry Status: Acute Assessment and Plan: As above. EKG showing no acute changes. Troponin already trending down. Cardiology following and appreciate their input (3) Stage 5 chronic kidney disease: Code(s): N18.5 - Chronic kidney disease, stage 5 Status: Chronic Assessment and Plan: Baseline Cr 3-4 range but was 4.8 a few days before admission Cr elevated at 5.1 here. With diuretics, Cr remaining stable. He is close to needing HD. Potassium normal and not acidotic. Monitor UOP, renal fxn and electrolytes. (4) Paroxysmal atrial fibrillation: Code(s): I48.0 - Paroxysmal atrial fibrillation Status: Chronic Assessment and Plan: Patient with pAFib. EKG showing normal sinus. Continue Amiodarone. On Plavix and ASA but not on anticoagulation because of his CKD. (5) Type 2 diabetes mellitus: Qualifiers: Chronic kidney disease stage: stage 4 (severe) Diabetes mellitus complication detail: with chronic kidney disease Diabetes mellitus complication status: with kidney complications Diabetes mellitus longterm insulin use: without longterm use Qualified Code(s): E11.22 - Type 2 diabetes mellitus with diabetic chronic kidney disease; N18.4 - Chronic kidney disease, stage 4 (severe) Code(s): E11.9 - Type 2 diabetes mellitus without complications Status: Chronic Assessment and Plan: A1c 5.4% in January. The patient's blood glucose was reviewed on 07/09 Glucose remains well controlled. He is diet controlled. Continue to monitor. (6) Peripheral arterial occlusive disease: Code(s): I77.9 - Disorder of arteries and arterioles, unspecified Status: Acute Assessment and Plan: Stable. Continue ASA, plavix and statin therapy (7) Anemia, chronic disease: Code(s): D63.8 - Anemia in other chronic diseases classified elsewhere Status: Acute Assessment and Plan: Hgb low but stable in the 8-9 range. [place] related to CKD Monitor and transfuse as needed Plan DVT prophylaxis - SCDs Code status - DNR Subjective Date/time seen: 07/09/24 11:35 Interval history: 89yo male with CAD ([place] most recent in January of 2024), anemia, CKD, depression, diabetic peripheral neuropathy, hypertension, pAFib, prostate cancer, and DM here with shortness of breath. SOB better. No PND or orthopnea but didn't sleeep well due to anxiety. No CP. Slight HEBERT with walking. Exam Narrative: AF 98.0 132/65 69 16 97% ra Gen - NARD sittin gup in chair telling jokes Chest - bibasilar crackles CV - RRR S1/S2. Tele showing rare ventricular bigeminy Abd - Soft, NT/ND, Positive BS Ext - 2+ bilateral LE edema. 2 dressing Right espinoza that are clean and dry Psych - Nml mood and affect Skin - Warm and dry Objective Data Vital Signs Vital Signs: Vital Signs - 24 hr 07/08/24 12:00 07/08/24 12:00 07/08/24 12:00 Temperature 97.8 F Pulse Rate 76 70 Respiratory Rate 18 Blood Pressure 135/65 Pulse Oximetry 98 Oxygen Delivery Room Air 07/08/24 14:00 07/08/24 16:00 07/08/24 16:00 Temperature 97.9 F Pulse Rate 70 72 Respiratory Rate 16 Blood Pressure 136/67 Pulse Oximetry 100 Oxygen Delivery Room Air 07/08/24 16:00 07/08/24 18:00 07/08/24 19:48 Temperature Pulse Rate 72 65 Respiratory Rate Blood Pressure Pulse Oximetry Oxygen Delivery Room Air 07/08/24 20:00 07/08/24 20:00 07/08/24 22:00 Temperature 97.9 F Pulse Rate 67 68 62 Respiratory Rate 18 Blood Pressure 132/82 Pulse Oximetry 99 Oxygen Delivery 07/09/24 00:00 07/09/24 00:00 07/09/24 00:00 Temperature 98.0 F Pulse Rate 66 63 Respiratory Rate 14 Blood Pressure 121/57 L Pulse Oximetry 97 Oxygen Delivery Room Air 07/09/24 02:00 07/09/24 03:47 07/09/24 03:52 Temperature 97.9 F Pulse Rate 67 70 Respiratory Rate 16 Blood Pressure 145/51 H Pulse Oximetry 96 Oxygen Delivery Room Air 07/09/24 04:00 07/09/24 05:45 07/09/24 07:32 Temperature Pulse Rate 65 65 Respiratory Rate Blood Pressure Pulse Oximetry 95 Oxygen Delivery Room Air 07/09/24 08:00 07/09/24 08:31 07/09/24 09:15 Temperature 98.0 F Pulse Rate 69 67 Respiratory Rate 16 Blood Pressure 132/65 Pulse Oximetry 97 Oxygen Delivery Room Air 07/09/24 08:00 07/09/24 10:00 Temperature Pulse Rate 70 69 Respiratory Rate Blood Pressure Pulse Oximetry Oxygen Delivery Intake/Output Intake/Output: Intake & Output 07/06/24 07/07/24 07/08/24 07/09/24 23:59 23:59 23:59 23:59 Intake Total 2230 150 Output Total 2900 825 Balance -483 -327 Meds/Results Medications: Active Medications Generic Name Dose Route Start Last Admin Trade Name Freq PRN Reason Stop Dose Admin Acetaminophen 1,000 mg 07/07/24 23:45 07/08/24 20:49 Acetaminophen 500 Mg Tablet PO 500 mg Q6H PRN Administration Mild Pain (1-3) or Fever Amiodarone HCl 200 mg 07/08/24 08:00 07/09/24 09:15 Amiodarone Hcl 200 Mg Tablet PO 200 mg DAILY@0800 MARKIE Administration Aspirin 81 mg 07/08/24 09:00 07/09/24 09:14 Aspirin 81 Mg Enteric Tablet PO 81 mg QAM MARKIE Administration Atorvastatin Calcium 80 mg 07/08/24 09:00 07/09/24 09:14 Atorvastatin 40 Mg Tablet PO 80 mg DAILY MARKIE Administration Citalopram Hydrobromide 20 mg 07/08/24 09:00 07/09/24 09:14 Citalopram Hydrobromide 20 Mg Tablet PO 20 mg DAILY MARKIE Administration Clopidogrel Bisulfate 75 mg 07/08/24 09:00 07/09/24 09:15 Clopidogrel Bisulfate 75 Mg Tablet PO 75 mg DAILY MARKIE Administration Finasteride 5 mg 07/08/24 09:00 07/09/24 09:15 Finasteride 5 Mg Tablet PO 5 mg DAILY MARKIE Administration Furosemide 80 mg 07/08/24 09:00 07/09/24 09:14 Furosemide Inj 100 Mg/10 Ml Vial IV PUSH 80 mg BID MARKIE Administration Isosorbide Mononitrate 30 mg 07/08/24 09:00 07/09/24 09:14 Isosorbide Mononitrate 30 Mg Tab.Er.24h PO 30 mg QAM MARKIE Administration Melatonin 10 mg 07/07/24 23:44 Melatonin 5 Mg Tablet PO HS PRN Insomnia Nitroglycerin 0.4 mg 07/07/24 23:44 Nitroglycerin Sl 0.4 Mg Tablet SUBLINGUAL Q5M PRN chest pain Radiology Results: ITS Impressions Chest X-Ray 07/07/24 18:18 IMPRESSION: Mild pulmonary vascular congestion with small right-sided and moderate left-sided pleural effusion. Labs Labs: Laboratory Results - last 24 hr 07/09/24 04:32 WBC 7.6 RBC 3.22 L Hgb 9.3 L Hct 29.5 L MCV 91.6 MCH 28.9 MCHC 31.5 L RDW 14.6 H Plt Count 236 MPV 10.5 H Immature Gran % (Auto) 0.4 Neut % (Auto) 69.6 Lymph % (Auto) 15.7 L [place] % (Auto) 11.6 H Eos % (Auto) 2.0 Baso % (Auto) 0.7 Lymph # (Auto) 1.19 [place] # (Auto) 0.9 H Eos # (Auto) 0.2 Baso # (Auto) 0.1 Abs Immat Gran (auto) 0.03 Absolute Neuts (auto) 5.3 Absolute Nucleated RBC 0.000 Nucleated RBC % 0.0 Sodium 139 Potassium 3.3 L Chloride 103 Carbon Dioxide 26 Anion Gap 10 BUN 76 H Creatinine 5.10 H Estim Creat Clear Calc 11 Estimated GFR 11 L Glucose 112 H Calcium 8.7 Phosphorus 5.4 H Magnesium 2.1 Albumin 3.4 L
--- NOTE | 2024-07-09 14:08 | P.PNNP_ITS ---
Progress Note: A&P Assessment and Plan (1) Stage 5 chronic kidney disease: Code(s): N18.5 - Chronic kidney disease, stage 5 Status: Chronic Assessment and Plan: * Patient has CKD. * Following with Dr. Sommer * His baseline creatinine seems to be around 5 * etiology due to HTN, DM, vascular disease, CHF with associated diuretic therapy, and age-related change * No uremic symptoms and volume status okay * follow trend of renal function with diuresis * no urgent need for [employer]/dialysis at this time (2) Acute exacerbation of CHF (congestive heart failure): Code(s): I50.9 - Heart failure, unspecified Status: Acute Assessment and Plan: * as evidenced by symptoms/findings on admission * suspect due to acute on shrnoic diastilic and systolic heart failure * clinically better with IV diuresis * So far creatinine stable in spite of diuresis (3) Essential (primary) hypertension: Code(s): I10 - Essential (primary) hypertension Status: Chronic Assessment and Plan: * Systolic ranging from 120s to 140 * On no blood pressure meds currently (4) Anemia: Code(s): D64.9 - Anemia, unspecified Status: Acute Assessment and Plan: * suspect related to underlying CKD * Hemoglobin up and down in the 9 * No current need for LISET (5) Diabetes mellitus with chronic kidney disease: Code(s): E11.22 - Type 2 diabetes mellitus with diabetic chronic kidney disease Status: Chronic Assessment and Plan: * follow accu-cheks * glycemic control per hospitalist Subjective Date/time seen: 07/09/24 14:08 Interval history: Patient feels okay. Sitting up in a chair No shortness of breath or chest pain. He always has some swelling Review of Systems Cardiovascular: Cardiovascular: Reports no additional cardiovascular complaints Respiratory: Respiratory: Reports no additional respiratory complaints Gastrointestinal: Gastrointestinal: Reports no additional gastrointestinal complaints Genitourinary: Genitourinary: Reports no additional male genitourinary complaints Exam Narrative: WDWN in NAD skin no rash head ncat lungs clear cor reg no rub abd BS+ nontender and soft ext 1+ bilateral edema. Objective Data Vital Signs Vital Signs: Vital Signs - 24 hr 07/08/24 16:00 07/08/24 16:00 07/08/24 16:00 Temperature 97.9 F Pulse Rate 72 72 Respiratory Rate 16 Blood Pressure 136/67 Pulse Oximetry 100 Oxygen Delivery Room Air 07/08/24 18:00 07/08/24 19:48 07/08/24 20:00 Temperature 97.9 F Pulse Rate 65 67 Respiratory Rate 18 Blood Pressure 132/82 Pulse Oximetry 99 Oxygen Delivery Room Air 07/08/24 20:00 07/08/24 22:00 07/09/24 00:00 Temperature 98.0 F Pulse Rate 68 62 66 Respiratory Rate 14 Blood Pressure 121/57 L Pulse Oximetry 97 Oxygen Delivery 07/09/24 00:00 07/09/24 00:00 07/09/24 02:00 Temperature Pulse Rate 63 67 Respiratory Rate Blood Pressure Pulse Oximetry Oxygen Delivery Room Air 07/09/24 03:47 07/09/24 03:52 07/09/24 04:00 Temperature 97.9 F Pulse Rate 70 65 Respiratory Rate 16 Blood Pressure 145/51 H Pulse Oximetry 96 Oxygen Delivery Room Air 07/09/24 05:45 07/09/24 07:32 07/09/24 08:00 Temperature 98.0 F Pulse Rate 65 69 Respiratory Rate 16 Blood Pressure 132/65 Pulse Oximetry 95 97 Oxygen Delivery Room Air 07/09/24 08:31 07/09/24 09:15 07/09/24 08:00 Temperature Pulse Rate 67 70 Respiratory Rate Blood Pressure Pulse Oximetry Oxygen Delivery Room Air 07/09/24 10:00 07/09/24 12:00 07/09/24 13:27 Temperature 97.5 F L Pulse Rate 69 70 Respiratory Rate 20 Blood Pressure 125/59 L Pulse Oximetry 98 Oxygen Delivery Room Air Intake/Output Intake/Output: Intake & Output 07/06/24 07/07/24 07/08/24 07/09/24 23:59 23:59 23:59 23:59 Intake Total 2230 630 Output Total 2900 825 Balance -670 -195 Meds/Results Medications: Active Medications Generic Name Dose Route Start Last Admin Trade Name Freq PRN Reason Stop Dose Admin Acetaminophen 1,000 mg 07/07/24 23:45 07/08/24 20:49 Acetaminophen 500 Mg Tablet PO 500 mg Q6H PRN Administration Mild Pain (1-3) or Fever Amiodarone HCl 200 mg 07/08/24 08:00 07/09/24 09:15 Amiodarone Hcl 200 Mg Tablet PO 200 mg DAILY@0800 MARKIE Administration Aspirin 81 mg 07/08/24 09:00 07/09/24 09:14 Aspirin 81 Mg Enteric Tablet PO 81 mg QAM MARKIE Administration Atorvastatin Calcium 80 mg 07/08/24 09:00 07/09/24 09:14 Atorvastatin 40 Mg Tablet PO 80 mg DAILY MARKIE Administration Citalopram Hydrobromide 20 mg 07/08/24 09:00 07/09/24 09:14 Citalopram Hydrobromide 20 Mg Tablet PO 20 mg DAILY MARKIE Administration Clopidogrel Bisulfate 75 mg 07/08/24 09:00 07/09/24 09:15 Clopidogrel Bisulfate 75 Mg Tablet PO 75 mg DAILY MARKIE Administration Finasteride 5 mg 07/08/24 09:00 07/09/24 09:15 Finasteride 5 Mg Tablet PO 5 mg DAILY MARKIE Administration Furosemide 80 mg 07/08/24 09:00 07/09/24 09:14 Furosemide Inj 100 Mg/10 Ml Vial IV PUSH 80 mg BID MARKIE Administration Isosorbide Mononitrate 30 mg 07/08/24 09:00 07/09/24 09:14 Isosorbide Mononitrate 30 Mg Tab.Er.24h PO 30 mg QAM MARKIE Administration Melatonin 10 mg 07/07/24 23:44 Melatonin 5 Mg Tablet PO HS PRN Insomnia Nitroglycerin 0.4 mg 07/07/24 23:44 Nitroglycerin Sl 0.4 Mg Tablet SUBLINGUAL Q5M PRN chest pain Radiology Results: ITS Impressions Chest X-Ray 07/07/24 18:18 IMPRESSION: Mild pulmonary vascular congestion with small right-sided and moderate left- sided pleural effusion. Labs Labs: Laboratory Results - last 24 hr 07/09/24 04:32 WBC 7.6 RBC 3.22 L Hgb 9.3 L Hct 29.5 L MCV 91.6 MCH 28.9 MCHC 31.5 L RDW 14.6 H Plt Count 236 MPV 10.5 H Immature Gran % (Auto) 0.4 Neut % (Auto) 69.6 Lymph % (Auto) 15.7 L Rogers % (Auto) 11.6 H Eos % (Auto) 2.0 Baso % (Auto) 0.7 Lymph # (Auto) 1.19 Rogers # (Auto) 0.9 H Eos # (Auto) 0.2 Baso # (Auto) 0.1 Abs Immat Gran (auto) 0.03 Absolute Neuts (auto) 5.3 Absolute Nucleated RBC 0.000 Nucleated RBC % 0.0 Sodium 139 Potassium 3.3 L Chloride 103 Carbon Dioxide 26 Anion Gap 10 BUN 76 H Creatinine 5.10 H Estim Creat Clear Calc 11 Estimated GFR 11 L Glucose 112 H Calcium 8.7 Phosphorus 5.4 H Magnesium 2.1 Albumin 3.4 L
--- NOTE | 2024-07-09 18:25 | PC.NURSE ---
This patient, Esequiel Sharma, was received from [facility] on 07/09/24 at 1825. Patient/family oriented to unit policies and routines.
[2024-07-09] MEDS: MELATONIN 5 MG TABLET 10 MG PO (22:10)
[2024-07-10] VITALS (8 sets, daily range): BP systolic 121–139; BP diastolic 54–74; PULSE 63–77; RESP 16–20; TEMP 36.3–36.4; O2SAT 94–99
[2024-07-10 00:28] LABS: Glucose Point of Care 159 mg/dl (65-105)
[2024-07-10] MEDS: ACETAMINOPHEN 500 MG TABLET 1000 MG PO (00:29)
[2024-07-10 06:15] LABS: Albumin Level 3.5 g/dL (3.5-5.1); Anion Gap 10 mmol/L (4-12); Blood Urea Nitrogen 76 mg/dL (9-20); Calcium 8.6 mg/dL (8.4-10.2); Carbon Dioxide 22 mmol/L (22-30); Chloride 105 mmol/L (98-107); Estimated CRCL calculation 12 ml/min; Estimated Glomerular Filt Rate 11; Glucose 118 mg/dL (65-110); Phosphorus 5.3 mg/dL (2.5-4.5); Potassium 3.7 mmol/L (3.4-5.0); Sodium 137 mmol/L (137-145)
[2024-07-10] MEDS: AMIODARONE HCL 200 MG TABLET PO (08:44)
[2024-07-10] MEDS: ASPIRIN 81 MG ENTERIC TABLET PO (08:45)
[2024-07-10] MEDS: CITALOPRAM HYDROBROMIDE 20 MG TABLET PO (08:45)
[2024-07-10] MEDS: CLOPIDOGREL BISULFATE 75 MG TABLET PO (08:45)
[2024-07-10] MEDS: ATORVASTATIN 40 MG TABLET 80 MG PO (08:45)
[2024-07-10] MEDS: FUROSEMIDE INJ 100 MG/10 ML VIAL 80 MG IV PUSH (08:46)
[2024-07-10] MEDS: ISOSORBIDE MONONITRATE 30 MG TAB.ER.24H PO (08:46)
[2024-07-10] MEDS: FINASTERIDE 5 MG TABLET PO (08:46)
--- NOTE | 2024-07-10 10:28 | P.PNNP_ITS ---
Progress Note: A&P Assessment and Plan (1) Stage 5 chronic kidney disease: Code(s): N18.5 - Chronic kidney disease, stage 5 Status: Chronic Assessment and Plan: * Patient has CKD. * Following with Dr. Sommer * His baseline creatinine seems to be around 5 * etiology due to HTN, DM, vascular disease, CHF with associated diuretic therapy, and age-related change * No uremic symptoms and volume status okay * Renal function is stable * Home any time when the hospitalists are ready. (2) Acute exacerbation of CHF (congestive heart failure): Code(s): I50.9 - Heart failure, unspecified Status: Acute Assessment and Plan: * as evidenced by symptoms/findings on admission * suspect due to acute on shrnoic diastilic and systolic heart failure * Doing well. (3) Essential (primary) hypertension: Code(s): I10 - Essential (primary) hypertension Status: Chronic Assessment and Plan: * Systolic ranging from 120s to 140 * On no blood pressure meds currently (4) Anemia: Code(s): D64.9 - Anemia, unspecified Status: Acute Assessment and Plan: * suspect related to underlying CKD * Hemoglobin up and down in the 9 * No current need for LISET (5) Diabetes mellitus with chronic kidney disease: Code(s): E11.22 - Type 2 diabetes mellitus with diabetic chronic kidney disease Status: Chronic Assessment and Plan: * follow accu-cheks * glycemic control per hospitalist Subjective Date/time seen: 07/10/24 10:28 Interval history: Patient feels okay. He ate a good breakfast. Breathing is okay. Swelling is better. Exam Narrative: WDWN in NAD skin no rash or subQ nodules head ncat lungs clear cor reg no rub or gallop abd BS+ nontender and soft ext 1+ bilateral edema. Objective Data Vital Signs Vital Signs: Vital Signs - 24 hr 07/09/24 12:00 07/09/24 13:27 07/09/24 12:00 Temperature 97.5 F L Pulse Rate 70 69 Respiratory Rate 20 Blood Pressure 125/59 L Pulse Oximetry 98 Oxygen Delivery Room Air 07/09/24 14:00 07/09/24 16:00 07/09/24 16:00 Temperature 98.4 F Pulse Rate 67 68 75 Respiratory Rate 16 Blood Pressure 114/57 L Pulse Oximetry 100 Oxygen Delivery 07/09/24 18:40 07/09/24 18:30 07/09/24 20:23 Temperature 97.7 F 98.0 F Pulse Rate 79 78 Respiratory Rate 16 18 Blood Pressure 146/71 H 133/67 Pulse Oximetry 98 95 Oxygen Delivery Room Air 07/10/24 00:20 07/09/24 21:47 07/10/24 00:00 Temperature 97.3 F L Pulse Rate 77 77 Respiratory Rate 16 16 Blood Pressure 139/74 Pulse Oximetry 94 94 Oxygen Delivery Room Air Room Air 07/10/24 04:00 07/10/24 04:45 07/10/24 08:44 Temperature 97.4 F L Pulse Rate 77 71 64 Respiratory Rate 16 20 Blood Pressure 126/56 L Pulse Oximetry 94 98 Oxygen Delivery Room Air 07/10/24 08:00 Temperature 97.6 F Pulse Rate 70 Respiratory Rate 19 Blood Pressure 128/62 Pulse Oximetry 97 Oxygen Delivery Intake/Output Intake/Output: Intake & Output 07/07/24 07/08/24 07/09/24 07/10/24 23:59 23:59 23:59 23:59 Intake Total 2230 630 790 Output Total 2900 825 945 Qqctooe -670 -195 -155 Meds/Results Medications: Active Medications Generic Name Dose Route Start Last Admin Trade Name Freq PRN Reason Stop Dose Admin Acetaminophen 1,000 mg 07/07/24 23:45 07/10/24 00:29 Acetaminophen 500 Mg Tablet PO 1,000 mg Q6H PRN Administration Mild Pain (1-3) or Fever Amiodarone HCl 200 mg 07/08/24 08:00 07/10/24 08:44 Amiodarone Hcl 200 Mg Tablet PO 200 mg DAILY@0800 MARKIE Administration Aspirin 81 mg 07/08/24 09:00 07/10/24 08:45 Aspirin 81 Mg Enteric Tablet PO 81 mg QAM MARKIE Administration Atorvastatin Calcium 80 mg 07/08/24 09:00 07/10/24 08:45 Atorvastatin 40 Mg Tablet PO 80 mg DAILY MARKIE Administration Citalopram Hydrobromide 20 mg 07/08/24 09:00 07/10/24 08:45 Citalopram Hydrobromide 20 Mg Tablet PO 20 mg DAILY MARKIE Administration Clopidogrel Bisulfate 75 mg 07/08/24 09:00 07/10/24 08:45 Clopidogrel Bisulfate 75 Mg Tablet PO 75 mg DAILY MARKIE Administration Finasteride 5 mg 07/08/24 09:00 07/10/24 08:46 Finasteride 5 Mg Tablet PO 5 mg DAILY MARKIE Administration Furosemide 80 mg 07/08/24 09:00 07/10/24 08:46 Furosemide Inj 100 Mg/10 Ml Vial IV PUSH 80 mg BID MARKIE Administration Isosorbide Mononitrate 30 mg 07/08/24 09:00 07/10/24 08:46 Isosorbide Mononitrate 30 Mg Tab.Er.24h PO 30 mg QAM MARKIE Administration Melatonin 10 mg 07/07/24 23:44 07/09/24 22:10 Melatonin 5 Mg Tablet PO 10 mg HS PRN Administration Insomnia Nitroglycerin 0.4 mg 07/07/24 23:44 Nitroglycerin Sl 0.4 Mg Tablet SUBLINGUAL Q5M PRN chest pain Radiology Results: ITS Impressions Chest X-Ray 07/07/24 18:18 IMPRESSION: Mild pulmonary vascular congestion with small right-sided and moderate left- sided pleural effusion. Labs Labs: Laboratory Results - last 24 hr 07/09/24 07/10/24 21:43 05:20 Sodium 137 Potassium 3.7 Chloride 105 Carbon Dioxide 22 Anion Gap 10 BUN 76 H Creatinine 4.90 H Estim Creat Clear Calc 12 Estimated GFR 11 L Glucose 118 H POC Capillary Glucose 159 H Calcium 8.6 Phosphorus 5.3 H Albumin 3.5
--- NOTE | 2024-07-10 12:50 | P.PNCA_ITS ---
Progress Note: A&P Assessment and Plan (1) Cardiomyopathy: Code(s): I42.9 - Cardiomyopathy, unspecified Status: Acute Plan Acute on chronic systolic heart failure currently compensated CKD stage 5 Coronary arteries were admissions with chest pain and the troponin. Patient was deemed not candidate for catheterization because of advanced kidney disease Paroxysmal fibrillation Plan Aspirin Plavix Change Lasix from IV to p.o. 80 mg b.i.d. Follow-up kidney function & electrolytes Subjective Date/time seen: 07/10/24 12:50 Interval history: No acute events Review of Systems Review of Systems: All systems reviewed & are unremarkable except as noted in HPI and below Exam Const: General: comfortable, no acute distress, alert and awake Orientation/consciousness: patient oriented x3 HENMT: Head: normal to inspection Eyes: General: appearance normal, both eyes and all related structures Pupils: Equal, round and reactive pupils present Neck: Neck: normal visual inspection, supple and no JVD Carotids: normal carotid upstroke Resp: Effort & Inspection: normal respiratory effort Auscultation: clear to auscultation bilaterally Cardio: Rate: regular rate Rhythm: regular rhythm Heart sounds: S1 normal heart sound present, S2 normal heart sound present and no murmurs GI: Auscultation: normal bowel sounds Skin: General skin exam: normal color Neuro: General: patient oriented x3 Cranial nerves: Yes Equal, round and reactive pupils present Extrem: General: normal to inspection Other: 2+ bilateral pretibial and pedal pitting edema Psych: Appearance: grossly normal Mental Status: mental status grossly normal Objective Data Vital Signs Vital Signs: Vital Signs - 24 hr 07/09/24 13:27 07/09/24 14:00 07/09/24 16:00 Temperature 36.9 C Pulse Rate 67 68 Respiratory Rate 16 Blood Pressure 114/57 L Pulse Oximetry 100 Oxygen Delivery Room Air 07/09/24 16:00 07/09/24 18:40 07/09/24 18:30 Temperature 36.5 C Pulse Rate 75 79 Respiratory Rate 16 Blood Pressure 146/71 H Pulse Oximetry 98 Oxygen Delivery Room Air 07/09/24 20:23 07/10/24 00:20 07/09/24 21:47 Temperature 36.7 C 36.3 C L Pulse Rate 78 77 Respiratory Rate 18 16 Blood Pressure 133/67 139/74 Pulse Oximetry 95 94 Oxygen Delivery Room Air 07/10/24 00:00 07/10/24 04:00 07/10/24 04:45 Temperature 36.3 C L Pulse Rate 77 77 71 Respiratory Rate 16 16 20 Blood Pressure 126/56 L Pulse Oximetry 94 94 98 Oxygen Delivery Room Air Room Air 07/10/24 08:44 07/10/24 08:00 07/10/24 08:45 Temperature 36.4 C Pulse Rate 64 70 Respiratory Rate 19 Blood Pressure 128/62 Pulse Oximetry 97 Oxygen Delivery Room Air Intake/Output Intake/Output: Intake & Output 07/07/24 07/08/24 07/09/24 07/10/24 23:59 23:59 23:59 23:59 Intake Total 2230 630 1030 Output Total 2909 537 0451 Zrrltlx -266 -649 -143 Meds/Results Medications: Active Medications Generic Name Dose Route Start Last Admin Trade Name Freq PRN Reason Stop Dose Admin Acetaminophen 1,000 mg 07/07/24 23:45 07/10/24 00:29 Acetaminophen 500 Mg Tablet PO 1,000 mg Q6H PRN Administration Mild Pain (1-3) or Fever Amiodarone HCl 200 mg 07/08/24 08:00 07/10/24 08:44 Amiodarone Hcl 200 Mg Tablet PO 200 mg DAILY@0800 MARKIE Administration Aspirin 81 mg 07/08/24 09:00 07/10/24 08:45 Aspirin 81 Mg Enteric Tablet PO 81 mg QAM MARKIE Administration Atorvastatin Calcium 80 mg 07/08/24 09:00 07/10/24 08:45 Atorvastatin 40 Mg Tablet PO 80 mg DAILY MARKIE Administration Citalopram Hydrobromide 20 mg 07/08/24 09:00 07/10/24 08:45 Citalopram Hydrobromide 20 Mg Tablet PO 20 mg DAILY MARKIE Administration Clopidogrel Bisulfate 75 mg 07/08/24 09:00 07/10/24 08:45 Clopidogrel Bisulfate 75 Mg Tablet PO 75 mg DAILY MARKIE Administration Finasteride 5 mg 07/08/24 09:00 07/10/24 08:46 Finasteride 5 Mg Tablet PO 5 mg DAILY MARKIE Administration Furosemide 80 mg 07/08/24 09:00 07/10/24 08:46 Furosemide Inj 100 Mg/10 Ml Vial IV PUSH 80 mg BID MARKIE Administration Isosorbide Mononitrate 30 mg 07/08/24 09:00 07/10/24 08:46 Isosorbide Mononitrate 30 Mg Tab.Er.24h PO 30 mg QAM MARKIE Administration Melatonin 10 mg 07/07/24 23:44 07/09/24 22:10 Melatonin 5 Mg Tablet PO 10 mg HS PRN Administration Insomnia Nitroglycerin 0.4 mg 07/07/24 23:44 Nitroglycerin Sl 0.4 Mg Tablet SUBLINGUAL Q5M PRN chest pain Radiology Results: ITS Impressions Chest X-Ray 07/07/24 18:18 IMPRESSION: Mild pulmonary vascular congestion with small right-sided and moderate left- sided pleural effusion. Labs Labs: Laboratory Results - last 24 hr 07/09/24 07/10/24 21:43 05:20 Sodium 137 Potassium 3.7 Chloride 105 Carbon Dioxide 22 Anion Gap 10 BUN 76 H Creatinine 4.90 H Estim Creat Clear Calc 12 Estimated GFR 11 L Glucose 118 H POC Capillary Glucose 159 H Calcium 8.6 Phosphorus 5.3 H Albumin 3.5
--- NOTE | 2024-07-10 13:11 | P.PNIM_ITS ---
Progress Note: A&P Assessment and Plan (1) Acute exacerbation of CHF (congestive heart failure): Code(s): I50.9 - Heart failure, unspecified Status: Acute Assessment and Plan: Patient presents with SOB. EKG showing sinus rhythm, IVCD, possible inferior infarct and high-lateral ST-T wave changes but no change from prior EKG. Troponin elevated at 0.69 but trending down on repeat. BNP >30K CXR showing mild pulmonary vascular congestion with small right-sided and moderate left-sided pleural effusion. Echo January 2024 showing mild left ventricular enlargement with reduced systolic function (EF 35-40%), Grade I diastolic dysfxn, akinesis of the mid to anteroseptal segments and apex and hypokinesia of the anterior wall. Suspect acute on chronic diastolic and systolic CHF. Doubt CHF related to ischemia. Mildly elevated Trop related to the CHF and renal failure. Lasix IV started. Symptoms better. UOP good. Cr stable. Monitor renal fxn closely. Continue Lasix. (2) Elevated troponin: Code(s): R79.89 - Other specified abnormal findings of blood chemistry Status: Acute Assessment and Plan: As above. EKG showing no acute changes. Troponin already trending down. Cardiology following and appreciate their input (3) Stage 5 chronic kidney disease: Code(s): N18.5 - Chronic kidney disease, stage 5 Status: Chronic Assessment and Plan: Baseline Cr 3-4 range but was 4.8 a few days before admission Cr elevated at 5.1 here. With diuretics, Cr remaining stable. He is close to needing HD. Potassium normal and not acidotic. Monitor UOP, renal fxn and electrolytes. (4) Paroxysmal atrial fibrillation: Code(s): I48.0 - Paroxysmal atrial fibrillation Status: Chronic Assessment and Plan: Patient with pAFib. EKG showing normal sinus. Continue Amiodarone. On Plavix and ASA but not on anticoagulation because of his CKD. (5) Type 2 diabetes mellitus: Qualifiers: Diabetes mellitus residential insulin use: without residential use Diabetes mellitus complication status: with kidney complications Diabetes mellitus complication detail: with chronic kidney disease Chronic kidney disease stage: stage 4 (severe) Qualified Code(s): E11.22 - Type 2 diabetes mellitus with diabetic chronic kidney disease; N18.4 - Chronic kidney disease, stage 4 (severe) Code(s): E11.9 - Type 2 diabetes mellitus without complications Status: Chronic Assessment and Plan: A1c 5.4% in January. The patient's blood glucose was reviewed on 07/10 Glucose remains well controlled. He is diet controlled. Continue to monitor. (6) Peripheral arterial occlusive disease: Code(s): I77.9 - Disorder of arteries and arterioles, unspecified Status: Acute Assessment and Plan: Stable. Continue ASA, plavix and statin therapy (7) Anemia, chronic disease: Code(s): D63.8 - Anemia in other chronic diseases classified elsewhere Status: Acute Assessment and Plan: Hgb low but stable in the 8-9 range. Seibert related to CKD Monitor and transfuse as needed Plan DVT prophylaxis - SCDs Code status - DNR Subjective Date/time seen: 07/10/24 13:11 Interval history: 89yo male with CAD ([place] most recent in January of 2024), anemia, CKD, depression, diabetic peripheral neuropathy, hypertension, pAFib, prostate cancer, and DM here with shortness of breath. Eating well. Slept poorly but not uncommon for him. No orthopnea or PNA. No SOB or HEBERT. +BM. Exam Narrative: AF 97.6 128/62 64 19 97% ra Gen - NARD Chest - distant BS CV - RRR S1/S2 Abd - Soft, NT/ND, Positive BS Ext - 1-2+ bilateral LE edema. Chai hose in place Psych - Nml mood and affect Skin - Warm and dry Objective Data Vital Signs Vital Signs: Vital Signs - 24 hr 07/09/24 13:27 07/09/24 14:00 07/09/24 16:00 Temperature 98.4 F Pulse Rate 67 68 Respiratory Rate 16 Blood Pressure 114/57 L Pulse Oximetry 100 Oxygen Delivery Room Air 07/09/24 16:00 07/09/24 18:40 07/09/24 18:30 Temperature 97.7 F Pulse Rate 75 79 Respiratory Rate 16 Blood Pressure 146/71 H Pulse Oximetry 98 Oxygen Delivery Room Air 07/09/24 20:23 07/10/24 00:20 07/09/24 21:47 Temperature 98.0 F 97.3 F L Pulse Rate 78 77 Respiratory Rate 18 16 Blood Pressure 133/67 139/74 Pulse Oximetry 95 94 Oxygen Delivery Room Air 07/10/24 00:00 07/10/24 04:00 07/10/24 04:45 Temperature 97.4 F L Pulse Rate 77 77 71 Respiratory Rate 16 16 20 Blood Pressure 126/56 L Pulse Oximetry 94 94 98 Oxygen Delivery Room Air Room Air 07/10/24 08:44 07/10/24 08:00 07/10/24 08:45 Temperature 97.6 F Pulse Rate 64 70 Respiratory Rate 19 Blood Pressure 128/62 Pulse Oximetry 97 Oxygen Delivery Room Air Intake/Output Intake/Output: Intake & Output 07/07/24 07/08/24 07/09/24 07/10/24 23:59 23:59 23:59 23:59 Intake Total 2230 630 1030 Output Total 2900 825 1693 Qnmqruz -411 -715 -643 Meds/Results Medications: Active Medications Generic Name Dose Route Start Last Admin Trade Name Freq PRN Reason Stop Dose Admin Acetaminophen 1,000 mg 07/07/24 23:45 07/10/24 00:29 Acetaminophen 500 Mg Tablet PO 1,000 mg Q6H PRN Administration Mild Pain (1-3) or Fever Amiodarone HCl 200 mg 07/08/24 08:00 07/10/24 08:44 Amiodarone Hcl 200 Mg Tablet PO 200 mg DAILY@0800 MARKIE Administration Aspirin 81 mg 07/08/24 09:00 07/10/24 08:45 Aspirin 81 Mg Enteric Tablet PO 81 mg QAM MARKIE Administration Atorvastatin Calcium 80 mg 07/08/24 09:00 07/10/24 08:45 Atorvastatin 40 Mg Tablet PO 80 mg DAILY MARKIE Administration Citalopram Hydrobromide 20 mg 07/08/24 09:00 07/10/24 08:45 Citalopram Hydrobromide 20 Mg Tablet PO 20 mg DAILY MARKIE Administration Clopidogrel Bisulfate 75 mg 07/08/24 09:00 07/10/24 08:45 Clopidogrel Bisulfate 75 Mg Tablet PO 75 mg DAILY MARKIE Administration Finasteride 5 mg 07/08/24 09:00 07/10/24 08:46 Finasteride 5 Mg Tablet PO 5 mg DAILY MARKIE Administration Furosemide 80 mg 07/10/24 17:00 Furosemide 80 Mg Tablet PO BID MARKIE Isosorbide Mononitrate 30 mg 07/08/24 09:00 07/10/24 08:46 Isosorbide Mononitrate 30 Mg Tab.Er.24h PO 30 mg QAM MARKIE Administration Melatonin 10 mg 07/07/24 23:44 07/09/24 22:10 Melatonin 5 Mg Tablet PO 10 mg HS PRN Administration Insomnia Nitroglycerin 0.4 mg 07/07/24 23:44 Nitroglycerin Sl 0.4 Mg Tablet SUBLINGUAL Q5M PRN chest pain Radiology Results: ITS Impressions Chest X-Ray 07/07/24 18:18 IMPRESSION: Mild pulmonary vascular congestion with small right-sided and moderate left- sided pleural effusion. Labs Labs: Laboratory Results - last 24 hr 07/09/24 07/10/24 21:43 05:20 Sodium 137 Potassium 3.7 Chloride 105 Carbon Dioxide 22 Anion Gap 10 BUN 76 H Creatinine 4.90 H Estim Creat Clear Calc 12 Estimated GFR 11 L Glucose 118 H POC Capillary Glucose 159 H Calcium 8.6 Phosphorus 5.3 H Albumin 3.5
--- NOTE | 2024-07-10 14:18 | PM.DS ---
DS: Admitting Diagnosis Discharge Date 07/10/24 Admitting Diagnosis Shortness of breath DS: Discharge Diagnosis Discharge Diagnosis (1) Acute exacerbation of CHF (congestive heart failure): Code(s): I50.9 - Heart failure, unspecified Status: Acute (2) Elevated troponin: Code(s): R79.89 - Other specified abnormal findings of blood chemistry Status: Acute (3) Stage 5 chronic kidney disease: Code(s): N18.5 - Chronic kidney disease, stage 5 Status: Chronic (4) Paroxysmal atrial fibrillation: Code(s): I48.0 - Paroxysmal atrial fibrillation Status: Chronic (5) Type 2 diabetes mellitus: Qualifiers: Diabetes mellitus care home insulin use: without care home use Diabetes mellitus complication status: with kidney complications Diabetes mellitus complication detail: with chronic kidney disease Chronic kidney disease stage: stage 4 (severe) Qualified Code(s): E11.22 - Type 2 diabetes mellitus with diabetic chronic kidney disease; N18.4 - Chronic kidney disease, stage 4 (severe) Code(s): E11.9 - Type 2 diabetes mellitus without complications Status: Chronic (6) Peripheral arterial occlusive disease: Code(s): I77.9 - Disorder of arteries and arterioles, unspecified Status: Acute (7) Anemia, chronic disease: Code(s): D63.8 - Anemia in other chronic diseases classified elsewhere Status: Acute DS: Summary Hospital Course Reason for hospitalization: 89yo male with CAD ([facility] most recent in January of 2024), anemia, CKD, depression, diabetic peripheral neuropathy, hypertension, pAFib, prostate cancer, and DM here with shortness of breath. Please see H&P for details. Hospital Course: Patient presents with SOB. EKG showing sinus rhythm, IVCD, possible inferior infarct and high-lateral ST-T wave changes but no change from prior EKG. Troponin elevated at 0.69 but trending down on repeat. BNP >30K. CXR showing mild pulmonary vascular congestion with small right-sided and moderate left-sided pleural effusion. Echo January 2024 showing mild left ventricular enlargement with reduced systolic function (EF 35-40%), Grade I diastolic dysfxn, akinesis of the mid to anteroseptal segments and apex and hypokinesia of the anterior wall. Suspect acute on chronic diastolic and systolic CHF. Doubt CHF exacerbation is related to ischemia. Mildly elevated Trop related to the CHF and renal failure. Lasix IV started. Symptoms improved with good UOP and stable Cr. Cardiology followed and appreciate their input. Metoprolol was stopped last month for dizziness, hypotension and bradycardia. Unable to take Entresto, Spironolactone or Empagliflozin since he has CKD. Baseline Cr 3-4 range but was 4.8 a few days before admission. Cr elevated at 5.1 here. With diuretics, Cr remaining stable. Nephrology followed and appreciate their input. Patient with pAFib. EKG showing normal sinus. We continued Amiodarone. On Plavix and ASA but not on anticoagulation because of his CKD. He overall did well and was able to be discharged home on 07/10/24. Status at Discharge Cognitive/behavioral status at discharge: stable Time Spent with Patient Time attestation: Total time spent providing and/or coordinating discharge services: 35 minutes Time spent: Greater than 30 minutes Exam Narrative: AF 97.6 128/62 64 19 97% ra Gen - NARD Chest - distant BS CV - RRR S1/S2 Abd - Soft, NT/ND, Positive BS Ext - 1-2+ bilateral LE edema. Chai hose in place Psych - Nml mood and affect Skin - Warm and dry DS: Data Data Completed and Pending Labs on day of discharge: Labs from last 24 hours 07/10/24 07/09/24 05:20 21:43 Sodium 137 Potassium 3.7 Chloride 105 Carbon Dioxide 22 Anion Gap 10 BUN 76 H Creatinine 4.90 H Estim Creat Clear Calc 12 Estimated GFR 11 L Glucose 118 H POC Capillary Glucose 159 H Calcium 8.6 Phosphorus 5.3 H Albumin 3.5 Discharge Plan Discharge Attending physician on discharge: Daniele Celeste Consulting providers: Gage Merida; Armani Abreu Discharging Clinician: Daniele Celeste Anticipated Discharge Date/Time: 07/10/24 14:29 Patient Disposition: Home, Self-Care Activity: as tolerated Diet: heart healthy Discharge Instructions: Check blood pressure 1 to 2 times a day. Record and bring into your doctor for review. Call your doctor if your blood pressure is greater than 180/110. Take precautions to avoid falls. Rise slowly from a lying or sitting position. Pause before standing or walking. Check daily morning weights after voiding. Call your doctor if you gain more than 3 lb in 2 days or 5 lb in 1 week. Contact your doctor or call 911 and come to the Emergency Room if you have lightheadedness with standing or other worrisome symptoms. Avoid NSAIDs (ibuprofen, naproxen, Aleve). Tylenol is safe to take. Follow-up with your primary care provider in 1-2 weeks. Please call for appointment. Follow-up with your kidney doctor in 2-3 weeks. Please call for appointment. Follow-up with your heart doctor in 3-4 weeks. Please call for appointment. Thank you for using [facility] for your health care needs. Patient Instructions: Antibiotic Form, Heart Failure (GEN) Stand Alone Forms: General Discharge Information Follow-up/Referrals: Stefanie Hernández NP [Primary Care Provider] - Call for Appointment Armani Abreu MD [Physician] - Call for Appointment Discharge Medications: New furosemide 80 mg Tablet 80 mg PO BID Qty: 60 2RF Continued flaxseed oil 1,000 mg capsule 1,000 mg PO DAILY Rx Instructions: administer with a meal cholecalciferol (vitamin D3) 125 mcg (5,000 unit) capsule 50 mcg PO DAILY isosorbide mononitrate 30 mg tablet extended release 24 hr 30 mg PO QAM Qty: 90 3RF amiodarone [Pacerone] 200 mg tablet 200 mg PO DAILY@0800 nitroglycerin 0.4 mg tablet, sublingual 0.4 mg sublingual Q5M PRN (Reason: chest pain) Qty: 30 4RF Rx Instructions: do not exceed 3 doses per episode atorvastatin 80 mg tablet 80 mg PO DAILY clopidogrel 75 mg tablet 75 mg PO DAILY Hold Instructions: Resume on 04/16/24. finasteride 5 mg tablet 5 mg PO DAILY aspirin 81 mg Tablet,Delayed Release (Dr/Ec) 81 mg PO QAM Qty: 30 0RF Hold Instructions: Resume on 04/15/24. melatonin 10 mg Tablet 10 mg PO HS PRN (Reason: Insomnia) citalopram 20 mg tablet 20 mg PO DAILY Qty: 90 3RF calcitriol 0.25 mcg capsule 0.25 mcg PO DAILY Discontinued furosemide 80 mg Tablet 80 mg PO DAILY Qty: 30 0RF Other Ambulatory Orders: Renal Function Panel (Routine) Timeframe: 1 Week Location: Determined by Patient Ordered By: Daniele Celeste Date of admission: 07/09/24 13:50 Primary Care Provider: Stefanie Hernández Admitting Provider: Daniele Celeste Attending physician on admission: Daniele Celeste Condition: Stable Hospitalist MIPS Heart Failure (Exclusion) Patient has history of Heart Transplant or Left Ventricular Assistive Device?: No IF YES, STOP HERE Heart Failure (Qualifier) Patient has current or prior documentation of LVEF less than or equal to 40%, or mod/servere depressed LVSF?: Yes IF NO, STOP HERE If Yes, Heart Failure (Qualifier) Patient was prescribed or already taking an Angiotensin-Converting Enzyme (SALEEM) Inhibitor, or Antiotensin Receptor Rey (ARB): No Patient was prescribed or already taking bisoprolol, carvedilol, or sustained release metoprolol succinate: No If Medications not prescribed/taking Reason patient not prescribed/taking SALEEM or ARB: Medical reasons: allergy, intolerance, contraindication or other Reason patient not prescribed/taking bisoprolol, carvedilol, or sustained realease metoprolol succinate: Medical reasons: allergy, intolerance, contraindication or other
== END 2024-07-10 16:43 | disposition home or self-care (01) | DRG 291 ==
LOC: ANHED 18:21 → ANHIMU 07-08 03:15 → ANH2MED 07-09 18:33
PROVIDERS: Internal Medicine Nephrology; Admitting Provider Internal Medicine; Emergency Provider Emergency Medicine; PCP Nurse Practitioner Family; Visit Provider Internal Medicine
DX: I13.2 Hypertensive heart and chronic kidney disease with heart failure and with stage 5 chronic kidney disease, or end stage renal disease (principal); I50.43 Acute on chronic combined systolic (congestive) and diastolic (congestive) heart failure; N18.5 Chronic kidney disease, stage 5; E11.22 Type 2 diabetes mellitus with diabetic chronic kidney disease; E11.42 Type 2 diabetes mellitus with diabetic polyneuropathy; I25.10 Atherosclerotic heart disease of native coronary artery without angina pectoris; D63.1 Anemia in chronic kidney disease; M17.0 Bilateral primary osteoarthritis of knee; I42.9 Cardiomyopathy, unspecified; I77.9 Disorder of arteries and arterioles, unspecified; I48.0 Paroxysmal atrial fibrillation; I25.2 Old myocardial infarction; Z85.46 Personal history of malignant neoplasm of prostate; Z90.49 Acquired absence of other specified parts of digestive tract; Z98.49 Cataract extraction status, unspecified eye; Z66 Do not resuscitate
CPT/HCPCS: 36415; 71045; 80053; 80069; 82948; 83735; 83880; 84484; 85025; 93005; 96374; 96376; 97162; 97165; 99285; A9270; G0378; J1940

== ENCOUNTER 2024-07-14 09:12 | Emergency (ER) | payer MEDICARE, SELFPAY ==
[2024-07-14] VITALS (24 sets, daily range): BP systolic 97–163; BP diastolic 55–111; PULSE 69–77; RESP 14–24; TEMP 36.4–36.9; O2SAT 93–100
--- NOTE | ~2024-07-14 | XR_ITS ---
EXAMINATION: XR chest 2V DATE: 07/14/2024 09:45 INDICATION: Shortness of breath. Bilateral lower limb swelling. TECHNIQUE: frontal and lateral views of the chest were obtained. COMPARISON: Chest radiograph dated 07/07/2024 FINDINGS: Interstitial and airspace opacities in bilateral lower lung zones. Small bilateral pleural effusions. No pneumothorax. Cardiomegaly. Moderate degenerative skeletal changes in the spine and at both shoul ders. Small globular with amorphous calcific location at the right subacromial space suggestive of ca lcific tendinitis. Suture anchors at the right humeral head consistent with prior rotator cuff repair . IMPRESSION: 1. Interstitial and airspace opacities in bilateral lower lung zones which could represent mild pulmo nary edema, pneumonia, atelectasis or some combination thereof. 2. Small bilateral pleural effusions. 3. Cardiomegaly. Reviewed, dictated and finalized at location B. BODY REPAIR TEACHER IMPRESSION: 1. Interstitial and airspace opacities in bilateral lower lung zones which coul d represent mild pulmonary edema, pneumonia, atelectasis or some combination th ereof. 2. Small bilateral pleural effusions. 3. Cardiomegaly.
--- NOTE | 2024-07-14 09:18 | ECG_ITS ---
Test Date: 2024-07-14 09:21:38 Measurements Intervals [place] Rate: 76 P: 21 MI: 173 QRS: 9 QRSD: 138 T: 134 QT: 409 QTc: 463 Interpretive Statements SINUS RHYTHM POSSIBLE LEFT ATRIAL ENLARGEMENT INTRAVENTRICULAR CONDUCTION DELAY POSSIBLE ANTERIOR MYOCARDIAL INFARCTION , OF INDETERMINATE AGE CONSIDER INFERIOR INFARCT, AGE INDETERMINATE ST-T WAVE ABNORMALITY IN HIGH LATERAL LEADS- CONSIDER ISCHEMIA BASELINE ARTIFACT- I, II, III, AVR, AVL, AVF, V1-V6 ABNORMAL ECG Compared to ECG 07/07/2024 20:11:07 NO SIGNIFICANT CHANGE Electronically Signed On 07-14-2024 11:52:43 MEMBERSHIP COUNSELOR by Adrien Singh D.O.
--- NOTE | 2024-07-14 09:44 | ED_ITS ---
HPI - SOB/Dyspnea General Chief Complaint: Shortness of Breath/Dyspnea Stated Complaint: SOB Time Seen by Provider: 07/14/24 09:42 Source: patient Mode of arrival: ambulatory Limitations: no limitations History of Present Illness HPI Narrative: Patient presents with shortness of breath although mostly only with lying flat. He is on a diuretic and takes his 80 mg of Lasix b.i.d.. He has had a 5 lb weight gain in the past 2 days. No fevers. He denies any cough he feels like he can not clear his throat. No chest pain. Related Data Home Medications Medication Instructions Recorded Confirmed cholecalciferol (vitamin D3) 125 50 mcg PO DAILY 10/26/23 07/07/24 mcg (5,000 unit) capsule flaxseed oil 1,000 mg capsule 1,000 mg PO DAILY 10/26/23 07/07/24 atorvastatin 80 mg tablet 80 mg PO DAILY 02/06/24 07/07/24 clopidogrel 75 mg tablet 75 mg PO DAILY 02/06/24 07/07/24 finasteride 5 mg tablet 5 mg PO DAILY 02/06/24 07/07/24 amiodarone 200 mg tablet (Pacerone) 200 mg PO DAILY@0800 04/12/24 07/07/24 calcitriol 0.25 mcg capsule 0.25 mcg PO DAILY 06/01/24 07/07/24 melatonin 10 mg tablet 10 mg PO HS PRN Insomnia 07/07/24 07/07/24 Allergies Allergy/AdvReac Type Severity Reaction Status Date / Time SALEEM Inhibitors Allergy Intermediate swelling Verified 07/14/24 09:22 of tongue Cephalosporins Allergy Intermediate swelling Verified 07/14/24 09:22 of tongue quinapril Allergy Intermediate Swelling Verified 07/14/24 09:22 of Lip/Tongue/Throat PMFSH Past Medical History Medical History Acute exacerbation of congestive heart failure Acute hypoxic respiratory failure Acute respiratory failure with hypoxia Anemia in chronic kidney disease BMI 29.0-29.9,adult CAD (coronary artery disease) Chronic kidney disease, stage 4 (severe) Degenerative arthritis of knee, bilateral Depression Diabetic peripheral neuropathy Elevated PSA Elevated troponin Essential (primary) hypertension Nasal sinus polyp Non-ST elevation RI (NSTEMI) Osteoarthritis of left knee Paroxysmal atrial fibrillation Prostate cancer 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 chronic kidney disease Type 2 diabetes mellitus Urge incontinence of urine Surgical History Surgical History History of appendectomy History of cataract extraction History of repair of rotator cuff History of tonsillectomy and adenoidectomy Family History Family History Father Family history of osteoarthritis Cerebrovascular accident Patient's father is in good health Mother Family history of malignant neoplasm, Onset Age: 59 Patient's mother is in good health Sibling Family history of malignant neoplasm Family history of arthritis Social History Social History Social History: Surrogate medical decision maker: Stephany Daigle. Code status: Do not resuscitate. Smoking status: Never smoker Second hand tobacco smoke exposure: No Alcohol intake: never Substance use: never Substance use type: does not use Do You Feel Safe in your Home?: Yes Lack of Transportation: No Lack of Food: Never True Current Housing: I Have Housing Concerned About Future Housing: No Difficulty Paying Gas/Electric Bills: No Difficulty Paying for Meds: No Currently Unemployed: No Education: Trade/Vocational Certificate Difficulty w/ Childcare or Family Care: No Living arrangements: alone Occupation/Education: retired Spiritual care concerns: No Exam Narrative: GENERAL: Well-appearing, well-nourished, and in no acute distress. HEAD: Normocephalic, atraumatic. EYES: Non injected, non icteric ENT: Nares clear, no rhinorrhea or epistaxis. NECK: Supple. CHEST: Speaking in full sentences. No respiratory distress. Bibasilar crackles. Not tachypneic or using accessory muscles though he is seated upright. HEART: Regular rate and rhythm. . ABDOMEN: Soft, nondistended. EXTREMITIES: Normal range of motion. 3+ bilateral lower extremity edema at the tibia, 2+ at the distal thighs. SKIN: Warm, dry. NEURO: No focal deficits. Alert and oriented x3. PSYCH: Normal mood and affect. Course Vital Signs Vital signs: Vital Signs Temperature 97.6 F 07/14/24 09:19 Pulse Rate 77 07/14/24 09:19 Respiratory Rate 17 07/14/24 09:19 Blood Pressure 134/66 11/14/24 09:19 Pulse Oximetry 99 07/14/24 09:19 Oxygen Delivery Room Air 07/14/24 09:19 Temperature 98.5 F 07/14/24 15:34 Pulse Rate 72 07/14/24 15:34 Respiratory Rate 22 H 07/14/24 15:34 Blood Pressure 163/89 H 07/14/24 15:34 Pulse Oximetry 95 07/14/24 15:34 Oxygen Delivery Room Air 07/14/24 09:42 MDM - SOB/Dyspnea MDM Narrative Medical decision making narrative: Patient presents with shortness of breath and in particular orthopnea. He has a history of heart failure as as late stage chronic kidney disease and has had 5 lb making past 2 days. He has been taking his diuretic which is 80 mg b.i.d. of furosemide. In the emergency department they are afebrile with vital signs within normal limits. Creatinine consistent with his known advanced CKD. Patient has an elevated troponin however it is chronically elevated And he is without chest pain. BNP is elevated as it has been numerous times, >30,000. Patient given 80 mg IV furosemide. Advocated for admission and discussed this with on-call hospitalist VALERIE Yeager given his current regimen is not working. She reviewed his recent admission and discharge summary and discussed it with the hospitalist team. She subsequently discussed with cardiology POLICE LIEUTENANT Erika Farris who felt like, if this patient were in clinic, would not necessarily recommend going to the ED or being admitted but did advise changing his diuretic to 2mg Bumex BID and following up with a repeat BMP next week. Discussed this with patient who verifies understanding. Advised him to stop taking his furosemide and start this medication instead. He states his child and youth program assistant is Dr. Styles; has an appointment with tram operator Dr. Zarate on the . A lab order for repeat BMP is provided with the results to be CC'd to Dr Styles since Dr Braun not in the EMR. He is otherwise stable for discharge But is given strict emergency department return precautions. Differential Diagnosis Differential diagnosis: Likely congestive heart failure and community acquired pneumonia Lab Data Attestation: I reviewed the patient's lab results. 07/14/24 09:43 07/14/24 09:43 Labs: Lab Results 07/14/24 Range/Units 09:43 WBC 9.6 (4.5-10.0) K/mm3 RBC 3.43 L (4.6-6.20) M/mm3 Hgb 9.6 L (14.0-18.0) g/dL Hct 31.5 L (42.0-52.0) % MCV 91.8 (80-100) fl MCH 28.0 (26-34) pg MCHC 30.5 L (32-36) g/dl RDW 14.7 H (11.5-14.5) % Plt Count 244 (150-375) k/mm3 MPV 11.0 H (7.4-10.4) fl Immature Gran % (Auto) 0.4 (0-0.5) % Neut % (Auto) 74.5 H (45.5-73.1) % Lymph % (Auto) 10.4 L (18.3-44.2) % [place] % (Auto) 13.9 H (2.6-8.5) % Eos % (Auto) 0.4 (0-4.4) % Baso % (Auto) 0.4 (0.2-1.2) % Lymph # (Auto) 0.99 (0.9-3.2) K/mm3 [place] # (Auto) 1.3 H (0.1-0.6) K/mm3 Eos # (Auto) 0.0 (0-0.3) K/mm3 Baso # (Auto) 0.0 (0.0-0.1) K/mm3 Abs Immat Gran (auto) 0.04 H (0.00-0.031) K/mm3 Absolute Neuts (auto) 7.1 H (1.3-6.7) K/mm3 Absolute Nucleated RBC 0.000 (0.0-0.012) K/mm3 Nucleated RBC % 0.0 (0.0-0.2) % Sodium 137 (137-145) mmol/L Potassium 3.7 (3.4-5.0) mmol/L Chloride 99 (98-107) mmol/L Carbon Dioxide 26 (22-30) mmol/L Anion Gap 12 (4-12) mmol/L BUN 77 H (9-20) mg/dL Creatinine 5.00 H (0.7-1.3) mg/dL Estim Creat Clear Calc 12 ml/min Estimated GFR 11 L (59 - ) Glucose 114 H (65-110) mg/dL Calcium 8.7 (8.4-10.2) mg/dL Total Bilirubin 0.6 (0.2-1.3) mg/dL AST 49 (17-59) U/L ALT 31 (6-50) U/L Alkaline Phosphatase 93 (38-126) U/L Troponin I 0.644 H* (0.000-0.034) ng/mL NT-Pro-B Natriuret Pep > 81803 H (19.9-100) pg/mL Total Protein 7.0 (6.3-8.2) g/dL Albumin 3.5 (3.5-5.1) g/dL Imaging Data Radiologist's impression: Impressions Chest X-Ray 07/14/24 09:46 IMPRESSION: 1. Interstitial and airspace opacities in bilateral lower lung zones which could represent mild pulmonary edema, pneumonia, atelectasis or some combination thereof. 2. Small bilateral pleural effusions. 3. Cardiomegaly. ECG Data EKG #1: Attestation: I personally reviewed and interpreted this ECG as follows: ECG completion date: 07/14/24 ECG completion time: 09:21 Prior ECG tracings: available for review ( 07/07/2024 has similar findings in V2 and V3) Interpretation: Normal sinus rhythm at a rate of 76 beats per minute. NH interval 173. QRS 138. QT/QTC 409/440. There was questionable elevation in 2 QRS complexes in V2 and V3. good R-wave progression across the precordial leads. Discharge Plan Discharge Clinical Impression: CHF exacerbation, Normocytic anemia, CKD (chronic kidney disease), Troponin level elevated Patient Disposition: Home, Self-Care Condition: Stable Instructions: Antibiotic Form, Heart Failure (DC), Chronic Kidney Disease (ED), Chronic Kidney Disease Diet (DC), Leg Edema (ED), Low-Sodium Diet (ED), Anemia (ED) Additional Instructions: As we discussed, you are to stop taking your furosemide /Lasix and start taking the new diuretic/ water pill. Follow-up with a repeat lab check. keep your upcoming appointment with your tram operator, Dr Braun. return to the emergency department with any new or worsening symptoms. Prescriptions: New bumetanide 2 mg tablet 2 mg PO BID Qty: 30 0RF No Action flaxseed oil 1,000 mg capsule 1,000 mg PO DAILY Rx Instructions: administer with a meal cholecalciferol (vitamin D3) 125 mcg (5,000 unit) capsule 50 mcg PO DAILY isosorbide mononitrate 30 mg tablet extended release 24 hr 30 mg PO QAM Qty: 90 3RF amiodarone [Pacerone] 200 mg tablet 200 mg PO DAILY@0800 nitroglycerin 0.4 mg tablet, sublingual 0.4 mg sublingual Q5M PRN (Reason: chest pain) Qty: 30 4RF Rx Instructions: do not exceed 3 doses per episode atorvastatin 80 mg tablet 80 mg PO DAILY clopidogrel 75 mg tablet 75 mg PO DAILY Hold Instructions: Resume on 04/16/24. finasteride 5 mg tablet 5 mg PO DAILY aspirin 81 mg Tablet,Delayed Release (Dr/Ec) 81 mg PO QAM Qty: 30 0RF Hold Instructions: Resume on 04/15/24. melatonin 10 mg Tablet 10 mg PO HS PRN (Reason: Insomnia) furosemide 80 mg Tablet 80 mg PO BID Qty: 60 2RF citalopram 20 mg tablet 20 mg PO DAILY Qty: 90 3RF calcitriol 0.25 mcg capsule 0.25 mcg PO DAILY Other Ambulatory Orders: Basic Metabolic Panel (Routine) Timeframe: 20240718 Location: Determined by Patient Ordered By: Annemarie Willoughby Follow-up/Referrals: Singh Styles MD [Physician] - (cardiology) Stefanie Hernández NP [Primary Care Provider] - Time of Disposition: 14:47
[2024-07-14 09:57] LABS: Basophils Percent Auto 0.4 % (0.2-1.2); Eosinophils Percent Auto 0.4 % (0-4.4); Hematocrit 31.5 % (42.0-52.0); Hemoglobin 9.6 g/dL (14.0-18.0); Immature Granulocyte Absolute 0.04 K/mm3 (0.00-0.031); Immature Granulocyte Percent A 0.4 % (0-0.5); Lymphocytes Absolute Auto 0.99 K/mm3 (0.9-3.2); Lymphocytes Percent Auto 10.4 % (18.3-44.2); Mean Corpuscular HGB Conc 30.5 g/dl (32-36); Mean Corpuscular Volume 91.8 fl (80-100); Monocytes Absolute Auto 1.3 K/mm3 (0.1-0.6); Monocytes Percent Auto 13.9 % (2.6-8.5); Neutrophils Absolute Auto 7.1 K/mm3 (1.3-6.7); Neutrophils Percent Auto 74.5 % (45.5-73.1); Platelet Count Result 244 k/mm3 (150-375); Red Blood Count 3.43 M/mm3 (4.6-6.20); Red Cell Distribution Width 14.7 % (11.5-14.5); White Blood Count 9.6 K/mm3 (4.5-10.0)
[2024-07-14 10:25] LABS: Alanine Aminotransferase 31 U/L (6-50); Albumin Level 3.5 g/dL (3.5-5.1); Alkaline Phosphatase 93 U/L (38-126); Anion Gap 12 mmol/L (4-12); Aspartate Amino Transferase 49 U/L (17-59); Bilirubin,Total 0.6 mg/dL (0.2-1.3); Blood Urea Nitrogen 77 mg/dL (9-20); Calcium 8.7 mg/dL (8.4-10.2); Carbon Dioxide 26 mmol/L (22-30); Chloride 99 mmol/L (98-107); Estimated CRCL calculation 12 ml/min; Estimated Glomerular Filt Rate 11; Glucose 114 mg/dL (65-110); Potassium 3.7 mmol/L (3.4-5.0); Sodium 137 mmol/L (137-145)
[2024-07-14 10:36] LABS: NT Pro B Type Natriuretic Pept > 30000 pg/mL (19.9-100)
[2024-07-14] MEDS: FUROSEMIDE INJ 100 MG/10 ML VIAL 80 MG IV PUSH (11:28)
[2024-07-14 13:39] LABS: Troponin I 0.644 ng/mL (0.000-0.034)
== END 2024-07-14 15:42 | disposition home or self-care (01) ==
PROVIDERS: Emergency Provider Student in an Organized Health Care Education/Training Program; PCP Nurse Practitioner Family
DX: I50.9 Heart failure, unspecified (principal); D64.9 Anemia, unspecified; N18.5 Chronic kidney disease, stage 5; I25.10 Atherosclerotic heart disease of native coronary artery without angina pectoris; R79.89 Other specified abnormal findings of blood chemistry; I48.0 Paroxysmal atrial fibrillation; Z85.46 Personal history of malignant neoplasm of prostate; E11.22 Type 2 diabetes mellitus with diabetic chronic kidney disease; I13.2 Hypertensive heart and chronic kidney disease with heart failure and with stage 5 chronic kidney disease, or end stage renal disease
CPT/HCPCS: 36415; 71046; 80053; 83880; 84484; 85025; 93005; 96374; 99284; J1940